=== PATIENT | male | born 1950 | race Caucasian/White ===

== ENCOUNTER 2018-03-27 10:17 | Observation (INO) | payer MEDICARE, OTHER, SELFPAY ==
[2018-03-27] VITALS (11 sets, daily range): BP systolic 116–169; BP diastolic 70–104; PULSE 75–106; RESP 14–20; TEMP 36.4–37; O2SAT 94–98; BMI 33.2; BMI 31.6
[2018-03-27 10:26] LABS: Bedside Glucose 180 mg/dL (70-110)
--- NOTE | 2018-03-27 10:36 | RAD_ITS ---
STUDY: X-RAY CHEST REASON FOR EXAM: Male, 67 years old. Seizures, fever TECHNIQUE: Single AP portable view of the chest. COMPARISON: 07/26/2017 FINDINGS: EKG leads overlie the chest The lungs are clear and expanded. There is no demonstrated pleural abnormality. Normal size heart. Normal mediastinum and clementina. Normal visualized pulmonary arteries. Normal visualized aortic arch and descending thoracic aorta. Normal visualized thoracic spine. Normal visualized ribs, clavicles, and shoulders. There is no demonstrated abnormality of the visualized soft tissue structures of the upper abdomen. RAD/Chest 1 View (Portable) IMPRESSION: Normal x-ray examination of the chest. Electronically Signed: Tung Hamilton MD at 11:20 EDT , Service support ,
--- NOTE | 2018-03-27 10:36 | CT_ITS ---
STUDY: CT BRAIN WITHOUT CONTRAST REASON FOR EXAM: Male, 67 years old. History of seizure and left leg weakness. RADIATION DOSAGE (If Supplied By Facility): CTDIvol = ( 44.99 ) mGy, DLP = ( 829.85 ) mGycm TECHNIQUE: Transaxial CT imaging of the brain was performed without administration of intravenous contrast material. Individualized dose optimization techniques were used for this CT. COMPARISON: 11/02/2016. FINDINGS: Normal soft tissue structures. Normal calvarium. There is mild cerebral atrophy with widening of the extra-axial spaces and ventricular dilatation. There is a low-density lesion in the right temporoparietal region associated with mild dilatation of the right lateral ventricle consistent with old infarct. Normal basal ganglia and thalami. Normal brainstem. Normal cerebellum. There is no intracranial hemorrhage. There are no findings of an acute ischemic infarction. Normal visualized paranasal sinuses. CT/Brain/Head without Contrast IMPRESSION: Old right temporoparietal infarct. No acute intracranial process. If symptoms persist, MRI of the brain is recommended. Electronically Signed: Elpidio Knapp MD at 12:45 EDT Tel , Service support ,
--- NOTE | 2018-03-27 10:36 | EKG12_ITS ---
Test Reason : CHEST PAIN Blood Pressure : / mmHG Vent. Rate : 108 BPM Atrial Rate : 108 BPM P-R Int : 138 ms QRS Dur : 074 ms QT Int : 334 ms P-R-T Axes : 054 014 035 degrees QTc Int : 447 ms Sinus tachycardia Otherwise normal ECG Confirmed by SONU ANDERSON, GLADIS ([id number]), assistant film editor JUSTIN COATES ([id number] on 03/29/2018 3:15:33 PM Referred By: JALEN/ANTONINA Confirmed By:GLADIS ASCENCIO MD
[2018-03-27 10:48] LABS: Absolute Lymphocyte Count 1.23 X10^3/ul (0.83-4.51); Absolute Neutrophil Count 6.4 X10^3/uL (2.0-7.7); Basophil# 0.03 X10^3/uL; Basophil% 0.4 % (0-1); Eosinophil# 0.08 X10^3/uL; Eosinophils% 0.9 % (0-5); Hematocrit 47.4 % (40-54); Lymphocyte # 1.23 X10^3/ul (4.0); Lymphocyte % 14.5 % (19-41); Mean Corp Hgb Conc 33.8 g/gl (32-36); Mean Corpuscular Hgb 29.5 pg (27.0-32.0); Mean Corpuscular Volume 87.3 fL (80-94); Mean Platelet Vol. 9.9 fl (6.2-12.0); Monocyte# 0.66 X10^3/uL; Monocyte% 7.8 % (0-10); Neutrophil # 6.43 X10^3/uL (2.7-7.7); POSITIVE COUNT NO; POSITIVE DIFFERENTIAL NO; POSITIVE MORPHOLOGY NO; Platelet Count 131 K/mm3 (150-450); RBC Distribution Width CV 13.6 % (11.6-14.6); Red Blood Count 5.43 M/mm3 (4.6-6.2); White Blood Count 8.5 K/mm3 (4.4-11.0)
[2018-03-27 11:01] LABS: Anion Gap 5 (5-15); BUN 26 mg/dL (7-18); BUN/Creat Ratio 18.4 RATIO (10-20); Calcium,Total 9.2 mg/dL (8.5-10.1); Chloride 109 mmol/L (98-107); Creatinine, Serum 1.41 mg/dL (0.70-1.30); EST Glomerular Filtration Rate 54 mL/min (>60); Est Glom Filt Rate - Afr Amer 65 mL/min (>60); Estimated Creatinine Clearance 53.93 ml/min; Glucose 160 mg/dL (74-106); Potassium 4.1 mmol/L (3.5-5.1); Sodium Level 142 mmol/L (136-145)
[2018-03-27] MEDS: LORazepam 2 MG/ML Syringe 1 MG IV ×2 (11:01→15:51)
--- NOTE | 2018-03-27 13:46 | NURSING ---
PCU OBS LT LEG WEAKNESS, OSSIBLE SEIZURE SEMENTI
--- NOTE | 2018-03-27 14:49 | MRI_ITS ---
STUDY: MRA OF THE HEAD WITHOUT CONTRAST REASON FOR EXAM: Male, 67 years old. Left arm weakness for 2 days. TECHNIQUE: 3-D [id number]-[id number] (TOF) imaging was performed with MIPs. The study was performed unenhanced. COMPARISON: MRA of the [place] dated November 02, 2016. FINDINGS: Normal bilateral petrous carotid arteries. There is elongation and tortuosity of the right cavernous carotid artery, without a demonstrated hemodynamically significant stenosis. There is elongation and tortuosity of the left cavernous carotid artery, without a demonstrated hemodynamically significant stenosis. Normal right A1 segments of the anterior cerebral artery. Normal left A1 segments of the anterior cerebral artery. Normal intact anterior communicating artery (ACOM). Normal bilateral A2 segments of the anterior cerebral arteries. Normal right M1 and M2 segments of the middle cerebral arteries, with a normal M1 bifurcation. Normal left M1 and M2 segments of the middle cerebral arteries, with a normal M1 bifurcation. Normal right posterior communicating artery (PCOM). Normal left posterior communicating artery (PCOM). There is a small atretic right vertebral artery with a dominant left vertebral artery. Normal basilar artery with a normal basilar bifurcation. The visualized bilateral superior cerebellar (SCA) arteries are normal. Normal bilateral P1, P2 and visualized P3 segments of the posterior cerebral arteries. There is no demonstrated aneurysm of the [place]. There is no major vessel occlusion or hemodynamically significant stenosis. There are mild involutional changes of the brain. MRI/MRA Head ONLY without Contrast IMPRESSION: 1. Apparent recanalization of the distal right M1 segment since the previous MRA. 2. No MRA evidence for hemodynamically significant stenosis or aneurysm. Electronically Signed: Vanda De La Torre MD at 19:55 EDT , Service support ,
--- NOTE | 2018-03-27 14:49 | MRI_ITS ---
STUDY: MRA NECK WITHOUT CONTRAST REASON FOR EXAM: Male, 67 years old. History of previous CVA with left arm weakness. TECHNIQUE: Source images were obtained, MIPs were performed. The study was performed unenhanced. Multiple images are limited by patient motion. COMPARISON: MRA of the neck dated November 02, 2016. FINDINGS: RIGHT CAROTID ARTERIES: Only the distal right common carotid artery is visualized on this study. The distal right common carotid artery is patent to the bifurcation. There is mild atherosclerotic plaque formation with minimal narrowing of the right carotid bulb. There is mild atherosclerotic plaque formation of the origin of the right internal carotid artery with less than 50% cross sectional diameter stenosis. Normal visualized cervical portion of the right internal carotid artery. Normal origin of the right external carotid artery (ECA). LEFT CAROTID ARTERIES: Only the distal left common carotid artery is imaged on this study. The distal left common carotid artery is patent to the bifurcation. There is mild atherosclerotic plaque formation with minimal narrowing of the left carotid bulb. Normal origin of the left internal carotid (ICA) artery without a hemodynamically significant stenosis. Normal visualized cervical portion of the left internal carotid artery. Normal origin of the left external carotid artery (ECA). VERTEBRAL ARTERIES: There is antegrade flow within the bilateral vertebral arteries with a small right vertebral artery, and a dominant left vertebral artery. MRI/MRA Neck without Contrast IMPRESSION: Technically limited MRA due to patient motion without evidence for hemodynamically significant stenosis. Electronically Signed: Vanda De La Torre MD at 20:01 EDT , Service support ,
--- NOTE | 2018-03-27 14:49 | MRI_ITS ---
STUDY: MRI BRAIN WITHOUT CONTRAST REASON FOR EXAM: Male, 67 years old. Left arm weakness for 2 days. TECHNIQUE: Standardized multiplanar fat and water weighted pulse sequences were obtained. Multiple images are limited by patient motion. COMPARISON: CT the head dated March 27, 2018. FINDINGS: There is mild cerebral atrophy with widening of the extra-axial spaces and ventricular dilatation. There is encephalomalacia involving the right temporal lobe and posterior right frontal lobe consistent with old infarcts There are a limited number of small white matter hyperintensities, distributed throughout the deep white matter tracts of the cerebral hemispheres, consistent with mild chronic white matter ischemic changes. There is abnormal T2 hyperintensity within the right frontal lobe adjacent to the area of encephalomalacia, likely related to gliosis. There is curvilinear susceptibility artifact in the right frontal lobe probably related to petechial hemorrhage and previous infarct. There is no evidence for recent intracranial ischemia or other cause of cytotoxic edema on diffusion weighted imaging (DWI). Normal bilateral basal ganglia. Normal thalami. There is no extra-axial fluid accumulation. Normal flow voids within the major intracranial circulation suggesting patency by spin echo criteria. Normal sella turcica, pituitary gland, infundibular stalk, optic chiasm and hypothalamus. Normal tectal plate and pineal gland. Normal midbrain, krista and medulla. There are mild involutional changes of the cerebellum. Normal basal cisterns. 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 Normal bilateral internal auditory canals. No demonstrated orbital abnormality, within the constraints of a routine brain study. There is a small right maxillary mucous retention cyst. There is Thickening in the right maxillary sinus. There is mild mucoperiosteal thickening in the ethmoid sinuses. Normal calvarium and skull base. Normal visualized soft tissue structures. Normal visualized upper cervical spine. MRI/Brain without Contrast IMPRESSION: 1. Involutional changes of the brain, as described above. 2. Sequela of old right middle cerebral artery territory infarct. 3. No MR evidence for acute infarct. Electronically Signed: Vanda De La Torre MD at 20:08 EDT , Service support ,
--- NOTE | 2018-03-27 15:03 | PCM.HP.STD ---
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 He never lost consciousness. He was treated with Dilantin and Ativan and kept in the ED overnight. He had no fecal or urinary incontinence and did not bite his tongue.He was very sweaty. His states the seizures stopped about midnight and he was discharged from the ED this morning. They drove straight to [facility] ED and he c/o persistent shaking of the LUE and also Left leg weakness. Recently he tells me that he has been having some difficulty swallowing and his states that he coughs when he is eating and drinking, like it is going down the wrong pipe. He mowed his grass yesterday with a push avionics test technician and had no difficulty. He has been walking a lot recently with no problem. His last generalized tonic-clonic seizure was in July 2017 and he was admitted to [facility] at that time. An EEG showed generalized slowing in the right hemisphere consistent with previous CVA with no epileptiform activity. He has been on Keppra 750 mg BID which he is compliant with. Vital signs at presentation to the emergency room are temperature 98.6, pulse rate 106, blood pressure 169/97, respiratory rate 19 and pulse ox is 98% on room air. CT brain showed no hemorrhage and no acute findings. CBC is unremarkable with the exception mom for a mildly decreased platelet count 131,000. Electrolytes are unremarkable but the BUN is elevated at 26 and the creatinine is 1.41. Serum ammonia is normal at 17. Glucose was 160. In the ED they had an NIH score of 1. Per my exam he has weakness of the LUE and also has ataxia. He is right hand dominant. He has a mild left facial droop which his states is unchanged. He is being admitted to the hospital with focal motor seizure and weakness/ataxia of the LUE. Past Medical History Past Medical History (Chronic Problems): Chronic Problems DM2 (diabetes mellitus, type 2) (Chronic) Dyslipidemia (Chronic) HTN (hypertension) (Chronic) CVA (cerebral vascular accident) (Chronic) Allergies No Known Allergies Allergy (Verified 03/27/18 10:31) Home Medications: Ambulatory Orders Medication Instructions Recorded Metformin HCl [Glucophage] 500 mg PO BIDCM 12/14/14 Clopidogrel Bisulfate [Plavix] 75 mg PO DAILY 07/26/17 Fenofibrate Nanocrystallized 145 mg PO DAILY 07/26/17 [Fenofibrate] Insulin Glargine [Lantus SoloStar 24 units SC QHS 07/26/17 Pen] Insulin Lispro [Humalog] 10 - 12 unit SQ BIDCM 07/26/17 Lisinopril [Zestril] 30 mg PO DAILY 07/26/17 [place]-3 Fatty Acids [[place]-3] 1,000 mg PO DAILY 07/26/17 Pravastatin [Pravachol] 20 mg PO QHS 07/26/17 [place] 80 mg PO DAILY 10/11/17 levETIRAcetam tablet [Keppra] 750 mg PO BID 03/27/18 Surgical History: cholecystectomy, herniorrhaphy Psychiatric History: No pertinent psych hx Lives: Spouse/ Significant Other Smoking Status: Never smoker Tobacco Use: Non-smoker Alcohol: None Drugs: None - *Family History Maternal History Items: Cancer, - - ovarian cancer Paternal History Items: Heart Disease Sibling History Items: - - brother with abdominal aortic anuerysm Review of Systems Constitutional: Reports: - - he had diaphoresis in the ED at outside facility last night. Denies: Anorexia, Chills, Fever Eyes: Denies: Blurred vision, Double vision, Vision Change HEENT: Reports: Difficulty Hearing, Difficulty Swallowing. Denies: Head Aches, Sinus Congestion, Sore Throat Cardiovascular: Denies: Chest Pain, Edema, Heaviness, Light Headedness, Palpitations Respiratory: Denies: Cough, Shortness of breath at rest, Sputum production Gastrointestinal: Denies: Abdominal Pain, Nausea, Vomiting Genitourinary: Denies: Dysuria Musculoskeletal: Denies: Joint Pain, Joint Tenderness Skin: Denies: Rash, Wounds Neurological: Reports: Change in Speech - states she thinks his speech is a little more slurred recently, Difficulty swallowing, Focal weakness - LUE, Incoordination - with the Left hand, Seizures. Denies: Balance problems, Confusion Psychiatric: Denies: Anxiety, Depression, Homicidal Ideations, Suicidal Ideations Endocrine: Denies: Change in Body Habitus Hematologic/ Lymphatic: Denies: Hx of blood clot VTE Information - Inpt Only VTE Present on Admission: No VTE Mechan Device Prophylaxis: Knee High KIRBY Hose VTE Pharm Prophylaxis ordered?: Yes - Physical Exam General: Alert, Cooperative, Well developed, Well nourished HEENT: Atraumatic, PERRLA, EOMI, Normocephalic Oral: No Gingival or Mucosal Lesions/ Ulcerations, Dry Mucosa Neck: Supple, No JVD, Negative Carotid Bruits, No Nodes, No Nuchal Rigidity, Trachea Midline Lungs: Clear to auscultation Cardiovascular: Regular rate, Regular Rhythm, Normal S1, Normal S2, No murmurs, No rub noted, No Gallop Abdomen: Bowel Sounds Present, Soft, Non Tender, Non-Distended, - Extremities: No clubbing, No cyanosis - No guarding with palpation, no bruits, No edema, No Calf Tenderness Skin: No rashes, No breakdown Musculoskeletal: No Muscle Wasting Neurological: - - left facial droop - mild, ataxia with the LUE and weakness, having uncontrollable shaking of the left arm, 5/5 strength other than the LUE, intact sensation Psych/Mental Status: Normal Affect, Appropriate Vital Signs Temp Pulse Resp BP Pulse Ox 98.6 F 87 16 134/92 H 95 03/27/18 10:21 03/27/18 14:04 03/27/18 14:04 03/27/18 14:04 03/27/18 14:04 Weight: 226 lb 10.163 oz Body Mass Index (BMI) 31.6 Assessment/Plan Impressions 1. Focal motor seizures with no LOC. Secondary to extension of previous CVA?, breakthrough seizures? 2. Weakness of LUE - due to CVA? or to Waqas's paralysis 3. hx of R cerebral CVA in 2016 4. seizure disorder 5. Diabetes mellitus type II 6. Hyperlipidemia 7. Hypertension MRI of the brain and MRA of the head and neck Neurology consult Start Gabapentin for focal seizures Ativan PRN seizures stroke protocol initiated Lovenox for DVT prophylaxis Continue Home medications Add ASA to the drug regimen Code Visit OBSV E&M: 58530 Initial observation care L3
--- NOTE | 2018-03-27 15:16 | ED.VISSUMM ---
- ER Visit Summary Date of Service: 03/27/18 Chief Complaint: Seizure History of Present Illness: The patient is a [address] Payne and Dr. Pearson. He reports that he has a history of seizures that began in July 2017. He has a prior stroke as the nidus for these. States that his last seizure prior to yesterday was in September 2017. He is on 750 mg of Keppra twice daily. Patient reports that he was much more active than usual yesterday and that at approximately 730 he began having diffuse shaking. He went to [facility] emergency department and reports that he was given Ativan and Dilantin and that at midnight they were finally slowing down. He was kept in the emergency department overnight due to sedation from the Ativan. reports that he was discharged at 630 and then she was told they were muscle spasms. She drove him straight here because she states she he is unable to walk. Patient complains of weakness and spasms in his left arm. He also has weakness in his left leg. He denies any difficulty with his speech. No numbness. No double vision. No vertigo. No aphasia. Physical Examination: Vitals: Stable. Afebrile. General: Well-nourished and well-developed. Head: Normocephalic atraumatic. Neck: Supple, no lymphadenopathy. No JVD. Nontender. Cardiovascular: Regular rate and rhythm. No murmurs. Respiratory: No respiratory distress. Clear to auscultation bilaterally. Abdominal: Soft, nontender, nondistended, normal bowel sounds. No guarding, rebound, or peritoneal signs. Back: Nontender. Extremities: Nontender, no edema. Skin: Normal color, no rash. Neurologic: Alert and oriented ?3. Cranial nerves II through XII are intact. Normal strength and sensation. He does have ataxia in his left upper extremity which is very difficult for him to control. His NIH scale is 1. Psych: Normal affect. Test Results: CT brain shows an old right temporoparietal infarct and no acute disease. Chest x-ray is normal. EKG is sinus tachycardia 108 with no acute changes. CBC is more for platelets 131, segmented neutrophils 76, lymphs lites 15. Chem-7 is more for chloride 109, glucose 160, BUN 26, creatinine 1.41. Emergency Department Course and Treatment: Patient is not a TPA candidate due to the timeframe and the fact that his NIH scale is 1. However, these are very atypical for seizures. 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 He was given a dose of Ativan and is resting comfortably. He is taken his Keppra this morning prior to arrival. Treatment Plan: Patient was discussed with Dr. Payne and Dr. Duarte. A ammonia level was sent and he will be admitted for MRI and further evaluation. Disposition: Admitted in stable condition. Impression: 1. Seizure, recurrent. 2. History of right temporal parietal infarct. This note was generated with [employer] dictation software. It may contain incorrect words, spelling, and punctuation that were not noted in review of the chart prior to signing ED Disposition - Plan for ED Patient: Disposition: Acute Care Hospital [facility] Chief Complaint: Weakness
--- NOTE | 2018-03-27 15:19 | ED.DCSUM_ITS ---
- ER Visit Summary Date of Service: 03/27/18 Chief Complaint: Seizure History of Present Illness: The patient is a [address] Payne and Dr. Pearson. He reports that he has a history of seizures that began in July 2017. He has a prior stroke as the nidus for these. States that his last seizure prior to yesterday was in September 2017. He is on 750 mg of Keppra twice daily. Patient reports that he was much more active than usual yesterday and that at approximately 730 he began having diffuse shaking. He went to [facility] emergency department and reports that he was given Ativan and Dilantin and that at midnight they were finally slowing down. He was kept in the emergency department overnight due to sedation from the Ativan. reports that he was discharged at 630 and then she was told they were muscle spasms. She drove him straight here because she states she he is unable to walk. Patient complains of weakness and spasms in his left arm. He also has weakness in his left leg. He denies any difficulty with his speech. No numbness. No double vision. No vertigo. No aphasia. Physical Examination: Vitals: Stable. Afebrile. General: Well-nourished and well-developed. Head: Normocephalic atraumatic. Neck: Supple, no lymphadenopathy. No JVD. Nontender. Cardiovascular: Regular rate and rhythm. No murmurs. Respiratory: No respiratory distress. Clear to auscultation bilaterally. Abdominal: Soft, nontender, nondistended, normal bowel sounds. No guarding, rebound, or peritoneal signs. Back: Nontender. Extremities: Nontender, no edema. Skin: Normal color, no rash. Neurologic: Alert and oriented ?3. Cranial nerves II through XII are intact. Normal strength and sensation. He does have ataxia in his left upper extremity which is very difficult for him to control. His NIH scale is 1. Psych: Normal affect. Test Results: CT brain shows an old right temporoparietal infarct and no acute disease. Chest x-ray is normal. EKG is sinus tachycardia 108 with no acute changes. CBC is more for platelets 131, segmented neutrophils 76, lymphs lites 15. Chem-7 is more for chloride 109, glucose 160, BUN 26, creatinine 1.41. Emergency Department Course and Treatment: Patient is not a TPA candidate due to the timeframe and the fact that his NIH scale is 1. However, these are very atypical for seizures. 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 He was given a dose of Ativan and is resting comfortably. He is taken his Keppra this morning prior to arrival. Treatment Plan: Patient was discussed with Dr. Pyane and Dr. Duarte. A ammonia level was sent and he will be admitted for MRI and further evaluation. Disposition: Admitted in stable condition. Impression: 1. Seizure, recurrent. 2. History of right temporal parietal infarct. This note was generated with [employer] dictation software. It may contain incorrect words, spelling, and punctuation that were not noted in review of the chart prior to signing ED Disposition - Plan for ED Patient: Disposition: Acute Care Hospital [facility] Chief Complaint: Weakness
--- NOTE | 2018-03-27 15:25 | HP.PCM_ITS ---
Problem List (1) Seizure Status: Acute (2) CVA (cerebral vascular accident) Status: Chronic Qualifiers: (3) DM2 (diabetes mellitus, type 2) Status: Chronic (4) Dyslipidemia Status: Chronic (5) HTN (hypertension) Status: Chronic (6) Waqas's paralysis Status: Suspected History of Present Illness Date of Admission: 03/27/18 Chief Complaint: uncontrollable shaking of the LUE with weakness The patient is a 67 year old M with a PMH of a R side CVA in 2016, seizure disorder, HTN, DM II, HLD and obesity who was in [place] on 03/26/18 and went to the ED there for uncontrollable shaking of his body. He never lost consciousness. He was treated with Dilantin and Ativan and kept in the ED overnight. He had no fecal or urinary incontinence and did not bite his tongue.He was very sweaty. His states the seizures stopped about midnight and he was discharged from the ED this morning. They drove straight to [facility] ED and he c/o persistent shaking of the LUE and also Left leg weakness. Recently he tells me that he has been having some difficulty swallowing and his states that he coughs when he is eating and drinking, like it is going down the wrong pipe. He mowed his grass yesterday with a push environmental health physician and had no difficulty. He has been walking a lot recently with no problem. His last generalized tonic-clonic seizure was in July 2017 and he was admitted to [facility] at that time. An EEG showed generalized slowing in the right hemisphere consistent with previous CVA with no epileptiform activity. He has been on Keppra 750 mg BID which he is compliant with. Vital signs at presentation to the emergency room are temperature 98.6, pulse rate 106 , blood pressure 169/97, respiratory rate 19 and pulse ox is 98% on room air. CT brain showed no hemorrhage and no acute findings. CBC is unremarkable with the exception mom for a mildly decreased platelet count 131,000. Electrolytes are unremarkable but the BUN is elevated at 26 and the creatinine is 1.41. Serum ammonia is normal at 17. Glucose was 160. In the ED they had an NIH score of 1. Per my exam he has weakness of the LUE and also has ataxia. He is right hand dominant. He has a mild left facial droop which his states is unchanged. He is being admitted to the hospital with focal motor seizure and weakness/ataxia of the LUE. Past Medical History Past Medical History (Chronic Problems): Chronic Problems DM2 (diabetes mellitus, type 2) (Chronic) Dyslipidemia (Chronic) HTN (hypertension) (Chronic) CVA (cerebral vascular accident) (Chronic) Allergies No Known Allergies Allergy (Verified 03/27/18 10:31) Home Medications: Ambulatory Orders Medication Instructions Recorded Metformin HCl [Glucophage] 500 mg PO BIDCM 12/14/14 Clopidogrel Bisulfate [Plavix] 75 mg PO DAILY 07/26/17 Fenofibrate Nanocrystallized 145 mg PO DAILY 07/26/17 [Fenofibrate] Insulin Glargine [Lantus SoloStar 24 units SC QHS 07/26/17 Pen] Insulin Lispro [Humalog] 10 - 12 unit SQ BIDCM 07/26/17 Lisinopril [Zestril] 30 mg PO DAILY 07/26/17 [place]-3 Fatty Acids [[place]-3] 1,000 mg PO DAILY 07/26/17 Pravastatin [Pravachol] 20 mg PO QHS 07/26/17 Saw [place] 80 mg PO DAILY 10/11/17 levETIRAcetam tablet [Keppra] 750 mg PO BID 03/27/18 Surgical History: cholecystectomy, herniorrhaphy Psychiatric History: No pertinent psych hx Lives: Spouse/ Significant Other Smoking Status: Never smoker Tobacco Use: Non-smoker Alcohol: None Drugs: None - *Family History Maternal History Items: Cancer, - - ovarian cancer Paternal History Items: Heart Disease Sibling History Items: - - brother with abdominal aortic anuerysm Review of Systems Constitutional: Reports: - - he had diaphoresis in the ED at outside facility last night. Denies: Anorexia, Chills, Fever Eyes: Denies: Blurred vision, Double vision, Vision Change HEENT: Reports: Difficulty Hearing, Difficulty Swallowing. Denies: Head Aches, Sinus Congestion, Sore Throat Cardiovascular: Denies: Chest Pain, Edema, Heaviness, Light Headedness, Palpitations Respiratory: Denies: Cough, Shortness of breath at rest, Sputum production Gastrointestinal: Denies: Abdominal Pain, Nausea, Vomiting Genitourinary: Denies: Dysuria Musculoskeletal: Denies: Joint Pain, Joint Tenderness Skin: Denies: Rash, Wounds Neurological: Reports: Change in Speech - states she thinks his speech is a little more slurred recently, Difficulty swallowing, Focal weakness - LUE, Incoordination - with the Left hand, Seizures. Denies: Balance problems, Confusion Psychiatric: Denies: Anxiety, Depression, Homicidal Ideations, Suicidal Ideations Endocrine: Denies: Change in Body Habitus Hematologic/ Lymphatic: Denies: Hx of blood clot VTE Information - Inpt Only VTE Present on Admission: No VTE Mechan Device Prophylaxis: Knee High KIRBY Hose VTE Pharm Prophylaxis ordered?: Yes - Physical Exam General: Alert, Cooperative, Well developed, Well nourished HEENT: Atraumatic, PERRLA, EOMI, Normocephalic Oral: No Gingival or Mucosal Lesions/ Ulcerations, Dry Mucosa Neck: Supple, No JVD, Negative Carotid Bruits, No Nodes, No Nuchal Rigidity, Trachea Midline Lungs: Clear to auscultation Cardiovascular: Regular rate, Regular Rhythm, Normal S1, Normal S2, No murmurs, No rub noted, No Gallop Abdomen: Bowel Sounds Present, Soft, Non Tender, Non-Distended, - Extremities: No clubbing, No cyanosis - No guarding with palpation, no bruits, No edema, No Calf Tenderness Skin: No rashes, No breakdown Musculoskeletal: No Muscle Wasting Neurological: - - left facial droop - mild, ataxia with the LUE and weakness, having uncontrollable shaking of the left arm, 5/5 strength other than the LUE, intact sensation Psych/Mental Status: Normal Affect, Appropriate Vital Signs Temp Pulse Resp BP Pulse Ox 98.6 F 87 16 134/92 H 95 03/27/18 10:21 03/27/18 14:04 03/27/18 14:04 03/27/18 14:04 03/27/18 14:04 Weight: 226 lb 10.163 oz Body Mass Index (BMI) 31.6 Assessment/Plan Impressions 1. Focal motor seizures with no LOC. Secondary to extension of previous CVA?, breakthrough seizures? 2. Weakness of LUE - due to CVA? or to Waqas's paralysis 3. hx of R cerebral CVA in 2016 4. seizure disorder 5. Diabetes mellitus type II 6. Hyperlipidemia 7. Hypertension MRI of the brain and MRA of the head and neck Neurology consult Start Gabapentin for focal seizures Ativan PRN seizures stroke protocol initiated Lovenox for DVT prophylaxis Continue Home medications Add ASA to the drug regimen Code Visit OBSV E&M: 10647 Initial observation care L3
[2018-03-27 15:26] LABS: Prothrombin Time (Protime)PT. 12.7 SECONDS (11.7-14.9)
[2018-03-27 15:34] LABS: CPK Total, Creatine Kinase 943 U/L (39-308); Phosphorus 2.8 mg/dL (2.5-4.9)
[2018-03-27] MEDS: 0.9% NaCl Peripheral Flush Adult/Peds IV ×2 (15:51→17:34)
[2018-03-27 16:04] LABS: AST(SGOT) 35 U/L (15-37); Alanine Aminotransfer ALT/SGPT 17 U/L (16-61); Albumin, Serum 3.4 g/dL (3.2-5.0); Alkaline Phosphatase 50 U/L (45-117); Bilirubin, Direct < 0.05 mg/dL (0.00-0.30); Globulin 2.9 g/dL (2.2-4.2); Magnesium 1.9 mg/dL (1.6-2.6); Protein, Total 6.3 g/dL (6.4-8.2)
[2018-03-27 16:32] LABS: Hemoglobin A1c 6.3 % (4.2-6.3)
[2018-03-27] MEDS: 0.9% Normal Saline 1,000 ML 100 ML IV (17:31)
[2018-03-27 17:55] LABS: Bedside Glucose 119 mg/dL (70-110)
[2018-03-27] MEDS: Aspirin 81 MG TAB.CHEW 162 MG PO (18:41)
[2018-03-27] MEDS: Gabapentin 300 MG Capsule PO (21:37)
[2018-03-27] MEDS: levETIRAcetam 500 MG Tablet 750 MG PO (21:38)
[2018-03-27 22:20] LABS: Bedside Glucose 173 mg/dL (70-110)
[2018-03-28] VITALS (10 sets, daily range): BP systolic 120–141; BP diastolic 73–80; PULSE 72–91; RESP 16–18; TEMP 36.4–36.9; O2SAT 93–100
[2018-03-28] MEDS: 0.9% Normal Saline 1,000 ML 100 ML IV ×2 (03:59→13:58)
[2018-03-28 06:37] LABS: Anion Gap 9 (5-15); BUN 17 mg/dL (7-18); BUN/Creat Ratio 14.8 RATIO (10-20); Calcium,Total 8.3 mg/dL (8.5-10.1); Chloride 113 mmol/L (98-107); Cholesterol 139 mg/dL (200); Creatinine, Serum 1.15 mg/dL (0.70-1.30); EST Glomerular Filtration Rate 68 mL/min (>60); Est Glom Filt Rate - Afr Amer 82 mL/min (>60); Estimated Creatinine Clearance 68.21 ml/min; Glucose 110 mg/dL (74-106); High Density Lipoprotein 19 mg/dL; Potassium 3.9 mmol/L (3.5-5.1); Sodium Level 143 mmol/L (136-145); Triglycerides 374 mg/dL; Very Low Density Lipoprotein 75 mg/dL (5-40)
[2018-03-28 07:01] LABS: Bedside Glucose 107 mg/dL (70-110)
[2018-03-28] MEDS: Lisinopril 20 MG Tablet 30 MG PO (09:10)
[2018-03-28] MEDS: Aspirin 81 MG TAB.CHEW PO (09:11)
[2018-03-28] MEDS: Gabapentin 300 MG Capsule PO ×2 (09:11→12:00)
[2018-03-28] MEDS: Fenofibrate 145 MG Tablet PO (09:11)
[2018-03-28] MEDS: Enoxaparin 40 MG/0.4 ML Syringe SC (09:11)
[2018-03-28] MEDS: Clopidogrel Bisulfate 75 MG Tablet PO (09:11)
[2018-03-28] MEDS: levETIRAcetam 500 MG Tablet 750 MG PO (09:11)
[2018-03-28 12:11] LABS: Bedside Glucose 141 mg/dL (70-110)
--- NOTE | 2018-03-28 16:41 | CON.PCM_ITS ---
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 Per patient he started having left UE shaking about 2 days ago on Wednesday (03/26/18) was went to ED in [place] where he was treated with Dilantin and Ativan, which helped but since his symptoms continued, he then was admitted to [facility]. He describes left UE shaking, without loss of awareness, denies any tongue bite, or urinary incontinence or post ictal state but complaints of left sided weakness. Per patient post his Right MCA stroke he recovered well, had some mild dexterity loss in the left hand but otherwise ambulates without any cane or walker, denies any frequent falls, does drive and does not need any assistance for his ADLs. He denies any PACE, visual disturbances or sensory loss at present. [] Past Medical History Past Medical History (Chronic Problems): Chronic Problems DM2 (diabetes mellitus, type 2) (Chronic) Dyslipidemia (Chronic) HTN (hypertension) (Chronic) CVA (cerebral vascular accident) (Chronic) Allergies No Known Allergies Allergy (Verified 03/27/18 10:31) Home Medications: Ambulatory Orders Medication Instructions Recorded Metformin HCl [Glucophage] 500 mg PO BIDCM 12/14/14 Clopidogrel Bisulfate [Plavix] 75 mg PO DAILY 07/26/17 Fenofibrate Nanocrystallized 145 mg PO DAILY 07/26/17 [Fenofibrate] Insulin Glargine [Lantus SoloStar 24 units SC QHS 07/26/17 Pen] Insulin Lispro [Humalog] 10 - 12 unit SQ BIDCM 07/26/17 Lisinopril [Zestril] 30 mg PO DAILY 07/26/17 [place]-3 Fatty Acids [[place]-3] 1,000 mg PO DAILY 07/26/17 Pravastatin [Pravachol] 20 mg PO QHS 07/26/17 Saw [place] 80 mg PO DAILY 10/11/17 levETIRAcetam tablet [Keppra] 750 mg PO BID 03/27/18 Surgical History: cholecystectomy, herniorrhaphy Psychiatric History: No pertinent psych hx Lives: Spouse/ Significant Other Smoking Status: Never smoker Tobacco Use: Non-smoker Alcohol: None Drugs: None - *Family History Maternal History Items: Cancer, - - ovarian cancer Paternal History Items: Heart Disease Sibling History Items: - - brother with abdominal aortic anuerysm Review of Systems Constitutional: Reports: - - complete ROS negative except as documented in HPI - Physical Exam General: Alert HEENT: Normocephalic Neck: Supple Lungs: Clear to auscultation Cardiovascular: Normal S1, Normal S2 Abdomen: Bowel Sounds Present Extremities: No cyanosis Skin: No rashes Musculoskeletal: No Tenderness to Palpation of Joints or Extremities Neurological: - - consious, alert, AoA X3, CN 2-12 grossly intact (but has mild left facial droop which is residual from his old stroke per his ), Power right UE/LE 5/5 and left UE/LE 4/5, no sensory loss, no cerebellar signs, gait deferred, Reflexes + B/L B/S/T/K/A Vital Signs Temp Pulse Resp BP Pulse Ox 98.5 F 73 16 120/76 94 03/28/18 13:30 03/28/18 15:26 03/28/18 13:30 03/28/18 13:30 03/28/18 13:30 Oxygen Delivery Method Room Air Weight: 102.8 kg Body Mass Index (BMI) 31.6 Intake and Output for Last 24 Hours 03/26/18 03/27/18 03/28/18 23:59 23:59 23:59 Intake Total 896 / 896 1551 / 1551 Output Total 375 / 375 1275 / 1275 Balance 521 / 521 276 / 276 Laboratory Tests Past 24 Hrs 03/28/18 05:26 Sodium 143 Potassium 3.9 Chloride 113 H Carbon Dioxide 21.0 Anion Gap 9 BUN 17 Creatinine 1.15 Estim Creat Clear Calc 68.21 Est GFR (MDRD) Af Amer 82 Est GFR (MDRD) Non-Af 68 BUN/Creatinine Ratio 14.8 Glucose 110 H Calcium 8.3 L Triglycerides 374 H Cholesterol 139 LDL Cholesterol 45 VLDL Cholesterol 75 H HDL Cholesterol 19 L POC Glucose 03/28/18 03/28/18 03/27/18 11:51 06:45 21:35 POC Glucose 141 H 107 173 H 03/27/18 17:36 POC Glucose 119 H Assessment/Plan The patient is a 67 year old CM with PMH HTN, HLD, DM, H/O Right MCA stroke in October 2016, 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 Per patient he started having left UE shaking about 2 days ago on Wednesday (03/26/18) was went to ED in [place] where he was treated with Dilantin and Ativan, which helped but since his symptoms continued, he then was admitted to [facility]. He describes left UE shaking, without loss of awareness, denies any tongue bite, or urinary incontinence or post ictal state but complaints of left sided weakness. Per patient post his Right MCA stroke he recovered well, had some mild dexterity loss in the left hand but otherwise ambulates without any cane or walker, denies any frequent falls, does drive and does not need any assistance for his ADLs. He denies any PACE, visual disturbances or sensory loss at present. Impression Breakthrough seizures Post stroke Epilepsy H/O Right MCA stroke Plan -Recommend increasing Keppra to 1000 mg PO BID -MRI brain-no acute stroke -On Plavix and statin for stroke prevention. -Seizure precautions -Patient counseled not to drive for 6 months -Fall precautions. -GI/DVT prophylaxis -PT/OT/ST -Follow with Neurology as outpatient in 2 weeks -Please call with questions if any -Thank you for allowing us to participate in patient's care and management I spent 60 minutes taking history, doing physical examination, reviewing medical records, coordinating care and counseling the patient. Code Visit Inpatient E&M: 13522 Init Hosp L3
[2018-03-28 16:50] LABS: Bedside Glucose 100 mg/dL (70-110)
--- NOTE | 2018-03-28 17:29 | PCM.DC ---
You will use the following diet at home:: Other - resume previous diet. Your blood sugars are in excellent control Your food should be the consistency of: Regular Your liquids should be the consistency of: Regular/Thin Discharge Activity: May Not Drive - until you are seizure free for 6 months Call your doctor if you observe: Fever of 101 or Higher Allergies/Adverse Reactions: Allergies No Known Allergies Allergy (Verified 03/27/18 10:31) Medications to take at Discharge Metformin HCl [Glucophage] 500 mg PO BIDCM 12/14/14 Clopidogrel Bisulfate [Plavix] 75 mg PO DAILY 07/26/17 Fenofibrate Nanocrystallized [Fenofibrate] 145 mg PO DAILY 07/26/17 Insulin Glargine [Lantus SoloStar Pen] 24 units SC QHS 07/26/17 Insulin Lispro [Humalog] 10 - 12 unit SQ BIDCM 07/26/17 Lisinopril [Zestril] 30 mg PO DAILY 07/26/17 [place]-3 Fatty Acids [[place]-3] 1,000 mg PO DAILY 07/26/17 Pravastatin [Pravachol] 20 mg PO QHS 07/26/17 [place] 80 mg PO DAILY 10/11/17 levETIRAcetam tablet [Keppra tablet] 1,000 mg PO BID #60 tab 03/28/18 The following prescriptions were given: levETIRAcetam tablet [Keppra tablet] 1,000 mg PO BID #60 tab Primary Care Physician: Antonio Pearson MD [Primary Care Provider] - Please follow up with your Primary Care Physician in: as needed Please Follow Up With: Keaton Payne MD When: 2 weeks Proposed Discharge Date: 03/28/18
--- NOTE | 2018-03-28 17:32 | DCINST_ITS ---
You will use the following diet at home:: Other - resume previous diet. Your blood sugars are in excellent control Your food should be the consistency of: Regular Your liquids should be the consistency of: Regular/Thin Discharge Activity: May Not Drive - until you are seizure free for 6 months Call your doctor if you observe: Fever of 101 or Higher Allergies/Adverse Reactions: Allergies No Known Allergies Allergy (Verified 03/27/18 10:31) Medications to take at Discharge Metformin HCl [Glucophage] 500 mg PO BIDCM 12/14/14 Clopidogrel Bisulfate [Plavix] 75 mg PO DAILY 07/26/17 Fenofibrate Nanocrystallized [Fenofibrate] 145 mg PO DAILY 07/26/17 Insulin Glargine [Lantus SoloStar Pen] 24 units SC QHS 07/26/17 Insulin Lispro [Humalog] 10 - 12 unit SQ BIDCM 07/26/17 Lisinopril [Zestril] 30 mg PO DAILY 07/26/17 [place]-3 Fatty Acids [[place]-3] 1,000 mg PO DAILY 07/26/17 Pravastatin [Pravachol] 20 mg PO QHS 07/26/17 [place] 80 mg PO DAILY 10/11/17 levETIRAcetam tablet [Keppra tablet] 1,000 mg PO BID #60 tab 03/28/18 The following prescriptions were given: levETIRAcetam tablet [Keppra tablet] 1,000 mg PO BID #60 tab Primary Care Physician: Antonio Pearson MD [Primary Care Provider] - Please follow up with your Primary Care Physician in: as needed Please Follow Up With: Keaton Payne MD When: 2 weeks Proposed Discharge Date: 03/28/18
--- NOTE | 2018-03-28 17:33 | DS.PCM_ITS ---
Discharge Date and Diagnosis Date of Admission: 03/27/18 Date of Discharge: 03/28/18 - Primary Discharge Diagnosis Active and Suspected Problems Breakthrough seizures (Acute) Waqas's paralysis suspected LUE CVA - ruled out - Secondary Discharge Diagnosis Chronic Problems Post stroke Seizure disorder (Chronic) DM2 (diabetes mellitus, type 2) (Chronic)- well controlled Dyslipidemia (Chronic) HTN (hypertension) (Chronic) CVA (cerebral vascular accident) (Chronic) Hospital Course and Treatment Imaging Results: Clinical Impression(s) from Imaging Studies Brain CT 03/27/18 10:36 IMPRESSION: Old right temporoparietal infarct. No acute intracranial process. If symptoms persist, MRI of the brain is recommended. Electronically Signed: Elpidio Knapp MD at 12:45 EDT Tel , Service support , Chest X-Ray 03/27/18 10:36 IMPRESSION: Normal x-ray examination of the chest. Electronically Signed: Tung Hamilton MD at 11:20 EDT , Service support , Brain MRI 03/27/18 14:49 IMPRESSION: 1. Involutional changes of the brain, as described above. 2. Sequela of old right middle cerebral artery territory infarct. 3. No MR evidence for acute infarct. Electronically Signed: Vanda De La Torre MD at 20:08 EDT , Service support , Head MRA 03/27/18 14:49 IMPRESSION: 1. Apparent recanalization of the distal right M1 segment since the previous MRA. 2. No MRA evidence for hemodynamically significant stenosis or aneurysm. Electronically Signed: Vanda De La Torre MD at 19:55 EDT , Service support , Neck MRA 03/27/18 14:49 IMPRESSION: Technically limited MRA due to patient motion without evidence for hemodynamically significant stenosis. Electronically Signed: Vanda De La Torre MD at 20:01 EDT , Service support , Dr. Goins-neurology Operations: None Procedures: None Summary of Care Provided: The patient is a 67 year old M with a PMH of a R side CVA in 2016, seizure disorder, HTN, DM II, HLD and obesity who was in [place] on 03/26/18 and went to the ED there for uncontrollable shaking of his body. He never lost consciousness. He was treated with Dilantin and Ativan and kept in the ED overnight. He had no fecal or urinary incontinence and did not bite his tongue. He was very sweaty. His stated the seizures stopped about midnight and he was discharged from the ED. They drove straight to [facility] ED and he c/o persistent shaking of the LUE and also Left leg weakness. Recently he tells me that he has been having some difficulty swallowing and his stated that he coughs when he is eating and drinking, like it is going down the wrong pipe. He mowed his grass the previous day with a push bundler seasonal greenery and had no difficulty. He has been walking a lot with no problem. His last generalized tonic-clonic seizure was in July 2017 and he was admitted to [facility] at that time. An EEG showed generalized slowing in the right hemisphere consistent with previous CVA with no epileptiform activity. He had been on Keppra 750 mg BID which he is compliant with. Vital signs at presentation to the emergency room are temperature 98.6, pulse rate 106 , blood pressure 169/97, respiratory rate 19 and pulse ox is 98% on room air. CT brain showed no hemorrhage and no acute findings. CBC is unremarkable with the exception mom for a mildly decreased platelet count 131,000. Electrolytes are unremarkable but the BUN is elevated at 26 and the creatinine is 1.41. Serum ammonia is normal at 17. Glucose was 160. In the ED they had an NIH score of 1. Per my exam he has weakness of the LUE and also has ataxia. He is right hand dominant. He has a mild left facial droop which his states is unchanged. He was admitted to a monitored bed on PCU with a diagnosis of focal motor seizure and weakness/ataxia of the LUE. He was given Ativan and started on Neurontin as a second antiepileptic drug. Consultation was ordered with Dr. Goins. MRI of the brain was negative and MRA of the head and neck showed no significant areas of stenosis. On telemetry he was in normal sinus rhythm with no significant ectopy and no atrial fibrillation. Dr. Goins recommended discontinuing Neurontin and increasing Keppra to 1000 mg p.o. twice daily. Since there was no stroke and the patient's seizure-like activity had stopped he recommended discharge and follow-up in the neurology office in 2 weeks. He had some persistent weakness in the left upper extremity but much improved since admission. He was given a requisition to obtain outpatient physical therapy. He will follow-up with Dr. Pearson as needed and with Dr. Payne in 2 weeks. This note was generated with [employer] dictation software. It may contain incorrect words, spelling, and punctuation that were not noted in checking the note before signing. Discharge Activity: May Not Drive - until you are seizure free for 6 months Call your doctor if you observe: Fever of 101 or Higher Home Medications: Medications to take at Discharge Metformin HCl [Glucophage] 500 mg PO BIDCM 12/14/14 Clopidogrel Bisulfate [Plavix] 75 mg PO DAILY 07/26/17 Fenofibrate Nanocrystallized [Fenofibrate] 145 mg PO DAILY 07/26/17 Insulin Glargine [Lantus SoloStar Pen] 24 units SC QHS 07/26/17 Insulin Lispro [Humalog] 10 - 12 unit SQ BIDCM 07/26/17 Lisinopril [Zestril] 30 mg PO DAILY 07/26/17 [place]-3 Fatty Acids [[place]-3] 1,000 mg PO DAILY 07/26/17 Pravastatin [Pravachol] 20 mg PO QHS 07/26/17 [place] 80 mg PO DAILY 10/11/17 levETIRAcetam tablet [Keppra tablet] 1,000 mg PO BID #60 tab 03/28/18 Following Prescrptions Were Given to Patient: levETIRAcetam tablet [Keppra tablet] 1,000 mg PO BID #60 tab Other Amb Orders: Physical Therapy Evaluation Location: None Selected Primary Care Physician: Antonio Pearson MD [Primary Care Provider] - Please follow up with your Primary Care Physician in: as needed Please Follow Up With: Keaton Payne MD When: 2 weeks Disposition: Home Minutes spent on discharge:: 30 Patient Condition:: Good Medical Necessity - Tobacco Use Smoking Status: Never smoker Tobacco Use: Non-smoker Meaningful Use Info Meaningful Use Diagnoses (Choose all that apply): None applicable Code Visit OBSV E&M: 52333 Observation care discharge
== END 2018-03-28 17:32 | disposition home or self-care (01) ==
LOC: ED 10:58 → PCU 13:56
PROVIDERS: Admitting Provider Internal Medicine; Emergency Provider Emergency Medicine; Family Provider Family Medicine; PCP Family Medicine; Visit Provider Internal Medicine
DX: I69.398 Other sequelae of cerebral infarction (principal); G40.909 Epilepsy, unspecified, not intractable, without status epilepticus; E78.5 Hyperlipidemia, unspecified; I10 Essential (primary) hypertension; E11.9 Type 2 diabetes mellitus without complications; E66.9 Obesity, unspecified; Z68.31 Body mass index [BMI] 31.0-31.9, adult; Z71.3 Dietary counseling and surveillance; R29.810 Facial weakness; R27.0 Ataxia, unspecified; I69.354 Hemiplegia and hemiparesis following cerebral infarction affecting left non-dominant side; Z79.02 Long term (current) use of antithrombotics/antiplatelets; Z79.4 Long term (current) use of insulin; Z79.899 Other long term (current) drug therapy; R13.10 Dysphagia, unspecified; R47.81 Slurred speech; R25.2 Cramp and spasm
CPT/HCPCS: 36415; 70450; 70544; 70547; 70551; 71045; 80048; 80061; 80076; 80185; 82140; 82550; 82962; 83036; 83735; 84100; 84484; 85025; 85610; 93005; 96361; 96372; 96374; 96376; 97162; 97165; 99218; 99285; J7030; J7040; A4216; G0378

== ENCOUNTER 2018-04-09 08:02 | Emergency (ER) | payer MEDICARE, OTHER, SELFPAY ==
[2018-04-09 08:03] VITALS: BP 164/83; PULSE 81; RESP 16; TEMP 36.2; O2SAT 96; BMI 30.2
--- NOTE | 2018-04-09 08:31 | EKG12_ITS ---
Test Reason : SEIZURES Blood Pressure : / mmHG Vent. Rate : 077 BPM Atrial Rate : 077 BPM P-R Int : 138 ms QRS Dur : 080 ms QT Int : 384 ms P-R-T Axes : 043 -05 005 degrees QTc Int : 434 ms Sinus rhythm with Premature supraventricular complexes Otherwise normal ECG Confirmed by SERINA BUTLER ([id number]), video effects editor JUSTIN COATES ([id number] on 04/18/2018 6:03:23 PM Referred By: MARIBELL Confirmed By:SERINA BUTLER
[2018-04-09] MEDS: 0.9% Normal Saline 1,000 ML 1000 ML IV (08:47)
[2018-04-09] MEDS: LORazepam 2 MG/ML Syringe 1 MG IV (08:47)
--- NOTE | 2018-04-09 08:47 | ED.VISSUMM ---
- ER Visit Summary Date of Service: 04/09/18 Chief Complaint: [Seizure] History of Present Illness: The patient is a 67 M [who presents the emergency department complaining of seizure. He had a stroke that left him with residual left-sided weakness in 2015. He started having seizures in 2016. He is on Keppra 2000 mg a day. He was admitted 2 weeks ago for seizures. In the past 4 days he has taken Ativan 3 times. This morning his left arm started cramping which is a prodrome to his tonic-clonic seizures he took 1 mg of p.o. Ativan and came into the emergency department. He continues to complain of some cramping in his left hand and spasm when he was admitted previously he did have an MRI MRA of the brain and neck. These did not show any new acute process. He followed up with neurology on Wednesday and his Keppra dosing was changed to 500 mg in the morning thousand milligrams in midday and 500 at night. He has not had any signs of infection or other symptoms may lower seizure threshold Physical Examination: [] Blood pressure 164/83 WN WD NAD PERRL EOMI MMM NECK supple and nontender, no masses RRR out of 6 systolic murmur heard best at the left upper sternal border rub or gallop, no peripheral edema, symmetric radial pulses CTAB no respiratory distress ABDOMEN is soft and nontender, normal bowel sounds, no distension, no rebound or guarding SKIN is warm and dry no rashes NIH is 3 for chronic findings of left facial droop and left arm weakness and left leg weakness. 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 Babinski is downgoing bilaterally No lymphadenopathy Test Results: [] Emergency Department Course and Treatment: [Patient was given fluids. He was given a dose of IV Ativan 1 mg. Screening blood work was obtained. Screening blood work was unremarkable. I spoke with Dr. Payne. His Keppra dosing was changed. They will follow-up closely with outpatient. There were given precautions for which to return.] Treatment Plan: [] Disposition: [Discharge] Impression: [Seizure] This note was generated with [employer] dictation software. It may contain incorrect words, spelling, and punctuation that were not noted in review of the chart prior to signing ED Disposition - Plan for ED Patient: Disposition: Home or Assisted Living Chief Complaint: Seizure Diagnosis: Seizure disorder Instructions: ED Seizure Recurrent Referrals: Keaton Payne MD [STAFF PHYSICIAN] - 1 Week Additional Instructions: take Keppra 500mg in morning Keppra 1000mg mid day keppra 1000 mg in evening
[2018-04-09 08:58] LABS: Absolute Lymphocyte Count 1.05 X10^3/ul (0.83-4.51); Absolute Neutrophil Count 4.7 X10^3/uL (2.0-7.7); Basophil# 0.03 X10^3/uL; Basophil% 0.5 % (0-1); Eosinophil# 0.14 X10^3/uL; Eosinophils% 2.1 % (0-5); Hematocrit 45.2 % (40-54); Hemoglobin 15.5 g/dl (13.0-16.5); Lymphocyte # 1.05 X10^3/ul (4.0); Mean Corp Hgb Conc 34.3 g/gl (32-36); Mean Corpuscular Hgb 29.6 pg (27.0-32.0); Mean Corpuscular Volume 86.4 fL (80-94); Mean Platelet Vol. 9.9 fl (6.2-12.0); Monocyte# 0.58 X10^3/uL; Monocyte% 8.8 % (0-10); Neutrophil # 4.72 X10^3/uL (2.7-7.7); Neutrophil % 71.8 % (47-70); Platelet Count 136 K/mm3 (150-450); RBC Distribution Width CV 13.2 % (11.6-14.6); RBC Distribution Width SD 41.1 fl (35.1-43.9); Red Blood Count 5.23 M/mm3 (4.6-6.2); White Blood Count 6.6 K/mm3 (4.4-11.0)
[2018-04-09 09:00] LABS: POSITIVE COUNT NO; POSITIVE DIFFERENTIAL NO; POSITIVE MORPHOLOGY NO
[2018-04-09 09:12] LABS: ALB/GLOB Ratio 1.2 RATIO (0.9-2.4); AST(SGOT) 22 U/L (15-37); Alanine Aminotransfer ALT/SGPT 13 U/L (16-61); Albumin, Serum 3.7 g/dL (3.2-5.0); Alkaline Phosphatase 54 U/L (45-117); Anion Gap 8 (5-15); BUN 23 mg/dL (7-18); BUN/Creat Ratio 16.9 RATIO (10-20); CPK Total, Creatine Kinase 64 U/L (39-308); Calcium,Total 8.8 mg/dL (8.5-10.1); Chloride 108 mmol/L (98-107); Creatinine, Serum 1.36 mg/dL (0.70-1.30); EST Glomerular Filtration Rate 56 mL/min (>60); Est Glom Filt Rate - Afr Amer 67 mL/min (>60); Estimated Creatinine Clearance 55.91 ml/min; Globulin 3.2 g/dL (2.2-4.2); Glucose 127 mg/dL (74-106); Potassium 4.8 mmol/L (3.5-5.1); Protein, Total 6.9 g/dL (6.4-8.2); Sodium Level 140 mmol/L (136-145)
[2018-04-09 10:19] VITALS: BP 124/75; PULSE 70; RESP 16; O2SAT 96
[2018-04-09 10:25] LABS: Bacteria 0 SEEN /hpf (None Seen); Mucous, Urine 0 SEEN /hpf (<or=2+); Red Blood Cells-Urine 0 SEEN /hpf (0-5); Squamous Epithelial Cells - UA 0 SEEN /hpf (0-5); White Blood Cells 0 SEEN /hpf (0-5)
[2018-04-09 10:51] LABS: Color, Urine Yellow (Yellow); Glucose, Dipstick Normal (Normal); Ketone-Dipstick Negative (Negative); Leukocyte Esterase-Dipstick Negative /ul (Negative); Nitrite-Dipstick Negative (Negative); Occult Blood-Urine Negative /ul (Negative); Protein-Dipstick Negative (Negative); Specific Gravity, Urine 1.015 (1.002-1.030); Urine Bilirubin Dipstick Negative (Negative); Urine Clarity Clear (Clear); Urine Urobilinogen Normal (Normal)
--- NOTE | 2018-04-09 12:06 | ED.DEP ---
ED Disposition - Plan for ED Patient: Chief Complaint: Seizure Diagnosis: Seizure disorder Instructions: ED Seizure Recurrent Referrals: Keaton Payne MD [STAFF PHYSICIAN] - 1 Week Additional Instructions: take Keppra 500mg in morning Keppra 1000mg mid day keppra 1000 mg in evening
[2018-04-09 12:42] VITALS: BP 132/80; PULSE 71; RESP 17; O2SAT 93
== END 2018-04-09 12:44 | disposition home or self-care (01) ==
PROVIDERS: Emergency Provider Emergency Medicine; Family Provider Family Medicine; PCP Family Medicine
DX: G40.909 Epilepsy, unspecified, not intractable, without status epilepticus (principal); I63.9 Cerebral infarction, unspecified; I69.354 Hemiplegia and hemiparesis following cerebral infarction affecting left non-dominant side; Z79.899 Other long term (current) drug therapy
CPT/HCPCS: 80053; 81001; 82550; 84484; 85025; 93005; 96361; 96374; 99285; J7030; A4216

== ENCOUNTER → 2018-05-18 11:40 | Outpatient (CLI) | payer MEDICARE, OTHER, SELFPAY ==
[2018-05-18 13:50] LABS: Valproic Acid (Depakene) Level 27 ug/mL (50-100)
== END ==
PROVIDERS: Family Provider Family Medicine; PCP Family Medicine; Visit Provider Family Medicine
DX: R56.9 Unspecified convulsions (principal)
CPT/HCPCS: 80164

== ENCOUNTER → 2018-05-27 06:37 | Outpatient (CLI) | payer MEDICARE, OTHER, SELFPAY ==
[2018-05-27 08:18] LABS: Valproic Acid (Depakene) Level 34 ug/mL (50-100)
[2018-05-30 10:09] LABS: KEPPRA (LEVETIRACETAM) 13.1 ug/mL (10.0-40.0)
== END ==
PROVIDERS: Family Provider Family Medicine; PCP Family Medicine; Visit Provider Nurse Practitioner Acute Care
DX: R56.9 Unspecified convulsions (principal); Z86.73 Personal history of transient ischemic attack (TIA), and cerebral infarction without residual deficits
CPT/HCPCS: 36415; 80164; 80177; 97110

== ENCOUNTER → 2018-06-07 10:42 | Outpatient (CLI) | payer MEDICARE, OTHER, SELFPAY ==
[2018-06-07 12:05] LABS: Valproic Acid (Depakene) Level 48 ug/mL (50-100)
== END ==
PROVIDERS: Family Provider Family Medicine; PCP Family Medicine; Visit Provider Nurse Practitioner Acute Care
DX: R56.9 Unspecified convulsions (principal); Z86.73 Personal history of transient ischemic attack (TIA), and cerebral infarction without residual deficits
CPT/HCPCS: 36415; 80164; 97110

== ENCOUNTER → 2018-07-19 06:17 | Outpatient (CLI) | payer MEDICARE, OTHER, SELFPAY ==
[2018-07-19 07:22] LABS: Valproic Acid (Depakene) Level 38 ug/mL (50-100)
== END ==
PROVIDERS: Family Provider Family Medicine; PCP Family Medicine; Visit Provider Nurse Practitioner Acute Care
DX: R56.9 Unspecified convulsions (principal); Z86.73 Personal history of transient ischemic attack (TIA), and cerebral infarction without residual deficits
CPT/HCPCS: 36415; 80164; 97032; 97110; 97112

== ENCOUNTER 2018-07-21 08:00 | Outpatient (RCR) | payer MEDICARE, OTHER, SELFPAY ==
--- NOTE | 2018-04-28 13:04 | HP.OTEVAL_ITS ---
Patient's Visit Information ISAAC PAEZ is a 67 year old M, referred to Occupational Therapy by BONNY Ivy, with a diagnosis of CVA. Date of Evaluation: 04/28/18 Occupational Therapist: Caity Espinoza - Subjective Subjective: Arrived for OT eval on this date. Previously seen by OT post CVA leaving L hand with no active movement. Prior to d/c last session he was using L hand to complete golf and all ADLs. He notes a couple of seizures with most recent March 26. March 26 noted was petite grand mal. he explained he had previous grand mal prior to petite. Notes that this last seizure left him with decreased dexterity, ms spasms, and general decreased fx in L hand and wrist. HE guessed he feels lost about 20%. - Objective Objective/Observation: Increased difficulty with ext; some ms atrophy t/o L forearm; decreased dexterity and FMC pinch as demonstrated through 9 hole and grasp pinchmeter. - ROM Shoulder: WFL Elbow: WFL Forearm: WFL Wrist: Flexion R WNL, L 0-73; ext R WNL, L 0-17 ROM Comments: He is able to make composite fist but has increased difficulty with extending fingers. It is labored and takes increased effort. - Strength Shoulder: R 5/5, L 4-/5 Elbow: Bicep R 5/5, L 3+/5; Triceps R 5/5, L 4-/5 Jointer Operator: R 120, L 72 Lateral Pinch: R 26, L 10 - difficulty with lateral pinch and thumb movements Tripod Pinch: R 27, L 8- increased difficulty 8 Tip-to-Tip Pinch: R 24 L 6 - Sensation Thumb: R 2.83; L not able to get accurate reading, red lined Index: R 2.83; L 4.93 Middle: R 2.83; 6.65 Ring: R 2.83; L not able to get accurate reading, red lined Little: R 2.83; L not able to get accurate reading, red lined Stereognosis: Normal - Right, Abnormal - Left Kinesthesia: Normal - Right, Abnormal - Left Proprioception: Normal - Right, Abnormal - Left - Nine Hole Peg Right: 25.55 Left: Unable at this time. - In-Hand Manipulation Finger to Palm Translation: Severe - Left Palm to Finger Translation: Severe - Left Shift: Severe - Left Rotation: Unable - Left - DASH-Disabilities of Arm, Shoulder& Hand DASH Sum: 101 - Goals Goal:: Isaac to increased regenerator operator of L hand by 20-30 lbs to promote increased ability to complete B hand manipulation skills and manipulation for ADL/IALDs to promote B hand coordiantion 4/5 trials 80% of the time by d/c. Goal:: Isaac to increased wrist ext. by 10-15 degrees to promote increased manipulateion of self-care atsks 4/5 trials 80% of the time by d/c. Goal:: Isaac to increased L hand dexterity through increased ability to complete 9 hole pegboard test to manipulate samlle items needed for ADls 4/5 trials 80% of the time by d/c. Goal:: Isaac to be mod I to complete sensory retraining program and compensations to promote return of sensation to L hand as well as increased safety awareness of L hand 4/5 trials 80% of the time by d/c. Goal:: Isaac to be (I) to manipulate food with use of silverware, handle change, and type with B hands to promote increased FMC and dexterity of L hand to promote increased ability to complete object manipulation 4/5 trials 80% of the time by d/c. - Rehabilitation General Assessment: Isaac arrived for OT evaluation on this date. Previously seen by OT s/o CVA. He currently recently had what he noted was petite grand mal seizure leaving him with noticeable deficits compared to d/c at end of previous rehabilitation s/p CVA in which he started OT with no active movement of L hand or wrist. He since signed and was able to complete most FMC and dexterity tasks at d/c. He presents with exacerbation of decreased strength, ROM , and sensation of L UE for fx tasked. Isaac has decreased finger dexterity and FMC at this time. He noted increased difficulty with ADLS and is unable to participate in leisure interests at this time due to L UE. OT intervention needed to promote L UE fx to promote increased ability to complete ADl/IADls as well as QOL. Rehabilitation Potential: Excellent - Anticipated Interventions Anticipated Interventions: A/AAROM/PROM, Strengthening, Sensory Retraining, Modalities, Joint Protection/Energy Conservation, Ergonomic Education, Fine Motor Coord/Lico, Visual/Perceptual Skills, ADL Training, Caregiver Training, Home Program - Visit Plan Frequency: 2-3x /Week Duration: 4 Weeks General Plan: OT to work on increasing L Ue strength, coordination, FMC, finger dexterity, and functional use of L hand to promote increasing particpation in ADLs/IADls especially leisure interests of playing instruments to promote QOL. TEXT: Thank you for the opportunity to evaluate your patient. For Medicare and Medicare HMO plans, please review the plan of care and approve it. It will need to be FAXED BACK to us at [phone] for Medicare purposes. Please let me know if there are questions or concerns regarding this plan of care. Physician Signature: Date:
--- NOTE | 2018-05-24 15:08 | HP.PTEVAL ---
Patient's Visit Information ISAAC PAEZ is a 68 year old M referred to Physical Therapy by BONNY Ivy with a diagnosis of L leg extreme weakness. Date of Evaluation: 05/24/18 Physical Therapist: Lucy Su - Visit Plan Frequency: 2x /Week Duration: 4 Weeks Plan: 2X/ week for 4 weeks for L hip and knee strength, amb with head turns, foam dynamic balance with and without head turns with HEP - Subjective Subjective: Pt had a stroke in 2015 and few seizures since then. Everytime has a seizure tends to set him back a little on the L side. Last seizure was March 26. He reports that his walkingis not as good and that he favors his L side a little bit. He has taken a step back with dexterity and is taking OT at this time. Sharona in OT noticed the limp. He can do most things just not as well as he did before the last batch of sizures. No falls. No dizziness. He reports that he is not walking as long and as far as what he was. Stairs: careful and grab the railing. Curb steps: no issue with those. Balance in general is ok but not as good as what it was. He feels that his posture leans to the L side. Ptwas walking and doing weight machines at the [facility] and he is doing Upper body with ex bands at home. He likes to golf. Pt is R handed. Pt drives only short distances....just the local routes. He gets tired more easily. Pt wants to build up L sided strength. OT is doing some Upper body strengthening. - Objective Gait: Walks with decreased stance time on the L. Walks with shoulders back and not trunk movement and hardly any neck movement. Decreased arm swing with gait as well. Pt is able to heel and toe raise without difficulty. LE MMT: R hip flex 4+/5 and L 4-/5, R knee ext 4+/5 and L 4-/5, R knee flex 4+/5 and L 4-/5, R hip abd 4/5 and L hip abd 3+/5, R hip ext 4+/5 and L hip ext 4-/5. FGA: 21. CATSIB: 90/120 (EC no foam and EC with foam are problems). Amb with head turns pt tends to veer..... - Balance Scores Functional Gait Assessment Score: 21 % Disability: 30.0000 CATSIB Score (Max score 120 seconds): 90 - Goals Goal 1:: I HEP Goal Time Frame: 4-6 Weeks Goal 2:: Increase L LE strength by 1/2 muscle grade (at time of eval: LE MMT: R hip flex 4+/5 and L 4-/5, R knee ext 4+/5 and L 4-/5, R knee flex 4+/5 and L 4-/5, R hip abd 4/5 and L hip abd 3+/5, R hip ext 4+/5 and L hip ext 4-/5). Goal Time Frame: 4-6 Weeks Goal 3:: Be able to walk with head turns without veering or having to correct balance 68 feet with SBA Goal Time Frame: 4-6 Weeks - Rehabilitation Potential Rehabilitation Potential: Good - Anticipated Interventions Patient/Client Instruction: Educate patient on: Condition For the Purpose of:: To improve muscle performance and motor function, To improve ability to perform ADL's, To increase tolerance to activity/condition/position, To improve gait and locomotor functions, To improve balance, To improve safety with gait Therapeutic Exercise to Include: Strength training, Balance training, Postural training, Gait and locomotor training, Neuromotor development For the Purpose of:: To improve muscle performance and motor function, To increase tolerance to activity/condition/position, To improve gait and locomotor functions, To improve balance, To improve safety with gait Functional Training to Include: Gait training For the Purpose of:: To improve gait and locomotor functions, To improve safety with gait Thank you for the opportunity to evaluate your patient. For Medicare and Medicare HMO plans, please review the plan of care and approve it. It will need to be FAXED BACK to us at [phone] for Medicare purposes. Please let me know if there are questions or concerns regarding this plan of care. Physician Signature: Date:
--- NOTE | 2018-06-13 11:40 | HP.OTREVAL ---
Kindra Munroe, HYUN-C, It has been my pleasure to treat ISAAC PAEZ over the last 10 visits for CVA. Please see the progress note below for an update on the occupational therapy plan of care! Subjective: Arrived to session today. Needed to split session as needed G code. help desk intern notified that Pt. should be scheduled every 3rd visit with OT to eliminate confusion of g codes. Objective/Function: New measurements taken on this date and are as follows: L wrist flexion 0-73, L ext 0-30; strength R 125, L 78; lateral pinch R 28, L 24 increased difficulty maintain pinch on gauge, fingers slipped repeatedly; tripod pinch R 27, L 18 lbs increased difficulty forming tripod grasp as increased intrinsic weakness noted, tip pinch R 22, L 10. He has progressed with all strengthening and ROM. Completed sensation measurement through monofilament test as results are as follows: R hand. 2nd 2.83. 3rd 3.22. 4th 2.83. 5th 2.83. thumb 3.22. L hand. 2nd 2.83. 3rd 3.61. 4th 4.17. 5th 4.17. thumb 4.74; able to perceive 4.56 but dispersed and felt on IF rather than thumb. Sensation is progressing. However, dispersal patterns of sensations of decreased and increased difficulty with perception of touch sensation with vision occluded. Completed 9 hole pegboard test for increased measurement of FMC and finger dexterity and in hand manipulation. Completed R hand 23.41 s, and was able to complete 2 pegs with L hand in 2 mins. That is progress from initial evaluation and he has progressed with all tasks at this time. He would benefit from continue skilled outpatient OT as strength remains weak of L hand especially with finger extension tasks (e.g. close/release as well as fx pinch patterns) and labored compared to PLOF. Plan Frequency: 1x/Week Duration: 4 Weeks Plan: continue POC. He is progressing but not meant goals. He would benefit from 1x weekly appointments for next 4 weeks. He is getting close to Medicare cap. OT POC will focus on continued strengthening L hand and promote FMC, in hand manipulation, sensation, and general fx use of L hand for b hand coordination and manipulation of self care tasks as l hand has progressed but remains very weak. Goals - Goals Goal:: Isaac to increased dental office receptionist of L hand by 20-30 lbs to promote increased ability to complete B hand manipulation skills and manipulation for ADL/IALDs to promote B hand coordiantion 4/5 trials 80% of the time by d/c. Goal:: Isaac to increased wrist ext. by 10-15 degrees to promote increased manipulateion of self-care atsks 4/5 trials 80% of the time by d/c. Goal:: Isaac to increased L hand dexterity through increased ability to complete 9 hole pegboard test to manipulate small items needed for ADls 4/5 trials 80% of the time by d/c. Goal:: Isaac to be mod I to complete sensory retraining program and compensations to promote return of sensation to L hand as well as increased safety awareness of L hand 4/5 trials 80% of the time by d/c. Goal:: Isaac to be (I) to manipulate food with use of silverware, handle change, and type with B hands to promote increased FMC and dexterity of L hand to promote increased ability to complete object manipulation 4/5 trials 80% of the time by d/c. Anticipated Interventions Anticipated Interventions: A/AAROM/PROM, Strengthening, Sensory Retraining, Modalities, Joint Protection/Energy Conservation, Ergonomic Education, Fine Motor Coord/Lico, Visual/Perceptual Skills, ADL Training, Caregiver Training, Home Program Please do not hesitate to contact me at [phone] by phone or if you have questions or concerns regarding this new plan of care! Sincerely, Caity Espinoza
--- NOTE | 2018-06-24 10:13 | HP.PTDCSUM_ITS ---
HP - PT D/C Summary It has been my pleasure to treat ISAAC PAEZ under orders from Kindra Munroe NP-C, for the diagnosis of L leg extreme weakness for a total of 7 visit(s). Discharge Date: 06/24/18 Please see the following information for a summary of their discharge status. - Subjective Subjective: Pt reports that he wants to try some DN to his L hand because his fingers want to curl. He heard about DN when he asked about accupuncture. Pt feels that he can continue to work on his exercises at home and give his priorities to OT. - Pain Left hand Pain Intensity (Out of 10): 6 - Overall Improvement % Improvement: 90 - Objective Objective/Function: LE MMT: R hip flex 4+/5 and L 4/5, R knee ext 4+/5 and L 4+/ 5, R knee flex 4+/5 and L 4/5, R hip abd 4/5 and L hip abd 4-/5, R hip ext 4+/5 and L hip ext 4/5). Pt still has some occasional veering with gait and especially with head turns. Pt feels comfortable with HEP. Did instruct the pt to add bridges to HEP and to walk down his hallway with head turns. - Goals Goal 1:: I HEP Goal Progress: Goal Met Goal 2:: Increase L LE strength by 1/2 muscle grade (at time of eval: LE MMT: R hip flex 4+/5 and L 4-/5, R knee ext 4+/5 and L 4-/5, R knee flex 4+/5 and L 4 -/5, R hip abd 4/5 and L hip abd 3+/5, R hip ext 4+/5 and L hip ext 4-/5). Goal Progress: Goal Met Goal 3:: Be able to walk with head turns without veering or having to correct balance 68 feet with SBA Goal Progress: Progressing - Plan Plan: DC PT to HEP - D/C Information Discharge Comments: DC PT tp HEP If there are questions or concerns regarding this patient's physical therapy, please feel free to call me at [phone]. Thank you for the referral of this patient. Sincerely, Lucy Su
--- NOTE | 2018-07-21 09:25 | HP.OTDCSUM_ITS ---
HP - OT D/C Summary It has been my pleasure to treat MAJOR PAEZ under orders from BONNY Ivy, for the diagnosis of CVA for a total of 18 visit(s). Please see the following information for a summary of their discharge status. - Overall Improvement % Improvement: 70 - Objective Objective/Function: Completed reassessment on this date 07/21/18. Results are as follows: ROM. wrist. - flexion R 0-49, L 15-45. - extension R 0-45, L -17- 60. - supination R WFL, L WFL. MCP Flexion. L. 2 nd 21-77. 3rd 22-80. 4th 32- 78. 5th 14- 87. MCP Extension. L. 2nd 28-10. 3rd 0- 21. 4th 5-5- no movement from resting position. 5th 15-0- able to movement from flexed position to neutral. Strength assessment completed as follows: weaver apprentice R 119, L 60. lateral R 28, L 5 ? able to place and sustain grasp. Limited ?slipping? of fingers as previously observed. tripod R 24, L 18 ? able to place and sustain grasp. Limited ?slipping? of fingers as previously observed. pinch R 21, L 10 ? able to place and sustain grasp. Limited ?slipping? of fingers as previously observed. Completed 9 hole pegboard test to determine progression of FMC and finger dexterity tasks. Completed R hand in 34.82 s, and L hand was able to place 2 pegs in 83 seconds. This is progression from previous assessment and re- eval. Completed monofilament test and results are as follows: R. 2nd 2.83 ( normal). 3rd 2.83 (normal). 4th 2.83 (normal). 5th 2.83 (normal). L hand. 2nd 3.22. 3rd 4.17. 4th 3.61. 5th 3.84. thumb 3.22. Measurements have progressed since initial evaluation but some decreases in measurements compared to last re-evaluation. He has progressed with general tone management techniques and some increased withering like movements are noted at times in L thumb limiting ability to complete FMC. Tone decreased with WBing tasks. - Goals Patient Goals: Regain Mobility, Regain Strength, Improve Fine Motor Skills, Use Hand/Wrist/Arm Normally Again, Sleep Better, Increase ROM, Be More Independent in ADLS, Resume Former Household Responsibilities (Cooking,Cleaning,Yard, etc.) , Resume Hobbies Goal:: Major to increased weaver apprentice of L hand by 20-30 lbs to promote increased ability to complete B hand manipulation skills and manipulation for ADL/IALDs to promote B hand coordiantion 4/5 trials 80% of the time by d/c. Goal:: Major to increased wrist ext. by 10-15 degrees to promote increased manipulateion of self-care atsks 4/5 trials 80% of the time by d/c. Goal:: Major to increased L hand dexterity through increased ability to complete 9 hole pegboard test to manipulate small items needed for ADls 4/5 trials 80% of the time by d/c. Goal:: Major to be mod I to complete sensory retraining program and compensations to promote return of sensation to L hand as well as increased safety awareness of L hand 4/5 trials 80% of the time by d/c. Goal:: Major to be (I) to manipulate food with use of silverware, handle change, and type with B hands to promote increased FMC and dexterity of L hand to promote increased ability to complete object manipulation 4/5 trials 80% of the time by d/c. - Plan Plan: Major will be d/c'd today. He is to call with questions/concerns. He is doing well and complaint with HEP. Tone has become as greater issue over the last 4 sessions but is manageable with weightbearing tasks. I have educated on the potential of Botox as option for addition tone management techniques and he has follow- up appointment with neurologist in week to follow up and talk about if interested. He has also been educated on the potential of e-stim unit for hand at home if tone continues to be issue. He was not interested at this time as insurance will likely not cover and out of pocket cost is $250. Additionally , we have talked on increasing use of L hand to promote increased awareness of L side and promote increased movement. - D/C Information If there are questions or concerns regarding this patient's occupational therapy , please fell free to call me at [phone]. Thank you for the referral of this patient. Sincerely, Caity Espinoza, OTR/L
== END 2018-07-21 16:02 | disposition home or self-care (01) ==
LOC: OT 08:00
PROVIDERS: Family Provider Family Medicine; PCP Family Medicine; Visit Provider Nurse Practitioner Acute Care
DX: Z86.73 Personal history of transient ischemic attack (TIA), and cerebral infarction without residual deficits (principal); R29.898 Other symptoms and signs involving the musculoskeletal system
CPT/HCPCS: 97032; 97110; 97112; 97140; 97161; 97166; 97168; 97530; G8987; G8988

== ENCOUNTER 2018-08-21 15:16 | Emergency (ER) | payer MEDICARE, OTHER, SELFPAY ==
[2018-08-21 15:17] VITALS: BP 152/79; PULSE 97; RESP 16; TEMP 37.2; O2SAT 95; BMI 32.4
[2018-08-21 15:27] VITALS: BP 159/91; PULSE 95; RESP 18; O2SAT 95
--- NOTE | 2018-08-21 15:37 | ED.VISSUMM ---
- ER Visit Summary Date of Service: 08/21/18 Chief Complaint: Seizure History of Present Illness: The patient is a 68 M who presents with left hand pain that began today. Patient states he has had a stroke and has had focal seizures since his stroke. Patient states the seizures started in his left hand where it feels like it starts to decline. Patient states he felt like this today. Patient states he took 2 Ativan tablets of 0.5 mg to try to get his hand to relax. Patient states that an hour later he still felt like his hand was clenching up and so he took 2 more tablets. Patient denies any seizure activity of his hand or arm. Patient states that his seizures normally start in his left hand progresses to his left arm and then becomes generalized. Patient states he wants to avoid any generalized seizures. Physical Examination: Vital signs are stable. Patient is afebrile. Patient is in no acute distress. Cranial nerves II through XII are intact. Strength is 5/5 bilateral in the upper and lower extremities. There are no sensory deficits noted. Extremities are intact. There is full range of motion in all extremities. Heart was regular rate and rhythm. Lungs are clear and equal bilaterally. Abdomen is soft and nontender. The remaining physical exam is within normal limits. Test Results: CBC and basic metabolic profile were obtained and were essentially within normal limits. Emergency Department Course and Treatment: Patient felt better on reevaluation. Patient was instructed to continue his medications as previously prescribed. Patient was instructed to follow-up with his primary care physician in 7-10 days. Patient understood and was agreeable with the plan. All questions were answered. Disposition: Discharge home Impression: Seizure disorder This note was generated with [employer] dictation software. It may contain incorrect words, spelling, and punctuation that were not noted in review of the chart prior to signing ED Disposition - Plan for ED Patient: Disposition: Home or Assisted Living Chief Complaint: Seizure Diagnosis: Seizure disorder Instructions: ED Seizure Recurrent Referrals: Antonio Pearson MD [Primary Care Provider] -
[2018-08-21 16:06] LABS: Absolute Lymphocyte Count 0.89 X10^3/ul (0.83-4.51); Absolute Neutrophil Count 4.2 X10^3/uL (2.0-7.7); Basophil# 0.02 X10^3/uL; Basophil% 0.3 % (0-1); Eosinophil# 0.11 X10^3/uL; Eosinophils% 1.8 % (0-5); Hematocrit 44.1 % (40-54); Hemoglobin 14.4 g/dl (13.0-16.5); Lymphocyte # 0.89 X10^3/ul (4.0); Mean Corp Hgb Conc 32.7 g/gl (32-36); Mean Corpuscular Volume 88.7 fL (80-94); Mean Platelet Vol. 10.5 fl (6.2-12.0); Monocyte# 0.69 X10^3/uL; Monocyte% 11.6 % (0-10); Neutrophil # 4.21 X10^3/uL (2.7-7.7); Neutrophil % 70.8 % (47-70); Platelet Count 111 K/mm3 (150-450); RBC Distribution Width SD 45.3 fl (35.1-43.9); Red Blood Count 4.97 M/mm3 (4.6-6.2)
[2018-08-21 16:09] LABS: POSITIVE COUNT NO; POSITIVE DIFFERENTIAL NO; POSITIVE MORPHOLOGY NO
[2018-08-21 16:17] LABS: Anion Gap 6 (5-15); BUN 32 mg/dL (7-18); BUN/Creat Ratio 17.3 RATIO (10-20); Calcium,Total 8.4 mg/dL (8.5-10.1); Chloride 110 mmol/L (98-107); Creatinine, Serum 1.85 mg/dL (0.70-1.30); EST Glomerular Filtration Rate 39 mL/min (>60); Est Glom Filt Rate - Afr Amer 47 mL/min (>60); Estimated Creatinine Clearance 40.56 ml/min; Glucose 120 mg/dL (74-106); Potassium 4.4 mmol/L (3.5-5.1); Sodium Level 142 mmol/L (136-145)
[2018-08-21 17:22] VITALS: BP 117/72; PULSE 83; RESP 18; O2SAT 96
[2018-08-21 17:44] VITALS: PULSE 83; O2SAT 93
== END 2018-08-21 17:45 | disposition home or self-care (01) ==
PROVIDERS: Emergency Provider Emergency Medicine; Family Provider Family Medicine; PCP Family Medicine
DX: G40.909 Epilepsy, unspecified, not intractable, without status epilepticus (principal); M79.642 Pain in left hand; I10 Essential (primary) hypertension; Z79.02 Long term (current) use of antithrombotics/antiplatelets; Z79.4 Long term (current) use of insulin; Z79.899 Other long term (current) drug therapy; Z86.73 Personal history of transient ischemic attack (TIA), and cerebral infarction without residual deficits
CPT/HCPCS: 80048; 85025; 99284; A4216

== ENCOUNTER → 2018-08-26 06:46 | Outpatient (CLI) | payer MEDICARE, OTHER, SELFPAY ==
[2018-08-26 08:32] LABS: Valproic Acid (Depakene) Level 30 ug/mL (50-100)
== END ==
PROVIDERS: Family Provider Family Medicine; PCP Family Medicine; Referring Provider Nurse Practitioner Acute Care; Visit Provider Nurse Practitioner Acute Care
DX: R56.9 Unspecified convulsions (principal)
CPT/HCPCS: 36415; 80164

== ENCOUNTER → 2018-10-11 15:56 | Outpatient (CLI) | payer MEDICARE, OTHER, SELFPAY ==
[2018-10-11 17:26] LABS: Valproic Acid (Depakene) Level 26 ug/mL (50-100)
== END ==
PROVIDERS: Family Provider Family Medicine; PCP Family Medicine; Referring Provider Nurse Practitioner Acute Care; Visit Provider Nurse Practitioner Acute Care
DX: R56.9 Unspecified convulsions (principal)
CPT/HCPCS: 36415; 80164

== ENCOUNTER 2018-10-16 17:04 | Emergency (ER) | payer MEDICARE, OTHER, SELFPAY ==
[2018-10-16 17:05] VITALS: BP 142/80; PULSE 94; RESP 21; TEMP 36.7; O2SAT 98; BMI 31.8
[2018-10-16 17:12] VITALS: O2SAT 97
--- NOTE | 2018-10-16 17:12 | RAD_ITS ---
STUDY: X-RAY CHEST REASON FOR EXAM: Male, 68 years old. Chest pain, stroke TECHNIQUE: AP COMPARISON: 03/27/2018 FINDINGS: Lungs are underexpanded with mild atelectasis in the lung bases. There is no demonstrated pleural abnormality. Normal size heart. Normal mediastinum and clementina. Normal visualized pulmonary arteries. Normal visualized aortic arch and descending thoracic aorta. No acute bony process. There is no demonstrated abnormality of the visualized soft tissue structures of the upper abdomen. RAD/Chest 1 View (Portable) IMPRESSION: 1. Hypoinflation with mild atelectasis. No airspace consolidation or pleural effusion. Electronically Signed: Ricky Woodward MD at 18:37 EST , Service support ,
--- NOTE | 2018-10-16 17:12 | EKG12_ITS ---
Test Reason : DYSRHYTHMIA Blood Pressure : / mmHG Vent. Rate : 083 BPM Atrial Rate : 083 BPM P-R Int : 140 ms QRS Dur : 080 ms QT Int : 370 ms P-R-T Axes : 055 004 012 degrees QTc Int : 434 ms Normal sinus rhythm Normal ECG Confirmed by SONU ANDERSON, GLADIS ([id number]), make up editor JUSTIN COATES ([id number] on 10/18/2018 8:54:37 AM Referred By: Kindra Munroe Confirmed By:GLADIS ASCENCIO MD
--- NOTE | 2018-10-16 17:13 | CT_ITS ---
STUDY: CT BRAIN WITHOUT CONTRAST REASON FOR EXAM: Male, 68 years old. Involuntary twitching, history of seizures, history of prior CVA, twitching started overnight RADIATION DOSAGE (If Supplied By Facility): CTDIvol = ( 44.99 ) mGy, DLP = ( 863.60 ) mGycm TECHNIQUE: Transaxial CT imaging of the brain was performed without administration of intravenous contrast material. Individualized dose optimization techniques were used for this CT. COMPARISON: 03/27/2018 FINDINGS: Normal soft tissue structures. Normal calvarium. There is mild cerebral atrophy with widening of the extra-axial spaces and ventricular dilatation. There are areas of decreased attenuation within the white matter tracts of the supratentorial brain, consistent with microvascular disease changes. Diminished density with loss of cortés-white differentiation of the posterior right frontal, parietal and temporal lobes similar since the prior study. Normal basal ganglia and thalami. Normal brainstem. Normal cerebellum. There is no intracranial hemorrhage. There are no findings of an acute ischemic infarction. There are mucosal retention cysts of the right maxillary sinus. CT/Brain/Head without Contrast IMPRESSION: 1. No acute intracranial hemorrhage or mass effect. Stable exam since 03/27/2018. 2. Right MCA territory infarction, chronic. Electronically Signed: Ricky Woodward MD at 18:42 EST , Service support ,
--- NOTE | 2018-10-16 17:16 | ED.VISSUMM ---
- ER Visit Summary Date of Service: 10/16/18 Chief Complaint: [] Tremor seizure involving left upper extremity today History of Present Illness: The patient is a 68 M [] history of stroke 2016 that caused right arm face and left lower extremity weakness he for the most part recovered with residual left lower extremity weakness his leg function facial function all recovered, he has had tremor activity and seizure activity involving left upper extremity since the seizure he takes currently Depakote 1000 mill grams twice daily Keppra 500 3 times daily and Ativan when he has shaking of the left upper extremity, he took 2 Ativan tablets today and the shaking left upper extremity not stop and he came in for evaluation, he just saw his neurologist last for routine visit and everything was within normal range his Depakote was added 500 mg at night to the baseline dose, he has had no fever no cough, he has had no change in his functional status or neurologic status basically he has had no new neurologic complaints or issues the etiology of his stroke was unclear Physical Examination: [] 140/80 afebrile he has an obvious high amplitude muscular contraction of left upper extremity from the shoulder down to the hand, General, no distress resting comfortably HEENT is generally unremarkable The neck is supple no adenopathy Cardiovascular, regular rate and rhythm Lungs, clear bilateral Abdomen, soft nontender Extremities, no clubbing cyanosis or edema Neurologic, awake alert answering questions appropriately moving all 4 extremities, he is able to raise both upper extremities and both lower extremities. The tremor/shaking episode left upper extremity that is not resolved with movement it has persisted. He is awake during episode answering questions appropriately his cranial nerve exam motor exam in general sensory exam unremarkable cerebellar exam is not done because of the above, he indicates his neurologic status is stable and unchanged his speech is clear and easy to understand his NIH right now really would be about a 1 the is in the room and concurs Had these episodes multiple times since his stroke he recently had his Depakote level increased, he has not been ill in any way at this time screening labs head CT IV Ativan and IV Keppra reevaluate Test Results: [] Emergency Department Course and Treatment: [] Patient's lab studies are generally unremarkable see those reports, his creatinine returned at 1.55, received IV fluids, his other labs head CT unremarkable, he did receive 2 mg of Ativan IV here, 1 g of Keppra IV, I watched him for over an hour he has had no recurrence of the left arm movement, he is awake and alert has no complaints discussed inpatient versus outpatient management with him and the they prefer to go home as this is not a new process for them, I spoke with Dr. Payne his attending neurologist discussed the case in detail agreed with discharge with follow-up in the office and return for change in symptoms Treatment Plan: [] Disposition: [] Home stable Impression: [] Left upper extremity tremor, possible focal seizure, history of right MCA CVA with residual intermittent left upper extremity tremors This note was generated with [employer] dictation software. It may contain incorrect words, spelling, and punctuation that were not noted in review of the chart prior to signing ED Disposition - Plan for ED Patient: Chief Complaint: Neuro S/Sx Referrals: Antonio Pearson MD [Primary Care Provider] -
[2018-10-16] MEDS: LORazepam 2 MG/ML Syringe IV (17:18)
[2018-10-16] MEDS: levETIRAcetam IV 1,000 MG/100 ML BAG 400 MG IV (17:22)
[2018-10-16] MEDS: 0.9% Normal Saline 1,000 ML 150 ML IV (17:22)
[2018-10-16 17:29] LABS: Absolute Neutrophil Count 3.8 X10^3/uL (2.0-7.7); Basophil# 0.02 X10^3/uL; Basophil% 0.3 % (0-1); Eosinophil# 0.19 X10^3/uL; Eosinophils% 3.2 % (0-5); Hematocrit 45.3 % (40-54); Hemoglobin 14.5 g/dl (13.0-16.5); Lymphocyte % 19.9 % (19-41); Mean Corpuscular Hgb 29.2 pg (27.0-32.0); Mean Corpuscular Volume 91.1 fL (80-94); Mean Platelet Vol. 10.3 fl (6.2-12.0); Monocyte# 0.76 X10^3/uL; Monocyte% 12.6 % (0-10); Neutrophil # 3.83 X10^3/uL (2.7-7.7); Neutrophil % 63.5 % (47-70); Platelet Count 117 K/mm3 (150-450); RBC Distribution Width CV 13.7 % (11.6-14.6); RBC Distribution Width SD 45.1 fl (35.1-43.9); Red Blood Count 4.97 M/mm3 (4.6-6.2)
[2018-10-16 17:31] LABS: POSITIVE COUNT NO; POSITIVE DIFFERENTIAL NO; POSITIVE MORPHOLOGY NO
--- NOTE | 2018-10-16 17:34 | ED.RN ---
PT STATES HE CAN TELL THAT A SEIZURE WILL BE START D/T THE TIGHTNESS AND SHAKING IN HIS LEFT HAND.
[2018-10-16 17:46] LABS: Bedside Glucose 70 mg/dL (70-110)
[2018-10-16 17:49] LABS: Anion Gap 10 (5-15); BUN 32 mg/dL (7-18); BUN/Creat Ratio 21.3 RATIO (10-20); Calcium,Total 8.9 mg/dL (8.5-10.1); Chloride 109 mmol/L (98-107); EST Glomerular Filtration Rate 50 mL/min (>60); Est Glom Filt Rate - Afr Amer 60 mL/min (>60); Estimated Creatinine Clearance 51.59 ml/min; Glucose 80 mg/dL (74-106); Potassium 4.1 mmol/L (3.5-5.1); Sodium Level 147 mmol/L (136-145)
[2018-10-16 17:53] VITALS: BP 137/79; PULSE 76; RESP 12
[2018-10-16 17:55] LABS: Valproic Acid (Depakene) Level 64 ug/mL (50-100)
[2018-10-16 18:21] LABS: Bacteria 0 SEEN /hpf (None Seen); Mucous, Urine 0 SEEN /hpf (<or=2+); Red Blood Cells-Urine 0 SEEN /hpf (0-5); Squamous Epithelial Cells - UA 0 SEEN /hpf (0-5); White Blood Cells 0 SEEN /hpf (0-5)
[2018-10-16 18:26] LABS: Color, Urine Yellow (Yellow); Glucose, Dipstick Normal (Normal); Ketone-Dipstick 5 mg/dl (Negative); Leukocyte Esterase-Dipstick Negative /ul (Negative); Nitrite-Dipstick Negative (Negative); Occult Blood-Urine Negative /ul (Negative); Protein-Dipstick Negative (Negative); Urine Bilirubin Dipstick Negative (Negative); Urine Clarity Clear (Clear); Urine Urobilinogen Normal (Normal)
[2018-10-16 18:43] VITALS: BP 138/59; PULSE 73
--- NOTE | 2018-10-16 18:56 | ED.DEP ---
ED Disposition - Plan for ED Patient: Chief Complaint: Neuro S/Sx Instructions: ED Seizure Recurrent Referrals: Antonio Pearson MD [Primary Care Provider] -
[2018-10-16 19:13] VITALS: BP 141/95; PULSE 69; RESP 15; O2SAT 99
== END 2018-10-16 19:22 | disposition home or self-care (01) ==
PROVIDERS: Emergency Provider Emergency Medicine; Family Provider Family Medicine; PCP Family Medicine
DX: R25.1 Tremor, unspecified (principal); I69.344 Monoplegia of lower limb following cerebral infarction affecting left non-dominant side; Z79.02 Long term (current) use of antithrombotics/antiplatelets; Z79.4 Long term (current) use of insulin; Z79.899 Other long term (current) drug therapy
CPT/HCPCS: 70450; 71045; 80048; 80164; 81001; 82962; 84484; 85025; 93005; 96361; 96374; 96375; 99284; J7030; J7040; A4216

== ENCOUNTER 2018-10-17 02:03 | Observation (INO) | payer MEDICARE, OTHER, SELFPAY ==
[2018-10-16 17:05] VITALS: BMI 31.8
[2018-10-17] VITALS (13 sets, daily range): BP systolic 117–144; BP diastolic 69–106; PULSE 62–80; RESP 16–18; TEMP 36.4–36.8; O2SAT 94–97; BMI 32.6; BMI 31.3; BMI 32.7
--- NOTE | 2018-10-17 02:44 | ED.DCSUM_ITS ---
- ER Visit Summary Date of Service: 10/17/18 Chief Complaint: Seizure History of Present Illness: The patient is a 68 M presenting per EMS after seizure. Patient was seen in the ED earlier today for similar complaints. Family states he went home and has been sleeping. When he awoke he started having shaking again. He has a history of focal seizures after CVA. He is on Depakote and Keppra. His Depakote was recently increased. Earlier today he was given Ativan and Keppra in the emergency department and he was discharged. states he has been unsteady on his feet and has been increasingly confused. Physical Examination: Vitals are stable. Patient is afebrile. Alert no acute distress. HEENT exam is unremarkable. Neck is supple. Lungs are clear and equal bilaterally. Heart is regular rate and rhythm. Abdomen is soft nontender nondistended. Extremities are unremarkable. Skin is warm and dry. No focal neurologic deficit. NIH 0 Remainder of exam is unremarkable. Emergency Department Course and Treatment: CBC unremarkable except platelet 109. Chemistries unremarkable other than BUN 25. Depakote level from earlier today was 64. CT head earlier today showed no acute process. is concerned about his unsteady gait and confusion. She states that at home she was unable to control him from wandering off. She states he was running into furniture and he urinated on the floor. This could be due to overmedication today. He is unsteady on his feet currently. Discussed with hospitalist for observation. Disposition: Observation Impression: Seizure This note was generated with [employer] dictation software. It may contain incorrect words, spelling, and punctuation that were not noted in review of the chart prior to signing ED Disposition - Plan for ED Patient: Chief Complaint: Seizure Referrals: Antonio Pearson MD [Primary Care Provider] -
[2018-10-17 02:48] LABS: Absolute Lymphocyte Count 1.02 X10^3/ul (0.83-4.51); Absolute Neutrophil Count 2.9 X10^3/uL (2.0-7.7); Basophil# 0.02 X10^3/uL; Basophil% 0.4 % (0-1); Eosinophil# 0.13 X10^3/uL; Eosinophils% 2.8 % (0-5); Hematocrit 44.2 % (40-54); Hemoglobin 14.6 g/dl (13.0-16.5); Lymphocyte # 1.02 X10^3/ul (4.0); Lymphocyte % 22.1 % (19-41); Mean Corpuscular Hgb 29.8 pg (27.0-32.0); Mean Corpuscular Volume 90.2 fL (80-94); Mean Platelet Vol. 10.4 fl (6.2-12.0); Monocyte# 0.55 X10^3/uL; Monocyte% 11.9 % (0-10); Neutrophil # 2.85 X10^3/uL (2.7-7.7); Neutrophil % 61.9 % (47-70); Platelet Count 109 K/mm3 (150-450); RBC Distribution Width CV 13.7 % (11.6-14.6); White Blood Count 4.6 K/mm3 (4.4-11.0)
[2018-10-17 02:54] LABS: POSITIVE COUNT NO; POSITIVE DIFFERENTIAL NO; POSITIVE MORPHOLOGY NO
[2018-10-17 02:59] LABS: Anion Gap 6 (5-15); BUN 25 mg/dL (7-18); BUN/Creat Ratio 19.4 RATIO (10-20); Calcium,Total 8.5 mg/dL (8.5-10.1); Chloride 112 mmol/L (98-107); Creatinine, Serum 1.29 mg/dL (0.70-1.30); EST Glomerular Filtration Rate 59 mL/min (>60); Est Glom Filt Rate - Afr Amer 72 mL/min (>60); Estimated Creatinine Clearance 59.99 ml/min; Glucose 102 mg/dL (74-106); Sodium Level 144 mmol/L (136-145)
--- NOTE | 2018-10-17 04:37 | HP.PCM_ITS ---
Problem List (1) Seizure disorder Status: Chronic (2) DM2 (diabetes mellitus, type 2) Status: Chronic (3) Dyslipidemia Status: Chronic (4) HTN (hypertension) Status: Chronic (5) CVA (cerebral vascular accident) Status: Chronic Qualifiers: History of Present Illness Date of Admission: 10/17/18 Chief Complaint: Unsteady gait The patient is a 68 year old M with PMH as below who presented to the ER twice in the last 24 hours for seizure and unsteady gait. He initially presented after having a seizure at home and the ER physician was able to communicate with his primary neurologist, Dr. Payne, and was given some Ativan while here in the ER as well as at home prior to coming per his protocol. He was discharged home since he was seizure-free and he recently seen neurology who had increased his Depakote dose. When he got home he did sleep on the couch for a little bit but then per the he did get up and urinated in his pants and seemed very unsteady and so the decided to bring him back to the ER. In the ER repeat labs were negative, however he continued to be sleepy, but was oriented and easily arousable. During his first ER visit both Keppra and valproic acid levels were obtained both of which were in the normal range. His history all of his seizures began after 2015 when he an MCA stroke on the right. Initially he was controlled on Keppra however he has been having increasing number of seizures and his Keppra dose had been increased and then Depakote was added and also increased. Per the he tends to have a seizure approximately every month though his last bad seizure was in May and he had been essentially seizur e-free until now. Past Medical History Past Medical History (Chronic Problems): Chronic Problems Seizure disorder (Chronic) DM2 (diabetes mellitus, type 2) (Chronic) Dyslipidemia (Chronic) HTN (hypertension) (Chronic) CVA (cerebral vascular accident) (Chronic) Allergies No Known Allergies Allergy (Verified 10/17/18 02:04) Home Medications: Ambulatory Orders Medication Instructions Recorded Metformin HCl [Glucophage] 500 mg PO BIDCM 12/14/14 Clopidogrel Bisulfate [Plavix] 75 mg PO DAILY 07/26/17 Fenofibrate Nanocrystallized 145 mg PO DAILY 07/26/17 [Fenofibrate] Insulin Glargine [Lantus SoloStar 24 units SC QHS 07/26/17 Pen] Insulin Lispro [Humalog] 0 unit SQ TID 07/26/17 Lisinopril [Zestril] 30 mg PO DAILY 07/26/17 Pravastatin [Pravachol] 20 mg PO QHS 07/26/17 Baclofen [Lioresal] 10 mg PO TID 10/16/18 Divalproex (ER) 1,000 mg PO ACHS 10/16/18 Divalproex (ER) [Depakote ER] 500 mg PO QHS 10/16/18 Lorazepam [Ativan] 2 tab PO DAILY PRN 10/16/18 levETIRAcetam tablet [Keppra 500 mg PO TID 10/16/18 tablet] Surgical History: cholecystectomy, herniorrhaphy Psychiatric History: No pertinent psych hx Lives: Spouse/ Significant Other Smoking Status: Never smoker Alcohol: None Drugs: None - *Family History Maternal History Items: Cancer, - - ovarian cancer Paternal History Items: Heart Disease Sibling History Items: - - brother with abdominal aortic anuerysm Review of Systems Constitutional: Denies: Chills, Fever, Weight Change HEENT: Denies: Head Aches, Sinus Congestion, Sinus Drainage Cardiovascular: Denies: Chest Pain, Palpitations Respiratory: Denies: Cough, Shortness of breath at rest, Sputum production Gastrointestinal: Denies: Abdominal Pain, Nausea, Vomiting Genitourinary: Denies: Dysuria Musculoskeletal: Denies: Joint Pain, Joint Tenderness Skin: Denies: Rash, Wounds Neurological: Reports: Incoordination, Seizures. Denies: Focal weakness, Numbness, Tingling Psychiatric: Denies: Anxiety, Depression Hematologic/ Lymphatic: Denies: Easy Bruising, Easy Bleeding VTE Information - Inpt Only VTE Present on Admission: No - Physical Exam General: Alert, Oriented x3, Cooperative, No apparent distress, - - Tired HEENT: Atraumatic, PERRLA, EOMI, Normocephalic Oral: Dry Mucosa Neck: Supple, No JVD Lungs: Clear to auscultation, Normal air movement, No rhonchi, No wheeze, No rales Cardiovascular: Regular rate, Regular Rhythm, Normal S1, Normal S2, No murmurs Abdomen: Soft, Non Tender, Non-Distended, No Hepato-splenomegaly Extremities: No edema, Capillary Refill Less than 3 Seconds Skin: No rashes, No breakdown Neurological: Sensory exam intact to light touch and pain, - - 5/5 RUE and 4/5 on LUE Psych/Mental Status: Normal Affect, Appropriate Vital Signs Temp Pulse Resp BP Pulse Ox 98.1 F 69 16 139/78 H 96 10/17/18 02:05 10/17/18 04:29 10/17/18 04:29 10/17/18 04:29 10/17/18 04:29 Oxygen Delivery Method Room Air Weight: 234 lb 2.095 oz Body Mass Index (BMI) 32.6 Finger Stick Blood Glucose 70 Laboratory Tests Past 24 Hrs 10/17/18 10/17/18 02:20 02:20 WBC 4.6 RBC 4.90 Hgb 14.6 Hct 44.2 MCV 90.2 MCH 29.8 MCHC 33.0 RDW 13.7 RDW Differential 45.0 H Plt Count 109 L MPV 10.4 Immature Gran % (Auto) 0.900 Neut % (Auto) 61.9 Lymph % (Auto) 22.1 [place] % (Auto) 11.9 H Eos % (Auto) 2.8 Baso % (Auto) 0.4 Absolute Neuts (auto) 2.9 Absolute Lymphs (auto) 1.02 Total Counted Not Reportable Sodium 144 Potassium 4.0 Chloride 112 H Carbon Dioxide 26.0 Anion Gap 6 BUN 25 H Creatinine 1.29 Estim Creat Clear Calc 59.99 Est GFR (MDRD) Af Amer 72 Est GFR (MDRD) Non-Af 59 L BUN/Creatinine Ratio 19.4 Glucose 102 Calcium 8.5 Assessment/Plan All Active Problems Breakthrough seizure (Acute) Acute respiratory failure (Resolved) 1. Seizure disorder after stroke in 2016/Unsteady gait and tiredness - Will c/w his keppra and depakote as previously prescribed - Ativan 2 mg IV PRN seizure - C/s to Neurology - Seizure precautions - Level of both medications on 10/16 were within normal range - IVF@100 - His unsteady gait and his sleepiness is a combination of the seizure today and the amount of ativan given 2. CVA/HTN/HLD - he is on pravastatin and plavix - C/w lisinopril, and fenofibrate 3. DM2 - hold metformin - c/w Insulin and add a SSI - A1c in March was 6.3 DVT: Lovenox/SCDs Code Visit OBSV E&M: 12476 Initial observation care L3
[2018-10-17] MEDS: 0.9% Normal Saline 1,000 ML 100 ML IV (05:28)
[2018-10-17 05:56] LABS: Absolute Lymphocyte Count 1.14 X10^3/ul (0.83-4.51); Absolute Neutrophil Count 2.8 X10^3/uL (2.0-7.7); Basophil# 0.02 X10^3/uL; Basophil% 0.4 % (0-1); Eosinophil# 0.13 X10^3/uL; Eosinophils% 2.8 % (0-5); Hematocrit 41.4 % (40-54); Hemoglobin 13.6 g/dl (13.0-16.5); Lymphocyte # 1.14 X10^3/ul (4.0); Lymphocyte % 24.4 % (19-41); Mean Corp Hgb Conc 32.9 g/gl (32-36); Mean Corpuscular Hgb 29.8 pg (27.0-32.0); Mean Corpuscular Volume 90.8 fL (80-94); Mean Platelet Vol. 10.5 fl (6.2-12.0); Monocyte# 0.52 X10^3/uL; Monocyte% 11.1 % (0-10); Neutrophil # 2.82 X10^3/uL (2.7-7.7); Neutrophil % 60.4 % (47-70); Platelet Count 113 K/mm3 (150-450); RBC Distribution Width CV 13.7 % (11.6-14.6); RBC Distribution Width SD 44.7 fl (35.1-43.9); Red Blood Count 4.56 M/mm3 (4.6-6.2); White Blood Count 4.7 K/mm3 (4.4-11.0)
[2018-10-17 05:58] LABS: POSITIVE COUNT NO; POSITIVE DIFFERENTIAL NO; POSITIVE MORPHOLOGY NO
[2018-10-17 06:19] LABS: Anion Gap 10 (5-15); BUN 24 mg/dL (7-18); BUN/Creat Ratio 19.8 RATIO (10-20); Calcium,Total 8.4 mg/dL (8.5-10.1); Chloride 115 mmol/L (98-107); Creatinine, Serum 1.21 mg/dL (0.70-1.30); EST Glomerular Filtration Rate 64 mL/min (>60); Est Glom Filt Rate - Afr Amer 77 mL/min (>60); Estimated Creatinine Clearance 63.96 ml/min; Glucose 111 mg/dL (74-106); Potassium 4.2 mmol/L (3.5-5.1); Sodium Level 149 mmol/L (136-145)
[2018-10-17 06:50] LABS: Bedside Glucose 99 mg/dL (70-110)
--- NOTE | 2018-10-17 10:55 | PCM.CONS.GEN ---
Reason for Consult History of Present Illness: The patient is a 68 year old Per admit H&P: The patient is a 68 year old M with PMH as below who presented to the ER twice in the last 24 hours for seizure and unsteady gait. He initially presented after having a seizure at home and the ER physician was able to communicate with his primary neurologist, Dr. Payne, and was given some Ativan while here in the ER as well as at home prior to coming per his protocol. He was discharged home since he was seizure-free and he recently seen neurology who had increased his Depakote dose. When he got home he did sleep on the couch for a little bit but then per the he did get up and urinated in his pants and seemed very unsteady and so the decided to bring him back to the ER. In the ER repeat labs were negative, however he continued to be sleepy, but was oriented and easily arousable. During his first ER visit both Keppra and valproic acid levels were obtained both of which were in the normal range. His history all of his seizures began after 2015 when he an MCA stroke on the right. Initially he was controlled on Keppra however he has been having increasing number of seizures and his Keppra dose had been increased and then Depakote was added and also increased. Per the he tends to have a seizure approximately every month though his last bad seizure was in May and he had been essentially seizure-free until now. Past Medical History Past Medical History (Chronic Problems): Chronic Problems Seizure disorder (Chronic) DM2 (diabetes mellitus, type 2) (Chronic) Dyslipidemia (Chronic) HTN (hypertension) (Chronic) CVA (cerebral vascular accident) (Chronic) Allergies No Known Allergies Allergy (Verified 10/17/18 02:04) Home Medications: Ambulatory Orders Medication Instructions Recorded Metformin HCl [Glucophage] 500 mg PO BIDCM 12/14/14 Clopidogrel Bisulfate [Plavix] 75 mg PO DAILY 07/26/17 Fenofibrate Nanocrystallized 145 mg PO DAILY 07/26/17 [Fenofibrate] Insulin Glargine [Lantus SoloStar 24 units SC QHS 07/26/17 Pen] Insulin Lispro [Humalog] 0 unit SQ TID 07/26/17 Lisinopril [Zestril] 30 mg PO DAILY 09/18/17 Pravastatin [Pravachol] 20 mg PO QHS 07/26/17 Baclofen [Lioresal] 10 mg PO TID 10/16/18 Divalproex (ER) 1,000 mg PO BID 10/16/18 Divalproex (ER) [Depakote ER] 500 mg PO QHS 10/16/18 Lorazepam [Ativan] 0.5 tab PO DAILY PRN 10/16/18 levETIRAcetam tablet [Keppra 500 mg PO TID 10/16/18 tablet] Surgical History: cholecystectomy, herniorrhaphy Psychiatric History: No pertinent psych hx Lives: Spouse/ Significant Other Smoking Status: Never smoker Alcohol: None Drugs: None - *Family History Maternal History Items: Cancer, - - ovarian cancer Paternal History Items: Heart Disease Sibling History Items: - - brother with abdominal aortic anuerysm - Physical Exam Vital Signs Temp Pulse Resp BP Pulse Ox 36.6 C 62 16 121/70 H 94 10/17/18 05:00 10/17/18 05:11 10/17/18 05:00 10/17/18 05:00 10/17/18 05:00 Oxygen Delivery Method Room Air Weight: 101.9 kg Body Mass Index (BMI) 31.3 Finger Stick Blood Glucose 70 Intake and Output for Last 24 Hours 10/15/18 10/16/18 10/17/18 23:59 23:59 23:59 Intake Total 68.9 / 68.9 Balance 68.9 / 68.9 Laboratory Tests Past 24 Hrs 10/17/18 10/17/18 10/17/18 02:20 02:20 05:48 WBC 4.6 4.7 RBC 4.90 4.56 L Hgb 14.6 13.6 Hct 44.2 41.4 MCV 90.2 90.8 MCH 29.8 29.8 MCHC 33.0 32.9 RDW 13.7 13.7 RDW Differential 45.0 H 44.7 H Plt Count 109 L 113 L MPV 10.4 10.5 Immature Gran % (Auto) 0.900 0.900 Neut % (Auto) 61.9 60.4 Lymph % (Auto) 22.1 24.4 [place] % (Auto) 11.9 H 11.1 H Eos % (Auto) 2.8 2.8 Baso % (Auto) 0.4 0.4 Absolute Neuts (auto) 2.9 2.8 Absolute Lymphs (auto) 1.02 1.14 Total Counted Not Reportable Not Reportable Sodium 144 Potassium 4.0 Chloride 112 H Carbon Dioxide 26.0 Anion Gap 6 BUN 25 H Creatinine 1.29 Estim Creat Clear Calc 59.99 Est GFR (MDRD) Af Amer 72 Est GFR (MDRD) Non-Af 59 L BUN/Creatinine Ratio 19.4 Glucose 102 Calcium 8.5 10/17/18 05:48 WBC RBC Hgb Hct MCV MCH MCHC RDW RDW Differential Plt Count MPV Immature Gran % (Auto) Neut % (Auto) Lymph % (Auto) [place] % (Auto) Eos % (Auto) Baso % (Auto) Absolute Neuts (auto) Absolute Lymphs (auto) Total Counted Sodium 149 H Potassium 4.2 Chloride 115 H Carbon Dioxide 24.0 Anion Gap 10 BUN 24 H Creatinine 1.21 Estim Creat Clear Calc 63.96 Est GFR (MDRD) Af Amer 77 Est GFR (MDRD) Non-Af 64 BUN/Creatinine Ratio 19.8 Glucose 111 H Calcium 8.4 L POC Glucose 10/17/18 06:43 POC Glucose 99 Assessment/Plan All Active Problems Breakthrough seizure (Acute) Acute respiratory failure (Resolved)
[2018-10-17] MEDS: Fenofibrate 145 MG Tablet PO (11:20)
[2018-10-17] MEDS: Lisinopril 10 MG Tablet 30 MG PO (11:20)
[2018-10-17] MEDS: Clopidogrel Bisulfate 75 MG Tablet PO (11:21)
[2018-10-17] MEDS: Enoxaparin 40 MG/0.4 ML Syringe SC (11:21)
[2018-10-17 11:45] LABS: Bedside Glucose 103 mg/dL (70-110)
[2018-10-17] MEDS: levETIRAcetam 500 MG Tablet PO ×2 (14:29→22:21)
[2018-10-17] MEDS: Divalproex (ER) 500 MG Tablet 1000 MG PO (16:23)
[2018-10-17 16:34] LABS: Bedside Glucose 126 mg/dL (70-110)
[2018-10-17] MEDS: Divalproex (ER) 250 MG Tablet 500 MG PO (22:21)
[2018-10-17] MEDS: Pravastatin 20 MG Tablet PO (22:21)
[2018-10-18 00:11] LABS: Bedside Glucose 94 mg/dL (70-110)
[2018-10-18 03:00] VITALS: PULSE 68
[2018-10-18 04:17] VITALS: BP 128/80; PULSE 71; RESP 16; TEMP 36.7; O2SAT 95
[2018-10-18] MEDS: levETIRAcetam 500 MG Tablet PO (05:23)
[2018-10-18 07:04] VITALS: PULSE 67
[2018-10-18 07:06] LABS: Bedside Glucose 108 mg/dL (70-110)
[2018-10-18 08:16] VITALS: BP 118/70; PULSE 65; RESP 16; TEMP 36.6; O2SAT 95
[2018-10-18] MEDS: Clopidogrel Bisulfate 75 MG Tablet PO (09:34)
[2018-10-18] MEDS: Lisinopril 10 MG Tablet 30 MG PO (09:34)
[2018-10-18] MEDS: Divalproex (ER) 500 MG Tablet 1000 MG PO (09:35)
[2018-10-18] MEDS: Fenofibrate 145 MG Tablet PO (09:35)
[2018-10-18] MEDS: Enoxaparin 40 MG/0.4 ML Syringe SC (09:36)
--- NOTE | 2018-10-18 10:17 | DCINST_ITS ---
You will use the following diet at home:: Calorie/Carbohydrate Controlled (specify 1200, 1400, etc) - 1800 tomas., Cardiac Your food should be the consistency of: Regular Discharge Activity: Return to Normal Activity Weight Bearing Status: Weight bearing as tolerated Call your doctor if you observe: Fever of 101 or Higher, Shortness of breath, Dizziness, Fainting spells, Chest pain, Increased palpitations (irregular heartbeat), Uncontrolled pain Allergies/Adverse Reactions: Allergies No Known Allergies Allergy (Verified 10/17/18 02:04) Medications to take at Discharge Metformin HCl [Glucophage] 500 mg PO BIDCM 12/14/14 Clopidogrel Bisulfate [Plavix] 75 mg PO DAILY 07/26/17 Fenofibrate Nanocrystallized [Fenofibrate] 145 mg PO DAILY 07/26/17 Insulin Glargine [Lantus SoloStar Pen] 24 units SC QHS 07/26/17 Insulin Lispro [Humalog] 0 unit SQ TID 07/26/17 Lisinopril [Zestril] 30 mg PO DAILY 07/26/17 Pravastatin [Pravachol] 20 mg PO QHS 07/26/17 Baclofen [Lioresal] 10 mg PO TID 10/16/18 Divalproex (ER) 1,000 mg PO BID 10/16/18 Divalproex (ER) [Depakote ER] 500 mg PO QHS 10/16/18 Lorazepam [Ativan] 0.5 tab PO DAILY PRN 10/16/18 levETIRAcetam tablet [Keppra tablet] 500 mg PO TID 10/16/18 Primary Care Physician: Antonio Pearson MD [Primary Care Provider] - Please follow up with your Primary Care Physician in: 2 weeks. Test Results: Test results from this visit will be discussed in further detail at your follow- up appointment, if applicable. Please Follow Up With: Keaton Payne MD When: as per .
[2018-10-18 11:46] LABS: Bedside Glucose 139 mg/dL (70-110)
--- NOTE | 2018-10-18 12:18 | DS.PCM_ITS ---
Discharge Date and Diagnosis Date of Admission: 10/17/18 Date of Discharge: 10/18/18 - Primary Discharge Diagnosis Probable breakthrough seizure. - Secondary Discharge Diagnosis Chronic Problems Seizure disorder (Chronic) DM2 (diabetes mellitus, type 2) (Chronic) Dyslipidemia (Chronic) HTN (hypertension) (Chronic) CVA (cerebral vascular accident) (Chronic) Hospital Course and Treatment Dr. Payne, neurology. Operations: None Procedures: None Summary of Care Provided: Patient seen and examined on the day of discharge and appeared to be stable to be discharged home. He mentioned that last night, he had abnormal tremors of his left shoulder but not his left arm. Otherwise, denies any other complaints. His vital signs are stable. The patient is a 68 year old M presented to the emergency room because of lethargy and sleepiness and the day before this admission, patient came to the emergency department because of seizure. On his visit to the ED before the admission date, patient was given Ativan, dose of Depakote was increased and he was sent home. His brought him back the next day because patient was very sleepy, lethargic and unsteady. CT scan brain done the day before the admission when patient came to the ER and was unremarkable without evidence of acute infarction or hemorrhage, revealed right MCA infarction. After admission, patient was continued on his regular dose of Keppra and increased dose of Depakote that was increased just 1 day before the admission when he came to the emergency department. His Depakote blood level was therapeutic on the day before admission but before that, it was subtherapeutic. His Keppra level was therapeutic on the day before admission. His routine blood work was unremarkable. His vital signs were stable. Neurology consulted and recommended no change to his antiseizure medications as the dose of Depakote was increased just 1 day before his admission. The patient and his were concerned about abnormal movement of the left upper extremity but there was no silva seizure episode happened during this admission. After discussion with neurology, we decided to keep patient on the same medication that has been taking. Patient discharged home in a stable medical condition, discharged on his home medication without any changes, keep on increased dose of Depakote that was increased one day before admission, continued on the same dose of Keppra, continued on his other home medications without any changes, plan to follow-up with neurology in 1 week, recommended follow-up with PCP in 2 weeks. - Physical Exam General: Alert, Oriented x3, Cooperative, No apparent distress HEENT: Atraumatic, PERRLA, EOMI, Normocephalic Oral: Moist Mucosa, No Gingival or Mucosal Lesions/ Ulcerations Neck: Supple, No JVD, Negative Carotid Bruits, Trachea Midline, Thyroid Normal Size and Texture Lungs: Clear to auscultation, No rhonchi, No wheeze, No rales, Diminished Cardiovascular: Regular rate, Regular Rhythm, Normal S1, Normal S2, PMI Normal Abdomen: Bowel Sounds Present, Soft, Non Tender, Non-Distended, No Hepato- splenomegaly Extremities: No clubbing, No cyanosis, No edema Skin: No rashes, No breakdown Lymphatic: No Cervical, Supraclavicular, or Inguinal Adenopathy Neurological: Cranial nerves II-XII grossly intact, - - 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 Psych/Mental Status: Normal Affect, Appropriate, Alert and oriented to time, place, person, mood and affect Vital Signs Temp Pulse Resp BP Pulse Ox 97.8 F 65 16 118/70 95 10/18/18 08:16 10/18/18 08:16 10/18/18 08:16 10/18/18 08:16 10/18/18 08:16 Oxygen Delivery Method Room Air Weight: 224 lb 10.417 oz Body Mass Index (BMI) 31.3 Finger Stick Blood Glucose 70 Intake and Output for Last 24 Hours 10/16/18 10/17/18 10/18/18 23:59 23:59 23:59 Intake Total 778.9 / 778.9 0 / 0 Output Total 500 / 500 Balance 278.9 / 278.9 0 / 0 POC Glucose 10/18/18 10/18/18 10/17/18 11:34 06:50 22:17 POC Glucose 139 H 108 94 10/17/18 16:15 POC Glucose 126 H Discharge Activity: Return to Normal Activity Weight Bearing Status: Weight bearing as tolerated Call your doctor if you observe: Fever of 101 or Higher, Shortness of breath, Dizziness, Fainting spells, Chest pain, Increased palpitations (irregular heartbeat), Uncontrolled pain Home Medications: Medications to take at Discharge Metformin HCl [Glucophage] 500 mg PO BIDCM 12/14/14 Clopidogrel Bisulfate [Plavix] 75 mg PO DAILY 07/26/17 Fenofibrate Nanocrystallized [Fenofibrate] 145 mg PO DAILY 07/26/17 Insulin Glargine [Lantus SoloStar Pen] 24 units SC QHS 07/26/17 Insulin Lispro [Humalog] 0 unit SQ TID 07/26/17 Lisinopril [Zestril] 30 mg PO DAILY 07/26/17 Pravastatin [Pravachol] 20 mg PO QHS 07/26/17 Baclofen [Lioresal] 10 mg PO TID 10/16/18 Divalproex (ER) 1,000 mg PO BID 10/16/18 Divalproex (ER) [Depakote ER] 500 mg PO QHS 10/16/18 Lorazepam [Ativan] 0.5 tab PO DAILY PRN 10/16/18 levETIRAcetam tablet [Keppra tablet] 500 mg PO TID 10/16/18 Primary Care Physician: Antonio Pearson MD [Primary Care Provider] - Please follow up with your Primary Care Physician in: 2 weeks. Please Follow Up With: Keaton Payne MD When: as per . Disposition: Home Minutes spent on discharge:: 26 Patient Condition:: Stable Medical Necessity - Tobacco Use Smoking Status: Never smoker Meaningful Use Info Meaningful Use Diagnoses (Choose all that apply): None applicable Code Visit OBSV E&M: 35925 Observation care discharge
== END 2018-10-18 10:16 | disposition home or self-care (01) ==
LOC: ED 03:02 → PCU 04:59
PROVIDERS: Admitting Provider Family Medicine; Emergency Provider Emergency Medicine; Family Provider Family Medicine; PCP Family Medicine; Referring Provider Family Medicine; Visit Provider Hospitalist
DX: G40.909 Epilepsy, unspecified, not intractable, without status epilepticus (principal); E78.5 Hyperlipidemia, unspecified; E11.9 Type 2 diabetes mellitus without complications; Z79.02 Long term (current) use of antithrombotics/antiplatelets; I10 Essential (primary) hypertension; Z86.73 Personal history of transient ischemic attack (TIA), and cerebral infarction without residual deficits; Z79.899 Other long term (current) drug therapy; Z79.4 Long term (current) use of insulin; R26.81 Unsteadiness on feet
CPT/HCPCS: 36415; 80048; 82962; 85025; 96360; 96361; 96372; 97162; 97165; 97802; 99218; 99285; J7030; A4216; G0378

== ENCOUNTER 2018-11-01 19:47 | Observation (INO) | payer MEDICARE, OTHER, SELFPAY ==
[2018-11-01 19:47] VITALS: BMI 32.6
[2018-11-01 19:48] VITALS: BP 132/79; PULSE 98; RESP 12; TEMP 36.6; O2SAT 94; BMI 30.7
--- NOTE | 2018-11-01 20:06 | EKG12_ITS ---
Test Reason : SEIZURE Blood Pressure : / mmHG Vent. Rate : 098 BPM Atrial Rate : 098 BPM P-R Int : 142 ms QRS Dur : 076 ms QT Int : 350 ms P-R-T Axes : 047 007 016 degrees QTc Int : 446 ms Normal sinus rhythm Nonspecific T wave abnormality Confirmed by REGAN ANDERSON, TWIN ([id number]), editor farm journal JUSTIN COATES ([id number]) on 11/04/2018 3:21:01 PM Referred By: CHARO Confirmed By:TWIN SPEARS MD
[2018-11-01 20:16] LABS: Bedside Glucose 173 mg/dL (70-110)
--- NOTE | 2018-11-01 20:16 | ED.VISSUMM ---
- ER Visit Summary Date of Service: 11/01/18 Chief Complaint: Breakthrough seizure History of Present Illness: The patient is a 68 M brought by EMS from home spouse is present breakthrough seizure approximately 7 PM this evening. States. Patient asking for Tylenol then Ativan, had a 2-minute episode left upper extremity focal seizure. Patient did take to 0.5 mg of oral Ativan's prior. Reported EMS give additional 5 mg of Versed. Patient has had seizures for the past 15 months initially [place] now focal seizures followed by Dr. Payne. He had a stroke October 2016 initially, there is residual mild left-sided weakness, can still ambulate. He is on Keppra 500 mg 3 times daily, Depakote 1000 mg twice daily and 500 mg nightly. Reported was here 2 weeks ago for breakthrough seizures, admitted for 1 day. Was seen by neurology Dr. Payne. There is no medication adjustments. Patient has an appointment tomorrow in the office to be reevaluated from last admission. There is been no cough. No recent vomiting or diarrhea. No urinary symptoms. Physical Examination: General: There is seizure episode during my evaluation left upper extremity tremors, self-limiting, patient shortly would regain consciousness. HEENT: Normocephalic, atraumatic. Moist mucosa membranes. No tongue abrasion. Neck: supple, nontender. Cardiovascular: Regular rate and rhythm, no murmurs Respiratory: Normal breath sounds, symmetric, no distress Abdomen: Soft, nontender, nondistended Extremities: Nontender, no edema, pulses intact ?4 Neuro: Left side residual deficits. Test Results: Blood glucose 173. Hemoglobin 14. With potassium 3.6 sodium 145. Creatinine 1.65. UA negative for infection. Depakote 41. CT head no acute process. Old right MCA territory infarct. Emergency Department Course and Treatment: Patient had additional breakthrough seizure on my evaluation second episode today. I did check labs stabilize chronic kidney disease creatinine 1.65 range 1.2-1.8 in previous labs. Sodium urine negative. CT head with no acute findings. Multiple reevaluation she remained stable. His Depakote was stopped at 41 initially ordered for 500 mill grams IV for bolus infusion. I spoke with covering neurologist Dr. Augustine, discussed patient's history findings and recent admission 2 weeks ago. We reviewed medications. He recommended with his weight an additional 500 mg IV infusion for a total of 1 g. He did recommend checking liver enzymes. He recommended for patient to be on Depakote 1500 mg twice daily. Reviewed the Keppra dosing 500 3 times daily's, he is typically they should be dosed twice a day at 750 mg twice daily, however he will allow Dr. Payne to adjust that dosing tomorrow on consult. Discussed with patient significant other of the dosing, reports that his Keppra was adjusted by a nurse practitioner in the office of Dr. Payne's. From neurology did recommend admission for observations and inpatient EEG and MRI to be performed. Will discuss with hospitalist for admission. Treatment Plan: [] Disposition: Admission Impression: 1 breakthrough seizure 2 chronic kidney disease This note was generated with [employer] dictation software. It may contain incorrect words, spelling, and punctuation that were not noted in review of the chart prior to signing ED Disposition - Plan for ED Patient: Disposition: Acute Care Hospital [facility] Chief Complaint: Seizure Diagnosis: Breakthrough seizure, CKD (chronic kidney disease) Referrals: Antonio Pearson MD [Primary Care Provider] -
[2018-11-01 20:19] VITALS: O2SAT 95
--- NOTE | 2018-11-01 20:19 | CT_ITS ---
STUDY: CT BRAIN WITHOUT CONTRAST REASON FOR EXAM: Male, 68 years old. Seizure. Lethargy. RADIATION DOSAGE (If Supplied By Facility): CTDIvol = ( 44.99 ) mGy, DLP = ( 846.73 ) mGycm TECHNIQUE: Transaxial CT imaging of the brain was performed without administration of intravenous contrast material. Individualized dose optimization techniques were used for this CT. COMPARISON: None. FINDINGS: Normal soft tissue structures. Normal calvarium. There is mild cerebral atrophy with widening of the extra-axial spaces and ventricular dilatation. There is stable volume loss and encephalomalacia with prior right middle cerebral artery territory infarct. There are small punctate calcifications of the basal ganglia which are seen in the aging brain as a normal variant. Normal brainstem. Normal cerebellum. There is no intracranial hemorrhage. There are no findings of an acute ischemic infarction. Normal visualized paranasal sinuses. CT/Brain/Head without Contrast IMPRESSION: Chronic involutional changes of the brain. Stable right middle cerebral artery territory infarct. Electronically Signed: Chon Barahona MD at 21:22 EST , Service support ,
--- NOTE | 2018-11-01 20:19 | ED.DCSUM_ITS ---
- ER Visit Summary Date of Service: 11/01/18 Chief Complaint: Breakthrough seizure History of Present Illness: The patient is a 68 M brought by EMS from home spouse is present breakthrough seizure approximately 7 PM this evening. States. Patient asking for Tylenol then Ativan, had a 2-minute episode left upper extremity focal seizure. Patient did take to 0.5 mg of oral Ativan's prior. Reported EMS give additional 5 mg of Versed. Patient has had seizures for the past 15 months initially [place] now focal seizures followed by Dr. Payne. He had a stroke October 2016 initially, there is residual mild left-sided weakness, can still ambulate. He is on Keppra 500 mg 3 times daily, Depakote 10 00 mg twice daily and 500 mg nightly. Reported was here 2 weeks ago for breakthrough seizures, admitted for 1 day. Was seen by neurology Dr. Payne. There is no medication adjustments. Patient has an appointment tomorrow in the office to be reevaluated from last admission. There is been no cough. No recent vomiting or diarrhea. No urinary symptoms. Physical Examination: General: There is seizure episode during my evaluation left upper extremity tremors, self-limiting, patient shortly would regain consciousness. HEENT: Normocephalic, atraumatic. Moist mucosa membranes. No tongue abrasion. Neck: supple, nontender. Cardiovascular: Regular rate and rhythm, no murmurs Respiratory: Normal breath sounds, symmetric, no distress Abdomen: Soft, nontender, nondistended Extremities: Nontender, no edema, pulses intact ?4 Neuro: Left side residual deficits. Test Results: Blood glucose 173. Hemoglobin 14. With potassium 3.6 sodium 145. Creatinine 1.65. UA negative for infection. Depakote 41. CT head no acute process. Old right MCA territory infarct. Emergency Department Course and Treatment: Patient had additional breakthrough seizure on my evaluation second episode today. I did check labs stabilize chronic kidney disease creatinine 1.65 range 1.2-1.8 in previous labs. Sodium urine negative. CT head with no acute findings. Multiple reevaluation she remained stable. His Depakote was stopped at 41 initially ordered for 500 mill grams IV for bolus infusion. I spoke with covering neurologist Dr. Augustine, discussed patient's history findings and recent admission 2 weeks ago. We reviewed medications. He recommended with his weight an additional 500 mg IV infusion for a total of 1 g. He did recommend checking liver enzymes. He recommended for patient to be on Depakote 1500 mg twice daily. Reviewed the Keppra dosing 500 3 times daily's, he is typically they should be dosed twice a day at 750 mg twice daily, however he will allow Dr. Payne to adjust that dosing tomorrow on consult. Discussed with patient significant other of the dosing, reports that his Keppra was adjusted by a nurse practitioner in the office of Dr. Payne's. From neurology did recommend admission for observations and inpatient EEG and MRI to be performed. Will discuss with hospitalist for admission. Treatment Plan: [] Disposition: Admission Impression: 1 breakthrough seizure 2 chronic kidney disease This note was generated with [employer] dictation software. It may contain incorrect words, spelling, and punctuation that were not noted in review of the chart prior to signing ED Disposition - Plan for ED Patient: Disposition: Acute Care Hospital [facility] Chief Complaint: Seizure Diagnosis: Breakthrough seizure, CKD (chronic kidney disease) Referrals: Antonio Peasron MD [Primary Care Provider] -
[2018-11-01 20:29] LABS: Absolute Lymphocyte Count 1.03 X10^3/ul (0.83-4.51); Absolute Neutrophil Count 2.5 X10^3/uL (2.0-7.7); Basophil# 0.03 X10^3/uL; Basophil% 0.7 % (0-1); Eosinophils% 4.7 % (0-5); Hematocrit 43.5 % (40-54); Lymphocyte # 1.03 X10^3/ul (4.0); Lymphocyte % 24.3 % (19-41); Mean Corp Hgb Conc 32.2 g/gl (32-36); Mean Corpuscular Hgb 29.2 pg (27.0-32.0); Mean Corpuscular Volume 90.6 fL (80-94); Mean Platelet Vol. 10.3 fl (6.2-12.0); Monocyte# 0.45 X10^3/uL; Monocyte% 10.6 % (0-10); Platelet Count 105 K/mm3 (150-450); RBC Distribution Width CV 13.7 % (11.6-14.6); RBC Distribution Width SD 45.4 fl (35.1-43.9); White Blood Count 4.2 K/mm3 (4.4-11.0)
[2018-11-01 20:32] LABS: POSITIVE COUNT NO; POSITIVE DIFFERENTIAL NO; POSITIVE MORPHOLOGY NO
[2018-11-01 20:45] LABS: Anion Gap 14 (5-15); BUN 26 mg/dL (7-18); BUN/Creat Ratio 15.8 RATIO (10-20); Calcium,Total 8.4 mg/dL (8.5-10.1); Chloride 111 mmol/L (98-107); Creatinine, Serum 1.65 mg/dL (0.70-1.30); EST Glomerular Filtration Rate 45 mL/min (>60); Est Glom Filt Rate - Afr Amer 54 mL/min (>60); Glucose 206 mg/dL (74-106); Potassium 3.6 mmol/L (3.5-5.1); Sodium Level 145 mmol/L (136-145)
[2018-11-01 21:48] LABS: Valproic Acid (Depakene) Level 41 ug/mL (50-100)
[2018-11-01 22:36] LABS: Bacteria 0 SEEN /hpf (None Seen); Mucous, Urine 0 SEEN /hpf (<or=2+); Red Blood Cells-Urine 0 SEEN /hpf (0-5); Squamous Epithelial Cells - UA 0 SEEN /hpf (0-5); White Blood Cells 0 SEEN /hpf (0-5)
[2018-11-01 22:37] VITALS: BP 112/72; PULSE 72; RESP 12; O2SAT 98
[2018-11-01 22:37] LABS: Color, Urine Yellow (Yellow); Glucose, Dipstick Normal (Normal); Ketone-Dipstick 5 mg/dl (Negative); Leukocyte Esterase-Dipstick Negative /ul (Negative); Nitrite-Dipstick Negative (Negative); Occult Blood-Urine 10 /ul (Negative); Protein-Dipstick 30 mg/dl (Negative); Urine Bilirubin Dipstick Negative (Negative); Urine Clarity Clear (Clear); Urine Urobilinogen Normal (Normal)
[2018-11-01 22:55] LABS: AST(SGOT) 22 U/L (15-37); Alanine Aminotransfer ALT/SGPT 21 U/L (16-61); Albumin, Serum 3.1 g/dL (3.2-5.0); Alkaline Phosphatase 47 U/L (45-117); Bilirubin, Direct 0.09 mg/dL (0.00-0.30); Globulin 2.8 g/dL (2.2-4.2); Protein, Total 5.9 g/dL (6.4-8.2)
--- NOTE | 2018-11-01 23:01 | PCM.HP.STD ---
Problem List (1) Breakthrough seizure Status: Acute History of Present Illness Date of Admission: 11/01/18 Chief Complaint: seizure The patient is a 68 year old M with a significant history of left sided CVA status with development of epilepsy; CKD; hypertension; diabetes who had seizures few hours before presenting to the emergency department. Before the seizure patient felt like he was going to have a seizure (aura) so he took 2 tablets of his 0.5 mg of Ativan. His reported that patient had shaking movements of his left side and he fell. His face was contorted. He and his denies any bowel or bladder incontinence or biting of the tongue. Paramedics gave him Versed and brought him to the emergency department. At emergency department emergency department doctor noted a left-sided shakiness while in patient's room. At the emergency department patient's valproic acid level was low. At home patient used to take Keppra 500 mg 3 times daily; and valproic acid 1000 mg p.o. twice daily; and 500 mg p.o. nightly. At emergency department CT of the head was negative. His urinalysis was unremarkable. A neurologist, Dr. Goins was consulted and patient received valproic acid IV. Per emergency department doctorDr. Goins wants patient to have Depakote 1,500 mg twice daily; and Keppra 750 mg twice daily. Patient sees Dr. Payne. Dr. Payne will see patient in a.m. Also per ED doctor, Dr. Goins wanted patient to have an EEG and MRI; and liver enzymes because patient is on valproic acid.. Reportedly patient's seizures began after CVA that occurred exactly 2 years ago on the day of this admission (November 01) About 2 weeks ago patient was admitted for seizures he was discharged only to return a few hours ago because of seizures. Patient was supposed to see Dr. Payne on for probable Botox injection of his left arm. Past Medical History Past Medical History (Chronic Problems): Chronic Problems CKD (chronic kidney disease) (Chronic) Seizure disorder (Chronic) DM2 (diabetes mellitus, type 2) (Chronic) Dyslipidemia (Chronic) HTN (hypertension) (Chronic) CVA (cerebral vascular accident) (Chronic) Allergies No Known Allergies Allergy (Verified 11/01/18 19:51) Home Medications: Ambulatory Orders Medication Instructions Recorded Metformin HCl [Glucophage] 500 mg PO BIDCM 02/06/15 Clopidogrel Bisulfate [Plavix] 75 mg PO DAILY 07/26/17 Fenofibrate Nanocrystallized 145 mg PO DAILY 07/26/17 [Fenofibrate] Insulin Glargine [Lantus SoloStar 24 units SC QHS 07/26/17 Pen] Insulin Lispro [Humalog] 0 unit SQ TID 07/26/17 Lisinopril [Zestril] 30 mg PO DAILY 07/26/17 Pravastatin [Pravachol] 20 mg PO QHS 07/26/17 Baclofen [Lioresal] 10 mg PO TID 10/16/18 Divalproex (ER) 1,000 mg PO BIDCM 10/16/18 Divalproex (ER) [Depakote ER] 500 mg PO QHS 10/16/18 Lorazepam [Ativan] 0.5 tab PO DAILY PRN 10/16/18 levETIRAcetam tablet [Keppra 500 mg PO TID 10/16/18 tablet] Surgical History: cholecystectomy, herniorrhaphy Psychiatric History: No pertinent psych hx Lives: Spouse/ Significant Other Smoking Status: Never smoker - *Family History Maternal History Items: Cancer, - - ovarian cancer Paternal History Items: Heart Disease Sibling History Items: - - brother with abdominal aortic anuerysm Review of Systems Constitutional: Denies: Chills, Fever, Weight Change HEENT: Denies: Head Aches, Sinus Congestion, Sinus Drainage Cardiovascular: Denies: Chest Pain, Palpitations Respiratory: Denies: Cough, Shortness of breath at rest, Sputum production Gastrointestinal: Denies: Abdominal Pain, Nausea, Vomiting Genitourinary: Denies: Dysuria Musculoskeletal: Denies: Joint Pain, Joint Tenderness Skin: Denies: Rash, Wounds Neurological: Reports: Seizures. Denies: Focal weakness, Numbness, Tingling Psychiatric: Denies: Anxiety, Depression, Homicidal Ideations, Suicidal Ideations Hematologic/ Lymphatic: Denies: Easy Bruising, Easy Bleeding VTE Information - Inpt Only VTE Present on Admission: No VTE Mechan Device Prophylaxis: None VTE Pharm Prophylaxis ordered?: Yes Patient Problems: Active and Suspected Problems Breakthrough seizure (Acute) - Physical Exam General: Alert, Oriented x3, Cooperative HEENT: Atraumatic, PERRLA, EOMI, Normocephalic Neck: Supple, No JVD, Negative Carotid Bruits Lungs: Clear to auscultation, Normal air movement Cardiovascular: Regular rate, No murmurs Abdomen: Bowel Sounds Present, Soft, Non Tender Extremities: No edema, Capillary Refill Less than 3 Seconds Skin: Excoriated - Excoriations on left lower leg. Musculoskeletal: No Tenderness to Palpation of Joints or Extremities Neurological: - - Left-sided upper extremity with strength 3 out of 5; left lower extremity with strength 4 out of 5. All other extremities unremarkable. Psych/Mental Status: Normal Affect, Appropriate Vital Signs Temp Pulse Resp BP Pulse Ox 97.9 F 72 12 112/72 98 11/01/18 19:48 11/01/18 22:37 11/01/18 22:37 11/01/18 22:37 11/01/18 22:37 Oxygen Flow Rate (L/min) 3 Oxygen Delivery Method Nasal Cannula Weight: 99.79 kg Body Mass Index (BMI) 30.7 Finger Stick Blood Glucose 173 Laboratory Tests Past 24 Hrs 11/01/18 11/01/18 11/01/18 19:59 19:59 19:59 WBC 4.2 L RBC 4.80 Hgb 14.0 Hct 43.5 MCV 90.6 MCH 29.2 MCHC 32.2 RDW 13.7 RDW Differential 45.4 H Plt Count 105 L MPV 10.3 Immature Gran % (Auto) 0.700 Neut % (Auto) 59.0 Lymph % (Auto) 24.3 Mcpherson % (Auto) 10.6 H Eos % (Auto) 4.7 Baso % (Auto) 0.7 Absolute Neuts (auto) 2.5 Absolute Lymphs (auto) 1.03 Total Counted Not Reportable Sodium 145 Potassium 3.6 Chloride 111 H Carbon Dioxide 20.0 L Anion Gap 14 BUN 26 H Creatinine 1.65 H Estim Creat Clear Calc 46.90 Est GFR (MDRD) Af Amer 54 L Est GFR (MDRD) Non-Af 45 L BUN/Creatinine Ratio 15.8 Glucose 206 H Calcium 8.4 L Total Bilirubin 0.20 Direct Bilirubin 0.09 AST 22 ALT 21 Alkaline Phosphatase 47 Total Protein 5.9 L Albumin 3.1 L Globulin 2.8 Urine Color Urine Clarity Urine pH Ur Specific [place] Urine Protein Urine Glucose (UA) Urine Ketones Urine Occult Blood Urine Nitrite Urine Bilirubin Urine Urobilinogen Ur Leukocyte Esterase Urine RBC Urine WBC Ur Squamous Epith Cells Urine Bacteria Urine Mucus Valproic Acid 11/01/18 11/01/18 20:38 22:24 WBC RBC Hgb Hct MCV MCH MCHC RDW RDW Differential Plt Count MPV Immature Gran % (Auto) Neut % (Auto) Lymph % (Auto) [place] % (Auto) Eos % (Auto) Baso % (Auto) Absolute Neuts (auto) Absolute Lymphs (auto) Total Counted Sodium Potassium Chloride Carbon Dioxide Anion Gap BUN Creatinine Estim Creat Clear Calc Est GFR (MDRD) Af Amer Est GFR (MDRD) Non-Af BUN/Creatinine Ratio Glucose Calcium Total Bilirubin Direct Bilirubin AST ALT Alkaline Phosphatase Total Protein Albumin Globulin Urine Color Yellow Urine Clarity Clear Urine pH 5.0 Ur Specific [place] 1.020 Urine Protein 30 H Urine Glucose (UA) Normal Urine Ketones 5 H Urine Occult Blood 10 H Urine Nitrite Negative Urine Bilirubin Negative Urine Urobilinogen Normal Ur Leukocyte Esterase Negative Urine RBC 0 SEEN Urine WBC 0 SEEN Ur Squamous Epith Cells 0 SEEN Urine Bacteria 0 SEEN Urine Mucus 0 SEEN Valproic Acid 41 L POC Glucose 11/01/18 20:12 POC Glucose 173 H Assessment/Plan All Active Problems Breakthrough seizure (Acute) Acute respiratory failure (Resolved) The patient is a 68 year old M with a significant history of right-sided CVA status post epilepsy disorder; CKD; hypertension; diabetes who had seizures few hours before presenting to the emergency department and had a repeat seizure at emergency department and with low valproic acid level. Breakthrough seizure Per neurologist recommendation will order Depakote 1500 mg p.o. twice daily; Keppra 750 mg twice daily; EEG and MRI. Follow liver enzymes. Ativan as needed for seizures ordered. Diabetes mellitus On admission his blood glucose was not within goal. We will continue home metformin; Humalog and long-acting insulin. We will add a correction scale insulin. Hypertension On admission blood pressure was not within goal Continue home lisinopril Trend blood pressures and adjust blood pressure medications as necessary History of CVA Plavix continued. Excoriations on left lower leg Apparently sustained after falling from seizure. Bactroban ordered. DVT prophylaxis Subcutaneous Lovenox Code Visit OBSV E&M: 88229 Initial observation care L3
[2018-11-02] VITALS (12 sets, daily range): BP systolic 104–132; BP diastolic 65–78; PULSE 61–76; RESP 16; TEMP 36.5–36.7; O2SAT 94–97; BMI 31.5
--- NOTE | 2018-11-02 00:28 | MRI_ITS ---
STUDY: MRI BRAIN WITHOUT CONTRAST REASON FOR EXAM: Male, 68 years old. Stroke Oct 2016, seizures began 2 months after stroke. Breakthrough seizures. TECHNIQUE: Standardized multiplanar fat and water weighted pulse sequences were obtained. COMPARISON: 11/01/2018 CT of the head and MRI dated March 27, 2018 FINDINGS: Again noted is the right temporal frontal encephalomalacia, gliosis and hemosiderin staining, consistent with prior insult. There is mild cerebral atrophy with widening of the extra-axial spaces and ventricular dilatation. There are a limited number of small white matter hyperintensities, distributed throughout the deep white matter tracts of the cerebral hemispheres, consistent with mild chronic white matter ischemic changes. Normal bilateral basal ganglia. Normal thalami. There is no extra-axial fluid accumulation. Normal flow voids within the major intracranial circulation suggesting patency by spin echo criteria. Normal sella turcica, pituitary gland, infundibular stalk, optic chiasm and hypothalamus. Normal tectal plate and pineal gland. Normal midbrain, krista and medulla. Normal cerebellum. Normal basal cisterns. Normal bilateral temporal bones. Normal bilateral internal auditory canals. MRI/Brain without Contrast IMPRESSION: No acute intracranial abnormality. Chronic right MCA infarction. Electronically Signed: Gus Encarnacion MD at 12:07 EST Tel , Service support ,
[2018-11-02 01:31] LABS: Bedside Glucose 103 mg/dL (70-110)
[2018-11-02 05:21] LABS: Absolute Lymphocyte Count 1.03 X10^3/ul (0.83-4.51); Absolute Neutrophil Count 2.4 X10^3/uL (2.0-7.7); Basophil# 0.02 X10^3/uL; Basophil% 0.5 % (0-1); Eosinophil# 0.16 X10^3/uL; Eosinophils% 3.8 % (0-5); Hematocrit 41.1 % (40-54); Hemoglobin 13.4 g/dl (13.0-16.5); Lymphocyte # 1.03 X10^3/ul (4.0); Lymphocyte % 24.3 % (19-41); Mean Corp Hgb Conc 32.6 g/gl (32-36); Mean Corpuscular Volume 91.9 fL (80-94); Mean Platelet Vol. 10.4 fl (6.2-12.0); Monocyte# 0.55 X10^3/uL; Neutrophil # 2.42 X10^3/uL (2.7-7.7); Neutrophil % 57.2 % (47-70); Platelet Count 98 K/mm3 (150-450); RBC Distribution Width CV 13.6 % (11.6-14.6); RBC Distribution Width SD 44.9 fl (35.1-43.9); Red Blood Count 4.47 M/mm3 (4.6-6.2); White Blood Count 4.2 K/mm3 (4.4-11.0)
[2018-11-02 05:26] LABS: POSITIVE COUNT NO; POSITIVE DIFFERENTIAL NO; POSITIVE MORPHOLOGY NO
[2018-11-02] MEDS: Baclofen 10 MG Tablet PO ×2 (05:32→13:25)
[2018-11-02 05:39] LABS: Anion Gap 8 (5-15); BUN 21 mg/dL (7-18); BUN/Creat Ratio 15.1 RATIO (10-20); Calcium,Total 8.1 mg/dL (8.5-10.1); Chloride 114 mmol/L (98-107); Creatinine, Serum 1.39 mg/dL (0.70-1.30); EST Glomerular Filtration Rate 54 mL/min (>60); Est Glom Filt Rate - Afr Amer 66 mL/min (>60); Estimated Creatinine Clearance 53.98 ml/min; Glucose 95 mg/dL (74-106); Potassium 3.9 mmol/L (3.5-5.1); Sodium Level 149 mmol/L (136-145)
[2018-11-02 07:05] LABS: Bedside Glucose 98 mg/dL (70-110)
[2018-11-02] MEDS: Clopidogrel Bisulfate 75 MG Tablet PO (10:00)
[2018-11-02] MEDS: Divalproex (ER) 500 MG Tablet 1500 MG PO (10:00)
[2018-11-02] MEDS: levETIRAcetam 750 MG Tablet PO (10:01)
[2018-11-02] MEDS: Mupirocin Ointment 22gm Tube 1 APPLIC TOPICAL (10:01)
[2018-11-02] MEDS: Fenofibrate 145 MG Tablet PO (10:05)
[2018-11-02] MEDS: Lisinopril 10 MG Tablet 30 MG PO (10:05)
[2018-11-02 10:31] LABS: Bedside Glucose 104 mg/dL (70-110)
--- NOTE | 2018-11-02 12:51 | PCM.CONS.GEN ---
Reason for Consult Date of Consultation: 11/02/18 Reason for Consultation: RECURRENT SEIZURES History of Present Illness: The patient is a 68 year old with history of epilepsy after cva, presents with recurrent sz yesterday, shorter duration but otherwise typical event, last previous event was 10/17/18, previous to october the last sz was in may. previously had gi upset with higher doses of keppra. yesterday the depakote dose was increased. today feels normal. has decided he does not want botox to rue due to concern of loss of function, prefers to take tylenol daily. when he was hospitalized 2 weeks ago, there had been mult med changes, but ultimately sent home on vpa 2500/d and keppra 500tid, which he has tolerated. per admit note:The patient is a 68 year old M with a significant history of left sided CVA status with development of epilepsy; CKD; hypertension; diabetes who had seizures few hours before presenting to the emergency department. Before the seizure patient felt like he was going to have a seizure (aura) so he took 2 tablets of his 0.5 mg of Ativan. His reported that patient had shaking movements of his left side and he fell. His face was contorted. He and his denies any bowel or bladder incontinence or biting of the tongue. Paramedics gave him Versed and brought him to the emergency department. At emergency department emergency department doctor noted a left-sided shakiness while in patient's room. At the emergency department patient's valproic acid level was low. At home patient used to take Keppra 500 mg 3 times daily; and valproic acid 1000 mg p.o. twice daily; and 500 mg p.o. nightly. At emergency department CT of the head was negative. His urinalysis was unremarkable. A neurologist, Dr. Goins was consulted and patient received valproic acid IV. Per emergency department doctorDr. Goins wants patient to have Depakote 1,500 mg twice daily; and Keppra 750 mg twice daily. Patient sees Dr. Payne. Dr. Payne will see patient in a.m. Also per ED doctor, Dr. Goins wanted patient to have an EEG and MRI; and liver enzymes because patient is on valproic acid.. Reportedly patient's seizures began after CVA that occurred exactly 2 years ago on the day of this admission (November 01) About 2 weeks ago patient was admitted for seizures he was discharged only to return a few hours ago because of seizures. Patient was supposed to see Dr. Payne on for probable Botox injection of his left arm. Past Medical History Past Medical History (Chronic Problems): Chronic Problems CKD (chronic kidney disease) (Chronic) Seizure disorder (Chronic) DM2 (diabetes mellitus, type 2) (Chronic) Dyslipidemia (Chronic) HTN (hypertension) (Chronic) CVA (cerebral vascular accident) (Chronic) Allergies No Known Allergies Allergy (Verified 11/01/18 19:51) Home Medications: Ambulatory Orders Medication Instructions Recorded Metformin HCl [Glucophage] 500 mg PO BIDCM 12/14/14 Clopidogrel Bisulfate [Plavix] 75 mg PO DAILY 07/26/17 Fenofibrate Nanocrystallized 145 mg PO DAILY 07/26/17 [Fenofibrate] Insulin Glargine [Lantus SoloStar 24 units SC QHS 07/26/17 Pen] Insulin Lispro [Humalog] 0 unit SQ TID 07/26/17 Lisinopril [Zestril] 30 mg PO DAILY 07/26/17 Pravastatin [Pravachol] 20 mg PO QHS 07/26/17 Baclofen [Lioresal] 10 mg PO TID 10/16/18 Divalproex (ER) 1,000 mg PO BIDCM 10/16/18 Divalproex (ER) [Depakote ER] 500 mg PO QHS 10/16/18 Lorazepam [Ativan] 0.5 tab PO DAILY PRN 10/16/18 levETIRAcetam tablet [Keppra 500 mg PO TID 10/16/18 tablet] Surgical History: cholecystectomy, herniorrhaphy Psychiatric History: No pertinent psych hx Lives: Spouse/ Significant Other Smoking Status: Never smoker - *Family History Maternal History Items: Cancer, - - ovarian cancer Paternal History Items: Heart Disease Sibling History Items: - - brother with abdominal aortic anuerysm Review of Systems Constitutional: Denies: Chills, Fever, Weight Change HEENT: Denies: Head Aches, Sinus Congestion, Sinus Drainage Cardiovascular: Denies: Chest Pain, Palpitations Respiratory: Denies: Cough, Shortness of breath at rest, Sputum production Gastrointestinal: Denies: Abdominal Pain, Nausea, Vomiting Genitourinary: Denies: Dysuria Musculoskeletal: Denies: Joint Pain, Joint Tenderness Skin: Denies: Rash, Wounds Neurological: Denies: Numbness, Tingling, Focal weakness Psychiatric: Denies: Anxiety, Depression, Homicidal Ideations, Suicidal Ideations Hematologic/ Lymphatic: Denies: Easy Bruising, Easy Bleeding Patient Problems: Active and Suspected Problems Breakthrough seizure (Acute) - Physical Exam General: Alert, Oriented x3, Cooperative, No apparent distress Neurological: - - stable left hemiparesis Vital Signs Temp Pulse Resp BP Pulse Ox 36.6 C 76 16 132/78 H 96 11/02/18 09:11 11/02/18 10:52 11/02/18 09:11 11/02/18 09:11 11/02/18 09:11 Oxygen Flow Rate (L/min) 2 Oxygen Delivery Method Room Air Weight: 102.2 kg Body Mass Index (BMI) 31.5 Finger Stick Blood Glucose 173 Intake and Output for Last 24 Hours 10/31/18 11/01/18 11/02/18 23:59 23:59 23:59 Intake Total 360 / 360 Output Total 275 / 275 Balance 85 / 85 Laboratory Tests Past 24 Hrs 11/01/18 11/01/18 11/01/18 19:59 19:59 19:59 WBC 4.2 L RBC 4.80 Hgb 14.0 Hct 43.5 MCV 90.6 MCH 29.2 MCHC 32.2 RDW 13.7 RDW Differential 45.4 H Plt Count 105 L MPV 10.3 Immature Gran % (Auto) 0.700 Neut % (Auto) 59.0 Lymph % (Auto) 24.3 [place] % (Auto) 10.6 H Eos % (Auto) 4.7 Baso % (Auto) 0.7 Absolute Neuts (auto) 2.5 Absolute Lymphs (auto) 1.03 Total Counted Not Reportable Sodium 145 Potassium 3.6 Chloride 111 H Carbon Dioxide 20.0 L Anion Gap 14 BUN 26 H Creatinine 1.65 H Estim Creat Clear Calc 46.90 Est GFR (MDRD) Af Amer 54 L Est GFR (MDRD) Non-Af 45 L BUN/Creatinine Ratio 15.8 Glucose 206 H Calcium 8.4 L Total Bilirubin 0.20 Direct Bilirubin 0.09 AST 22 ALT 21 Alkaline Phosphatase 47 Total Protein 5.9 L Albumin 3.1 L Globulin 2.8 Urine Color Urine Clarity Urine pH Ur Specific [place] Urine Protein Urine Glucose (UA) Urine Ketones Urine Occult Blood Urine Nitrite Urine Bilirubin Urine Urobilinogen Ur Leukocyte Esterase Urine RBC Urine WBC Ur Squamous Epith Cells Urine Bacteria Urine Mucus Valproic Acid 11/01/18 11/01/18 11/02/18 20:38 22:24 04:48 WBC 4.2 L RBC 4.47 L Hgb 13.4 Hct 41.1 MCV 91.9 MCH 30.0 MCHC 32.6 RDW 13.6 RDW Differential 44.9 H Plt Count 98 L MPV 10.4 Immature Gran % (Auto) 1.200 H Neut % (Auto) 57.2 Lymph % (Auto) 24.3 [place] % (Auto) 13.0 H Eos % (Auto) 3.8 Baso % (Auto) 0.5 Absolute Neuts (auto) 2.4 Absolute Lymphs (auto) 1.03 Total Counted Not Reportable Sodium Potassium Chloride Carbon Dioxide Anion Gap BUN Creatinine Estim Creat Clear Calc Est GFR (MDRD) Af Amer Est GFR (MDRD) Non-Af BUN/Creatinine Ratio Glucose Calcium Total Bilirubin Direct Bilirubin AST ALT Alkaline Phosphatase Total Protein Albumin Globulin Urine Color Yellow Urine Clarity Clear Urine pH 5.0 Ur Specific [place] 1.020 Urine Protein 30 H Urine Glucose (UA) Normal Urine Ketones 5 H Urine Occult Blood 10 H Urine Nitrite Negative Urine Bilirubin Negative Urine Urobilinogen Normal Ur Leukocyte Esterase Negative Urine RBC 0 SEEN Urine WBC 0 SEEN Ur Squamous Epith Cells 0 SEEN Urine Bacteria 0 SEEN Urine Mucus 0 SEEN Valproic Acid 41 L 11/02/18 04:48 WBC RBC Hgb Hct MCV MCH MCHC RDW RDW Differential Plt Count MPV Immature Gran % (Auto) Neut % (Auto) Lymph % (Auto) [place] % (Auto) Eos % (Auto) Baso % (Auto) Absolute Neuts (auto) Absolute Lymphs (auto) Total Counted Sodium 149 H Potassium 3.9 Chloride 114 H Carbon Dioxide 27.0 Anion Gap 8 BUN 21 H Creatinine 1.39 H Estim Creat Clear Calc 53.98 Est GFR (MDRD) Af Amer 66 Est GFR (MDRD) Non-Af 54 L BUN/Creatinine Ratio 15.1 Glucose 95 Calcium 8.1 L Total Bilirubin Direct Bilirubin AST ALT Alkaline Phosphatase Total Protein Albumin Globulin Urine Color Urine Clarity Urine pH Ur Specific [place] Urine Protein Urine Glucose (UA) Urine Ketones Urine Occult Blood Urine Nitrite Urine Bilirubin Urine Urobilinogen Ur Leukocyte Esterase Urine RBC Urine WBC Ur Squamous Epith Cells Urine Bacteria Urine Mucus Valproic Acid POC Glucose 11/02/18 11/02/18 11/02/18 10:23 06:41 01:18 POC Glucose 104 98 103 11/01/18 20:12 POC Glucose 173 H MRI reviewed, no acute. He has an old right MCA distribution infarct Assessment/Plan All Active Problems Breakthrough seizure (Acute) Acute respiratory failure (Resolved) Seizure disorder status post right MCA distribution infarct. He is now back to his baseline and I think can go home on the current dose of medications. He should continue the Keppra 500 3 times daily or 750 twice daily and Depakote 1500 twice daily and follow-up with me as an outpatient. He was scheduled to have Botox today for his left hand spasticity but he is concerned about loss of function and prefers to pursue [id number] analgesics for this which is reasonable.
--- NOTE | 2018-11-02 13:12 | NURSING ---
Per Dr. Payne pt may be discharged to home today, Dr. Payne talked to the pt in his room and was not here at the time. Will notifiy Dr. Webb of pending discharge.
--- NOTE | 2018-11-02 13:28 | NURSING ---
Pts here, awaiting discharge orders so pt can go home.
--- NOTE | 2018-11-02 14:15 | DCINST_ITS ---
- Discharge Diagnoses Current Active Problems: Current Active and Chronic Problems CKD (chronic kidney disease) (Chronic) Breakthrough seizure (Acute) You will use the following diet at home:: Calorie/Carbohydrate Controlled (specify 1200, 1400, etc) Your food should be the consistency of: Regular Your liquids should be the consistency of: Regular/Thin Discharge Activity: Return to Normal Activity, May Not Drive Call your doctor if you observe: Shortness of breath, Dizziness, Fainting spells Allergies/Adverse Reactions: Allergies No Known Allergies Allergy (Verified 11/01/18 19:51) Medications to take at Discharge Metformin HCl [Glucophage] 500 mg PO BIDCM 12/14/14 Clopidogrel Bisulfate [Plavix] 75 mg PO DAILY 07/26/17 Fenofibrate Nanocrystallized [Fenofibrate] 145 mg PO DAILY 07/26/17 Insulin Glargine [Lantus SoloStar Pen] 24 units SC QHS 07/26/17 Insulin Lispro [Humalog] 0 unit SQ TID 07/26/17 Lisinopril [Zestril] 30 mg PO DAILY 07/26/17 Pravastatin [Pravachol] 20 mg PO QHS 07/26/17 Baclofen [Lioresal] 10 mg PO TID 10/16/18 Lorazepam [Ativan] 0.5 tab PO DAILY PRN 10/16/18 Divalproex Sodium [Depakote ER] 1,500 mg PO BID #180 tab.er.24h 11/02/18 levETIRAcetam tablet [Keppra tablet] 750 mg PO BID tablet 11/02/18 The following prescriptions were given: Divalproex Sodium [Depakote ER] 1,500 mg PO BID #180 tab.er.24h Primary Care Physician: Antonio Pearson MD [Primary Care Provider] - Test Results: Test results from this visit will be discussed in further detail at your follow- up appointment, if applicable. Please Follow Up With: Keaton Payne MD
--- NOTE | 2018-11-02 14:18 | DS.PCM_ITS ---
Discharge Date and Diagnosis - Problem List Patient Problems: Active and Suspected Problems Breakthrough seizure (Acute) Date of Admission: 11/01/18 Date of Discharge: 11/02/18 - Primary Discharge Diagnosis Active and Suspected Problems Breakthrough seizure (Acute) - Secondary Discharge Diagnosis Chronic Problems CKD (chronic kidney disease) (Chronic) Seizure disorder (Chronic) DM2 (diabetes mellitus, type 2) (Chronic) Dyslipidemia (Chronic) HTN (hypertension) (Chronic) CVA (cerebral vascular accident) (Chronic) Hospital Course and Treatment Imaging Results: CT Brain: IMPRESSION: Chronic involutional changes of the brain. Stable right middle cerebral artery territory infarct. MRI Brain: IMPRESSION: No acute intracranial abnormality. Chronic right MCA infarction Consults: Neurology Operations: None Procedures: Electroencephalogram - Pending read Summary of Care Provided: Per HPI: The patient is a 68 year old M with a significant history of left sided CVA status with development of epilepsy; CKD; hypertension; diabetes who had seizures few hours before presenting to the emergency department. Before the seizure patient felt like he was going to have a seizure (aura) so he took 2 tablets of his 0.5 mg of Ativan. His reported that patient had shaking movements of his left side and he fell. His face was contorted. He and his denies any bowel or bladder incontinence or biting of the tongue. Paramedics gave him Versed and brought him to the emergency department. At emergency department emergency department doctor noted a left-sided shakiness while in patient's room. At the emergency department patient's valproic acid level was low. At home patient used to take Keppra 500 mg 3 times daily; and valproic acid 1000 mg p.o. twice daily; and 500 mg p.o. nightly. At emergency department CT of the head was negative. His urinalysis was unremarkable. A neurologist, Dr. Goins was consulted and patient received valproic acid IV. Per emergency department doctorDr. Goins wants patient to have Depakote 1,500 mg twice daily; and Keppra 750 mg twice daily. Patient sees Dr. Payne. Dr. Payne will see patient in a.m. Also per ED doctor, Dr. Goins wanted patient to have an EEG and MRI; and liver enzymes because patient is on valproic acid.. Reportedly patient's seizures began after CVA that occurred exactly 2 years ago on the day of this admission (November 01) About 2 weeks ago patient was admitted for seizures he was discharged only to return a few hours ago because of seizures. Patient was supposed to see Dr. Payne on for probable Botox injection of his left arm. General: Alert, Oriented x3, Cooperative, No apparent distress HEENT: Atraumatic, PERRLA, EOMI, Normocephalic Oral: Dry Mucosa Neck: Supple, No JVD Lungs: Clear to auscultation, Normal air movement, No rhonchi, No wheeze, No rales Cardiovascular: Regular rate, Regular Rhythm, Normal S1, Normal S2, No murmurs Abdomen: Soft, Non Tender, Non-Distended, No Hepato-splenomegaly Extremities: No edema, Capillary Refill Less than 3 Seconds Skin: No rashes, No breakdown Neurological: Sensory exam intact to light touch and pain, - - 5/5 RUE and 4/5 on LUE Psych/Mental Status: Normal Affect, Appropriate Hospital Course: 1. Seizure disorder after stroke in 2016/breakthrough seizure - He had a seizure at home and could feel it coming on and so took some Ativan however it did not prevent the seizure and called EMS. He had a very similar admission in 2 weeks ago and at that time no major changes were made. He is currently on Keppra and Depakote. Neurology was consulted and they recommended an MRI which was negative other than the chronic right MCA stroke, as well as an EEG which the read is pending. His Depakote was increased to 1500 mg twice a day and his Keppra was changed from 500 mg 3 times a day to 750 mg twice a day. He is currently back to normal and wants to go home, neurology is okay with that. He is to follow-up with neurology as an outpatient. 2. His other medical history was evaluated and his home medications to need were appropriate Patient Problems: Active and Suspected Problems Breakthrough seizure (Acute) - Physical Exam Vital Signs Temp Pulse Resp BP Pulse Ox 97.7 F L 76 16 116/72 95 11/02/18 13:27 11/02/18 13:56 11/02/18 13:27 11/02/18 13:27 11/02/18 13:57 Oxygen Flow Rate (L/min) 2 Oxygen Delivery Method Room Air Weight: 225 lb 4.999 oz Body Mass Index (BMI) 31.5 Finger Stick Blood Glucose 173 Intake and Output for Last 24 Hours 10/31/18 11/01/18 11/02/18 23:59 23:59 23:59 Intake Total 360 / 360 Output Total 275 / 275 Balance 85 / 85 Laboratory Tests Past 24 Hrs 11/01/18 11/01/18 11/01/18 19:59 19:59 19:59 WBC 4.2 L RBC 4.80 Hgb 14.0 Hct 43.5 MCV 90.6 MCH 29.2 MCHC 32.2 RDW 13.7 RDW Differential 45.4 H Plt Count 105 L MPV 10.3 Immature Gran % (Auto) 0.700 Neut % (Auto) 59.0 Lymph % (Auto) 24.3 [place] % (Auto) 10.6 H Eos % (Auto) 4.7 Baso % (Auto) 0.7 Absolute Neuts (auto) 2.5 Absolute Lymphs (auto) 1.03 Total Counted Not Reportable Sodium 145 Potassium 3.6 Chloride 111 H Carbon Dioxide 20.0 L Anion Gap 14 BUN 26 H Creatinine 1.65 H Estim Creat Clear Calc 46.90 Est GFR (MDRD) Af Amer 54 L Est GFR (MDRD) Non-Af 45 L BUN/Creatinine Ratio 15.8 Glucose 206 H Calcium 8.4 L Total Bilirubin 0.20 Direct Bilirubin 0.09 AST 22 ALT 21 Alkaline Phosphatase 47 Total Protein 5.9 L Albumin 3.1 L Globulin 2.8 Urine Color Urine Clarity Urine pH Ur Specific [place] Urine Protein Urine Glucose (UA) Urine Ketones Urine Occult Blood Urine Nitrite Urine Bilirubin Urine Urobilinogen Ur Leukocyte Esterase Urine RBC Urine WBC Ur Squamous Epith Cells Urine Bacteria Urine Mucus Valproic Acid 11/01/18 11/01/18 11/02/18 20:38 22:24 04:48 WBC 4.2 L RBC 4.47 L Hgb 13.4 Hct 41.1 MCV 91.9 MCH 30.0 MCHC 32.6 RDW 13.6 RDW Differential 44.9 H Plt Count 98 L MPV 10.4 Immature Gran % (Auto) 1.200 H Neut % (Auto) 57.2 Lymph % (Auto) 24.3 [place] % (Auto) 13.0 H Eos % (Auto) 3.8 Baso % (Auto) 0.5 Absolute Neuts (auto) 2.4 Absolute Lymphs (auto) 1.03 Total Counted Not Reportable Sodium Potassium Chloride Carbon Dioxide Anion Gap BUN Creatinine Estim Creat Clear Calc Est GFR (MDRD) Af Amer Est GFR (MDRD) Non-Af BUN/Creatinine Ratio Glucose Calcium Total Bilirubin Direct Bilirubin AST ALT Alkaline Phosphatase Total Protein Albumin Globulin Urine Color Yellow Urine Clarity Clear Urine pH 5.0 Ur Specific [place] 1.020 Urine Protein 30 H Urine Glucose (UA) Normal Urine Ketones 5 H Urine Occult Blood 10 H Urine Nitrite Negative Urine Bilirubin Negative Urine Urobilinogen Normal Ur Leukocyte Esterase Negative Urine RBC 0 SEEN Urine WBC 0 SEEN Ur Squamous Epith Cells 0 SEEN Urine Bacteria 0 SEEN Urine Mucus 0 SEEN Valproic Acid 41 L 11/02/18 04:48 WBC RBC Hgb Hct MCV MCH MCHC RDW RDW Differential Plt Count MPV Immature Gran % (Auto) Neut % (Auto) Lymph % (Auto) [place] % (Auto) Eos % (Auto) Baso % (Auto) Absolute Neuts (auto) Absolute Lymphs (auto) Total Counted Sodium 149 H Potassium 3.9 Chloride 114 H Carbon Dioxide 27.0 Anion Gap 8 BUN 21 H Creatinine 1.39 H Estim Creat Clear Calc 53.98 Est GFR (MDRD) Af Amer 66 Est GFR (MDRD) Non-Af 54 L BUN/Creatinine Ratio 15.1 Glucose 95 Calcium 8.1 L Total Bilirubin Direct Bilirubin AST ALT Alkaline Phosphatase Total Protein Albumin Globulin Urine Color Urine Clarity Urine pH Ur Specific [place] Urine Protein Urine Glucose (UA) Urine Ketones Urine Occult Blood Urine Nitrite Urine Bilirubin Urine Urobilinogen Ur Leukocyte Esterase Urine RBC Urine WBC Ur Squamous Epith Cells Urine Bacteria Urine Mucus Valproic Acid POC Glucose 11/02/18 11/02/18 11/02/18 10:23 06:41 01:18 POC Glucose 104 98 103 11/01/18 20:12 POC Glucose 173 H Discharge Activity: Return to Normal Activity, May Not Drive Call your doctor if you observe: Shortness of breath, Dizziness, Fainting spells Home Medications: Medications to take at Discharge Metformin HCl [Glucophage] 500 mg PO BIDCM 12/14/14 Clopidogrel Bisulfate [Plavix] 75 mg PO DAILY 07/26/17 Fenofibrate Nanocrystallized [Fenofibrate] 145 mg PO DAILY 07/26/17 Insulin Glargine [Lantus SoloStar Pen] 24 units SC QHS 07/26/17 Insulin Lispro [Humalog] 0 unit SQ TID 07/26/17 Lisinopril [Zestril] 30 mg PO DAILY 07/26/17 Pravastatin [Pravachol] 20 mg PO QHS 07/26/17 Baclofen [Lioresal] 10 mg PO TID 10/16/18 Lorazepam [Ativan] 0.5 tab PO DAILY PRN 10/16/18 Divalproex Sodium [Depakote ER] 1,500 mg PO BID #180 tab.er.24h 11/02/18 levETIRAcetam tablet [Keppra tablet] 750 mg PO BID tablet 11/02/18 Following Prescrptions Were Given to Patient: Divalproex Sodium [Depakote ER] 1,500 mg PO BID #180 tab.er.24h Primary Care Physician: Antonio Pearson MD [Primary Care Provider] - Please Follow Up With: Keaton Payne MD Disposition: Home Minutes spent on discharge:: 35 Patient Condition:: Good Medical Necessity - Tobacco Use Smoking Status: Never smoker Meaningful Use Info Meaningful Use Diagnoses (Choose all that apply): None applicable Code Visit OBSV E&M: 96311 Observation care discharge
--- NOTE | 2018-11-04 13:35 | EEG_ITS ---
- Electroencephalogram Date of service 11/02/18 This is an 18 channel electroencephalogram performed utilizing the international 1020 electrode placement protocol on this 88-year-old male with a history of stroke and seizures. EKG rhythm strip monitoring was also performed as well as photic stimulation and hyperventilation. Background activity is 9 Hz symm etrically in the posterior leads which attenuates with eye opening. Hyperventilation is performed for 3 minutes with good effort with no lateralizing or epileptiform changes. Patient remained awake throughout the recording without lateralizing or epileptiform changes. Photic stimulation generated a normal symmetric driving response in the posterior leads. EKG is normal sinus rhythm throughout the recording. Impression this is a normal awake electroencephalogram
== END 2018-11-02 14:14 | disposition home or self-care (01) ==
LOC: ED 22:48 → PCU 23:39
PROVIDERS: Admitting Provider Hospitalist; Emergency Provider Emergency Medicine; Family Provider Family Medicine; PCP Family Medicine; Visit Provider Family Medicine
DX: G40.802 Other epilepsy, not intractable, without status epilepticus (principal); I12.9 Hypertensive chronic kidney disease with stage 1 through stage 4 chronic kidney disease, or unspecified chronic kidney disease; E11.22 Type 2 diabetes mellitus with diabetic chronic kidney disease; N18.9 Chronic kidney disease, unspecified; E78.5 Hyperlipidemia, unspecified; I69.354 Hemiplegia and hemiparesis following cerebral infarction affecting left non-dominant side; I69.398 Other sequelae of cerebral infarction; Z79.899 Other long term (current) drug therapy; Z79.4 Long term (current) use of insulin; Z79.02 Long term (current) use of antithrombotics/antiplatelets
CPT/HCPCS: 36415; 70450; 70551; 80048; 80076; 80164; 81001; 82962; 85025; 93005; 96365; 96366; 99218; 99285; J7030; A4216; G0378

== ENCOUNTER → 2019-04-04 20:10 | Outpatient (CLI) | payer MEDICARE, OTHER, SELFPAY ==
[2018-11-02 00:27] VITALS: BMI 31.5
== END ==
PROVIDERS: Family Provider Family Medicine; PCP Family Medicine; Referring Provider Registered Nurse; Visit Provider Registered Nurse
DX: G47.33 Obstructive sleep apnea (adult) (pediatric) (principal)
CPT/HCPCS: 95811

== ENCOUNTER → 2019-04-27 14:21 | Outpatient (CLI) | payer MEDICARE, OTHER, SELFPAY ==
[2018-11-02 00:27] VITALS: BMI 31.5
== END ==
PROVIDERS: Family Provider Family Medicine; PCP Family Medicine; Referring Provider Registered Nurse; Visit Provider Registered Nurse
DX: Z46.89 Encounter for fitting and adjustment of other specified devices (principal)

== ENCOUNTER → 2019-06-21 15:05 | Outpatient (CLI) | payer MEDICARE, OTHER, SELFPAY ==
[2018-11-02 00:27] VITALS: BMI 31.5
[2019-06-21 15:55] LABS: Absolute Lymphocyte Count 1.12 X10^3/uL (0.83-4.51); Absolute Neutrophil Count 2.6 X10^3/uL (2.0-7.7); Basophil# 0.03 X10^3/uL; Basophil% 0.7 % (0-1); Eosinophil# 0.05 X10^3/uL; Eosinophils% 1.1 % (0-5); Hematocrit 46.3 % (40-54); Lymphocyte # 1.12 X10^3/ul (4.0); Lymphocyte % 24.5 % (19-41); Mean Corp Hgb Conc 32.4 g/dL (32-36); Mean Corpuscular Hgb 31.2 pg (27.0-32.0); Mean Corpuscular Volume 96.3 fL (80-94); Mean Platelet Vol. 10.1 fl (6.2-12.0); Monocyte# 0.67 X10^3/uL; Monocyte% 14.7 % (0-10); NRBC Flagged by Analyzer 0 % (0-5); Neutrophil # 2.63 X10^3/uL (2.7-7.7); Neutrophil % 57.5 % (47-70); Platelet Count 104 K/mm3 (150-450); RBC Distribution Width CV 13.7 % (11.6-14.6); RBC Distribution Width SD 49.1 fl (35.1-43.9); Red Blood Count 4.81 M/mm3 (4.6-6.2); White Blood Count 4.6 K/mm3 (4.4-11.0)
[2019-06-21 16:11] LABS: Valproic Acid (Depakene) Level 89 ug/mL (50-100)
[2019-06-21 16:30] LABS: AST(SGOT) 37 U/L (15-37); Alanine Aminotransfer ALT/SGPT 22 U/L (16-61); Albumin, Serum 3.1 g/dL (3.2-5.0); Alkaline Phosphatase 46 U/L (45-117); Anion Gap 7 (5-15); BUN 26 mg/dL (7-18); BUN/Creat Ratio 17.7 RATIO (10-20); Bilirubin, Direct 0.13 mg/dL (0.00-0.30); Calcium,Total 8.8 mg/dL (8.5-10.1); Chloride 111 mmol/L (98-107); Creatinine, Serum 1.47 mg/dL (0.70-1.30); EST Glomerular Filtration Rate 51 mL/min (>60); Est Glom Filt Rate - Afr Amer 61 mL/min (>60); Globulin 3.2 g/dL (2.2-4.2); Glucose 75 mg/dL (74-106); Potassium 4.1 mmol/L (3.5-5.1); Protein, Total 6.3 g/dL (6.4-8.2); Sodium Level 145 mmol/L (136-145)
[2019-06-26 11:57] LABS: KEPPRA (LEVETIRACETAM) 22.3 ug/mL (10.0-40.0)
== END ==
PROVIDERS: Family Provider Family Medicine; PCP Family Medicine; Referring Provider Nurse Practitioner Family; Visit Provider Nurse Practitioner Family
DX: R56.9 Unspecified convulsions (principal)
CPT/HCPCS: 36415; 80048; 80076; 80164; 80177; 85025

== ENCOUNTER → 2019-09-22 20:13 | Outpatient (CLI) | payer MEDICARE, OTHER, SELFPAY ==
[2018-11-02 00:27] VITALS: BMI 31.5
== END ==
PROVIDERS: Family Provider Family Medicine; PCP Family Medicine; Referring Provider Nurse Practitioner Family; Visit Provider Nurse Practitioner Family
DX: G47.33 Obstructive sleep apnea (adult) (pediatric) (principal)
CPT/HCPCS: 95811

== ENCOUNTER 2019-09-28 08:00 | Outpatient (RCR) | payer MEDICARE, OTHER, SELFPAY ==
[2018-11-02 00:27] VITALS: BMI 31.5
--- NOTE | 2019-07-06 12:33 | HP.PTEVAL_ITS ---
Patient's Visit Information ISAAC PAEZ is a 69 year old M referred to Physical Therapy by BONNY Sal with a diagnosis of RIGHT MIDDLE CEREBRAL ARTERY STROKE, LOB, LEFT SIDED WEAKNESS. Date of Evaluation: 07/06/19 Physical Therapist: Rose Alvarez, PT, Cert MDT - Visit Plan Frequency: 1-2x /Week Duration: 4-6 Weeks Plan: NEUROCOM BALANCE PERFORMANCE ASSESSMENT NEXT VISIT. PATIENT MAY BENEFIT FROM PT 2X/ week for 4 weeks FOR BREANN HIP AND KNEE STRENGTHENING, AMBULATION WITH HEAD TURNS, FOAM DYNAMIC BALANCE WITH AND WITHOUT HEAD TURNS WITH HEP DEPENDING ON RESULTS OF NEUROCOM TESTING. ADDITIONAL PT GOALS BASED ON TEST RESULTS. PATIENT WOULD HOWEVER PREFER ONE TIME A WEEK. - Subjective Findings: DX: STROKE 2016. Work/Leisure: RETIRED. Disability: NO. Present symptoms: RIGHT KNEE AND JENSEN PAIN. PATIENT REPORTS HIS NEUROLIGIST REFERRED HIM TO PT BECAUSE OF UNSTEADY GAIT. HE REPORTS HE HAS HAD PHYSICAL THERAPY BEFORE AND HE ISN'T SURE IT IS NECESSARY OR CONVINCED THAT IT IS GOING TO BE BENEFICIAL IN THE LONG RUN BECAUSE HE HAS WALKED THIS WAY SINCE HIS STROKE. STATES HE IS WILLING TO GIVE IT A TRY AGAIN THOUGH. HE REPORTS THE NEW ONSET OF HIS RIGHT KNEE AND LEG PAIN IS MAKING IT MORE DIFFICULT TO WALK LATELY BUT HE SUSPECTS THAT IS JUST TEMPORARY UNTIL IT HEALS. HE FELL TRYING TO GET ON A HORSE A COUPLE WEEKS AGO AND THEN THE HORSE STEPPED ON HIS FOOT. HE REPORTS HE WAS ON A PLATFORM TRYING TO GET ON THE HORSE AND THE PLATFORM TIPPED DUE TO NOT BEING BALANCED RIGHT. NO LEG X-RAYS. NEUROLOGIST IS AWARE OF INJURY. PATIENT REPORTS HIS RIGHT LE PAIN RANGES 0-8/10 AND IT DOESN'T HURT WHEN HE ISN'T ON IT. Previous history/Previous treatment: PATIENT REPORTS HE TENDS TO LOSE HIS BALANCE SINCE HAVING THE STROKE BUT DOENS'T FALL. GOES DOWN STEPS BACKWARDS SINCE THE STROKE. HAS TROUBLE GOING DOWN INCLINES TOO. HAD PT HERE AFTER THE STROKE. HAS BEEN BACK FOR PT OFF AND ON DUE TO HAVING HAD SOME SEIZURES. HE REPORTS HE IS VERY FAMILAR WITH THERAPY. 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 INTERESTED IN BUYING A CUSHION FOR HEP. Gait: Difficulty initiating urinatin: Accidents: Unexplained weight loss: Imaging: PMH: Recent major surgery: PLOF (Prior Level of Function): - Objective THIS PATIENT AMBULATES INDEP'LY INTO PT TODAY WITHOUT ANY ASSISTIVE DEVICES X APPROX 300 FEET WITHOUT LOB. HE WALKS WITH DECREASED STANCE TIME ON THE LLE. HE ALSO WALKS WITH DECREASED TRUNK ROTATION AND BREANN ARM SWING. HE IS ABLE TO HEEL AND TOE RAISE WITHOUT DIFFICULTY (EVEN ON RECENTLY INJURED RIGHT LEG). STRENGTH: RIGHT HIP 4/5, KNEE 5/5, ANKLE 5/5 (PITTING EDEMA RIGHT LOWER LEG). I PROCEEDED CAREFULLY WITH TESTING OF RIGHT LE DUE TO RECENT INJURY, ABRASIONS, REDNESS AND SWELLING AND PATIENT TOLERATED WELL. LEFT HIP 4-/5, LEFT KNEE 4/5, LEFT ANKLE 5/5. WHEN AMBULATING WITH HEAD TURNS PATIENT VEERS TO THE RIGHT. HE VEERS TO THE LEFT WHEN TRYING TO BALANCE ON BLUE FOAM. PATIENT DENIES INCRASED RIGHT LE PAIN WITH ALL TESTING TODAY. MONITOR RIGHT LE PAIN FROM NEW INJURY. - Goals Goal 1:: PATIENT WILL BE ABLE TO WALK WITH HEAD TURNS WITHOUT VEERING OR HAVING TO CORRECT BALANCE X 75 FEET WITH SBA. Goal Time Frame: ONE MONTH Goal 2:: PATIENT WILL BE INDEP WITH A HEP FOR CONTINUED IMPROVEMENT ONCE FORMAL PHYSICAL THERAPY CONCLUDES. Goal Time Frame: ONE MONTH - Rehabilitation Potential Rehabilitation Potential: Fair - Anticipated Interventions Patient/Client Instruction: Educate patient on: Condition, Plan of Care, Risk Factors, Benefits of Fitness Program For the Purpose of:: To improve self management Therapeutic Exercise to Include: Strength training, Balance training, Gait and locomotor training For the Purpose of:: To improve muscle performance and motor function, To improve ability of physical actions for home/community/work/leisure, To improve gait and locomotor functions Thank you for the opportunity to evaluate your patient. For Medicare and Medicare HMO plans, please review the plan of care and approve it. It will need to be FAXED BACK to us at [phone] for Medicare purposes. For Medicare only, by signing this I certify the plan of care. Please let me know if there are questions or concerns regarding this plan of care. Physician Signature: Date:
--- NOTE | 2019-07-06 12:43 | HP.OTEVAL_ITS ---
Patient's Visit Information ISAAC PAEZ is a 69 year old M, referred to Occupational Therapy by BONNY Sal, with a diagnosis of CVA. Date of Evaluation: 07/06/19 Occupational Therapist: Caity Espinoza, OTR/L - Subjective Subjective: Isaac is 69 y/o male who s/p CVA in 2016. He is familar to OT. He noted that he is doing well and close to baseline. Noted last seizure was ary 14 while at [facility] but did not have to go to hospital. He noted L hand still giving him trouble but he is doing well. - ADLs Fasteners: Buttons Eating: Use silverware, Cut food Comments: mowing and noted going well. Miscellaneous: Play musical instrument Comments: Noted increased difficulty with playing piano and completing buttons with bilateral hand coordination. - ROM Shoulder: WFL Elbow: WFL Forearm: WFL Wrist: flexion R WFL, L 0-55; extentsion R WFL, L 0-36 - Strength High Speed Printer Operator: flexed R 103, L 73; extended R114, L 63 Lateral Pinch: R 29, L 20 Tripod Pinch: R 27, L 12 - Nine Hole Peg Right: 33.90 s Left: unable to get peg in board within 3 minutes - Quick DASH-Disab of Arm,Shoulder& Hand Quick DASH Score: 36.3625 - Goals Goal:: Rogelio to be (i) to complete increased fx pinch patterns and isolated fing er dexterity tasks to promote his ability to complete piano playing and completed manipulation of small items as exhibits through increased performance of 9 hole pegboard tasks by d/c. Goal:: Rogelio to be (i) to complete buttons to promote increased fx use fo L hand for dressing tasks 4/5 trials 80% of the time by d/c. Goal:: Rogelio to complete daily HEP to promote increased dexterity and (I) with buttons 4/5 trials 80% of the time by d/c. - Rehabilitation General Assessment: Rogelio is s/p CVA occuring three years ago in 2015. His CVa was followed by seizures but last seizure occured in December of 2018. 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 Rogelio has regressed in dexterity tasks and use of left UE. Skilled Ot to be completed 1x weekly appointments for the next three weeks to set up HEp for dexterity tasks, strengthening, and promoting more functional pincer patterns of left hand. Rehabilitation Potential: Good - Anticipated Interventions Anticipated Interventions: A/AAROM/PROM, Strengthening, Fine Motor Coord/Lico, Neuro Reeducation, Visual/Perceptual Skills, Caregiver Training, Home Program Other Interventions: Will focus on dexterity of Left hand with set up of HEP. - Visit Plan Frequency: 1x/Week Duration: 3 Weeks General Plan: Rich to complete 1x weekly OT for 3 weeks to promote increased dexterity and ROM of L hand and wrist needed to completed FMC and functional pinch patterns. After set up of additional HEP to work on dexterity will be d/c'd as he is close to baseline. TEXT: Thank you for the opportunity to evaluate your patient. For Medicare and Medicare HMO plans, please review the plan of care and approve it. It will need to be FAXED BACK to us at [phone] for Medicare purposes. Please let me know if there are questions or concerns regarding this plan of care. Physician Signature: Date:
--- NOTE | 2019-07-27 16:35 | HP.OTDCSUM_ITS ---
HP - OT D/C Summary It has been my pleasure to treat MAJOR PAEZ under orders from SAHIL SalC, for the diagnosis of CVA for a total of 4 visit(s). Please see the following information for a summary of their discharge status. - Overall Improvement % Improvement: 80 - Objective Objective/Function: Completed reassessment in this date of 07/27/19 and results are as follows: Strength. forensics team director in flexed position 2: R 101, L 64 lbs. forensics team director in extended position R 111, L 60 lbs. lateral pinch R 27, L 18 lbs. tripod R 28, L 6 lbs. pincer R 16, L 11 lbs. 9 hole pegboad test: R 39. 70 s. L - unable as noted 'too hard today'. Increased essential tremors noted. This is unlike and new this session. Increased intrinsic weakness noted with L hand and decreased dexterity remains. - Goals Patient Goals: Regain Mobility, Regain Strength, Decrease Pain, Return to Work, Improve Fine Motor Skills, Use Hand/Wrist/Arm Normally Again, Decrease Tingling/Numbness, Increase ROM, Be More Independent in ADLS, Resume Former Household Responsibilities (Cooking,Cleaning,Yard, etc.), Resume Hobbies Goal:: Rich to be (i) to complete increased fx pinch patterns and isolated finger dexterity tasks to promote his ability to complete piano playing and completed manipulation of small items as exhibits through increased performance of 9 hole pegboard tasks by d/c. Goal:: Rich to be (i) to complete buttons to promote increased fx use fo L hand for dressing tasks 4/5 trials 80% of the time by d/c. Goal:: Rich to complete daily HEP to promote increased dexterity and (I) with buttons 4/5 trials 80% of the time by d/c. - Plan Plan: Major will be d/c'd as he feels he is baseline and does not wish to continue. He is to call with questions/concerns. He has handouts on home exercise programs that he has been completed and would prefer to complete at home. - D/C Information If there are questions or concerns regarding this patient's occupational therapy, please fell free to call me at [phone]. Thank you for the referral of this patient. Sincerely, Caity Espinoza, OTR/L
--- NOTE | 2019-08-03 10:27 | HP.PTCOM ---
PT Communication Note 08/03/[address] Mariah Cesar, [employer] , Thank you for the referral of Major to [facility] for balance assessment. I have enclosed a copy of the results for your review. In summation, he scored slow on multiple facets of the forward weight shifting ability. He scored slow on latency in the Motor Control test. he scored low on the vestibular portion of the Sensory Organization test. With these results in mind, we plan to see Major for 2x/week for 4 weeks to work on LE strength and balance and gait training based on these results and progress to [facility]. If there are questions regarding his physical therapy, brandt feel free to call me. Sincerely, Tarun Francois, DPT, OCS, CSCS Contact Information
--- NOTE | 2019-09-01 17:44 | HP.PTREVAL ---
Mariah Cesar, HYUN-C, It has been my pleasure to treat ISAAC PAEZ over the last 9 visits for RIGHT MIDDLE CEREBRAL ARTERY STROKE, LOB, LEFT SIDED WEAKNESS. Please see the progress note below for an update on the physical therapy plan of care! Subjective: PATIENT REPORTS STAIR CLIMBING, INCLINE/DECLINE WALKING AND OVER-ALL BALANCE IN THE SHOWER AND WITH DRESSING HAS IMRPOVED A LOT. PATIENT REPORTS HE IS STILL HAVING SOME TROUBLE WITH CATCHING HIS LEFT TOES SOMETIMES. STILL HAVING SOME TROUBLE WIHT STRENGTH WITH LEFT FOOT AND LEFT LEG BUT IMPROVING. LEFT SIDE FATIGUES QUICKER THAN RIGHT. CONSIDERING JOINING [employer] UPON RETURN FROM [facility] IN JANUARY 2020. GOING SOUTH NOV 08 2019. NOT SURE WHAT EX FACILITIES HE WILL HAVE IN THE [facility]. PATIENT REPORTS HIS RIGHT LEG HAS RECOVERED FROM THE FALL HE HAD WHEN HE WAS TRYING TO GET ON THE HORSE A FEW MONTHS AGO. S/P CVA OCT 31 2016. Objective/Function: UPON EXAM TODAY, PATIENT IS MAKING SLOW PROGRESS TOWARD THE SET PT GOALS AND IS A GOOD CANDIDATE TO CONTINUE PT. HE DOES CONTINUE TO SILVINO LEFT WITH HEAD TURNS DURING GAIT AND HE IS STILL UNABLE TO BALANCE ON FOAM WITHOUT UE SUPPORT BUT HE IS TOLERATING PRE WELL AND SUBJECTIVELY REPORTING IMPROVEMENT. Plan Plan: CONTINUE PT 2X/ week for 4 weeks FOR BREANN HIP AND KNEE STRENGTHENING, AMBULATION WITH HEAD TURNS, FOAM DYNAMIC BALANCE WITH AND WITHOUT HEAD TURNS and weight shifts for speed and excursion in the forward direction integrating this into his gait pattern. Patient is agreeable to this POC. Goals Goal 1:: PATIENT WILL BE ABLE TO WALK WITH HEAD TURNS WITHOUT VEERING OR HAVING TO CORRECT BALANCE X 75 FEET WITH SBA. Goal Time Frame: ONE MONTH Goal 2:: PATIENT WILL BE INDEP WITH A HEP FOR CONTINUED IMPROVEMENT ONCE FORMAL PHYSICAL THERAPY CONCLUDES. Goal Time Frame: ONE MONTH Anticipated Interventions Patient/Client Instruction: Educate patient on: Condition, Plan of Care, Risk Factors, Benefits of Fitness Program For the Purpose of:: To improve self management Therapeutic Exercise to Include: Strength training, Balance training, Gait and locomotor training For the Purpose of:: To improve muscle performance and motor function, To improve ability of physical actions for home/community/work/leisure, To improve gait and locomotor functions Please do not hesitate to contact me at [phone] by phone or if you have questions or concerns regarding this new plan of care! Sincerely, Rose Alvarez, PT, Cert MDT
--- NOTE | 2019-11-03 16:34 | HP.PT.NRP ---
HP - Discharge Summary (1) - Patient Information ISAAC PAEZ was seen in my office for initial evaluation on 07/06/19. The following Plan of Care was established for this patient: Initial Frequency: 1-2x /Week Initial Duration: 4-6 Weeks - Anticipated Interventions Patient/Client Instruction: Educate patient on: Condition, Plan of Care, Risk Factors, Benefits of Fitness Program For the Purpose of:: To improve self management Therapeutic Exercise to Include: Strength training, Balance training, Gait and locomotor training For the Purpose of:: To improve muscle performance and motor function, To improve ability of physical actions for home/community/work/leisure, To improve gait and locomotor functions This patient was last seen in our office 09/28/19. Pertinent comments regarding their Physical therapy will appear below: This patient has not returned to Physical Therapy and is appropriate to return to MD for further follow-up as needed. At this point I will be discontinuing this patient from physical therapy. I would be happy to see this patient again in the future if found appropriate by the physician. Thank you! Rose Alvarez, PT, Cert MDT
== END 2019-09-28 19:00 | disposition home or self-care (01) ==
LOC: PT 08:00
PROVIDERS: Family Provider Family Medicine; PCP Family Medicine; Referring Provider Nurse Practitioner Family; Visit Provider Nurse Practitioner Family
DX: G81.14 Spastic hemiplegia affecting left nondominant side (principal); Z86.73 Personal history of transient ischemic attack (TIA), and cerebral infarction without residual deficits
CPT/HCPCS: 97110; 97162; 97166; 97530; 97750

== ENCOUNTER 2019-10-11 14:44 | Inpatient (IN) | payer MEDICARE, OTHER, SELFPAY ==
[2018-11-02 00:27] VITALS: BMI 31.5
[2019-10-11] VITALS (8 sets, daily range): BP systolic 114–135; BP diastolic 52–89; PULSE 67–88; RESP 14–18; TEMP 36.8–37.4; O2SAT 93–100; BMI 29.1; BMI 28.3; BMI 28.4
--- NOTE | 2019-10-11 14:59 | CT_ITS ---
STUDY: CT BRAIN WITHOUT CONTRAST REASON FOR EXAM: Male, 69 years old. Altered level of consciousness. RADIATION DOSAGE (If Supplied By Facility): CTDIvol = ( 44.99 ) mGy, DLP = ( 846.73 ) mGycm TECHNIQUE: Transaxial CT imaging of the brain was performed without administration of intravenous contrast material. Individualized dose optimization techniques were used for this CT. COMPARISON: Comparison is made with prior study dated November 01, 2018. FINDINGS: Normal soft tissue structures. Normal calvarium. There is mild cerebral atrophy with widening of the extra-axial spaces and ventricular dilatation. Stable encephalomalacia involving the right middle cerebral artery territory. There are small punctate calcifications of the basal ganglia which are seen in the aging brain as a normal variant. Normal brainstem. Normal cerebellum. There is no intracranial hemorrhage. There are no findings of an acute ischemic infarction. Mucosal thickening along the inferior anterior aspect of the right maxillary sinus. CT/Brain/Head without Contrast IMPRESSION: Chronic involutional changes of the brain. Stable encephalomalacia involving the territory of the right middle cerebral artery. Electronically Signed: Michael Sprague, at 15:36 EST , Service support ,
--- NOTE | 2019-10-11 14:59 | EKG12_ITS ---
Test Reason : Blood Pressure : / mmHG Vent. Rate : 071 BPM Atrial Rate : 071 BPM P-R Int : 140 ms QRS Dur : 072 ms QT Int : 390 ms P-R-T Axes : 044 021 017 degrees QTc Int : 423 ms Normal sinus rhythm Normal ECG Confirmed by KEIKO ANDERSON, NEAL ([id number]), acquisition editor JUSTIN COATES ([id number]) on 10/15/2019 9:50:01 AM Referred By: Jody Cole Confirmed By:TUSHAR ADEN MD
--- NOTE | 2019-10-11 15:01 | RAD_ITS ---
STUDY: X-RAY - LEFT SHOULDER REASON FOR EXAM: Male, 69 years old. Left shoulder pain following a fall. TECHNIQUE: 2 view(s) of the shoulder. COMPARISON: None. FINDINGS: Normal glenohumeral articulation. There is no widening of the coracoclavicular distance. There is widening of the AC joint, but without displacement of the clavicle or widening of the coracoclavicular distance, consistent with a Type II acromioclavicular joint separation. Vertebral avulsion fracture along the inferior aspect of the distal left clavicle. Normal humeral head and visualized proximal humerus. The soft tissue structures are unremarkable. Normal visualized pulmonary apex. RAD/Shoulder min 2 Views IMPRESSION: Type II left acromioclavicular clavicular joint separation with possible avulsion fracture along the inferior aspect of the distal left clavicle. Electronically Signed: Michael Sprague, at 15:37 EST , Service support ,
--- NOTE | 2019-10-11 15:02 | ED.VIS.GEN ---
History of Present Illness Chief Complaint: Alt LOC Informant: Family Onset: Today Current Severity: Mild Narrative: Patient presents with altered level of consciousness seems more confused lethargic poor p.o. intake inability to walk Per the the patient is a prior history of stroke TIA that affected the left side with weakness he has a history of seizure disorder related to the above, but in general his deficits improved to where he was able to walk and execute normal type activities yesterday he was at home he slipped on a hardwood floor he suffered injury to left shoulder he got up he did not obvious have any head injury, he was then taken to outpatient diagnostic radiology where he was found to have a shoulder fracture, face with a sling, started on what sounds like Tylenol with codeine, reports that 3:00 this morning he needed help getting to the bathroom and she could not walk to the bathroom he was assisted, and then trying to get back from the bathroom to the bed he could not walk seem to have weakness to the left side family members carried him back to the bed today the symptoms in the sense of confusion persisted he was brought to the hospital The patient this time is awake he has intermittent confusion to name place, he indicates he does not have any head neck pain his only complaint is left shoulder pain he denies any pain to his back abdomen chest lower extremities or pelvis, he is able to move all 4 extremities to commands he can lift both legs up off the bed and hold for a 10 count, he is restricted in movement to the left shoulder related to the fracture Past Medical History - Allergies and Home Meds Allergies/Adverse Reactions: Allergies No Known Allergies Allergy (Verified 10/11/19 14:55) Primary Care Physician: Antonio Pearson MD [Primary Care Provider] - Past Medical History: - - By her stroke seizure disorder recent left shoulder fracture Surgical History: cholecystectomy, herniorrhaphy Smoking Status: Never smoker - Family History Maternal Family History: Reports: Cancer, - - ovarian cancer Paternal Family History: Reports: Heart Disease Sibling Family History: Reports: - - brother with abdominal aortic anuerysm Review of Systems General: Denies: Chills, Fever, Sweats Eyes: Denies: Visual changes - bilaterally, Diplopia ENT: Denies: Rhinorrhea, Sore throat Cardiovascular: Denies: Chest pain, Palpitations Respiratory: Denies: Dyspnea, Cough, Dyspnea on exertion Gastrointestinal: Denies: Abdominal pain, Nausea, Vomiting, Diarrhea, Melena, Hematochezia Genitourinary: Denies: Dysuria, Hematuria, Frequency Musculoskeletal: Denies: Back pain, Extremity Pain Skin: Denies: Rash, Wounds Neurological: Reports: Weakness, - - Confusion decreased alertness and weakness involving the left leg. Denies: Headache, Numbness Allergy: Denies: Uticaria Physical Exam Vital Signs/Narrative: Vital Signs Temp Pulse Resp BP Pulse Ox 10/11/19 14:55 67 16 134/57 H 93 10/11/19 14:48 98.3 F 68 15 134/57 H 96 General: Well nourished, Well developed, No Acute Distress Head: Normocephalic, Atraumatic Eyes: Perrl, EOMI ENT: Moist mucous membranes, No rhinorrhea Neck: Supple, Nontender Cardiovascular: Regular rate, Regular rhythm, No murmurs Respiratory: No distress, CTA bilaterally, Chest nontender Abdomen: Soft, Nontender, Nondistended, Normal bowel sounds Back: Nontender, Normal Inspection Extremities: No edema, Tenderness, - - He has tenderness to the left shoulder has decreased range of motion preferring to have the arm to the chest his hand function is normal good strength he has normal range of motion to the left lower right lower extremity with no pain Skin: Normal color, No rash Neurological: Alert, Oriented x3, Cranial nerves II-XII grossly intact, Normal Strength, Normal Sensation, - - He basically has intact cranial nerves his speech at this time is clear and understandable he has intact memory to the recent events no obvious confusion the reports his confusion seems to wax and wane and again he is moving all 4 extremities as above his NIH is 0 Psychological: Normal affect, Normal Mood Diagnostic/Tx/Re-eval - Medical Decision Making The differential is rather extensive it is complicated by the fact the patient had a recent fall he has a history of seizure disorder prior stroke, he was restarted on narcotic pain medication, the is indicating he is simply too weak for her to manage at home given all of the above the recent trauma and fall he will obtain labs head CT Patient's EKG shows sinus rhythm rate 71 no acute injury pattern intervals within normal range, with head CT per radiology shows nothing acute chest x-ray nothing acute, labs unremarkable see all those reports, The states that the patient has basically chronic weakness in his left side since the stroke in 2016, the weakness is gotten progressively worse over the last 6 months or so the point the other day they were visiting relatives out of town he could not walk more than a few feet because of weakness on the left side she is concerned that the fall and the pain management related to the fractured shoulder is making it difficult for him to be managed at home he will require admission Given all the above I spoke with hospitalist will asked him to see him for further management Admit stable pending hospice evaluation Impression final Change in mental status, progressively worsening left-sided weakness, prior stroke with residual left-sided weakness, recent fall with left shoulder fracture ED Disposition - Plan for ED Patient: Diagnosis: Altered mental status Referrals: Antonio Pearson MD [Primary Care Provider] -
[2019-10-11 15:06] LABS: Bedside Glucose 106 mg/dL (70-110)
[2019-10-11 15:11] LABS: Absolute Lymphocyte Count 1.01 X10^3/uL (0.83-4.51); Absolute Neutrophil Count 3.2 X10^3/uL (2.0-7.7); Basophil# 0.02 X10^3/uL; Basophil% 0.4 % (0-1); Eosinophil# 0.03 X10^3/uL; Eosinophils% 0.6 % (0-5); Hematocrit 43.5 % (40-54); Hemoglobin 14.2 g/dL (13.0-16.5); Lymphocyte # 1.01 X10^3/ul (4.0); Lymphocyte % 19.1 % (19-41); Mean Corp Hgb Conc 32.6 g/dL (32-36); Mean Corpuscular Hgb 32.2 pg (27.0-32.0); Mean Corpuscular Volume 98.6 fL (80-94); Mean Platelet Vol. 10.3 fl (6.2-12.0); Monocyte# 1.02 X10^3/uL; Monocyte% 19.3 % (0-10); NRBC Flagged by Analyzer 0 % (0-5); Neutrophil # 3.16 X10^3/uL (2.7-7.7); Neutrophil % 59.8 % (47-70); POSITIVE COUNT YES; Platelet Count 70 K/mm3 (150-450); RBC Distribution Width CV 13.3 % (11.6-14.6); RBC Distribution Width SD 48.7 fl (35.1-43.9); Red Blood Count 4.41 M/mm3 (4.6-6.2); White Blood Count 5.3 K/mm3 (4.4-11.0)
[2019-10-11 15:13] LABS: Differential Indicated SCAN CRITERIA MET
--- NOTE | 2019-10-11 15:20 | RAD_ITS ---
STUDY: X-RAY CHEST REASON FOR EXAM: Male, 69 years old. Pain following a fall. TECHNIQUE: Single AP portable view of the chest. COMPARISON: Comparison is made with prior study dated October 16, 2018. FINDINGS: EKG electrodes are seen. Mild degree of increased markings at the left lung base suggestive of left basilar atelectasis. There is no demonstrated pleural abnormality. There is borderline cardiomegaly. Normal mediastinum and clementina. Normal visualized pulmonary arteries. Normal visualized aortic arch and descending thoracic aorta. There are degenerative changes of the visualized thoracic spine. Normal visualized ribs, clavicles, and shoulders. There is no demonstrated abnormality of the visualized soft tissue structures of the upper abdomen. RAD/Chest 1 View (Portable) IMPRESSION: Mild increased markings at the left lung base suggestive of left basilar atelectasis. Electronically Signed: Michael Sprague, at 15:37 EST , Service support ,
[2019-10-11 15:47] LABS: Anion Gap 5 (5-15); BUN 27 mg/dL (7-18); BUN/Creat Ratio 18.5 RATIO (10-20); Chloride 108 mmol/L (98-107); Creatinine, Serum 1.46 mg/dL (0.70-1.30); EST Glomerular Filtration Rate 51 mL/min (>60); Est Glom Filt Rate - Afr Amer 62 mL/min (>60); Estimated Creatinine Clearance 55.49 ml/min; Glucose 104 mg/dL (74-106); Potassium 4.6 mmol/L (3.5-5.1); Sodium Level 143 mmol/L (136-145)
[2019-10-11] MEDS: 0.9% Normal Saline 1,000 ML 150 ML IV (15:50)
[2019-10-11 16:02] LABS: Differential Comment SCANNED
--- NOTE | 2019-10-11 16:27 | NURSING ---
PCU ASHELFAH CHANGE IN MENTAL STATUS, WORSENING WEAKNESS, LEFT SHOULDER FX
--- NOTE | 2019-10-11 16:42 | HP.PCM_ITS ---
<Regis Willis - Last Filed: 10/11/19 16:42> Problem List (1) CVA (cerebral vascular accident) Status: Acute (2) CKD (chronic kidney disease) Status: Chronic (3) DM2 (diabetes mellitus, type 2) Status: Chronic (4) Dyslipidemia Status: Chronic (5) HTN (hypertension) Status: Chronic (6) Seizure disorder Status: Chronic History of Present Illness Date of Admission: 10/11/19 Chief Complaint: left LE weakness The patient is a 69 year old M with pmhx of stroke with chronic left sided deficits, HTN, HLD, DMt2, CKDIII, seizure disorder, who presented to the ER with left LE weakness. The patient has had progressive functional decline and debility over the past six months. He fell yesterday, went to the [facility] urgent care and was found to have fractured his left clavicle. He however nad no issues with his left leg. He got up to use the bathroom last night, got to the toilet, however he could not get back from the toilet as he had suddenly lost the ability to move his left leg. The described it as he could not figure out how his leg works. It however is now working. He does not have slurred speech, headache, vision changes, numbness/tingling, or other weakness. He has a hx of CVA and seizure for which he follows Dr. Payne. He may have had a fever and cough on Wednesday but no complaints since. In the ER CT brain is negative for acute changes. Xray of the left clavicle shows Type II left acromioclavicular c lavicular joint separation with possible avulsion fracture along the inferior aspect of the distal left clavicle. His insists that this is evaluated while here and his pain is 10/10. [] Past Medical History Past Medical History (Chronic Problems): Chronic Problems CKD (chronic kidney disease) (Chronic) Seizure disorder (Chronic) DM2 (diabetes mellitus, type 2) (Chronic) Dyslipidemia (Chronic) HTN (hypertension) (Chronic) CVA (cerebral vascular accident) (Chronic) Allergies No Known Allergies Allergy (Verified 10/11/19 14:55) Home Medications: Ambulatory Orders Medication Instructions Recorded metFORMIN HCl [Glucophage] 500 mg PO BIDCM 12/14/14 Clopidogrel Bisulfate [Plavix] 75 mg PO DAILY 07/26/17 Insulin Glargine [Lantus SoloStar 24 units SC QHS 07/26/17 Pen] Insulin Lispro [Humalog] 0 unit SQ TID 07/26/17 Pravastatin [Pravachol] 20 mg PO QHS 07/26/17 Acetaminophen/Codeine #3 1 tab PO Q6H PRN PRN 10/11/19 [Tylenol#3] Divalproex Sodium [Depakote ER] 1,500 mg PO DAILY 10/11/19 Divalproex Sodium [Depakote ER] 2,000 mg PO QHS 10/11/19 Fenofibrate Nanocrystallized 145 mg PO DAILY 10/11/19 [Fenofibrate] Lisinopril 30 mg PO DAILY 10/11/19 Primidone 50 mg PO QHS 10/11/19 levETIRAcetam tablet [Keppra 750 mg PO BID 10/11/19 tablet] Surgical History: cholecystectomy, herniorrhaphy Psychiatric History: No pertinent psych hx Lives: Spouse/ Significant Other Smoking Status: Never smoker Tobacco Use: Non-smoker Alcohol: None Drugs: None - *Family History Maternal History Items: Cancer, Hypertension, - - ovarian cancer Paternal History Items: Heart Disease, Hypertension Sibling History Items: - - brother with abdominal aortic anuerysm Review of Systems Constitutional: Reports: Weakness, Fatigue. Denies: Chills, Fever, Weight Change HEENT: Denies: Head Aches, Sinus Congestion, Sinus Drainage Cardiovascular: Denies: Chest Pain, Palpitations Respiratory: Denies: Cough, Shortness of breath at rest, Sputum production Gastrointestinal: Denies: Abdominal Pain, Nausea, Vomiting Genitourinary: Denies: Dysuria Musculoskeletal: Reports: Joint Pain - left clavicle, Joint Tenderness Skin: Denies: Rash, Wounds Neurological: Reports: Focal weakness. Denies: Blurred vision, Double vision, Change in Speech, Slurred speech, Headaches, Numbness, Tingling Psychiatric: Denies: Anxiety, Depression, Homicidal Ideations, Suicidal Ideations Hematologic/ Lymphatic: Denies: Easy Bruising, Easy Bleeding VTE Information - Inpt Only VTE Present on Admission: No VTE Mechan Device Prophylaxis: None VTE Pharm Prophylaxis ordered?: Yes - Physical Exam Vitals/I&O's: Vital Signs Temp Pulse Resp BP Pulse Ox 98.3 F 72 18 114/86 H 95 10/11/19 14:48 10/11/19 15:45 10/11/19 15:45 10/11/19 15:45 10/11/19 15:45 Oxygen Flow Rate (L/min) 3 Oxygen Delivery Method Nasal Cannula Weight: 220 lb 14.451 oz Body Mass Index (BMI) 29.1 Finger Stick Blood Glucose 106 General: Alert, Oriented x3, Cooperative, Lethargic HEENT: Atraumatic, PERRLA, EOMI, Normocephalic Neck: Supple, No JVD, Negative Carotid Bruits Lungs: Clear to auscultation, Normal air movement Cardiovascular: Regular rate, No murmurs Abdomen: Bowel Sounds Present, Soft, Non Tender Extremities: No edema, Capillary Refill Less than 3 Seconds Skin: No rashes, No breakdown Musculoskeletal: No Tenderness to Palpation of Joints or Extremities Neurological: Cranial nerves II-XII grossly intact Psych/Mental Status: Normal Affect, Appropriate, Alert and oriented to time, place, person, mood and affect Laboratory Results 10/11/19 14:52: POC Glucose 106 10/11/19 14:57: WBC 5.3, RBC 4.41 L, Hgb 14.2, Hct 43.5, MCV 98.6 H, MCH 32.2 H, MCHC 32.6, RDW Std Deviation 48.7 H, RDW Coeff of Jake 13.3, Plt Count 70 L, MPV 10.3, Immature Gran % (Auto) 0.800, Neut % (Auto) 59.8, Lymph % (Auto) 19.1, Rawlins % (Auto) 19.3 H, Eos % (Auto) 0.6, Baso % (Auto) 0.4, Absolute Neuts (auto) 3.2, Absolute Lymphs (auto) 1.01, Nucleated RBC % 0, Differential Comment SCANNED 10/11/19 14:57: Sodium 143, Potassium 4.6, Chloride 108 H, Carbon Dioxide 30.0, Anion Gap 5, BUN 27 H, Creatinine 1.46 H, Estim Creat Clear Calc 55.49, Est GFR (MDRD) Af Amer 62, Est GFR (MDRD) Non-Af 51 L, BUN/Creatinine Ratio 18.5, Glucose 104, Calcium 9.0, Troponin I < 0.015 Current Medications Sodium Chloride () 1,000 mls @ 150 mls/hr IV .Q6H40M [facility] Last Admin: 10/11/19 15:50 Dose: 150 mls/hr Documented by: Assessment/Plan 1. LLE weakness - concern for CVA. Obtain MRI brain. Pt on plavix, start aspirin, high dose statin. Maintain on tele. EKG NSR. AM lipid panel, check TSH. If MRI positive check angiography and Echo. PTOTST evals. 2. Clavicular fracture - 2/2 fall yesterday. At urgent care was given tylenol #3, a sling, and told to see ortho in a week and a half. consult to orthopedics. Family insists on having this evaluated while he is here. 3. Hx CVA - chronic left sided weakness however the current presentation is new. 4. DMt2 - hold orals. COntinue home insulin + SSI. 5. Hx seizure disorder - continue keppra, ativan, primidone, depakote 6. HTN - hold PRAVEENA for permissive 7. CKDIII - at baseline. DVT ppx: heparin This patient was seen by Regis Willis PA-C under the supervision of Dr. Cole <Jody Cole - Last Filed: 10/11/19 17:49> History of Present Illness The patient is a 69 year old M [] Past Medical History Allergies No Known Allergies Allergy (Verified 10/11/19 14:55) - Physical Exam Vitals/I&O's: Vital Signs Temp Pulse Resp BP Pulse Ox 99.4 F H 67 14 128/89 H 100 10/11/19 17:15 10/11/19 17:26 10/11/19 17:15 10/11/19 17:15 10/11/19 17:15 Oxygen Flow Rate (L/min) 3 Oxygen Delivery Method Room Air Weight: 214 lb 1.102 oz Body Mass Index (BMI) 28.3 Finger Stick Blood Glucose 106 Laboratory Results 10/11/19 14:52: POC Glucose 106 10/11/19 14:57: WBC 5.3, RBC 4.41 L, Hgb 14.2, Hct 43.5, MCV 98.6 H, MCH 32.2 H, MCHC 32.6, RDW Std Deviation 48.7 H, RDW Coeff of Jake 13.3, Plt Count 70 L, MPV 10.3, Immature Gran % (Auto) 0.800, Neut % (Auto) 59.8, Lymph % (Auto) 19.1, Rawlins % (Auto) 19.3 H, Eos % (Auto) 0.6, Baso % (Auto) 0.4, Absolute Neuts (auto) 3.2, Absolute Lymphs (auto) 1.01, Nucleated RBC % 0, Differential Comment SCANNED 10/11/19 14:57: Sodium 143, Potassium 4.6, Chloride 108 H, Carbon Dioxide 30.0, Anion Gap 5, BUN 27 H, Creatinine 1.46 H, Estim Creat Clear Calc 55.49, Est GFR (MDRD) Af Amer 62, Est GFR (MDRD) Non-Af 51 L, BUN/Creatinine Ratio 18.5, Glucose 104, Calcium 9.0, Troponin I < 0.015 10/11/19 14:57: TSH Pending Clinical Impression(s) from Imaging Studies Brain CT 10/11/19 14:59 IMPRESSION: Chronic involutional changes of the brain. Stable encephalomalacia involving the territory of the right middle cerebral artery. Electronically Signed: Michael Sprague, at 15:36 EST , Service support , Shoulder X-Ray 10/11/19 15:01 IMPRESSION: Type II left acromioclavicular clavicular joint separation with possible avulsion fracture along the inferior aspect of the distal left clavicle. Electronically Signed: Michael Sprague, at 15:37 EST , Service support , Chest X-Ray 10/11/19 15:20 IMPRESSION: Mild increased markings at the left lung base suggestive of left basilar atelectasis. Electronically Signed: Michael Sprague, at 15:37 EST , Service support , Current Medications Acetaminophen (Tylenol) 650 mg PO Q6H PRN PRN PRN Reason: Pain or Fever Aspirin (Aspirin, Baby) 81 mg PO DAILY@0800 [facility]IL[facility] Atorvastatin Calcium (Lipitor) 80 mg PO QHS [facility] Clopidogrel Bisulfate (Plavix) 75 mg PO DAILY [facility] Dextrose (D50w Syringe) 0 gm IV X1 PRN; Protocol PRN Reason: Hypoglycemia Divalproex Sodium (Depakote Er) 1,500 mg PO DAILY [facility] Divalproex Sodium (Depakote Er) 2,000 mg PO QHS [facility]IA Glucagon () 1 mg IM .X1 PRN PRN Reason: Hypoglycemia Heparin Sodium (Porcine) (Heparin Na) 5,000 unit SC Q12 [facility] Sodium Chloride () 1,000 mls @ 100 mls/hr IV .Q10H [facility] Insulin Glargine (Lantus (Bkc)) 24 units SC QHS [facility]ILIA Insulin Human Lispro (Humalog Kwikpen (Bkc)) 0 unit SC ACHS MARILIA; Protocol Levetiracetam (Keppra Tablet) 750 mg PO BID [facility]IA Lorazepam (Ativan) mg PO DAILY PRN PRN Reason: Seizure Ondansetron HCl (Zofran) 4 mg PO Q6H PRN PRN PRN Reason: NAUSEA Oxycodone HCl (Oxyir) 5 mg PO Q4H PRN PRN PRN Reason: Pain Score 6-10/10 Primidone (Mysoline) 50 mg PO QHS MARILIA Sodium Chloride () 10 - 40 ml IV UD PRN PRN Reason: SALINE FLUSH Assessment/Plan Hospitalist note: I am seeing this patient in conjunction with Regis Willis. I independently seen and examined the patient. History and physical, laboratory data and imaging studies reviewed and I concur with the above admission and work-up plan. Patient presented to the emergency room because of weakness of the left lower extremity. According to patient's , patient has been declining over the last several months, having difficulty ambulating and functional ability has been declining as well. He had a mechanical fall yesterday for which he went to urgent care, found to have left clavicular fracture and he was discharged home. Last night, his tried to help him to go to the bathroom and he was not able to get back from the toilet and suddenly he must ability to move his left lower extremity. He does have a history of stroke with residual left side hemiparesis but the patient mentioned that his left leg is more weaker than usual. No reported slurred speech, blurred vision, numbness or tingling. At this time, he denies significant left shoulder pain but there is some pain there. His is concerned about the pain and she insisted that his pain is 10 out of 10 in severity. He is afebrile, blood pressure and heart rate are stable, pulse ox is 95% on 3 L. His routine blood work was remarkable for BUN of 27 and creatinine of 1.46, otherwise normal. EKG revealed normal sinus rhythm without evidence for ischemic changes. Troponin is negative. Chest x- ray revealed mild cardiomegaly, no acute findings. He is being admitted for worsening left lower extremity which could be due to possible stroke, acute tr aumatic clavicular fracture, functional decline and physical debility. - Physical Exam General: Alert, Oriented x3, Cooperative, minimally lethargic. HEENT: Atraumatic, PERRLA, EOMI. Neck: Supple, No JVD, Negative Carotid Bruits, Trachea Midline, Thyroid Normal. Lungs: Decreased breath sounds bilateral, otherwise clear, No rhonchi, No wheeze, No rales. Cardiovascular: Regular rate, Regular Rhythm, Normal S1, Normal S2, PMI Normal. Abdomen: Bowel Sounds Present, Soft, Non Tender, Non-Distended, No Hepato- splenomegaly. Extremities: No clubbing, No cyanosis, No edema Skin: No rashes, No breakdown Neurological: Power on the left side is 4+ by 5, very close to normal, power on the right side is normal. Assessment and plan: #1 worsening left lower extremity weakness: Concerning for possible acute stroke. CT scan brain showed no acute findings. EKG revealed no acute significance of cardiac arrhythmias. Plan: Admit to PCU, cardiac monitoring, NIH stroke scale, continue Plavix and statins, start aspirin, MRI brain, check Depakote level, PT OT evaluation and treatment, pediatric social worker consult, patient will need placement to senior care facility. #2 acute traumatic type II left acromioclavicular joint separation/possible avulsion fracture of the distal left clavicle: Plan: Orthopedic surgery consult, OxyIR PRN for pain, PT OT evaluation and treatment. #3 physical debility/functional decline: Secondary to history of stroke in addition to new clavicular fracture. Plan for PT OT evaluation and treatment, patient will probably need to go to senior care facility. #4 stage III chronic kidney disease: Baseline creatinine has been around 1.3 to 1.6 mg/dL, admission creatinine is 1.46, stable at baseline. #5 other chronic medical problems: Stable, continue current medication as above. This note was generated with [employer] dictation software. It may contain incorrect words, spelling, and punctuation that were not noted in checking the note before signing. Code Visit Inpatient E&M: 97182 Init Hosp L3
[2019-10-11 18:05] LABS: Thyroid Stim Hormone (TSH) 3.94 uIU/mL (0.358-3.74)
[2019-10-11 18:32] LABS: International Normalized Ratio 1.1; Prothrombin Time (Protime)PT. 13.9 SECONDS (11.7-14.9)
[2019-10-11 18:35] LABS: Valproic Acid (Depakene) Level 108 ug/mL (50-100)
[2019-10-11] MEDS: 0.9% Normal Saline 1,000 ML 100 ML IV (18:35)
--- NOTE | 2019-10-11 21:15 | NURSING ---
MD ASKED TO COME TO BEDSIDE TO EVALUATE PATIENT, ACTING DIFFERENT PER , WILL SAY SENTENCES OVER AGAIN. NOT ACTING LIKE HIMSELF COMPLAINING OF RIGHT ARM BEING NUMB WHICH IS NEW. MD MADE AWARE THAT NO NEURO DOCTOR IS PRESENT AT THIS TIME AND IF SHE WANTED TO BE TRANSFERRED TO ANOTHER HOSPITAL. DECLINED AT THIS TIME. MD GAVE NO NEW ORDERS WITH PATIENT'S ASSESSMENT.
[2019-10-11] MEDS: Divalproex (ER) 500 MG Tablet 2000 MG PO (21:22)
[2019-10-11] MEDS: Primidone 50 MG Tablet PO (21:22)
[2019-10-11] MEDS: 0.9% Saline Lock 10 ML Syringe IV (21:23)
[2019-10-11] MEDS: levETIRAcetam 750 MG Tablet PO (21:23)
[2019-10-11] MEDS: Heparin Injection (Vial) 5,000 UNIT/ML VIAL 5000 UNIT SC (21:23)
[2019-10-11] MEDS: Atorvastatin Calcium 80 MG Tablet PO (21:23)
[2019-10-12] VITALS (10 sets, daily range): BP systolic 103–154; BP diastolic 52–90; PULSE 71–100; RESP 14–16; TEMP 36.4–37.1; O2SAT 90–98; BMI 28.3
[2019-10-12 01:11] LABS: Bedside Glucose 90 mg/dL (70-110)
[2019-10-12] MEDS: 0.9% Normal Saline 1,000 ML 100 ML IV ×2 (05:10→20:03)
[2019-10-12 06:16] LABS: Anion Gap 3 (5-15); BUN 22 mg/dL (7-18); BUN/Creat Ratio 17.1 RATIO (10-20); Calcium,Total 8.2 mg/dL (8.5-10.1); Chloride 110 mmol/L (98-107); Cholesterol 112 mg/dL (200); Creatinine, Serum 1.29 mg/dL (0.70-1.30); EST Glomerular Filtration Rate 59 mL/min (>60); Est Glom Filt Rate - Afr Amer 71 mL/min (>60); Estimated Creatinine Clearance 60.99 ml/min; Glucose 75 mg/dL (74-106); High Density Lipoprotein 14 mg/dL; Potassium 3.9 mmol/L (3.5-5.1); Sodium Level 144 mmol/L (136-145); Triglycerides 176 mg/dL; Very Low Density Lipoprotein 35 mg/dL (5-40)
[2019-10-12 07:21] LABS: Bedside Glucose 85 mg/dL (70-110)
[2019-10-12] MEDS: Acetaminophen 325 MG Tablet 650 MG PO (07:59)
--- NOTE | 2019-10-12 08:00 | MRI_ITS ---
STUDY: MRI BRAIN WITHOUT CONTRAST REASON FOR EXAM: Male, 69 years old. cva, hx seizures, prev cva; CONFUSION TECHNIQUE: Standardized multiplanar fat and water weighted pulse sequences were obtained. COMPARISON: CT brain October 11, 2019, MRI of the brain November 02 2018 FINDINGS: There remains cystic encephalomalacia and volume loss seen in the distribution of the right middle cerebral artery consistent with that of prior infarct. On gradient imaging there is hemosiderin staining suggesting prior hemorrhage. Subjacent gliosis of white matter also noted. Left hemispheric brain volume preserved. There are a few scattered periventricular white matter foci of focal altered signal consistent with underlying small vessel disease. There is no evidence of restricted diffusion. No evidence of acute infarct. There is no evidence of intracranial hemorrhage. There is no evidence of mass, mass effect or shift of midline structures and no extra-axial collections are identified. Normal bilateral basal ganglia. Normal thalami. Normal flow voids within the major intracranial circulation suggesting patency by spin echo criteria. Normal sella turcica, pituitary gland, infundibular stalk, optic chiasm and hypothalamus. Normal tectal plate and pineal gland. Normal midbrain, krista and medulla. Normal cerebellum. Normal basal cisterns. Normal bilateral temporal bones. Normal bilateral internal auditory canals. No demonstrated orbital abnormality, within the constraints of a routine brain study. Mild mucoperiosteal thickening is noted in the right maxillary sinus with small mucous retention cyst seen superiorly. Normal calvarium and skull base. Normal visualized soft tissue structures. Normal visualized upper cervical spine. MRI/Brain without Contrast IMPRESSION: Chronic changes of prior right MCA infarct. Evidence of underlying small vessel disease. No evidence of acute infarct or hemorrhage. No evidence of mass. Electronically Signed: Bess Steiner MD at 10:20 EST , Service support ,
[2019-10-12] MEDS: LORazepam 2 MG/ML Syringe 1 MG IV ×2 (09:05→16:25)
[2019-10-12] MEDS: 0.9% Saline Lock 10 ML Syringe IV (09:05)
--- NOTE | 2019-10-12 09:25 | NURSING ---
0905 ativan 1mg iv given in mri patient was restless putting legs off of cart ativan 1mg effective resting having mri now
--- NOTE | 2019-10-12 11:57 | CASEMGMT ---
As per admitting RN, pt has LW/POA forms but is not able to bring them in to the hospital at this time. Pt indicated his is POA for healthcare. ABBEY Hernandez
--- NOTE | 2019-10-12 12:22 | CT_ITS ---
STUDY: CT LEFT SHOULDER REASON FOR EXAM: Male, 69 years old. FALL, LEFT SHOULDER PAIN RADIATION DOSAGE (If Supplied By Facility): CTDIvol = ( 34.62 ) mGy, DLP = ( 642.36 ) mGycm TECHNIQUE: The patient was scanned in a multi detector CT scanner. High resolution transaxial imaging was performed without the administration of intravenous contrast material. Sagittal and coronal images were reconstructed. Individualized dose optimization techniques were used for this CT. COMPARISON: X-ray shoulder same date FINDINGS: Normal glenohumeral articulation. Normal glenoid rim, neck and visualized scapula. Normal humeral head, neck and tuberosities. Normal coracoid process. There is fracture of the distal clavicle. This predominantly has a transverse fracture lucency through the diaphysis, refer to image #16 series 1004 however there is also an avulsed cortical fragment, refer to image #67 series 601 and image #51 series 602, this fragment appears to associate with the expected location of the coracoclavicular ligament best I suspect that ligament is disrupted. There is minimal superior subluxation of the clavicle at the acromioclavicular articulation as well There is a Type II morphology (curved) of the acromion with a neutral orientation. Normal visualized muscles and soft tissue structures. CT/Extremity Upper without Contra IMPRESSION: There is fracture of the distal clavicle. This predominantly has a transverse fracture lucency through the diaphysishowever there is also an avulsed cortical fragment. This fragment appears to associate with the expected location of the coracoclavicular ligament best I suspect that ligament is disrupted. Electronically Signed: Bess Steiner MD at 14:43 EST , Service support ,
--- NOTE | 2019-10-12 12:27 | CON.PCM_ITS ---
Reason for Consult Date of Consultation: 10/12/19 Reason for Consultation: left shoulder pain History of Present Illness: The patient is a 69 year old M with history of seizures as well as increasing unsteadiness on his feet presents to the emergency room after questionable repeat seizure with left shoulder pain. On x-ray questionable distal clavicle fracture. Ortho consulted. Please see chart for further details. History obtained from who states that he is non-very responsive at this point because he had a imaging sitting this morning and they gave him medications and he has not currently awoken from this and is resting comfortably at bed. [] Past Medical History Past Medical History (Chronic Problems): Chronic Problems Thrombocytopenia (Chronic) Depression (Chronic) CKD (chronic kidney disease) (Chronic) Seizure disorder (Chronic) DM2 (diabetes mellitus, type 2) (Chronic) Dyslipidemia (Chronic) HTN (hypertension) (Chronic) CVA (cerebral vascular accident) (Chronic) Allergies No Known Allergies Allergy (Verified 10/11/19 14:55) Home Medications: Ambulatory Orders Medication Instructions Recorded metFORMIN HCl [Glucophage] 500 mg PO BIDCM 12/14/14 Clopidogrel Bisulfate [Plavix] 75 mg PO DAILY 07/26/17 Pravastatin [Pravachol] 20 mg PO QHS 07/26/17 Divalproex Sodium [Depakote ER] 1,500 mg PO DAILY 10/11/19 Divalproex Sodium [Depakote ER] 2,000 mg PO QHS 10/11/19 Fenofibrate Nanocrystallized 145 mg PO DAILY 10/11/19 [Fenofibrate] Lisinopril 30 mg PO DAILY 10/11/19 Primidone 50 mg PO QHS 10/11/19 levETIRAcetam tablet [Keppra 750 mg PO BID 10/11/19 tablet] Insulin Glargine [Lantus SoloStar 10 units SUBCUT QHS 10/13/19 Pen] Surgical History: cholecystectomy, herniorrhaphy Psychiatric History: No pertinent psych hx Lives: Spouse/ Significant Other Smoking Status: Never smoker Tobacco Use: Non-smoker Alcohol: None Drugs: None - *Family History Maternal History Items: Cancer, Hypertension, - - ovarian cancer Paternal History Items: Heart Disease, Hypertension Sibling History Items: - - brother with abdominal aortic anuerysm Review of Systems Constitutional: Reports: Anorexia - Difficult secondary to chronic dysphasia Patient Problems: Active and Suspected Problems Physical debility (Acute) Dysphagia (Acute) - Physical Exam Vitals/I&O's: Vital Signs Temp Pulse Resp BP Pulse Ox 97.6 F L 76 16 112/55 L 93 10/12/19 10:03 10/12/19 10:03 10/12/19 10:03 10/12/19 10:03 10/12/19 10:03 Oxygen Flow Rate (L/min) 3 Oxygen Delivery Method Room Air Weight: 214 lb 1.102 oz Body Mass Index (BMI) 28.3 Finger Stick Blood Glucose 106 Intake and Output for Last 24 Hours 10/10/19 10/11/19 10/12/19 23:59 23:59 23:59 Intake Total 605.83 / 705.83 928.34 / 928.34 Output Total 1075 / 1075 Balance 605.83 / 280.83 -146.66 / -146.66 Musculoskeletal: Tenderness - Left shoulder tenderness, does not elicit pain with range of motion of other extremities or lower extremities, dysphasic at baseline but does respond to pain and points to left shoulder Laboratory Results 10/11/19 14:52: POC Glucose 106 10/11/19 14:57: WBC 5.3, RBC 4.41 L, Hgb 14.2, Hct 43.5, MCV 98.6 H, MCH 32.2 H, MCHC 32.6, RDW Std Deviation 48.7 H, RDW Coeff of Jake 13.3, Plt Count 70 L, MPV 10.3, Immature Gran % (Auto) 0.800, Neut % (Auto) 59.8, Lymph % (Auto) 19.1, Beltrami % (Auto) 19.3 H, Eos % (Auto) 0.6, Baso % (Auto) 0.4, Absolute Neuts (auto) 3.2, Absolute Lymphs (auto) 1.01, Nucleated RBC % 0, Differential Comment SCANNED 10/11/19 14:57: Sodium 143, Potassium 4.6, Chloride 108 H, Carbon Dioxide 30.0, Anion Gap 5, BUN 27 H, Creatinine 1.46 H, Estim Creat Clear Calc 55.49, Est GFR (MDRD) Af Amer 62, Est GFR (MDRD) Non-Af 51 L, BUN/Creatinine Ratio 18.5, Glucose 104, Calcium 9.0, Troponin I < 0.015 10/11/19 14:57: TSH 3.94 H 10/11/19 14:57: PT 13.9, INR 1.1 10/11/19 14:57: Valproic Acid 108 H 10/11/19 20:57: POC Glucose 90 10/12/19 05:45: Sodium 144, Potassium 3.9, Chloride 110 H, Carbon Dioxide 31.0, Anion Gap 3 L, BUN 22 H, Creatinine 1.29, Estim Creat Clear Calc 60.99, Est GFR (MDRD) Af Amer 71, Est GFR (MDRD) Non-Af 59 L, BUN/Creatinine Ratio 17.1, Glucose 75, Calcium 8.2 L, Triglycerides 176, Cholesterol 112, LDL Cholesterol 63, VLDL Cholesterol 35, HDL Cholesterol 14 L 10/12/19 06:25: POC Glucose 85 Current Medications Acetaminophen (Tylenol) 650 mg PO Q6H PRN PRN PRN Reason: Pain or Fever Last Admin: 10/12/19 07:59 Dose: 650 mg Documented by: Aspirin (Aspirin, Baby) 81 mg PO DAILY@0800 [facility] Atorvastatin Calcium (Lipitor) 80 mg PO QHS [facility] Last Admin: 10/11/19 21:23 Dose: 80 mg Documented by: Clopidogrel Bisulfate (Plavix) 75 mg PO DAILY [facility] Dextrose (D50w Syringe) 0 gm IV X1 PRN; Protocol PRN Reason: Hypoglycemia Divalproex Sodium (Depakote Er) 1,500 mg PO DAILY [facility] Divalproex Sodium (Depakote Er) 2,000 mg PO QHS [facility] Last Admin: 10/11/19 21:22 Dose: 2,000 mg Documented by: Glucagon () 1 mg IM .X1 PRN PRN Reason: Hypoglycemia Heparin Sodium (Porcine) (Heparin Na) 5,000 unit SC Q12 [facility] Last Admin: 10/11/19 21:23 Dose: 5,000 unit Documented by: Sodium Chloride () 1,000 mls @ 100 mls/hr IV .Q10H [facility] Last Infusion: 10/12/19 10:52 Dose: 100 mls/hr Documented by: Insulin Glargine (Lantus (Bkc)) 24 units SC QHS [facility] Last Admin: 10/11/19 21:23 Dose: 24 u Documented by: Insulin Human Lispro (Humalog Kwikpen (Bkc)) 0 unit SC ACHS [facility]; Protocol Last Admin: 10/12/19 06:39 Dose: Not Given Documented by: Levetiracetam (Keppra Tablet) 750 mg PO BID [facility] Last Admin: 10/11/19 21:23 Dose: 750 mg Documented by: Lorazepam (Ativan) 0.5 mg PO DAILY PRN PRN Reason: Seizure Nutritional Formula (Lactose Free) (Ensure Enlive) 120 ml PO 4X/DAY [facility] Last Admin: 10/11/19 21:16 Dose: Not Given Documented by: Ondansetron HCl (Zofran) 4 mg PO Q6H PRN PRN PRN Reason: NAUSEA Oxycodone HCl (Oxyir) 5 mg PO Q4H PRN PRN PRN Reason: Pain Score 6-10/10 Primidone (Mysoline) 50 mg PO QHS [facility] Last Admin: 10/11/19 21:22 Dose: 50 mg Documented by: Sodium Chloride () 10 - 40 ml IV UD PRN PRN Reason: SALINE FLUSH Last Admin: 10/12/19 09:05 Dose: 20 ml Documented by: Assessment/Plan All Active Problems Physical debility (Acute) Dysphagia (Acute) Waqas's paralysis (Resolved) distal clavicle fracture/ ac separation nonop at this time ct done as patient having scapular pain on PE and concerning for scap frx diff exam sec to pt baseline neuro status but does respond to pain weakness left side per is chronic and worsening recently and has seen neuro and would prefer neuro eval as outpatient recent mri shows no new changes -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
--- NOTE | 2019-10-12 12:49 | CASEMGMT ---
Addendum entered by Lois Gardner 10/12/19 13:56: SW let know that rehab may be able to take pt, that it will depend on therapy. SW also gave a list of rehab units in the area for her reference. ABBEY Hernandez Original Note: SW spoke w/pt's in room, pt sleeping. We reviewed prior level of care and anticipated plan at discharge. PCP: Dr. Pearson Specialists: [facility] Insurance[facility]Prescription Benefit: [facility] Juanashley for medications, changing to [employer] on November 08. Pharmacy: [facility] LW/POA: Pt had indicated at admission is POA. LNOK: Lives with his , has four children. Son and his family is currently living in their home in [place], has another child who lives in [place], two in [place] Prior level of function: explains pt was managing well but has had a steady decline over the last 6 months. The last week pt has had a significant decline in ambulation, and has become incontinent. Pt struggles with balance and holds on to furniture. Pt has had more falls recently, though has often caught himself prior to falling. is helping w/ADL's, driving. Pt had still been driving up to [employer], but does not feel pt should drive any longer and this has been an ongoing discussion, even this week. Otherwise drives pt. They have been staying in their cabin in [place] while her son is finishing school and staying with his family in their home in [place]. They cannot stay in the cabin any longer as it is 8 steps to get into the home. Their home in [place] has two steps in, and though is a 2 story they can stay in a bedroom on the first floor. DME: Pt has a walker but does not use it. Pt has a cane but does not use this either as he feels it interferes with his balance. Pt has a shower chair and she and pt's son attempted to get pt into the tub on the chair and they were not able, so she gave pt a sponge bath. Pt also has a C-mariam with new settings, pt just had a sleep study 3 weeks ago. SNF/HHC: Pt has not been to a half-way, he was in rehab here at the hospital after a stroke in 2017. Pt has not had home health, he was doing outpt PT at [facility] prior to this hospitalizatin. Discharge plan: would like referral made to inpt rehab here. SW explained will see if he qualifies and can do the needed therapy, so we will need to wait for therapy to see pt, but will make the referral. SW asked about other rehabs, does not want to consider any other rehab facility. SW explained if pt cannot go to rehab we can look at nursing homes, though at this point it is unclear if pt will be here long enough to qualify for SNF under Medicare. states understanding. We discussed both the short and long term care pharmacist plan. 's goal is to get pt home though is trying to figure out what that would be--if they would build a new accessible home, or make modifications to their current home. also mentioned her mother just passed this week. SW offered support to . Referral made to inpt rehab, pt's acceptance will depend on how pt does with therapy. SW will continue to follow, will let know once we know if rehab can take pt or if we need to look at alternative options.
--- NOTE | 2019-10-12 13:48 | MRI_ITS ---
STUDY: MRI CERVICAL SPINE WITHOUT CONTRAST REASON FOR EXAM: Male, 69 years old. Left arm weakness TECHNIQUE: Standardized fat and water weighted pulse sequences were obtained in the sagittal and axial planes. Motion limited exam. COMPARISON: None FINDINGS: Normal foramen magnum and brainstem-cervical cord junction. Normal craniovertebral junction. Normal anterior atlantoaxial articulation. Normal odontoid process. Normal cervical lordosis. Normal vertebral bodies and posterior osseous elements. C2-3: Normal endplates. Normal disc height, signal and morphology. Normal central canal and intervertebral neural foramina. C3-4: Normal endplates. Normal disc height, signal and morphology. Normal central canal and moderate narrowing left intervertebral neural foramina. C4-5: Normal endplates. Normal disc height, signal and morphology. Normal central canal and moderate narrowing right intervertebral neural foramina. C5-6: Normal endplates. Moderate broad posterior disc marginal osteophyte. Normal disc height, signal and morphology. Normal central canal and severe narrowing right intervertebral neural foramina. C6-7: Normal endplates. Moderate left posterior paracentral disc marginal osteophyte. Normal disc height, signal and morphology. Normal central canal and moderate narrowing left intervertebral neural foramina. C7-T1: Normal endplates. Normal disc height, signal and morphology. Normal central canal and intervertebral neural foramina. Normal cervical cord. Normal visualized soft tissue structures. MRI/Spine Cervical (Routine) IMPRESSION: Multilevel neural foraminal narrowing as above. Electronically Signed: Armando Strauss MD at 18:12 EST , Service support ,
--- NOTE | 2019-10-12 13:50 | PCM.PROGNOTE ---
<Tona Hunter - Last Filed: 10/12/19 14:17> Subjective: Patient seen and examined. Patient drowsy following Ativan administration prior to MRI. at bedside reports patient has had worsening left-sided weakness and recurrent falls over the past 6 months. She also reports recent urinary incontinence. would like patient to go to rehab at [place]. - Physical Exam Vitals/I&O's: Vital Signs Temp Pulse Resp BP Pulse Ox 97.6 F L 76 16 112/55 L 93 10/12/19 10:03 10/12/19 10:03 10/12/19 10:03 10/12/19 10:03 10/12/19 10:03 Oxygen Flow Rate (L/min) 3 Oxygen Delivery Method Room Air Weight: 214 lb 1.102 oz Body Mass Index (BMI) 28.3 Finger Stick Blood Glucose 106 Intake and Output for Last 24 Hours 10/10/19 10/11/19 10/12/19 23:59 23:59 23:59 Intake Total 605.83 / 705.83 928.34 / 928.34 Output Total 1075 / 1075 Balance 605.83 / 280.83 -146.66 / -146.66 General: No apparent distress, Lethargic HEENT: Atraumatic, PERRLA, EOMI, Normocephalic Oral: Dry Mucosa Neck: Supple, No JVD, Negative Carotid Bruits Lungs: Clear to auscultation, Normal air movement Cardiovascular: Regular rate, Regular Rhythm, Normal S1, Normal S2, No murmurs Abdomen: Bowel Sounds Present, Soft, Non Tender, Non-Distended Extremities: No clubbing, No cyanosis, No edema, Capillary Refill Less than 3 Seconds Skin: No rashes, No breakdown Musculoskeletal: No Tenderness to Palpation of Joints or Extremities Neurological: Cranial nerves II-XII grossly intact, - - Chronic left-sided weakness. Neuro assessment difficult to assess due to patient lethargic following IV Ativan. Psych/Mental Status: Appropriate Laboratory Results 10/11/19 14:52: POC Glucose 106 10/11/19 14:57: WBC 5.3, RBC 4.41 L, Hgb 14.2, Hct 43.5, MCV 98.6 H, MCH 32.2 H, MCHC 32.6, RDW Std Deviation 48.7 H, RDW Coeff of Jake 13.3, Plt Count 70 L, MPV 10.3, Immature Gran % (Auto) 0.800, Neut % (Auto) 59.8, Lymph % (Auto) 19.1, [place] % (Auto) 19.3 H, Eos % (Auto) 0.6, Baso % (Auto) 0.4, Absolute Neuts (auto) 3.2, Absolute Lymphs (auto) 1.01, Nucleated RBC % 0, Differential Comment SCANNED 10/11/19 14:57: Sodium 143, Potassium 4.6, Chloride 108 H, Carbon Dioxide 30.0, Anion Gap 5, BUN 27 H, Creatinine 1.46 H, Estim Creat Clear Calc 55.49, Est GFR (MDRD) Af Amer 62, Est GFR (MDRD) Non-Af 51 L, BUN/Creatinine Ratio 18.5, Glucose 104, Calcium 9.0, Troponin I < 0.015 10/11/19 14:57: TSH 3.94 H 10/11/19 14:57: PT 13.9, INR 1.1 10/11/19 14:57: Valproic Acid 108 H 10/11/19 20:57: POC Glucose 90 10/12/19 05:45: Sodium 144, Potassium 3.9, Chloride 110 H, Carbon Dioxide 31.0, Anion Gap 3 L, BUN 22 H, Creatinine 1.29, Estim Creat Clear Calc 60.99, Est GFR (MDRD) Af Amer 71, Est GFR (MDRD) Non-Af 59 L, BUN/Creatinine Ratio 17.1, Glucose 75, Calcium 8.2 L, Triglycerides 176, Cholesterol 112, LDL Cholesterol 63, VLDL Cholesterol 35, HDL Cholesterol 14 L 10/12/19 06:25: POC Glucose 85 Current Medications Acetaminophen (Tylenol) 650 mg PO Q6H PRN PRN PRN Reason: Pain or Fever Last Admin: 10/12/19 07:59 Dose: 650 mg Documented by: Aspirin (Aspirin, Baby) 81 mg PO DAILY@0800 [facility] Atorvastatin Calcium (Lipitor) 80 mg PO QHS [facility] Last Admin: 10/11/19 21:23 Dose: 80 mg Documented by: Clopidogrel Bisulfate (Plavix) 75 mg PO DAILY [facility] Dextrose (D50w Syringe) 0 gm IV X1 PRN; Protocol PRN Reason: Hypoglycemia Divalproex Sodium (Depakote Er) 1,500 mg PO DAILY [facility] Divalproex Sodium (Depakote Er) 2,000 mg PO QHS [facility] Last Admin: 10/11/19 21:22 Dose: 2,000 mg Documented by: Glucagon () 1 mg IM .X1 PRN PRN Reason: Hypoglycemia Heparin Sodium (Porcine) (Heparin Na) 5,000 unit SC Q12 [facility] Last Admin: 10/11/19 21:23 Dose: 5,000 unit Documented by: Sodium Chloride () 1,000 mls @ 100 mls/hr IV .Q10H [facility] Last Infusion: 10/12/19 10:52 Dose: 100 mls/hr Documented by: Insulin Glargine (Lantus ([facility])) 24 units SC QHS [facility] Last Admin: 10/11/19 21:23 Dose: 24 u Documented by: Insulin Human Lispro (Humalog Kwikpen ([facility])) 0 unit SC ACHS [facility]; Protocol Last Admin: 10/12/19 06:39 Dose: Not Given Documented by: Levetiracetam (Keppra Tablet) 750 mg PO BID [facility] Last Admin: 10/11/19 21:23 Dose: 750 mg Documented by: Lorazepam (Ativan) 0.5 mg PO DAILY PRN PRN Reason: Seizure Nutritional Formula (Lactose Free) (Ensure Enlive) 120 ml PO 4X/DAY [facility] Last Admin: 10/11/19 21:16 Dose: Not Given Documented by: Ondansetron HCl (Zofran) 4 mg PO Q6H PRN PRN PRN Reason: NAUSEA Oxycodone HCl (Oxyir) 5 mg PO Q4H PRN PRN PRN Reason: Pain Score 6-10/10 Primidone (Mysoline) 50 mg PO QHS [facility] Last Admin: 10/11/19 21:22 Dose: 50 mg Documented by: Sodium Chloride () 10 - 40 ml IV UD PRN PRN Reason: SALINE FLUSH Last Admin: 10/12/19 09:05 Dose: 20 ml Documented by: Medical Necessity - Tobacco Use Smoking Status: Never smoker Tobacco Use: Non-smoker Assessment/Plan 1. Worsening left-sided weakness, history of right MCA infarct-MRI of brain shows chronic changes of prior right MCA infarct. Underlying small vessel disease. No evidence of acute infarct or hemorrhage. No evidence of mass. PT/OT. Fall precautions. Obtain MRI of cervical spine given recent new onset urinary incontinence and worsening left-sided weakness. Discussed with at bedside that neurology consult is not currently available and offered transfer for further neurology evaluation however reports they have had second neurology opinion as outpatient without new findings. would like to keep patient here and attempt to get patient to rehab at discharge. Continue Plavix, statin. 2. Fall prior to admission resulting in traumatic type II left acromioclavicular clavicular joint separation with possible avulsion fracture along the inferior aspect of the distal left clavicle-orthopedic medicine on consult. PT/OT. PRN pain regimen. CT of shoulder ordered per Ortho. 3. 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 Patient follows with Dr. Payne. 4. Chronic kidney disease stage III- at baseline. 5. Type 2 diabetes mellitus-oral regimen on hold. Continue home insulin regimen. 6. Physical debility/functional decline, related to #1- PT/OT. 7. Suspect underlying depression- reports patient seems depressed at home, sleeps 8+ hours during the day. Recommend adding SSRI. DVT prophylaxis- heparin sc Discharge planning: Pending PT eval, possible rehab. This patient was seen by BONNY Herr under the supervision of Dr. Arroyo. <Derick Arroyo - Last Filed: 10/12/19 16:15> Subjective: Seen and examined. Patient is drowsy and sedated after Ativan administered prior to MRI. Talk to the patient's . Patient has history of a stroke in 2016 and after that he developed seizure after 1 and half years. - Physical Exam Vitals/I&O's: Vital Signs Temp Pulse Resp BP Pulse Ox 97.7 F L 74 16 103/52 L 90 10/12/19 14:37 10/12/19 14:37 10/12/19 14:37 10/12/19 14:37 10/12/19 14:37 Oxygen Flow Rate (L/min) 3 Oxygen Delivery Method Room Air Weight: 214 lb 1.102 oz Body Mass Index (BMI) 28.3 Finger Stick Blood Glucose 106 Intake and Output for Last 24 Hours 10/10/19 10/11/19 10/12/19 23:59 23:59 23:59 Intake Total 605.83 / 705.83 1555.01 / 1555.01 Output Total 1075 / 1075 Balance 605.83 / 280.83 480.01 / 480.01 General: No apparent distress, Lethargic, - - Sedated after IV Ativan. On CPAP HEENT: Atraumatic, PERRLA, EOMI, Normocephalic Neck: Supple, Negative Carotid Bruits Lungs: Clear to auscultation, No rhonchi, No wheeze, No rales, Diminished - Air entry diminished in bilateral lung bases., - - On CPAP Cardiovascular: Regular rate, Regular Rhythm, Normal S1, Normal S2, No murmurs Abdomen: Bowel Sounds Present, Soft, Non Tender, Non-Distended Extremities: No edema, Capillary Refill Less than 3 Seconds Skin: No rashes, No breakdown Musculoskeletal: No Tenderness to Palpation of Joints or Extremities, Arthritic Changes Neurological: - - Chronic left-sided weakness. Neuro assessment difficult to assess due to patient lethargic following IV Ativan. Patient has chronic left-sided weakness, more on the left upper extremity. Detail neuro exam not possible as patient is sedated after IV Ativan Laboratory Results 10/11/19 14:57: Differential Comment SCANNED 10/11/19 14:57: TSH 3.94 H 10/11/19 14:57: PT 13.9, INR 1.1 10/11/19 14:57: Valproic Acid 108 H 10/11/19 20:57: POC Glucose 90 10/12/19 05:45: Sodium 144, Potassium 3.9, Chloride 110 H, Carbon Dioxide 31.0, Anion Gap 3 L, BUN 22 H, Creatinine 1.29, Estim Creat Clear Calc 60.99, Est GFR (MDRD) Af Amer 71, Est GFR (MDRD) Non-Af 59 L, BUN/Creatinine Ratio 17.1, Glucose 75, Calcium 8.2 L, Triglycerides 176, Cholesterol 112, LDL Cholesterol 63, VLDL Cholesterol 35, HDL Cholesterol 14 L 10/12/19 05:45: Free T4 1.16 10/12/19 06:25: POC Glucose 85 Current Medications Acetaminophen (Tylenol) 650 mg PO Q6H PRN PRN PRN Reason: Pain or Fever Last Admin: 10/12/19 07:59 Dose: 650 mg Documented by: Aspirin (Aspirin, Baby) 81 mg PO DAILY@0800 [facility] Last Admin: 10/12/19 14:54 Dose: 81 mg Documented by: Atorvastatin Calcium (Lipitor) 80 mg PO QHS [facility] Last Admin: 10/11/19 21:23 Dose: 80 mg Documented by: Clopidogrel Bisulfate (Plavix) 75 mg PO DAILY [facility] Last Admin: 10/12/19 14:54 Dose: 75 mg Documented by: Dextrose (D50w Syringe) 0 gm IV X1 PRN; Protocol PRN Reason: Hypoglycemia Divalproex Sodium (Depakote Er) 1,500 mg PO DAILY [facility] Last Admin: 10/12/19 14:56 Dose: 1,500 mg Documented by: Divalproex Sodium (Depakote Er) 2,000 mg PO QHS [facility] Last Admin: 10/11/19 21:22 Dose: 2,000 mg Documented by: Glucagon () 1 mg IM .X1 PRN PRN Reason: Hypoglycemia Heparin Sodium (Porcine) (Heparin Na) 5,000 unit SC Q12 [facility] Last Admin: 10/12/19 14:56 Dose: 5,000 unit Documented by: Sodium Chloride () 1,000 mls @ 100 mls/hr IV .Q10H [facility] Last Infusion: 10/12/19 15:56 Dose: 0 mls/hr Documented by: Insulin Glargine (Lantus ([facility])) 24 units SC QHS [facility] Last Admin: 10/11/19 21:23 Dose: 24 u Documented by: Insulin Human Lispro (Humalog Kwikpen ([facility])) 0 unit SC ACHS [facility]; Protocol Last Admin: 10/12/19 15:05 Dose: Not Given Documented by: Levetiracetam (Keppra Tablet) 750 mg PO BID [facility] Last Admin: 10/12/19 14:54 Dose: 750 mg Documented by: Lorazepam (Ativan) 0.5 mg PO DAILY PRN PRN Reason: Seizure Nutritional Formula (Lactose Free) (Ensure Enlive) 120 ml PO 4X/DAY [facility] Last Admin: 10/12/19 14:59 Dose: 120 ml Documented by: Ondansetron HCl (Zofran) 4 mg PO Q6H PRN PRN PRN Reason: NAUSEA Oxycodone HCl (Oxyir) 5 mg PO Q4H PRN PRN PRN Reason: Pain Score 6-10/10 Primidone (Mysoline) 50 mg PO QHS [facility] Last Admin: 10/11/19 21:22 Dose: 50 mg Documented by: Sertraline HCl (Zoloft) 50 mg PO DAILY [facility] Sodium Chloride () 10 - 40 ml IV UD PRN PRN Reason: SALINE FLUSH Last Admin: 10/12/19 09:05 Dose: 20 ml Documented by: Assessment/Plan This patient was seen in conjunction with [employer]OMIST, Tona. I have independently interviewed and examined the patient and reviewed pertinent history, examination findings, laboratory and plan of management. I have reviewed the note and agree with the documented findings with the few additional points. In brief, patient is admitted for worsening left-sided weakness. History taken mainly from . Patient had a stroke in 2016 and developed left-sided paralysis along with language and speech abnormality. Patient had improvement in his speech but left upper extremity continued to be weak. Patient developed seizures around July 2017 with last seizure 2017. She states it was generalized clonic seizure. As per the , he started having more weakness on the left lower extremity and dragging and then fell on Wednesday morning and on the left side. He had left clavicle fracture at AC joint. Patient has been falling about 5 times in last 2 to 3 weeks. 1. Chronic right-sided MCA infarct with worsening of left-sided weakness and history of seizure: CT of brain did not show acute finding. EKG no acute change or cardiac arrhythmia. MRI brain was done and reported as chronic changes of prior right MCA infarct. No evidence of acute infarct or hemorrhage. No evidence of mass. This was communicated to the patient's . Continue PT OT. Patient is on Plavix, statin, baby aspirin. Depakote level 108 on higher side of normal. Continue Depakote but hold the next dose until he wakes up. Continue Keppra and primidone. 2. Acute traumatic type II left AC joint separation with possible avulsion fracture of distal left clavicle. Orthopedic surgery is been consulted. Pain control. PT and OT. 3. Recurrent fall with physical debility: Patient will need SNF. 4. Stage III CKD: Creatinine is at baseline 5. Type 2 diabetes mellitus and dyslipidemia: Accu-Cheks are well controlled. Triglycerides 176, LDL 63. HDL 14. TSH 3.94 free T4 and free T3 ordered. At home, patient is on fenofibrate and pravastatin. He had changed to atorvastatin 80 mg daily. I have discussed my assessment with LABOUR MARKET ECONOMISTTona and orders have been reviewed. Laboratory Results 10/11/19 14:57: TSH 3.94 H 10/11/19 14:57: PT 13.9, INR 1.1 10/11/19 14:57: Valproic Acid 108 H 10/11/19 20:57: POC Glucose 90 10/12/19 05:45: Sodium 144, Potassium 3.9, Chloride 110 H, Carbon Dioxide 31.0, Anion Gap 3 L, BUN 22 H, Creatinine 1.29, Estim Creat Clear Calc 60.99, Est GFR (MDRD) Af Amer 71, Est GFR (MDRD) Non-Af 59 L, BUN/Creatinine Ratio 17.1, Glucose 75, Calcium 8.2 L, Triglycerides 176, Cholesterol 112, LDL Cholesterol 63, VLDL Cholesterol 35, HDL Cholesterol 14 L 10/12/19 05:45: Free T4 1.16 10/12/19 06:25: POC Glucose 85 Clinical Impression(s) from Imaging Studies Brain CT 10/11/19 14:59 IMPRESSION: Chronic involutional changes of the brain. Stable encephalomalacia involving the territory of the right middle cerebral artery. Shoulder X-Ray 10/11/19 15:01 IMPRESSION: Type II left acromioclavicular clavicular joint separation with possible avulsion fracture along the inferior aspect of the distal left clavicle. Chest X-Ray 10/11/19 15:20 IMPRESSION: Mild increased markings at the left lung base suggestive of left basilar atelectasis. Brain MRI 10/12/19 08:00 IMPRESSION: Chronic changes of prior right MCA infarct. Evidence of underlying small vessel disease. No evidence of acute infarct or hemorrhage. No evidence of mass. Upper Extremity CT 10/12/19 12:22 IMPRESSION: There is fracture of the distal clavicle. This predominantly has a transverse fracture lucency through the diaphysishowever there is also an avulsed cortical fragment. This fragment appears to associate with the expected location of the coracoclavicular ligament best I suspect that ligament is disrupted. Code Visit Inpatient E&M: 89336 Subs Hosp L3
[2019-10-12 14:42] LABS: T4 Free Direct 1.16 ng/dL (0.76-1.46)
[2019-10-12] MEDS: levETIRAcetam 750 MG Tablet PO (14:54)
[2019-10-12] MEDS: Aspirin 81 MG TAB.CHEW PO (14:54)
[2019-10-12] MEDS: Clopidogrel Bisulfate 75 MG Tablet PO (14:54)
[2019-10-12] MEDS: Heparin Injection (Vial) 5,000 UNIT/ML VIAL 5000 UNIT SC ×2 (14:56→21:09)
[2019-10-12] MEDS: Divalproex (ER) 500 MG Tablet 1500 MG PO (14:56)
--- NOTE | 2019-10-12 15:06 | CHAPLAIN ---
Type of Pastoral Visit _x__ Initial Visit ___ Follow-up Visit ___ On-call Visit ___ General Patient Visit ___ Spiritual Assessment ___ Family Conference ___ Bereavement ___ Rapid Response ___ Code Blue ___ Other (describe below) Pastoral Care Referral From ___ Patient _x__ Family ___ Nurse ___ Physician ___ Parts Professional ___ Teacher Aide Clerical ___ Other (describe below) Sacrament/Intervention _x__ Active listening ___ Anointing ___ Moravian _x__ Bereavement ___ Communion _x__ Ronda exploration ___ ___ Life review _x__ Prayer ___ Reconciliation ___ Sacrament of Sick _x__ Supportive presence ___ Wedding ___ Other (describe below) Pastoral Comments patient was having an MRI done and then when was returned to the room he was sleeping; sat and listened to the spouse talk about the situation and her loss this week of her mother; pt and spouse are facing changes in move from their house to more accessible living; spouse is person of ronda and welcomes the spiritual care support
[2019-10-12 17:06] LABS: Bedside Glucose 68 mg/dL (70-110)
[2019-10-12 17:06] LABS: Bedside Glucose 60 mg/dL (70-110)
[2019-10-12 17:15] LABS: Bedside Glucose 72 mg/dL (70-110)
[2019-10-12 20:01] LABS: Bedside Glucose 75 mg/dL (70-110)
[2019-10-12 23:36] LABS: Bedside Glucose 83 mg/dL (70-110)
[2019-10-13] VITALS (7 sets, daily range): BP systolic 123–127; BP diastolic 65–74; PULSE 70–87; RESP 14–16; TEMP 36.7–37.2; O2SAT 94–96; BMI 28.3
[2019-10-13] MEDS: Acetaminophen 325 MG Tablet 650 MG PO (03:24)
[2019-10-13] MEDS: 0.9% Normal Saline 1,000 ML 100 ML IV (05:30)
[2019-10-13 06:41] LABS: Bedside Glucose 73 mg/dL (70-110)
[2019-10-13 06:45] LABS: Free T3 1.8 pg/mL (2.18-3.98); T4 Free Direct 1.03 ng/dL (0.76-1.46)
[2019-10-13] MEDS: Clopidogrel Bisulfate 75 MG Tablet PO (08:13)
[2019-10-13] MEDS: Divalproex (ER) 500 MG Tablet 1500 MG PO (08:13)
[2019-10-13] MEDS: levETIRAcetam 750 MG Tablet PO (08:13)
[2019-10-13] MEDS: Heparin Injection (Vial) 5,000 UNIT/ML VIAL 5000 UNIT SC (08:13)
[2019-10-13] MEDS: Aspirin 81 MG TAB.CHEW PO (08:50)
--- NOTE | 2019-10-13 09:59 | CASEMGMT ---
SW did not complete a PHQ-9 with patient as he did not have a Stroke or TIA. Rosetta NAJERA MSW
[2019-10-13 11:15] LABS: Bedside Glucose 95 mg/dL (70-110)
--- NOTE | 2019-10-13 13:30 | DCINST_ITS ---
You will use the following diet at home:: No restrictions Discharge Activity: Return to Normal Activity Call your doctor if you observe: Shortness of breath, Dizziness, Fainting spells, Chest pain Allergies/Adverse Reactions: Allergies No Known Allergies Allergy (Verified 10/11/19 14:55) Medications to take at Discharge metFORMIN HCl [Glucophage] 500 mg PO BIDCM 12/14/14 Clopidogrel Bisulfate [Plavix] 75 mg PO DAILY 07/26/17 Insulin Lispro [Humalog] 0 unit SQ TID 07/26/17 Pravastatin [Pravachol] 20 mg PO QHS 07/26/17 Divalproex Sodium [Depakote ER] 1,500 mg PO DAILY 10/11/19 Divalproex Sodium [Depakote ER] 2,000 mg PO QHS 10/11/19 Fenofibrate Nanocrystallized [Fenofibrate] 145 mg PO DAILY 10/11/19 Lisinopril 30 mg PO DAILY 10/11/19 Primidone 50 mg PO QHS 10/11/19 levETIRAcetam tablet [Keppra tablet] 750 mg PO BID 10/11/19 Insulin Glargine [Lantus SoloStar Pen] 10 units SUBCUT QHS pen 10/13/19 Primary Care Physician: Antonio Pearson MD [Primary Care Provider] - Please follow up with your Primary Care Physician in: 1 Week upon DC from rehab Test Results: Test results from this visit will be discussed in further detail at your follow- up appointment, if applicable. Please Follow Up With: Keaton Payne MD When: 1 week following DC from rehab Please Follow Up With: Chikis Billings DO When: call with concerns regarding clavicle, left upper extremity sling for 2 wk Proposed Discharge Date: 10/13/19
--- NOTE | 2019-10-13 13:33 | PCM.DC.SUM ---
Discharge Date and Diagnosis Date of Admission: 10/11/19 Date of Discharge: 10/13/19 - Primary Discharge Diagnosis 1. Worsening left-sided weakness, history of right MCA infarct 2. Fall prior to admission resulting in traumatic type II left acromioclavicular clavicular joint separation with possible avulsion fracture along the inferior aspect of the distal left clavicle 3. History of seizures secondary to prior stroke 4. Chronic kidney disease stage III 5. Type 2 diabetes mellitus 6. Physical debility/functional decline, related to #1 7. Suspect underlying depression - Secondary Discharge Diagnosis Chronic Problems CKD (chronic kidney disease) (Chronic) Seizure disorder (Chronic) DM2 (diabetes mellitus, type 2) (Chronic) Dyslipidemia (Chronic) HTN (hypertension) (Chronic) CVA (cerebral vascular accident) (Chronic) Hospital Course and Treatment Imaging Results: Diagnostic Data Brain CT 10/11/19 14:59 IMPRESSION: Chronic involutional changes of the brain. Stable encephalomalacia involving the territory of the right middle cerebral artery. Electronically Signed: Michael Sprague, at 15:36 EST , Service support , Shoulder X-Ray 10/11/19 15:01 IMPRESSION: Type II left acromioclavicular clavicular joint separation with possible avulsion fracture along the inferior aspect of the distal left clavicle. Electronically Signed: Michael Sprague, at 15:37 EST , Service support , Chest X-Ray 10/11/19 15:20 IMPRESSION: Mild increased markings at the left lung base suggestive of left basilar atelectasis. Electronically Signed: Michael Sprague, at 15:37 EST , Service support , Brain MRI 10/12/19 08:00 IMPRESSION: Chronic changes of prior right MCA infarct. Evidence of underlying small vessel disease. No evidence of acute infarct or hemorrhage. No evidence of mass. Electronically Signed: Bess Steiner MD at 10:20 EST , Service support , Upper Extremity CT 10/12/19 12:22 IMPRESSION: There is fracture of the distal clavicle. This predominantly has a transverse fracture lucency through the diaphysishowever there is also an avulsed cortical fragment. This fragment appears to associate with the expected location of the coracoclavicular ligament best I suspect that ligament is disrupted. Electronically Signed: Bess Steiner MD at 14:43 EST , Service support , Cervical Spine MRI 10/12/19 13:48 IMPRESSION: Multilevel neural foraminal narrowing as above. Electronically Signed: Armando Strauss MD at 18:12 EST , Service support , Operations: None Procedures: None Summary of Care Provided: The patient is a 69 year old M admitted 10/11/2019 due to increased left-sided weakness. 1. Worsening left-sided weakness, history of right MCA infarct-MRI of brain shows chronic changes of prior right MCA infarct. Underlying small vessel disease. No evidence of acute infarct or hemorrhage. No evidence of mass. PT/OT. Fall precautions. Continue Plavix, statin. Cervical spine MRI shows multilevel neuroforaminal narrowing. Discharged to rehab for further therapy. Continue outpatient follow-up with neurology. 2. Fall prior to admission resulting in traumatic type II left acromioclavicular clavicular joint separation with possible avulsion fracture along the inferior aspect of the distal left clavicle-orthopedic medicine on consult. PT/OT. 3. 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 Patient follows with Dr. Payne. 4. Chronic kidney disease stage III- at baseline. 5. Type 2 diabetes mellitus-glucose 70-90 during admission. Bedtime Lantus dose reduced to 10 units nightly. Check hemoglobin A1c. Pending A1c, patient may be able to remain on oral regimen alone. 6. Physical debility/functional decline, related to #1- PT/OT. 7. Suspect underlying depression- reports patient seems depressed at home, sleeps 8+ hours during the day. does not want SSRI added. General: No apparent distress, Lethargic HEENT: Atraumatic, PERRLA, EOMI, Normocephalic Oral: Moist mucosa Neck: Supple, No JVD, Negative Carotid Bruits Lungs: Clear to auscultation, Normal air movement Cardiovascular: Regular rate, Regular Rhythm, Normal S1, Normal S2, No murmurs Abdomen: Bowel Sounds Present, Soft, Non Tender, Non-Distended Extremities: No clubbing, No cyanosis, No edema, Capillary Refill Less than 3 Seconds Skin: No rashes, No breakdown Musculoskeletal: No Tenderness to Palpation of Joints or Extremities Neurological: Cranial nerves II-XII grossly intact, chronic left-sided weakness, worsened from baseline Psych/Mental Status: Appropriate Patient seen and examined prior to discharge. Physical assessment as noted above. Patient is stable for discharge to rehab unit for further therapy. This patient was seen by BONNY Herr under the supervision of Dr. Duarte. - Physical Exam Vitals/I&O's: Vital Signs Temp Pulse Resp BP Pulse Ox 98.6 F 70 16 127/74 H 94 10/13/19 09:15 10/13/19 10:51 10/13/19 09:15 10/13/19 09:15 10/13/19 09:15 Oxygen Flow Rate (L/min) 3 Oxygen Delivery Method Room Air Weight: 214 lb 1.102 oz Body Mass Index (BMI) 28.3 Finger Stick Blood Glucose 106 Intake and Output for Last 24 Hours 10/11/19 10/12/19 10/13/19 23:59 23:59 23:59 Intake Total 605.83 / 705.83 1771.67 / 1771.67 2026. / 2025.67 Output Total 1075 / 1075 100 / 100 Balance 605.83 / 280.83 696.67 / 696.67 1926.67 / 1925. Laboratory Results 10/12/19 05:45: Free T4 1.16 10/12/19 15:03: POC Glucose 60 L 10/12/19 15:24: POC Glucose 68 L 10/12/19 17:05: POC Glucose 72 10/12/19 19:51: POC Glucose 75 10/12/19 23:31: POC Glucose 83 10/13/19 06:09: Free T4 1.03, Free T3 pg/dL 1.8 L 10/13/19 06:31: POC Glucose 73 10/13/19 11:04: POC Glucose 95 Current Medications Acetaminophen (Tylenol) 650 mg PO Q6H PRN PRN PRN Reason: Pain or Fever Last Admin: 10/13/19 03:24 Dose: 650 mg Documented by: Aspirin (Aspirin, Baby) 81 mg PO DAILY@0800 [facility] Last Admin: 10/13/19 08:50 Dose: 81 mg Documented by: Atorvastatin Calcium (Lipitor) 80 mg PO QHS [facility] Last Admin: 10/12/19 21:10 Dose: Not Given Documented by: Clopidogrel Bisulfate (Plavix) 75 mg PO DAILY [facility] Last Admin: 10/13/19 08:13 Dose: 75 mg Documented by: Dextrose (D50w Syringe) 0 gm IV X1 PRN; Protocol PRN Reason: Hypoglycemia Divalproex Sodium (Depakote Er) 1,500 mg PO DAILY [facility] Last Admin: 10/13/19 08:13 Dose: 1,500 mg Documented by: Divalproex Sodium (Depakote Er) 2,000 mg PO QHS [facility] Last Admin: 10/12/19 21:09 Dose: Not Given Documented by: Glucagon () 1 mg IM .X1 PRN PRN Reason: Hypoglycemia Heparin Sodium (Porcine) (Heparin Na) 5,000 unit SC Q12 [facility] Last Admin: 10/13/19 08:13 Dose: 5,000 unit Documented by: Sodium Chloride () 1,000 mls @ 100 mls/hr IV .Q10H [facility] Last Infusion: 10/13/19 11:49 Dose: 100 mls/hr Documented by: Insulin Glargine (Lantus (Bkc)) 24 units SC QHS [facility] Last Admin: 10/12/19 21:09 Dose: Not Given Documented by: Insulin Human Lispro (Humalog Kwikpen (Bkc)) 0 unit SC ACHS [facility]; Protocol Last Admin: 10/13/19 11:13 Dose: Not Given Documented by: Levetiracetam (Keppra Tablet) 750 mg PO BID [facility] Last Admin: 10/13/19 08:13 Dose: 750 mg Documented by: Lorazepam (Ativan) 0.5 mg PO DAILY PRN PRN Reason: Seizure Nutritional Formula (Lactose Free) (Ensure Enlive) 120 ml PO 4X/DAY [facility] Last Admin: 10/13/19 13:10 Dose: Not Given Documented by: Ondansetron HCl (Zofran) 4 mg PO Q6H PRN PRN PRN Reason: NAUSEA Oxycodone HCl (Oxyir) 5 mg PO Q4H PRN PRN PRN Reason: Pain Score 6-10/10 Primidone (Mysoline) 50 mg PO QHS [facility] Last Admin: 10/12/19 21:10 Dose: Not Given Documented by: Sertraline HCl (Zoloft) 50 mg PO DAILY [facility] Last Admin: 10/13/19 08:14 Dose: Not Given Documented by: Sodium Chloride () 10 - 40 ml IV UD PRN PRN Reason: SALINE FLUSH Last Admin: 10/12/19 09:05 Dose: 20 ml Documented by: Discharge Diet: Carb Control Diet Discharge Activity: Return to Normal Activity Call your doctor if you observe: Shortness of breath, Dizziness, Fainting spells, Chest pain Home Medications: Medications to take at Discharge metFORMIN HCl [Glucophage] 500 mg PO BIDCM 12/14/14 Clopidogrel Bisulfate [Plavix] 75 mg PO DAILY 07/26/17 Insulin Lispro [Humalog] 0 unit SQ TID 07/26/17 Pravastatin [Pravachol] 20 mg PO QHS 07/26/17 Divalproex Sodium [Depakote ER] 1,500 mg PO DAILY 10/11/19 Divalproex Sodium [Depakote ER] 2,000 mg PO QHS 10/11/19 Fenofibrate Nanocrystallized [Fenofibrate] 145 mg PO DAILY 10/11/19 Lisinopril 30 mg PO DAILY 10/11/19 Primidone 50 mg PO QHS 10/11/19 levETIRAcetam tablet [Keppra tablet] 750 mg PO BID 10/11/19 Insulin Glargine [Lantus SoloStar Pen] 10 units SUBCUT QHS pen 10/13/19 Primary Care Physician: Antonio Pearson MD [Primary Care Provider] - Please follow up with your Primary Care Physician in: 1 Week upon DC from rehab Please Follow Up With: Keaton Payne MD When: 1 week following DC from rehab Disposition: Inpt Rehab Unit/Facility Minutes spent on discharge:: 35 Patient Condition:: Stable Medical Necessity - Tobacco Use Smoking Status: Unknown if ever smoked Tobacco Use: Non-smoker Meaningful Use Info Meaningful Use Diagnoses (Choose all that apply): None applicable
--- NOTE | 2019-10-13 14:00 | CASEMGMT ---
PAULA notified patient's that patient was accepted in the Inpatient Rehab Unit at [facility]. She thanked PAULA for the update. Plan: [facility] 4th floor Rehab Unit Rosetta SINGH
--- NOTE | 2019-10-13 14:02 | PHA.DC.MR ---
Pharmacy Service has performed discharge medication reconciliation for this patient. Home Medications metFORMIN HCl [Glucophage] 500 mg PO BIDCM 12/14/14 Clopidogrel Bisulfate [Plavix] 75 mg PO DAILY 07/26/17 Insulin Lispro [Humalog] 0 unit SQ TID 07/26/17 Pravastatin [Pravachol] 20 mg PO QHS 07/26/17 Divalproex Sodium [Depakote ER] 1,500 mg PO DAILY 10/11/19 Divalproex Sodium [Depakote ER] 2,000 mg PO QHS 10/11/19 Fenofibrate Nanocrystallized [Fenofibrate] 145 mg PO DAILY 10/11/19 Lisinopril 30 mg PO DAILY 10/11/19 Primidone 50 mg PO QHS 10/11/19 levETIRAcetam tablet [Keppra tablet] 750 mg PO BID 10/11/19 Insulin Glargine [Lantus SoloStar Pen] 10 units SUBCUT QHS pen 10/13/19 The patient's discharge medication list was reviewed for discrepancies and discrepancies were resolved.
--- NOTE | 2019-10-13 14:22 | NURSING ---
report called to Jennifer SAVAGE in inpt Rehab
[2019-10-13 14:32] LABS: Hemoglobin A1c 5.2 % (4.2-6.3)
[2019-10-26 13:49] LABS: ACHR AB Modulating <12 % (0-20); ACHR Recep AB, Blocking 21 % (0-25)
== END 2019-10-13 17:18 | DRG 57 ==
LOC: ED 16:23 → PCU 17:10
PROVIDERS: Internal Medicine; Nurse Practitioner Family; Physician Assistant; Admitting Provider Hospitalist; Emergency Provider Emergency Medicine; Family Provider Family Medicine; PCP Family Medicine; Referring Provider Hospitalist; Visit Provider Internal Medicine
DX: I69.354 Hemiplegia and hemiparesis following cerebral infarction affecting left non-dominant side (principal); N18.3 Chronic kidney disease, stage 3 (moderate); I69.398 Other sequelae of cerebral infarction; R56.9 Unspecified convulsions; Z79.4 Long term (current) use of insulin; E11.22 Type 2 diabetes mellitus with diabetic chronic kidney disease; R53.81 Other malaise; S42.032A Displaced fracture of lateral end of left clavicle, initial encounter for closed fracture; W19.XXXA Unspecified fall, initial encounter; F32.9 Major depressive disorder, single episode, unspecified; E78.5 Hyperlipidemia, unspecified; I12.9 Hypertensive chronic kidney disease with stage 1 through stage 4 chronic kidney disease, or unspecified chronic kidney disease
CPT/HCPCS: 36415; 70450; 70551; 71045; 72141; 73030; 73200; 80048; 80061; 80164; 82962; 83036; 83519; 84439; 84443; 84481; 84484; 85025; 85610; 92507; 93005; 97162; 97166; 97530; 97802; 99283; J7030; A4216

== ENCOUNTER 2019-10-13 17:30 | Inpatient (IN) | payer MEDICARE, OTHER, SELFPAY ==
[2019-10-13 14:26] VITALS: BMI 28.3
[2019-10-13 17:54] VITALS: BP 153/84; PULSE 70; RESP 16; TEMP 36.4; O2SAT 94; BMI 28.3; BMI 28.4
[2019-10-13 21:06] LABS: Bedside Glucose 94 mg/dL (70-110)
[2019-10-13] MEDS: Pravastatin 20 MG Tablet PO (21:15)
[2019-10-13] MEDS: levETIRAcetam 750 MG Tablet PO (21:15)
[2019-10-13] MEDS: Primidone 50 MG Tablet PO (21:15)
[2019-10-13] MEDS: Divalproex (ER) 500 MG Tablet 2000 MG PO (21:15)
[2019-10-13] MEDS: Senna/Docusate Sodium 1 Tablet 2 TABLET PO (21:15)
[2019-10-13] MEDS: Acetaminophen 325 MG Tablet 650 MG PO (21:15)
--- NOTE | 2019-10-13 21:15 | PCM.RU.PYE ---
Admission Information Primary Diagnosis:: debility due to prior CVA with increased weakness left > R side Status Changes from Prescreening?: No changes Identified Actual Problem List:: Falls, Cognitve Impr/Memory Loss, Depression, Bladder Incontinence, Bowel, Incontinence, Alteration in Nutrition, Mobility Impaired, Self Care Deficit, Ineffective Communication, Alteration-Leisure Activ. Potential Problem List:: DVT, Bleeding, Infection, UTI, Aspiration, Falls, Skin Integrity, Depression Risk of Complications DVT: LMWH, KIRBY Hose Bleeding: Monitor Lab Values, Nursing to Teach Precautions for anti-coagulation therapy., Wound, if applicable, to be assessed every shift., Stroke patients assessed for lethargy or change in status. Infection: Clinical Staff to Monitor for S/S of infection:, S/S of infection include fever, redness, warmth, etc. Urinary Tract Infection: Monitor for frequency, burning, discomfort, or incontinence., Nursing will obtain urine sample for urinalysis and C&S when ordered. Aspiration: Clinical staff will monitor for coughing, drooling, congestion., Speech will evaluate swallowing and dsyphasia., Nursing will monitor patient swallowing during meals. Falls: Patient will be evaluated for Fall Precautions, Patient will be placed on Fall Precautions as indicated per protocol. Skin Breakdown: Nursing will assess skin daily using assessment tool., Nursing will place on Skin Breakdown Precautions as indicated. Pain: Clinical staff will assess patient's pain level per protocol., Medications will be given, if needed, and the pain level reassessed., Other methods: Massage, distraction, decrease stimulus, etc. used PRN. Plan of Care Patient requires physician specializing in physical medicine and rehab oversight to provide close medical supervision of rehab issues including: Pain Management, Sleep Problems, Bowel and Bladder, Medical and co-morbidity Management, DVT prophylaxis, Rehabilitation Leadership, Coordination of treatment team Patient needs Physical Therapy: For a minimum of 1 hour, At least 5 out of 7 days Patient needs Physical Therapy to improve:: Mobility, Mobility, Mobility, Strengthening, Transfers, Stretching, ROM, Endurance, Stairs, Gait, Balance Patient needs Occupational Therapy: For a minimum of 1 hour, At least 5 out of 7 days Patient needs Occupational Therapy to improve ADL's incl.: Eating, Grooming, Bathing, Dressing, Toileting, Toilet transfers, Community Reintegration, Higher functioning activities, Household tasks, Adaptive Equipment, Splinting, Other activities as determined Patient requires speech therapy: For a minimum of 1 hour, At least 5 out of 7 days Patient requires speech therapy for: Swallowing, Cognition, Language Skills, Compensatory Strategies Patient requires 24/ Rehabilitation Nursing for: Pain Issues, Identifying and preventing risk factors, Monitoring and reporting current medical conditions, Assisting with ambulation, transfer, and all ADL's, Teaching patients about disease process and medications, Family teaching, Providing safe environment, Bowel and Bladder Issues, Skin integrity, Medication Management Patient needs Commercial Baker Helper/ Case Management for: Discharge Planning, Arranging Home Equipment or Services, Family Interventions Patient needs Dietary and Nutrition Services for: Adequate Nutrition, Nutritional Supplements, Nutritional Education Goals Patient will remain: free from falls, or injury at time of discharge. Patient will perform bed mobility at: MOD I level of assist. Patient will complete transfers from bed to chair at: MOD I level of assist. Patient will ambulate: 100 feet, with MOD I assist, with LRD Patient will complete upper body dressing at: MOD I level of assist. Patient will complete lower body dressing at: MOD I level of assist. Patient will complete toileting at: MOD I level of assist. Patient will perform bathing at: MOD I level of assist. Patient will complete grooming at: MOD I level of assist. Patient will complete home management skills at: MOD I level of assist. Patient will achieve: 12 stairs, at MOD I assist Patient will have pain level of: of 3 or less Patient's skin will: remain intact, free from infection. Patient will receive: adequate nutrition. Discharge Planning Pt Prognosis for Sig. Practical Improv. w/in Reasonable Time: Good Estimated Length of stay (days): 28 Anticipated D/C Destination: Home Was Preadmission Assessment Accurate?: Yes
[2019-10-14] MEDS: Acetaminophen 325 MG Tablet 650 MG PO ×2 (04:41→20:56)
[2019-10-14] MEDS: Enoxaparin 40 MG/0.4 ML Syringe SC (04:41)
[2019-10-14 06:32] VITALS: O2SAT 94
[2019-10-14 06:45] LABS: Bedside Glucose 115 mg/dL (70-110)
[2019-10-14 08:01] VITALS: BP 155/88; PULSE 79; RESP 18; TEMP 37; O2SAT 95
[2019-10-14] MEDS: Lisinopril 20 MG Tablet 30 MG PO (09:38)
[2019-10-14] MEDS: levETIRAcetam 750 MG Tablet PO ×2 (09:38→20:45)
[2019-10-14] MEDS: Sertraline 50 MG Tablet PO (09:38)
[2019-10-14] MEDS: Clopidogrel Bisulfate 75 MG Tablet PO (09:38)
[2019-10-14] MEDS: Senna/Docusate Sodium 1 Tablet 2 TABLET PO ×2 (09:39→20:46)
[2019-10-14] MEDS: Fenofibrate 145 MG Tablet PO (09:39)
[2019-10-14] MEDS: metFORMIN HCl 500 MG Tablet PO ×2 (10:49→17:22)
[2019-10-14] MEDS: Menthol/Lanolin/Calamine/Znox 113 GM Tube 1 APPLIC TOPICAL ×2 (11:00→20:44)
[2019-10-14 12:15] LABS: Bedside Glucose 123 mg/dL (70-110)
[2019-10-14 13:03] LABS: Valproic Acid (Depakene) Level 90 ug/mL (50-100)
--- NOTE | 2019-10-14 15:57 | HP.PCM_ITS ---
Problem List (1) Physical debility Status: Acute (2) Dysphagia Status: Acute (3) CKD (chronic kidney disease) Status: Chronic Qualifiers: Chronic kidney disease stage: stage 3 (moderate) Qualified Code(s): N18.3 - Chronic kidney disease, stage 3 (moderate) (4) CVA (cerebral vascular accident) Status: Chronic Qualifiers: Precerebral and cerebral artery: middle cerebral artery Laterality of affected vessel: right (5) DM2 (diabetes mellitus, type 2) Status: Chronic Qualifiers: Diabetes mellitus complication status: with neurologic complications (6) Dyslipidemia Status: Chronic (7) HTN (hypertension) Status: Chronic Qualifiers: Hypertension type: essential hypertension Qualified Code(s): I10 - Essential (primary) hypertension (8) Seizure disorder Status: Chronic (9) Thrombocytopenia Status: Chronic (10) Depression Status: Chronic History of Present Illness Date of Admission: 10/13/19 Chief Complaint: physical debility due to Old CVA with left hemiparesis The patient is a 69 year old M with a PMH of DM II, HTN, HLD, 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 He sleeps most of the day and all night. He has no appetite and has been losing weight. He has no motivation to do things he usually did even 1 year ago. states he used to be very active. He had a fall at home recently and fractured the distal left clavicle. He was seen by Dr. Billings and there is no indication for surgical intervention. He was seen by PT/OT and they recommended an admission to rehab with a goal of doing 3 hours of therapy daily in an effort to return home at or near his prior level of function/independence. MRI is negative for acute CVA. CT scan of the left upper extremity showed fracture of the distal clavicle with an avulsed cortical fragment with possible disruption of the ligament. tells me that sometimes when he eats things go down the wrong pipe and he coughs. Sleep study on 09/22/2019 showed well-controlled obstructive sleep apnea with bilevel at 17/13. He had no arrhythmias. Past Medical History Past Medical History (Chronic Problems): Chronic Problems Thrombocytopenia (Chronic) Depression (Chronic) CKD (chronic kidney disease) (Chronic) Seizure disorder (Chronic) DM2 (diabetes mellitus, type 2) (Chronic) Dyslipidemia (Chronic) HTN (hypertension) (Chronic) CVA (cerebral vascular accident) (Chronic) Allergies No Known Allergies Allergy (Verified 10/11/19 14:55) Home Medications: Ambulatory Orders Medication Instructions Recorded metFORMIN HCl [Glucophage] 500 mg PO BIDCM 12/14/14 Clopidogrel Bisulfate [Plavix] 75 mg PO DAILY 07/26/17 Pravastatin [Pravachol] 20 mg PO QHS 07/26/17 Divalproex Sodium [Depakote ER] 1,500 mg PO DAILY 10/11/19 Divalproex Sodium [Depakote ER] 2,000 mg PO QHS 10/11/19 Fenofibrate Nanocrystallized 145 mg PO DAILY 10/11/19 [Fenofibrate] Lisinopril 30 mg PO DAILY 10/11/19 Primidone 50 mg PO QHS 10/11/19 levETIRAcetam tablet [Keppra 750 mg PO BID 10/11/19 tablet] Insulin Glargine [Lantus SoloStar 10 units SUBCUT QHS 10/13/19 Pen] Surgical History: cholecystectomy, herniorrhaphy Psychiatric History: No pertinent psych hx Lives: Spouse/ Significant Other Smoking Status: Never smoker Tobacco Use: Non-smoker Alcohol: None Drugs: None - *Family History Maternal History Items: Cancer, Hypertension, - - ovarian cancer Paternal History Items: Heart Disease, Hypertension Sibling History Items: - - brother with abdominal aortic anuerysm Review of Systems Constitutional: Reports: Anorexia, Weakness, Weight Change, Fatigue HEENT: Reports: Difficulty Swallowing, Dysphasia. Denies: Head Aches, Sinus Congestion, Sinus Drainage Cardiovascular: Denies: Chest Pain, Palpitations Respiratory: Denies: Cough, Shortness of breath at rest, Sputum production Gastrointestinal: Denies: Abdominal Pain, Nausea, Vomiting Genitourinary: Denies: Dysuria Musculoskeletal: Denies: Joint Pain, Joint Tenderness Skin: Denies: Rash, Wounds Neurological: Denies: Numbness, Tingling, Focal weakness Psychiatric: Denies: Anxiety, Depression, Homicidal Ideations, Suicidal Ideations Hematologic/ Lymphatic: Denies: Easy Bruising, Easy Bleeding VTE Information - Inpt Only VTE Present on Admission: No VTE Mechan Device Prophylaxis: Knee High KIRBY Hose VTE Pharm Prophylaxis ordered?: Yes Patient Problems: Active and Suspected Problems Physical debility (Acute) Dysphagia (Acute) - Physical Exam Vitals/I&O's: Vital Signs Temp Pulse Resp BP Pulse Ox 98.6 F 79 18 155/88 H 95 10/14/19 08:01 10/14/19 08:01 10/14/19 08:01 10/14/19 08:01 10/14/19 08:01 Oxygen Delivery Method Room Air Weight: 214 lb 1.102 oz Body Mass Index (BMI) 28.3 Finger Stick Blood Glucose 106 Intake and Output for Last 24 Hours 10/12/19 10/13/19 10/14/19 23:59 23:59 23:59 Intake Total 460 / 460 Output Total 100 / 100 25 / 25 Balance -100 / -100 435 / 435 General: No apparent distress, Lethargic - hard to keep awake, keeps closing his eyes HEENT: Atraumatic, PERRLA, EOMI, Normocephalic, - - he has BL ptosis Oral: No Gingival or Mucosal Lesions/ Ulcerations, Dry Mucosa Neck: Supple, No JVD Lungs: Clear to auscultation, - - poor inspiratory effort Cardiovascular: Regular rate, Regular Rhythm, Normal S1, Normal S2, No murmurs, No rub noted, No Gallop Abdomen: Bowel Sounds Present, Soft, Non Tender, Distended - and somewhat tympanic, no guarding with palpation Extremities: No clubbing, No cyanosis, No edema, No Calf Tenderness Skin: No rashes Neurological: Cranial nerves II-XII grossly intact - except the tonguse deviates to the left. No visual field cuts., - - Motor strength is 1/5 in the left upper extremity and the left lower extremity. Motor strength in the right upper extremity and the right lower extremity is 3/5. He seems to have bilateral ptosis. He is very lethargic. He sometimes can tell me I am touching on his left side but, when I touch both sides at the same time he will always say right. Psych/Mental Status: Flat Affect, Depressed Laboratory Results 10/13/19 20:53: POC Glucose 94 10/14/19 06:36: POC Glucose 115 H 10/14/19 12:00: Valproic Acid 90 10/14/19 12:07: POC Glucose 123 H Current Medications Acetaminophen (Tylenol) 650 mg PO Q6H PRN PRN PRN Reason: Pain Score 1-10/10 Last Admin: 10/14/19 04:41 Dose: 650 mg Documented by: Bisacodyl (Dulcolax) 10 mg RECTAL .PRN X 1 PRN PRN Reason: Constipation Calamine/Phenol (Calmoseptine Ointment) 1 applic TOPICAL BID [facility]; Protocol Last Admin: 10/14/19 11:00 Dose: 1 applicatio Documented by: Clopidogrel Bisulfate (Plavix) 75 mg PO DAILY [facility] Last Admin: 10/14/19 09:38 Dose: 75 mg Documented by: Enoxaparin Sodium (Lovenox) 40 mg SC DAILY@0600 [facility] Last Admin: 10/14/19 04:41 Dose: 40 mg Documented by: [facility] ([facility]) [facility] Last Admin: 10/14/19 09:39 Dose: 145 mg Documented by: Insulin Human Lispro (Humalog Kwikpen (Bkc)) 0 unit SC [facility]; Protocol Last Admin: 10/14/19 11:00 Dose: Not Given Documented by: Levetiracetam (Keppra Tablet) 750 mg PO BID [facility] Last Admin: 10/14/19 09:38 Dose: 750 mg Documented by: Lisinopril (Zestril) 30 mg PO DAILY [facility] Last Admin: 10/14/19 09:38 Dose: 30 mg Documented by: Magnesium Hydroxide (Milk Of Magnesia) 30 ml PO .PRN X 1 PRN PRN Reason: Constipation Metformin [facility] (Glucophage) [facility] Last Admin: 10/14/19 10:49 Dose: 500 mg Documented by: Pravastatin Sodium (Pravachol) 20 mg PO QHS [facility] Last Admin: 10/13/19 21:15 Dose: 20 mg Documented by: [facility]) [facility] Last Admin: 10/13/19 21:15 Dose: 50 mg Documented by: Senna/Docusate Sodium (Senokot-S, [place]-Colace) 2 tablet PO BID [facility] Last Admin: 10/14/19 09:39 Dose: 2 tablet Documented by: Sertraline HCl (Zoloft) 50 mg PO DAILY [facility] Last Admin: 10/14/19 09:38 Dose: 50 mg Documented by: Valproic Acid (Depakene) 1,000 mg PO TID [facility] Last Admin: 10/14/19 14:34 Dose: 1,000 mg Documented by: Assessment/Plan All Active Problems Physical debility (Acute) Dysphagia (Acute) Waqas's paralysis (Resolved) Impressions 1. Debility/functional decline with questionable ptosis and trouble swallowing. I feel he is depressed and has not been motivated to do anything but sleep and now he has lost his muscle tone and is unable to do what he was doing prior to 6 months ago. PT/OT/ST to evaluate. Other considerations for his sx would be Myasthenia and pseudobulbar palsy. Acetyl chol receptor antibodies ordered. 2. distal Left clavicle fracture - not a surgical candidate. Sling for 2 weeks with no lifting on the LUE 3. Thrombocytopenia - this is chronic but is lower than normal, more likely than not due to Enoxaparin 4. Depression - untreated 5. CRF stage III, DM II, seizure disorder with no hx of seizure in the past year - complicate care, management, recovery and prognosis. I think the biggest challenge for him in rehab will be to motivate him to do 3 hours of therapy a day. Started on Sertraline. The pt is a 69 YO male with a PMH of prior CVA in the right MCA territory with left hemiparesis, diabetes mellitus type 2, seizure disorder, chronic renal failure stage III and chronic thrombocytopenia admitted to the Inpatient rehab unit at [facility] on 10/13/2019 for debility secondary to depression for greater than 3 hours of therapy daily with a goal of returning home at or near prior level of independence. The patient lives at home with spouse. Prior to 6 months ago was able to complete ADL's and active. functional decline is due to inactivity due to depressions and lack of motivation. PLAN PT for gait stability OT for ADL's ST for evaluation Analgesics as needed Bowel protocol Fall precautions Assess for Anxiety/Depression GI prophylaxis not necessary at this time DVT prophylaxis with Enoxaparin with transition to Xarelto if the PLT's are stable Follow up with Dr. Pearson, Dr. Billings and Dr. Payne following DC from Rehab Code Visit Inpatient E&M: 93152 Init Hosp L3
[2019-10-14 17:55] LABS: Bedside Glucose 123 mg/dL (70-110)
[2019-10-14 19:25] VITALS: BP 134/85; PULSE 83; RESP 16; TEMP 36.9; O2SAT 94
[2019-10-14] MEDS: Primidone 50 MG Tablet PO (20:46)
[2019-10-14 21:16] LABS: Bedside Glucose 126 mg/dL (70-110)
[2019-10-14 22:00] VITALS: PULSE 83; RESP 16; O2SAT 94
[2019-10-14] MEDS: Pravastatin 20 MG Tablet PO (22:08)
[2019-10-15] MEDS: Enoxaparin 40 MG/0.4 ML Syringe SC (06:43)
--- NOTE | 2019-10-15 06:48 | NURSING ---
Ice water refreshened and encouraged for pt intake.
[2019-10-15 07:05] LABS: Bedside Glucose 110 mg/dL (70-110)
[2019-10-15 07:20] VITALS: BP 132/66; PULSE 67; RESP 16; TEMP 36.4; O2SAT 96
[2019-10-15] MEDS: Lisinopril 20 MG Tablet 30 MG PO (07:57)
[2019-10-15] MEDS: metFORMIN HCl 500 MG Tablet PO ×2 (07:57→17:15)
[2019-10-15] MEDS: Sertraline 50 MG Tablet PO (07:57)
[2019-10-15] MEDS: Fenofibrate 145 MG Tablet PO (07:57)
[2019-10-15] MEDS: levETIRAcetam 750 MG Tablet PO ×2 (07:57→20:37)
[2019-10-15] MEDS: Clopidogrel Bisulfate 75 MG Tablet PO (07:57)
[2019-10-15] MEDS: Senna/Docusate Sodium 1 Tablet 2 TABLET PO (07:57)
[2019-10-15] MEDS: Menthol/Lanolin/Calamine/Znox 113 GM Tube 1 APPLIC TOPICAL ×2 (08:00→20:38)
[2019-10-15 11:56] LABS: Bedside Glucose 108 mg/dL (70-110)
[2019-10-15 17:01] LABS: Bedside Glucose 128 mg/dL (70-110)
[2019-10-15 17:07] VITALS: O2SAT 93
[2019-10-15 19:31] VITALS: BP 135/83; PULSE 66; RESP 18; TEMP 36.8; O2SAT 93
[2019-10-15] MEDS: Primidone 50 MG Tablet PO (20:37)
[2019-10-15] MEDS: Pravastatin 20 MG Tablet PO (20:37)
[2019-10-15] MEDS: Acetaminophen 325 MG Tablet 650 MG PO (20:44)
[2019-10-15 20:52] VITALS: BMI 28.3
[2019-10-15 21:06] LABS: Bedside Glucose 100 mg/dL (70-110)
[2019-10-15 22:00] VITALS: PULSE 66; RESP 18; O2SAT 93
--- NOTE | 2019-10-16 04:22 | NURSING ---
Pharmacy called re: Ara 06:00 dose for pt. Pharmacy states that they are currently awaiting a delivery that should arrive this a.m. and will be sent joie CORBETT in Pharmacy.
[2019-10-16] MEDS: Enoxaparin 40 MG/0.4 ML Syringe SC (05:46)
[2019-10-16 06:55] LABS: Bedside Glucose 91 mg/dL (70-110)
[2019-10-16 08:04] VITALS: BP 129/73; PULSE 63; RESP 16; TEMP 36.5; O2SAT 97
[2019-10-16] MEDS: Clopidogrel Bisulfate 75 MG Tablet PO (08:26)
[2019-10-16] MEDS: levETIRAcetam 750 MG Tablet PO ×2 (08:26→21:08)
[2019-10-16] MEDS: Sertraline 50 MG Tablet PO (08:26)
[2019-10-16] MEDS: Lisinopril 20 MG Tablet 30 MG PO (08:26)
[2019-10-16] MEDS: Fenofibrate 145 MG Tablet PO (08:26)
[2019-10-16] MEDS: metFORMIN HCl 500 MG Tablet PO (08:26)
[2019-10-16] MEDS: Acetaminophen 325 MG Tablet 650 MG PO (08:37)
[2019-10-16] MEDS: Menthol/Lanolin/Calamine/Znox 113 GM Tube 1 APPLIC TOPICAL ×2 (08:43→21:09)
[2019-10-16 12:01] LABS: Bedside Glucose 110 mg/dL (70-110)
[2019-10-16 12:41] VITALS: BMI 28.3
--- NOTE | 2019-10-16 14:06 | PN_ITS ---
Progress Note Afebile VSS Maintaining appropriate oxygen saturation on RA Oral intake is poor. Pt states he does not like the food. stated he was not eating at home. No evidence of malnutrition exists. Discussed with nursing - Pt has little motivation to do PT and requires a lot of encouragement. He states he wants to get better and go home however, he gets frustrated and then wants to stop what he is doing and go back to his room......interestingly enough when he asked to stop today he was able to scoot over to the chair with less assistance than he was getting prior to starting PT. He was overheard on the telephone telling his we are trying to force him to eat and he is going to leave. Reviewed the PT/OT/ST notes - requiring mod to max assist of 2 to go from supine to standing. Ambulated 3-5 ft....required assistance to move the LLE forward. Only lasted 3 minutes on the nustep before wanting to quit.....states he is in a lot of pain. Medication list reviewed. Blood sugar record reviewed. Blood sugar since arriving on the rehab floor have ranged from 91-1 28. No hypoglycemic episodes. Acetylcholine receptor antibodies are pending. He is unable to swallow the Depakote tablets. Interesting because the Depakote level on the acute side at admission was 108 so he was obviously swallowing the pills at home. He is much more alert today than Wednesday when I discharged him from the acute side of the hospital. He initially was making good eye contact and his eyes were wide open. When I started talking about depression he averted his eyes and had to be reminded to look at me. He was able to eat some mashed potatoes for [place] from . He is sitting up in the bed. PERRL Lungs - CTA Heart - RRR with no gallop and no MM abdomen- Soft,NT, ND, normal BS's no edema Oriented to person, place and time Impressions 1. depression - making participation to get 3 hours of therapy in daily very difficult......Pt seems much different today than Wednesday when was in the room. There seems to be co-dependence going on here. She is at her mother's today and he is calling her to tell her we are trying to force him to eat. He seemed much more lethargic and confused with in the room. 2. debility due to inactivity for the past 6 months due to depression. 3. DM II - BS's are under very good control on diet alone but, not eating much. He was told he can have his family bring in food for him if he does not like the food here. Was on Insulin and Metformin at admission to the hospital. HGBA1C was only 5.2 at admission to the hospital and I suspect he had been having hypoglycemic episodes at home. 4. thrombocytopenia - chronic. Likely ITP. 5. seizure disorder - no seizures in the past year - follows with Dr. Payne Check CMP, CBC, magnesium, phosphorus and valproic acid level in the a.m. If platelets are stable will transition to an oral anticoagulant for DVT p rophylaxis Add Remeron to his drug regimen to try and stimulate the appetite Must wear BIPAP at night.......will question his about compliance with Bilevel at home. Will also call Dr. Kennedy to check the most recent compliance report. Code Visit Inpatient E&M: 50436 Subs Hosp L2
[2019-10-16] MEDS: Acetaminophen 500 MG Tablet 1000 MG PO ×2 (14:12→21:07)
[2019-10-16] MEDS: Divalproex (ER) 250 MG Tablet 1500 MG PO (14:12)
[2019-10-16 16:40] LABS: Bedside Glucose 115 mg/dL (70-110)
[2019-10-16 21:00] VITALS: BMI 28.3
[2019-10-16] MEDS: Pravastatin 20 MG Tablet PO (21:08)
[2019-10-16] MEDS: Mirtazapine 15 MG Tablet PO (21:08)
[2019-10-16] MEDS: Divalproex (ER) 250 MG Tablet 2000 MG PO (21:08)
[2019-10-16] MEDS: Primidone 50 MG Tablet PO (21:08)
[2019-10-16 21:31] LABS: Bedside Glucose 102 mg/dL (70-110)
[2019-10-16 22:00] VITALS: BP 109/64; PULSE 73; RESP 18; TEMP 36.7; O2SAT 95
[2019-10-17] MEDS: Enoxaparin 40 MG/0.4 ML Syringe SC (05:48)
[2019-10-17] MEDS: Acetaminophen 500 MG Tablet 1000 MG PO ×3 (05:48→21:28)
[2019-10-17] MEDS: traMADol 50 MG Tablet PO ×3 (05:49→21:28)
[2019-10-17 05:50] LABS: Hematocrit 36.9 % (40-54); Hemoglobin 11.9 g/dL (13.0-16.5); Mean Corp Hgb Conc 32.2 g/dL (32-36); Mean Corpuscular Hgb 30.9 pg (27.0-32.0); Mean Corpuscular Volume 95.8 fL (80-94); Mean Platelet Vol. 10.1 fl (6.2-12.0); POSITIVE COUNT YES; Platelet Count 71 K/mm3 (150-450); RBC Distribution Width CV 13.2 % (11.6-14.6); RBC Distribution Width SD 46.3 fl (35.1-43.9); Red Blood Count 3.85 M/mm3 (4.6-6.2); White Blood Count 4.3 K/mm3 (4.4-11.0)
[2019-10-17 06:09] LABS: ALB/GLOB Ratio 0.7 RATIO (0.9-2.4); AST(SGOT) 58 U/L (15-37); Alanine Aminotransfer ALT/SGPT 23 U/L (16-61); Albumin, Serum 2.1 g/dL (3.2-5.0); Alkaline Phosphatase 40 U/L (45-117); Anion Gap 4 (5-15); BUN 26 mg/dL (7-18); Calcium,Total 8.1 mg/dL (8.5-10.1); Chloride 106 mmol/L (98-107); Creatinine, Serum 1.37 mg/dL (0.70-1.30); EST Glomerular Filtration Rate 55 mL/min (>60); Est Glom Filt Rate - Afr Amer 67 mL/min (>60); Estimated Creatinine Clearance 57.43 ml/min; Globulin 2.9 g/dL (2.2-4.2); Glucose 87 mg/dL (74-106); Phosphorus 3.6 mg/dL (2.5-4.9); Potassium 3.8 mmol/L (3.5-5.1); Sodium Level 140 mmol/L (136-145)
[2019-10-17 06:20] LABS: Scan Indicated on CBC? Y/N YES- FLAGS NOTED
[2019-10-17 06:21] LABS: POSITIVE DIFFERENTIAL YES
[2019-10-17 06:27] LABS: Valproic Acid (Depakene) Level 70 ug/mL (50-100)
[2019-10-17 06:40] LABS: Bedside Glucose 72 mg/dL (70-110)
[2019-10-17] MEDS: levETIRAcetam 750 MG Tablet PO ×2 (08:56→21:26)
[2019-10-17] MEDS: Fenofibrate 145 MG Tablet PO (08:56)
[2019-10-17] MEDS: Divalproex (ER) 250 MG Tablet 1500 MG PO (08:58)
[2019-10-17] MEDS: Clopidogrel Bisulfate 75 MG Tablet PO (08:58)
[2019-10-17] MEDS: Sertraline 50 MG Tablet PO (08:58)
[2019-10-17] MEDS: Lisinopril 20 MG Tablet 30 MG PO (08:58)
[2019-10-17] MEDS: Menthol/Lanolin/Calamine/Znox 113 GM Tube 1 APPLIC TOPICAL ×2 (09:05→21:27)
[2019-10-17 09:11] VITALS: BP 109/57; PULSE 64; RESP 16; TEMP 36.5; O2SAT 92
[2019-10-17 10:00] VITALS: O2SAT 92; O2SAT 96
[2019-10-17 12:10] LABS: Bedside Glucose 101 mg/dL (70-110)
--- NOTE | 2019-10-17 14:40 | PN_ITS ---
Patient Problems: Active and Suspected Problems Physical debility (Acute) Dysphagia (Acute) Subjective: Afebile VSS Maintaining appropriate oxygen saturation on RA Oral intake is fair Discussed with nursing - no problems that need addressed Reviewed the PT/OT/ST notes - he is still requiring a lot of encouragement to do PT. He was more sleepy today....was started on Remeron last night to attempt to stimulate the appetite......this may be why he is more sleepy. Medication list reviewed. All lab was personally reviewed. White blood cell count is low today at 4.3 but it has been low intermittently in the past as well. Hemoglobin is 11.9, down from 14.2 on 10/11/2019. Platelet count is stable at 71,000. Creatinine today is 1.37 which is within his baseline. BUN is 26. Electrolytes are within normal limits. Calcium corrected for hypoalbuminemia is within normal limits. He is c/o chest congestion but he is not coughing. Denies feeling depressed. Can not tell me why he thinks he has become so weak and sleepy in the past 6 months. He does tell me that he wants to get better and he thinks he did better with therapy today. He denies feeling suicidal. Denies any FH of BPD, dementia, PD, Depression. He states he has never been treated for depression. - Physical Exam Vitals/I&O's: Vital Signs Temp Pulse Resp BP Pulse Ox 97.7 F L 64 16 109/57 L 92 10/17/19 09:11 10/17/19 09:11 10/17/19 09:11 10/17/19 09:11 10/17/19 10:00 Oxygen Delivery Method Room Air Weight: 214 lb 1.102 oz Body Mass Index (BMI) 28.3 Finger Stick Blood Glucose 106 Intake and Output for Last 24 Hours 10/15/19 10/16/19 10/17/19 23:59 23:59 23:59 Intake Total 480 / 480 480 / 480 480 / 480 Balance 480 / 480 480 / 480 480 / 480 General: Lethargic, - - Would not initially vocalize. He just stared at me and let his mouth hang open. Very little facial expression. Then He did speak but told me it was hard due to chest congestion? HEENT: Atraumatic, PERRLA, EOMI, Normocephalic Oral: No Gingival or Mucosal Lesions/ Ulcerations, Dry Mucosa Neck: Supple, No JVD, No Nodes, Trachea Midline Lungs: Clear to auscultation Cardiovascular: Regular rate, Regular Rhythm, Normal S1, Normal S2, No Gallop Abdomen: Bowel Sounds Present, Soft, Non Tender, Non-Distended, - - No guarding with palpation Extremities: No edema Skin: No rashes Neurological: Cranial nerves II-XII grossly intact, - - I have not observed any tremores, pill rolling. He is lethargic and he has decreased blink and very little faciall expression. He is slow to answer my questions and sometimes just closes his eyes and does not answer my questions. No change in strength from admission. Psych/Mental Status: Flat Affect, Depressed Laboratory Results 10/16/19 16:23: POC Glucose 115 H 10/16/19 21:02: POC Glucose 102 10/17/19 05:30: Valproic Acid 70 10/17/19 05:30: WBC 4.3 L, RBC 3.85 L, Hgb 11.9 L, Hct 36.9 L, MCV 95.8 H, MCH 30.9, MCHC 32.2, RDW Std Deviation 46.3 H, RDW Coeff of Jake 13.2, Plt Count 71 L , MPV 10.1, Differential Comment 10/17/19 05:30: Sodium 140, Potassium 3.8, Chloride 106, Carbon Dioxide 30.0, Anion Gap 4 L, BUN 26 H, Creatinine 1.37 H, Estim Creat Clear Calc 57.43, Est GFR (MDRD) Af Amer 67, Est GFR (MDRD) Non-Af 55 L, BUN/Creatinine Ratio 19.0, Glucose 87, Calcium 8.1 L, Phosphorus 3.6, Magnesium 2.0, Total Bilirubin 0.80, AST 58 H, ALT 23, Alkaline Phosphatase 40 L, Total Protein 5.0 L, Albumin 2.1 L, Globulin 2.9, Albumin/Globulin Ratio 0.7 L 10/17/19 06:10: POC Glucose 72 10/17/19 12:01: POC Glucose 101 Current Medications Acetaminophen (Tylenol) 1,000 mg PO Q8H [facility] Last Admin: 10/17/19 13:19 Dose: 1,000 mg Documented by: Bisacodyl (Dulcolax) 10 mg RECTAL .PRN X 1 PRN PRN Reason: Constipation Calamine/Phenol (Calmoseptine Ointment) 1 applic TOPICAL BID [facility]; Protocol Last Admin: 10/17/19 09:05 Dose: 1 applicatio Documented by: Clopidogrel Bisulfate (Plavix) 75 mg PO DAILY [facility] Last Admin: 10/17/19 08:58 Dose: 75 mg Documented by: Divalproex Sodium (Depakote Er) 1,500 mg PO QAM [facility] Last Admin: 10/17/19 08:58 Dose: 1,500 mg Documented by: Divalproex Sodium (Depakote Er) 2,000 mg PO QHS [facility] Last Admin: 10/16/19 21:08 Dose: 2,000 mg Documented by: Enoxaparin Sodium (Lovenox) 40 mg SC DAILY@0600 [facility] Last Admin: 10/17/19 05:48 Dose: 40 mg Documented by: Fenofibrate (Tricor) 145 mg PO DAILYCM [facility] Last Admin: 10/17/19 08:56 Dose: 145 mg Documented by: Insulin Human Lispro (Humalog Kwikpen (Bkc)) 0 unit SC [facility]; Protocol Last Admin: 10/17/19 12:02 Dose: Not Given Documented by: Levetiracetam (Keppra Tablet) 750 mg PO BID [facility] Last Admin: 10/17/19 08:56 Dose: 750 mg Documented by: Lisinopril (Zestril) 30 mg PO DAILY [facility] Last Admin: 10/17/19 08:58 Dose: 30 mg Documented by: Magnesium Hydroxide (Milk Of Magnesia) 30 ml PO .PRN X 1 PRN PRN Reason: Constipation Mirtazapine (Remeron) 15 mg PO QPM@2100 [facility] Last Admin: 10/16/19 21:08 Dose: 15 mg Documented by: Pravastatin Sodium (Pravachol) 20 mg PO QHS [facility] Last Admin: 10/16/19 21:08 Dose: 20 mg Documented by: Primidone (Mysoline) 50 mg PO QHS [facility] Last Admin: 10/16/19 21:08 Dose: 50 mg Documented by: Senna/Docusate Sodium (Senokot-S, [place]-Colace) 2 tablet PO BID [facility] Last Admin: 10/17/19 08:59 Dose: Not Given Documented by: Sertraline HCl (Zoloft) 50 mg PO DAILY [facility] Last Admin: 10/17/19 08:58 Dose: 50 mg Documented by: Tramadol HCl (Ultram) 50 mg PO TID PRN PRN PRN Reason: pain >4 Last Admin: 10/17/19 13:19 Dose: 50 mg Documented by: Medical Necessity - Tobacco Use Smoking Status: Never smoker Tobacco Use: Non-smoker Assessment/Plan All Active Problems Physical debility (Acute) Dysphagia (Acute) Waqas's paralysis (Resolved) Impressions 1. Debility/functional decline with trouble swallowing. I think that he is depressed but, this is not the total answer for why he is so lethargic, slow to answer questions, masked facies, decreased blink, falls, weakness. The acetylcholine receptor antibodies are pending. 2. distal Left clavicle fracture - not a surgical candidate. Sling for 2 weeks with no lifting on the LUE 3. Thrombocytopenia - this is chronic but is lower than normal but it is stable 4. Depression - continue the Sertraline but, DC the Remeron because, it may be contributing to his lethargy today 5. CRF stage III, DM II, seizure disorder with no hx of seizure in the past year - complicate care, management, recovery and prognosis. Will obtain progress notes from recent visits with Dr. Payne. continue PT/OT/ST. MRI recently with no acute changes Code Visit Inpatient E&M: 01925 Subs Hosp L2
[2019-10-17 17:00] VITALS: BMI 28.3
[2019-10-17 17:00] LABS: Bedside Glucose 86 mg/dL (70-110)
[2019-10-17 20:33] VITALS: BP 124/76; PULSE 68; RESP 16; TEMP 36.6; O2SAT 94
[2019-10-17 20:40] VITALS: BMI 28.3
[2019-10-17] MEDS: Primidone 50 MG Tablet PO (21:26)
[2019-10-17] MEDS: Senna/Docusate Sodium 1 Tablet 2 TABLET PO (21:26)
[2019-10-17] MEDS: Pravastatin 20 MG Tablet PO (21:26)
[2019-10-17] MEDS: Divalproex (ER) 250 MG Tablet 2000 MG PO (21:27)
[2019-10-17 21:31] LABS: Bedside Glucose 115 mg/dL (70-110)
[2019-10-17 22:00] VITALS: PULSE 68; RESP 16; O2SAT 94
[2019-10-18] MEDS: Acetaminophen 500 MG Tablet 1000 MG PO ×3 (05:16→22:14)
[2019-10-18] MEDS: Enoxaparin 40 MG/0.4 ML Syringe SC (05:16)
[2019-10-18] MEDS: traMADol 50 MG Tablet PO (05:18)
[2019-10-18 06:55] LABS: Bedside Glucose 89 mg/dL (70-110)
[2019-10-18 08:08] VITALS: BP 103/60; PULSE 86; RESP 16; TEMP 36.4; O2SAT 94
[2019-10-18] MEDS: Senna/Docusate Sodium 1 Tablet 2 TABLET PO ×2 (08:14→22:16)
[2019-10-18] MEDS: Divalproex (ER) 250 MG Tablet 1500 MG PO (08:14)
[2019-10-18] MEDS: Fenofibrate 145 MG Tablet PO (08:14)
[2019-10-18] MEDS: Lisinopril 20 MG Tablet 30 MG PO (08:14)
[2019-10-18] MEDS: levETIRAcetam 750 MG Tablet PO ×2 (08:14→22:16)
[2019-10-18] MEDS: Clopidogrel Bisulfate 75 MG Tablet PO (08:14)
[2019-10-18] MEDS: Sertraline 50 MG Tablet PO (08:15)
[2019-10-18] MEDS: Menthol/Lanolin/Calamine/Znox 113 GM Tube 1 APPLIC TOPICAL ×2 (08:28→22:17)
[2019-10-18 12:00] LABS: Bedside Glucose 100 mg/dL (70-110)
[2019-10-18 13:22] VITALS: BMI 28.3
--- NOTE | 2019-10-18 15:31 | CHAPLAIN ---
Type of Pastoral Visit _x__ Initial Visit ___ Follow-up Visit ___ On-call Visit ___ General Patient Visit ___ Spiritual Assessment ___ Family Conference ___ Bereavement ___ Rapid Response ___ Code Blue ___ Other (describe below) Pastoral Care Referral From ___ Patient _x__ Family ___ Nurse ___ Physician ___ Wire Brush Operator ___ Photostat Operator Helper ___ Other (describe below) Sacrament/Intervention ___ Active listening ___ Anointing ___ Orthodoxy ___ Bereavement ___ Communion ___ Ronda exploration ___ ___ Life review _x__ Prayer ___ Reconciliation ___ Sacrament of Sick _x__ Supportive presence ___ Wedding ___ Other (describe below) Pastoral Comments patient had a difficult time staying awake but took my calling card and welcomed a prayer
[2019-10-18 16:40] LABS: Bedside Glucose 90 mg/dL (70-110)
[2019-10-18 20:56] VITALS: BP 109/58; PULSE 64; RESP 12; TEMP 36.4; O2SAT 95
[2019-10-18 21:35] LABS: Bedside Glucose 86 mg/dL (70-110)
[2019-10-18] MEDS: Primidone 50 MG Tablet PO (22:16)
[2019-10-18] MEDS: Pravastatin 20 MG Tablet PO (22:16)
[2019-10-18] MEDS: Divalproex (ER) 250 MG Tablet 2000 MG PO (22:17)
[2019-10-18] MEDS: Magnesium Hydroxide 30 ML UDC PO (22:34)
[2019-10-19] MEDS: Acetaminophen 500 MG Tablet 1000 MG PO ×3 (06:45→20:58)
[2019-10-19] MEDS: Enoxaparin 40 MG/0.4 ML Syringe SC (06:45)
[2019-10-19 06:46] LABS: Bedside Glucose 79 mg/dL (70-110)
[2019-10-19 07:00] VITALS: BP 104/54; PULSE 60; RESP 12; TEMP 36.5; O2SAT 94
[2019-10-19] MEDS: Sertraline 50 MG Tablet PO (08:19)
[2019-10-19] MEDS: levETIRAcetam 750 MG Tablet PO ×2 (08:19→20:59)
[2019-10-19] MEDS: Clopidogrel Bisulfate 75 MG Tablet PO (08:19)
[2019-10-19] MEDS: Fenofibrate 145 MG Tablet PO (08:19)
[2019-10-19] MEDS: Lisinopril 20 MG Tablet 30 MG PO (08:19)
[2019-10-19] MEDS: Menthol/Lanolin/Calamine/Znox 113 GM Tube 1 APPLIC TOPICAL ×2 (08:20→21:01)
[2019-10-19] MEDS: Divalproex (ER) 250 MG Tablet 1500 MG PO (08:20)
[2019-10-19 08:26] VITALS: BP 112/60; PULSE 64
[2019-10-19 12:11] LABS: Bedside Glucose 99 mg/dL (70-110)
--- NOTE | 2019-10-19 12:14 | CASEMGMT ---
Social Work IDT met with patient, and eldest son Christopher, for Team Meeting. Discussed patient's progress in therapy. Pt standing at parallel bars and wall rail 5 ft max x2 assist. pt is struggling to stand tall, has poor balance, and posture. Pt leans forward and to the left. Left arm is NWB and immobilized with sling. Physician ordered soft collar for therapy to assist with strengthening muscles. Pt is sitting in front of the mirror for OT to assist with visual cues. Pt is total assist x2 for LE ADLs, max x1 for UE dressing. Pt could complete self care prior, just needed some assistance with LE dressing. ST is working with pt on speech intelligibility, cognition. Pt is on puree, nectar diet with small bites and sips. Pt having difficultly staying alert and not eating. Physician discussed peg tube placement. Family to decide. Physician ordered neuro consult for possible dx. Explained Medicare coverage and will notify with [facility]. Will ReTeam next week. Will continue to follow. SAMANTHA KramerW
--- NOTE | 2019-10-19 12:38 | PN_ITS ---
Patient Problems: Active and Suspected Problems Physical debility (Acute) Dysphagia (Acute) Subjective: Afebile VSS Maintaining appropriate oxygen saturation on RA Oral intake is poor pt was seen on TEAM rounds today and his and son were present. Discussed with nursing Reviewed the PT/OT/ST notes and heard their presentations on TEAM rounds Medication list reviewed. Has been participating with therapy more. He denies pain. He has difficulty holding his head up for any length of time. His appetite and intake are very poor. His urine is very concentrated. Blood sugars are consistently less than 100 now. He is on no medication for DM. He is still sleeping a lot, but has periods now where he is more alert and he is doing better with therapy. Acetylcholine receptor antibodies are still pending. A call was made to the lab and they were checking on it with [facility]. - Physical Exam Vitals/I&O's: Vital Signs Temp Pulse Resp BP Pulse Ox 97.7 F L 64 12 112/60 94 10/19/19 07:00 10/19/19 08:26 10/19/19 07:00 10/19/19 08:26 10/19/19 07:00 Oxygen Delivery Method Room Air Weight: 214 lb 1.102 oz Body Mass Index (BMI) 28.3 Finger Stick Blood Glucose 106 Intake and Output for Last 24 Hours 10/17/19 10/18/19 10/19/19 23:59 23:59 23:59 Intake Total 720 / 720 120 / 120 340 / 340 Output Total 175 / 175 Balance 720 / 720 -55 / -55 340 / 340 General: - - very alert today on TEAM rounds. When he does lift his head his eyes are very wide and his eyebrows are lifted....has rather a surprised look......no ptosis HEENT: Atraumatic, - - Pupils are equal, round and reactive to light Oral: Dry Mucosa Neck: No JVD, Trachea Midline, - - neck is weak and he has a difficult time holding his head up for any length of time Lungs: Clear to auscultation Cardiovascular: Regular rate, Regular Rhythm, Normal S1, Normal S2, No Gallop Abdomen: Bowel Sounds Present, Soft, Non Tender, Non-Distended Extremities: No edema Skin: No rashes Neurological: - - no chnage in the neuro exam Psych/Mental Status: Appropriate, Flat Affect Laboratory Results 10/18/19 16:31: POC Glucose 90 10/18/19 21:31: POC Glucose 86 10/19/19 06:35: POC Glucose 79 10/19/19 12:00: POC Glucose 99 Current Medications Acetaminophen (Tylenol) 1,000 mg PO Q8H [facility] Last Admin: 10/19/19 06:45 Dose: 1,000 mg Documented by: Bisacodyl (Dulcolax) 10 mg RECTAL .PRN X 1 PRN PRN Reason: Constipation Calamine/Phenol (Calmoseptine Ointment) 1 applic TOPICAL BID [facility]; Protocol Last Admin: 10/19/19 08:20 Dose: 1 applicatio Documented by: Clopidogrel Bisulfate (Plavix) 75 mg PO DAILY [facility] Last Admin: 10/19/19 08:19 Dose: 75 mg Documented by: Divalproex Sodium (Depakote Er) 1,500 mg PO QAM [facility] Last Admin: 10/19/19 08:20 Dose: 1,500 mg Documented by: Divalproex Sodium (Depakote Er) 2,000 mg PO QHS [facility] Last Admin: 10/18/19 22:17 Dose: 2,000 mg Documented by: Enoxaparin Sodium (Lovenox) 40 mg SC DAILY@0600 [facility] Last Admin: 10/19/19 06:45 Dose: 40 mg Documented by: Fenofibrate (Tricor) 145 mg PO DAILYCM [facility] Last Admin: 10/19/19 08:19 Dose: 145 mg Documented by: Lactated Ringer's () 1,000 mls @ 100 mls/hr IV .Q10H [facility] Insulin Human Lispro (Humalog Kwikpen (Bkc)) 0 unit SC [facility]; Protocol Last Admin: 10/19/19 06:40 Dose: Not Given Documented by: Levetiracetam (Keppra Tablet) 750 mg PO BID [facility] Last Admin: 10/19/19 08:19 Dose: 750 mg Documented by: Lisinopril (Zestril) 30 mg PO DAILY [facility] Last Admin: 10/19/19 08:19 Dose: 30 mg Documented by: Magnesium Hydroxide (Milk Of Magnesia) 30 ml PO .PRN X 1 PRN PRN Reason: Constipation Last Admin: 10/18/19 22:34 Dose: 30 ml Documented by: Pravastatin Sodium (Pravachol) 20 mg PO QHS [facility] Last Admin: 10/18/19 22:16 Dose: 20 mg Documented by: Primidone (Mysoline) 50 mg PO QHS [facility] Last Admin: 10/18/19 22:16 Dose: 50 mg Documented by: Senna/Docusate Sodium (Senokot-S, [place]-Colace) 2 tablet PO BID [facility] Last Admin: 10/19/19 08:18 Dose: Not Given Documented by: Sertraline HCl (Zoloft) 50 mg PO DAILY [facility] Last Admin: 10/19/19 08:19 Dose: 50 mg Documented by: Tramadol HCl (Ultram) 50 mg PO TID PRN PRN PRN Reason: pain >4 Last Admin: 10/18/19 05:18 Dose: 50 mg Documented by: Medical Necessity - Tobacco Use Smoking Status: Never smoker Tobacco Use: Non-smoker Assessment/Plan All Active Problems Physical debility (Acute) Dysphagia (Acute) Waqas's paralysis (Resolved) Impressions 1. Debility/functional decline with trouble swallowing. I think that he is depressed but, this is not the total answer for why he is so lethargic, slow to answer questions, masked facies, decreased blink, falls, weakness. 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 I am awaiting the records from Dr. Payne and have placed a call to the [employer] [facility] that has been seeing him for the past year under the supervision of Dr. Payne....awaiting a call back 2. distal Left clavicle fracture - not a surgical candidate. Sling for 2 weeks with no lifting on the LUE 3. Thrombocytopenia - this is chronic but is lower than normal but it is stable 4. Depression - continue the Sertraline He seems to be tolerating.....will increase the dose to 100 mg on Wednesday if no serious SE's 5. CRF stage III, DM II, seizure disorder with no hx of seizure in the past year - complicate care, management, recovery and prognosis. I spent 50 minutes with the pt and his family on TEAM rounds and after discussing possible etiologies of his progressive decline over the past year. It started with gait instability and falls. His tells me that he is not himself and his personality has changed.....he is more apathetic and sleeps a lot. In the past few months she has noticed that he has developed difficulty swallowing. His son, who is nurse and studying for SOCIAL MEDIA EDITOR license, tells me that he has had no pill rolling but, he does have tremors of the UE's with exertion......like lifting a coffee cup or carrying a plate. He has not had a seizure in over a year. Antiepileptics (Keppra and Depakote) were increased about a year ago and that is when they first started noticing the increased sleeping. The valproic acid level on 10/11/2019 was 108. The Depakote formulation was changed because the patient was having difficulty swallowing large pills and a repeat valproic acid level with the change is now 70. He has had no seizures since admission to the inpatient rehab unit. Family is agreeable to a teleneurology consult with SOC if necessary. They are also agreeable to a PEG. D/W Dr. Apodaca. He or Dr. Nj will do the PEG next week after he has been off the Plavix for 5 days. Code Visit Inpatient E&M: 28442 Subs Hosp L3
[2019-10-19 14:42] VITALS: BMI 28.3
[2019-10-19] MEDS: Lactated Ringers 1,000 ML 100 ML IV (15:05)
[2019-10-19] MEDS: 0.9% NaCl Peripheral Flush Adult/Peds IV (15:07)
[2019-10-19 16:25] LABS: Bedside Glucose 107 mg/dL (70-110)
[2019-10-19 19:58] VITALS: BP 100/58; PULSE 60; RESP 18; TEMP 36.4; O2SAT 95
[2019-10-19 20:56] LABS: Bedside Glucose 104 mg/dL (70-110)
[2019-10-19] MEDS: Pravastatin 20 MG Tablet PO (20:59)
[2019-10-19] MEDS: Divalproex (ER) 250 MG Tablet 2000 MG PO (21:00)
[2019-10-20] MEDS: Lactated Ringers 1,000 ML 100 ML IV ×3 (02:19→22:24)
--- NOTE | 2019-10-20 06:03 | NURSING ---
DR KWAN IN TO TALK TO PT ABOUT PUTTING IN A PEG FEEDING TUBE TUBE ON WednesdayOCT 24. TIME TO BE DETERMINED. PT INTERACTS APPROPRIATELY WITH PHYSICIAN.
[2019-10-20 06:13] LABS: Hematocrit 37.4 % (40-54); Hemoglobin 12.2 g/dL (13.0-16.5); Mean Corp Hgb Conc 32.6 g/dL (32-36); Mean Corpuscular Hgb 31.3 pg (27.0-32.0); Mean Corpuscular Volume 95.9 fL (80-94); Mean Platelet Vol. 9.7 fl (6.2-12.0); POSITIVE COUNT YES; Platelet Count 89 K/mm3 (150-450); RBC Distribution Width CV 13.5 % (11.6-14.6); RBC Distribution Width SD 47.7 fl (35.1-43.9); White Blood Count 3.6 K/mm3 (4.4-11.0)
[2019-10-20 06:16] LABS: Bedside Glucose 90 mg/dL (70-110)
[2019-10-20 06:27] LABS: Anion Gap 3 (5-15); BUN 27 mg/dL (7-18); BUN/Creat Ratio 22.9 RATIO (10-20); Calcium,Total 7.8 mg/dL (8.5-10.1); Chloride 106 mmol/L (98-107); Creatinine, Serum 1.18 mg/dL (0.70-1.30); EST Glomerular Filtration Rate 65 mL/min (>60); Est Glom Filt Rate - Afr Amer 79 mL/min (>60); Estimated Creatinine Clearance 66.68 ml/min; Glucose 89 mg/dL (74-106); Magnesium 2.2 mg/dL (1.6-2.6); Phosphorus 2.5 mg/dL (2.5-4.9); Potassium 4.2 mmol/L (3.5-5.1); Sodium Level 140 mmol/L (136-145)
[2019-10-20] MEDS: Acetaminophen 500 MG Tablet 1000 MG PO ×3 (06:52→19:53)
[2019-10-20] MEDS: Enoxaparin 40 MG/0.4 ML Syringe SC (06:55)
[2019-10-20 07:00] VITALS: BP 129/72; PULSE 64; RESP 18; TEMP 36.6; O2SAT 95
[2019-10-20] MEDS: Lisinopril 20 MG Tablet 30 MG PO (07:34)
[2019-10-20] MEDS: Sertraline 50 MG Tablet PO (07:35)
[2019-10-20] MEDS: Divalproex (ER) 250 MG Tablet 1500 MG PO (07:35)
[2019-10-20] MEDS: Fenofibrate 145 MG Tablet PO (07:35)
[2019-10-20] MEDS: levETIRAcetam 750 MG Tablet PO ×2 (07:35→19:54)
[2019-10-20 07:36] LABS: International Normalized Ratio 1.2; Partial Thromboplast Time 42.9 Seconds (24.1-36.2)
[2019-10-20] MEDS: Menthol/Lanolin/Calamine/Znox 113 GM Tube 1 APPLIC TOPICAL ×2 (07:39→19:55)
[2019-10-20 11:25] LABS: Bedside Glucose 96 mg/dL (70-110)
--- NOTE | 2019-10-20 12:27 | PN_ITS ---
Progress Note Afebrile Vital signs stable Maintaining appropriate oxygen saturation on room air without tachypnea Much more awake today and able to hold his head up better. Still with decreased eye blink. All lab was personally reviewed. He is pancytopenic with a white blood cell count of 3.6, hemoglobin of 12.2 and platelets of 89,000 which is actually up from 70,000 at admission. Creatinine is down to 1.18 with hydration and the BUN remains at 27. Phosphorus and magnesium are normal and the calcium corrected for hypoalbuminemia is normal as well. I saw him in the lunch room today and he is feeding himself today and eating better. He took about 1/3 of the meal. Alert and oriented X 3, appropriate Lungs - CTA Heart - RRR, no gallop abd - soft, NT, ND, BS's in all 4 quadrants no edema Impressions 1. Debility - likely multifactorial. Depression, SE's of Primodone and possibly neurogenerative disease ( I reviewed records from Dr. Payne and Dr. Pearson and the notes from neuro have him on 12.5 mg of Primodone on on 09/21/19, the notes from Dr. Pearson have him n 25 mg and His tells me he was taking a whole tablet, which would be 50 mg). Primodone is known to cause Leukopenia, lethargy, emotional disturbances, gait instability, falls, bradykinesia, depression, poor appetite etc. Primodone has been discontinued and he seems more alert today. Will continue to monitor. continue therapy. I suspect trrhe Essential tremors may reappear but, if he improves off the Primodone we can have him follow up with neurology and try an alternative medication. Continue the Sertraline Code Visit Inpatient E&M: 24935 [facility] Hosp L1
--- NOTE | 2019-10-20 14:28 | CASEMGMT ---
Social Work Spoke with patient's about Medicare ELOS of 16 days with DC 10/29. Discussed options after RU. requested to leave SNF list in patient's room and she will discuss options with family. Will continue to follow. SAMANTHA KramerW
[2019-10-20 16:20] LABS: Bedside Glucose 150 mg/dL (70-110)
[2019-10-20 16:27] VITALS: BMI 28.3
[2019-10-20] MEDS: Insulin Lispro 100 UNIT/ML INSULN.PEN SC (18:17)
[2019-10-20] MEDS: Divalproex (ER) 250 MG Tablet 2000 MG PO (19:54)
[2019-10-20] MEDS: Senna/Docusate Sodium 1 Tablet 2 TABLET PO (19:54)
[2019-10-20] MEDS: Pravastatin 20 MG Tablet PO (19:54)
[2019-10-20 20:07] VITALS: BP 106/58; PULSE 61; RESP 16; TEMP 36.6; O2SAT 93
[2019-10-20 20:36] LABS: Bedside Glucose 107 mg/dL (70-110)
[2019-10-21 01:19] VITALS: BMI 28.3
--- NOTE | 2019-10-21 01:29 | NURSING ---
Refusing SCDs and CPAP
[2019-10-21] MEDS: Enoxaparin 40 MG/0.4 ML Syringe SC (05:33)
[2019-10-21] MEDS: Acetaminophen 500 MG Tablet 1000 MG PO ×3 (05:34→20:30)
[2019-10-21 06:30] LABS: Bedside Glucose 74 mg/dL (70-110)
--- NOTE | 2019-10-21 06:32 | PCM.CONS.GEN ---
Reason for Consult Date of Consultation: 10/20/19 Reason for Consultation: dysphagia, weight loss History of Present Illness: The patient is a 69 year old M with a history of a previous stroke with chronic left-sided weakness, hypertension, hyperlipidemia, type 2 diabetes, chronic renal failure and seizure disorder. The patient had progressive functional decline over the last 6 months. The patient fell on October 11 fracturing his left clavicle. The patient was initially admitted to [facility] and then transferred to the rehabilitation unit. the patient's notes that he often will cough and aspirated fluid bleeding at home. I'm consulted for evaluation and request for PEG tube placement. Past Medical History Past Medical History (Chronic Problems): Chronic Problems Thrombocytopenia (Chronic) Depression (Chronic) CKD (chronic kidney disease) (Chronic) Seizure disorder (Chronic) DM2 (diabetes mellitus, type 2) (Chronic) Dyslipidemia (Chronic) HTN (hypertension) (Chronic) CVA (cerebral vascular accident) (Chronic) Allergies No Known Allergies Allergy (Verified 10/11/19 14:55) Home Medications: Ambulatory Orders Medication Instructions Recorded metFORMIN HCl [Glucophage] 500 mg PO BIDCM 12/14/14 Clopidogrel Bisulfate [Plavix] 75 mg PO DAILY 07/26/17 Pravastatin [Pravachol] 20 mg PO QHS 07/26/17 Divalproex Sodium [Depakote ER] 1,500 mg PO DAILY 10/11/19 Divalproex Sodium [Depakote ER] 2,000 mg PO QHS 10/11/19 Fenofibrate Nanocrystallized 145 mg PO DAILY 10/11/19 [Fenofibrate] Lisinopril 30 mg PO DAILY 10/11/19 Primidone 50 mg PO QHS 10/11/19 levETIRAcetam tablet [Keppra 750 mg PO BID 10/11/19 tablet] Insulin Glargine [Lantus SoloStar 10 units SUBCUT QHS 10/13/19 Pen] Surgical History: cholecystectomy, herniorrhaphy Psychiatric History: No pertinent psych hx Lives: Spouse/ Significant Other Smoking Status: Never smoker Tobacco Use: Non-smoker Alcohol: None Drugs: None - *Family History Maternal History Items: Cancer, Hypertension, - - ovarian cancer Paternal History Items: Heart Disease, Hypertension Sibling History Items: - - brother with abdominal aortic anuerysm Review of Systems Constitutional: Reports: Anorexia, Weakness, Weight Change, Fatigue HEENT: Reports: Difficulty Swallowing Cardiovascular: Denies: Chest Pain, Palpitations Respiratory: Denies: Cough, Shortness of breath at rest, Sputum production Gastrointestinal: Denies: Abdominal Pain, Nausea, Vomiting Genitourinary: Denies: Dysuria Musculoskeletal: Denies: Joint Pain, Joint Tenderness Skin: Denies: Rash, Wounds Neurological: Denies: Numbness, Tingling, Focal weakness Psychiatric: Denies: Anxiety, Depression, Homicidal Ideations, Suicidal Ideations Hematologic/ Lymphatic: Denies: Easy Bruising, Easy Bleeding Patient Problems: Active and Suspected Problems Physical debility (Acute) Dysphagia (Acute) - Physical Exam Vitals/I&O's: Vital Signs Temp Pulse Resp BP Pulse Ox 98 F 61 16 106/58 L 93 10/20/19 20:07 10/20/19 20:07 10/20/19 20:07 10/20/19 20:07 10/20/19 20:07 Oxygen Delivery Method Room Air Weight: 97.1 kg Body Mass Index (BMI) 28.3 Finger Stick Blood Glucose 106 Intake and Output for Last 24 Hours 10/19/19 10/20/19 10/21/19 23:59 23:59 23:59 Intake Total 660 / 660 4410.67 / 4410.67 955 / 955 Output Total 100 / 100 250 / 250 Balance 660 / 660 4310.67 / 4310.67 705 / 705 General: Alert, Cooperative Lungs: Clear to auscultation, Normal air movement Cardiovascular: Regular rate, Regular Rhythm Abdomen: Bowel Sounds Present, Soft, Non Tender Laboratory Results 10/20/19 05:50: PT 15.0 H, INR 1.2, APTT 42.9 H 10/20/19 11:21: POC Glucose 96 10/20/19 16:16: POC Glucose 150 H 10/20/19 19:53: POC Glucose 107 10/21/19 06:25: POC Glucose 74 Current Medications Acetaminophen (Tylenol) 1,000 mg PO Q8H [facility] Last Admin: 10/21/19 05:34 Dose: 1,000 mg Documented by: Bisacodyl (Dulcolax) 10 mg RECTAL .PRN X 1 PRN PRN Reason: Constipation Calamine/Phenol (Calmoseptine Ointment) 1 applic TOPICAL BID [facility]; Protocol Last Admin: 10/20/19 19:55 Dose: 1 applicatio Documented by: Divalproex Sodium (Depakote Er) 1,500 mg PO QAM [facility] Last Admin: 10/20/19 07:35 Dose: 1,500 mg Documented by: Divalproex Sodium (Depakote Er) 2,000 mg PO QHS [facility] Last Admin: 10/20/19 19:54 Dose: 2,000 mg Documented by: Enoxaparin Sodium (Lovenox) 40 mg SC DAILY@0600 [facility] Last Admin: 10/21/19 05:33 Dose: 40 mg Documented by: Fenofibrate (Tricor) 145 mg PO DAILYCM [facility] Last Admin: 10/20/19 07:35 Dose: 145 mg Documented by: Lactated Ringer's () 1,000 mls @ 100 mls/hr IV .Q10H [facility] Last Admin: 10/20/19 22:24 Dose: 100 mls/hr Documented by: Insulin Human Lispro (Humalog Kwikpen (Bkc)) 0 unit SC ACHS [facility]; Protocol Last Admin: 10/20/19 20:03 Dose: Not Given Documented by: Levetiracetam (Keppra Tablet) 750 mg PO BID [facility] Last Admin: 10/20/19 19:54 Dose: 750 mg Documented by: Lisinopril (Zestril) 30 mg PO DAILY [facility] Last Admin: 10/20/19 07:34 Dose: 30 mg Documented by: Magnesium Hydroxide (Milk Of Magnesia) 30 ml PO .PRN X 1 PRN PRN Reason: Constipation Last Admin: 10/18/19 22:34 Dose: 30 ml Documented by: Pravastatin Sodium (Pravachol) 20 mg PO QHS [facility] Last Admin: 10/20/19 19:54 Dose: 20 mg Documented by: Senna/Docusate Sodium (Senokot-S, [place]-Colace) 2 tablet PO BID [facility] Last Admin: 10/20/19 19:54 Dose: 2 tablet Documented by: Sertraline HCl (Zoloft) 50 mg PO DAILY [facility] Last Admin: 10/20/19 07:35 Dose: 50 mg Documented by: Sodium Chloride () 5 - 15 ml IV UD PRN PRN Reason: SALINE FLUSH Last Admin: 10/19/19 15:07 Dose: 10 ml Documented by: Tramadol HCl (Ultram) 50 mg PO TID PRN PRN PRN Reason: pain >4 Last Admin: 10/18/19 05:18 Dose: 50 mg Documented by: Assessment/Plan All Active Problems Physical debility (Acute) Dysphagia (Acute) Waqas's paralysis (Resolved) dysphagia, history of CVA I plan to perform upper endoscopy and PEG tube placement. I discussed with the patient the procedure and the risks, benefits, complications and possible alternatives. The patient understands and agrees to the procedure. Patient was given Plavix on . We will hold the Plavix and plan for PEG tube placement on Wednesday.
[2019-10-21 07:46] VITALS: BP 118/70; PULSE 59; RESP 16; TEMP 36.7; O2SAT 96
[2019-10-21] MEDS: Sertraline 50 MG Tablet PO (08:40)
[2019-10-21] MEDS: Lisinopril 20 MG Tablet 30 MG PO (08:40)
[2019-10-21] MEDS: Senna/Docusate Sodium 1 Tablet 2 TABLET PO (08:41)
[2019-10-21] MEDS: Fenofibrate 145 MG Tablet PO (08:41)
[2019-10-21] MEDS: Divalproex (ER) 250 MG Tablet 1500 MG PO (08:41)
[2019-10-21] MEDS: levETIRAcetam 750 MG Tablet PO ×2 (08:41→20:29)
[2019-10-21] MEDS: Lactated Ringers 1,000 ML 100 ML IV ×2 (08:42→18:12)
[2019-10-21] MEDS: Menthol/Lanolin/Calamine/Znox 113 GM Tube 1 APPLIC TOPICAL ×2 (08:58→20:30)
[2019-10-21 10:41] VITALS: BMI 28.3
[2019-10-21 11:30] LABS: Bedside Glucose 95 mg/dL (70-110)
[2019-10-21 15:56] LABS: Bedside Glucose 138 mg/dL (70-110)
[2019-10-21] MEDS: traMADol 50 MG Tablet PO (16:14)
[2019-10-21 20:19] VITALS: BP 122/58; PULSE 62; RESP 16; TEMP 36.6; O2SAT 94
[2019-10-21] MEDS: Pravastatin 20 MG Tablet PO (20:29)
[2019-10-21] MEDS: Divalproex (ER) 250 MG Tablet 2000 MG PO (20:30)
[2019-10-21 20:46] LABS: Bedside Glucose 124 mg/dL (70-110)
[2019-10-21 22:07] VITALS: BMI 28.3
[2019-10-22] MEDS: Lactated Ringers 1,000 ML 100 ML IV ×2 (04:06→13:29)
[2019-10-22] MEDS: Acetaminophen 500 MG Tablet 1000 MG PO ×3 (05:59→20:42)
[2019-10-22] MEDS: Enoxaparin 40 MG/0.4 ML Syringe SC (06:00)
[2019-10-22 07:00] LABS: Bedside Glucose 78 mg/dL (70-110)
[2019-10-22 07:42] VITALS: BP 114/87; PULSE 63; RESP 18; TEMP 37.2; O2SAT 95
[2019-10-22] MEDS: levETIRAcetam 750 MG Tablet PO ×2 (07:53→20:42)
[2019-10-22] MEDS: Divalproex (ER) 250 MG Tablet 1500 MG PO (07:53)
[2019-10-22] MEDS: Lisinopril 20 MG Tablet 30 MG PO (07:53)
[2019-10-22] MEDS: Sertraline 50 MG Tablet PO (07:53)
[2019-10-22] MEDS: Fenofibrate 145 MG Tablet PO (07:53)
[2019-10-22] MEDS: Menthol/Lanolin/Calamine/Znox 113 GM Tube 1 APPLIC TOPICAL ×2 (08:00→20:44)
[2019-10-22 12:10] LABS: Bedside Glucose 145 mg/dL (70-110)
[2019-10-22] MEDS: 0.9% NaCl Peripheral Flush Adult/Peds IV (13:38)
--- NOTE | 2019-10-22 15:36 | PCM.PN.BLA ---
Progress Note Afebrile Vital signs stable Maintaining appropriate oxygen saturation on room air. Oral intake has significantly improved with discontinuation of Primadone. Oral intake on 10/21/2019 was 1480. Blood sugar record was reviewed. Blood sugars remain controlled on diet alone. He is very alert and oriented X 3. He is distracted and watching the football game No complaints Lungs - CTA Heart - RRR abdomen soft, NT, ND with normal BS's in all quadrants no edema Impressions 1. physical debility - progressive over the past several months per his . LOC, appetite, performance in therapy, emotional appropriateness are all improving with the discontinuation of the Primadone. No significant tremors at this time. Progressing in therapy. 2. Depression - seems to be more willing to participate in discussion and is definitely more awake. continue the Sertraline Code Visit Inpatient E&M: 19580 Subs Hosp L1
[2019-10-22 16:00] VITALS: BMI 28.3
[2019-10-22 16:46] LABS: Bedside Glucose 111 mg/dL (70-110)
[2019-10-22 20:31] VITALS: BP 124/66; PULSE 67; RESP 16; TEMP 36.8; O2SAT 94
[2019-10-22] MEDS: Divalproex (ER) 250 MG Tablet 2000 MG PO (20:42)
[2019-10-22] MEDS: Pravastatin 20 MG Tablet PO (20:42)
[2019-10-22 20:55] LABS: Bedside Glucose 131 mg/dL (70-110)
[2019-10-22 23:11] VITALS: BMI 28.3
[2019-10-23] MEDS: Lactated Ringers 1,000 ML 100 ML IV ×2 (00:06→11:07)
[2019-10-23] MEDS: Acetaminophen 500 MG Tablet 1000 MG PO ×3 (04:56→21:30)
[2019-10-23] MEDS: Enoxaparin 40 MG/0.4 ML Syringe SC (04:57)
[2019-10-23 06:26] LABS: Bedside Glucose 88 mg/dL (70-110)
[2019-10-23 06:30] LABS: Hematocrit 34.9 % (40-54); Hemoglobin 11.2 g/dL (13.0-16.5); Mean Corp Hgb Conc 32.1 g/dL (32-36); Mean Corpuscular Hgb 30.7 pg (27.0-32.0); Mean Corpuscular Volume 95.6 fL (80-94); Platelet Count 102 K/mm3 (150-450); RBC Distribution Width CV 13.6 % (11.6-14.6); RBC Distribution Width SD 47.7 fl (35.1-43.9); Red Blood Count 3.65 M/mm3 (4.6-6.2)
[2019-10-23 06:51] LABS: Anion Gap 3 (5-15); BUN 18 mg/dL (7-18); BUN/Creat Ratio 16.7 RATIO (10-20); Calcium,Total 7.7 mg/dL (8.5-10.1); Chloride 111 mmol/L (98-107); Creatinine, Serum 1.08 mg/dL (0.70-1.30); EST Glomerular Filtration Rate 72 mL/min (>60); Est Glom Filt Rate - Afr Amer 88 mL/min (>60); Estimated Creatinine Clearance 72.85 ml/min; Glucose 86 mg/dL (74-106); Sodium Level 142 mmol/L (136-145)
[2019-10-23 07:02] LABS: Valproic Acid (Depakene) Level 56 ug/mL (50-100)
[2019-10-23 07:13] VITALS: BP 127/64; PULSE 62; RESP 16; TEMP 37.2; O2SAT 94
[2019-10-23] MEDS: Fenofibrate 145 MG Tablet PO (07:38)
[2019-10-23] MEDS: Lisinopril 20 MG Tablet 30 MG PO (07:39)
[2019-10-23] MEDS: Sertraline 50 MG Tablet PO (07:42)
[2019-10-23] MEDS: Menthol/Lanolin/Calamine/Znox 113 GM Tube 1 APPLIC TOPICAL ×2 (07:55→21:30)
[2019-10-23] MEDS: Divalproex (ER) 250 MG Tablet 1500 MG PO (09:00)
[2019-10-23] MEDS: levETIRAcetam 750 MG Tablet PO ×2 (09:00→21:30)
[2019-10-23 10:25] VITALS: BMI 28.3
[2019-10-23 11:41] LABS: Bedside Glucose 127 mg/dL (70-110)
[2019-10-23 13:32] LABS: Vitamin D,25 Hydroxy 10.1 ng/mL (29.95-100.01)
[2019-10-23 14:37] LABS: KEPPRA (LEVETIRACETAM) 35.4 ug/mL (10.0-40.0)
[2019-10-23] MEDS: Clopidogrel Bisulfate 75 MG Tablet PO (14:38)
[2019-10-23 16:11] LABS: Bedside Glucose 103 mg/dL (70-110)
[2019-10-23 21:16] LABS: Bedside Glucose 155 mg/dL (70-110)
[2019-10-23] MEDS: Insulin Lispro 100 UNIT/ML INSULN.PEN SC (21:21)
[2019-10-23] MEDS: Divalproex (ER) 250 MG Tablet 2000 MG PO (21:30)
[2019-10-23] MEDS: Pravastatin 20 MG Tablet PO (21:30)
[2019-10-23 22:00] VITALS: BP 142/72; PULSE 73; RESP 16; TEMP 36.7; O2SAT 97; BMI 28.3
[2019-10-24] MEDS: Enoxaparin 40 MG/0.4 ML Syringe SC (05:46)
[2019-10-24] MEDS: Acetaminophen 500 MG Tablet 1000 MG PO ×3 (05:47→22:31)
[2019-10-24 07:15] LABS: Bedside Glucose 93 mg/dL (70-110)
[2019-10-24] MEDS: Fenofibrate 145 MG Tablet PO (08:03)
[2019-10-24] MEDS: levETIRAcetam 750 MG Tablet PO ×2 (08:04→22:31)
[2019-10-24] MEDS: Clopidogrel Bisulfate 75 MG Tablet PO (08:04)
[2019-10-24] MEDS: Divalproex (ER) 250 MG Tablet 1500 MG PO (08:04)
[2019-10-24] MEDS: Lisinopril 20 MG Tablet 30 MG PO (08:05)
[2019-10-24] MEDS: Sertraline 50 MG Tablet PO (08:06)
[2019-10-24] MEDS: Menthol/Lanolin/Calamine/Znox 113 GM Tube 1 APPLIC TOPICAL ×2 (08:09→22:32)
[2019-10-24 09:12] VITALS: BP 105/61; PULSE 65; RESP 16; TEMP 36.6; O2SAT 96
[2019-10-24 11:55] LABS: Bedside Glucose 155 mg/dL (70-110)
[2019-10-24] MEDS: Insulin Lispro 100 UNIT/ML INSULN.PEN SC (13:49)
--- NOTE | 2019-10-24 15:31 | CASEMGMT ---
Social Work Spoke with patient's on DC plans. Discussed SNF as IDTs recommendations. agreed and requested referrals to [facility] and [facility]. Referrals made. Will continue to follow for DC 10/29. SAMANTHA Kramer
[2019-10-24 17:00] VITALS: BMI 28.3
[2019-10-24 17:25] LABS: Bedside Glucose 147 mg/dL (70-110)
[2019-10-24 19:36] VITALS: BP 126/82; PULSE 79; RESP 18; TEMP 36.8; O2SAT 97
[2019-10-24 20:32] VITALS: BMI 28.3
[2019-10-24 22:00] VITALS: PULSE 79; RESP 16
[2019-10-24 22:05] LABS: Bedside Glucose 143 mg/dL (70-110)
[2019-10-24] MEDS: Pravastatin 20 MG Tablet PO (22:31)
[2019-10-24] MEDS: Divalproex (ER) 250 MG Tablet 2000 MG PO (22:32)
[2019-10-24] MEDS: 0.9% NaCl Peripheral Flush Adult/Peds IV (22:40)
[2019-10-25] MEDS: Enoxaparin 40 MG/0.4 ML Syringe SC (05:22)
[2019-10-25] MEDS: Acetaminophen 500 MG Tablet 1000 MG PO ×3 (05:22→21:04)
[2019-10-25 07:00] VITALS: BP 133/71; PULSE 57; RESP 16; TEMP 36.7; O2SAT 94
[2019-10-25 07:20] LABS: Bedside Glucose 76 mg/dL (70-110)
[2019-10-25] MEDS: Clopidogrel Bisulfate 75 MG Tablet PO (08:16)
[2019-10-25] MEDS: Sertraline 50 MG Tablet PO (08:16)
[2019-10-25] MEDS: Lisinopril 20 MG Tablet 30 MG PO (08:16)
[2019-10-25] MEDS: Fenofibrate 145 MG Tablet PO (08:16)
[2019-10-25] MEDS: levETIRAcetam 750 MG Tablet PO ×2 (09:03→21:04)
[2019-10-25] MEDS: Divalproex (ER) 250 MG Tablet 1500 MG PO (09:03)
--- NOTE | 2019-10-25 09:57 | PN_ITS ---
Progress Note Afebile VSS Maintaining appropriate oxygen saturation on RA Oral intake is good Discussed with nursing - no problems that need addressed Reviewed the PT/OT/ST notes Medication list reviewed. He is c/o of some tremors in the left shoulder and in the R hand since the Primodone was discontinued. The tremors are mild. No other complaints. Pain is well controlled. He is doing very well in therapy. Voice is stronger and projecting better when he speaks with me. He has better facial expression. He is able to lift his LUE to just below shoulder level and he is able to extend the LLE while sitting straight out. He is feeding himself and eating well. Alert and oriented X 3. NAD, sitting in a WC at the breakfast table. He is appr opriate Lungs - CTA Heart - RRR, no gallop abd- soft, NT, ND, normal BS's in all four quadrants no peripheral edema Impressions 1. debility related to depression and adverse side effects of Primodone. He is doing much better but will require more PT/OT to strengthen the left side(previous CVA) 2. DM II - controlled with diet alone 3. Vitamin D deficiency - will order a supplement 4. pancytopenia - likely related to the primodone.....Low platelets predated the Primadone so he may have ITP or he may have Myelodysplastic disease. check a BMP and CBC in a few days. Also check antiplatelet antibodies. STROKE Vital Signs/Narrative: Vital Signs Temp Pulse Resp BP Pulse Ox 10/25/19 07:00 98.0 F 57 L 16 133/71 H 94 Code Visit Inpatient E&M: 60264 Subs Hosp L1
[2019-10-25] MEDS: Menthol/Lanolin/Calamine/Znox 113 GM Tube 1 APPLIC TOPICAL ×2 (10:10→21:05)
--- NOTE | 2019-10-25 12:25 | CASEMGMT ---
Social Work Patient accepted at [facility]. Spoke with and pt whom agrees to transfer. DC 10/29. Tracey Montoya, [employer]IM[employer] KEEPER [employer] OPEN DIE INSPECTOR
[2019-10-25 14:07] VITALS: BMI 28.3
[2019-10-25 16:51] LABS: Bedside Glucose 165 mg/dL (70-110)
[2019-10-25 19:47] VITALS: BP 118/67; PULSE 71; RESP 18; TEMP 36.6; O2SAT 94
[2019-10-25] MEDS: Pravastatin 20 MG Tablet PO (21:04)
[2019-10-25] MEDS: Divalproex (ER) 250 MG Tablet 2000 MG PO (21:05)
[2019-10-25 22:00] VITALS: PULSE 71; RESP 18
[2019-10-26 01:25] VITALS: BMI 28.3
[2019-10-26] MEDS: Enoxaparin 40 MG/0.4 ML Syringe SC (06:02)
[2019-10-26] MEDS: Acetaminophen 500 MG Tablet 1000 MG PO ×3 (06:02→20:14)
[2019-10-26 07:10] LABS: Bedside Glucose 81 mg/dL (70-110)
[2019-10-26] MEDS: Fenofibrate 145 MG Tablet PO (08:39)
[2019-10-26] MEDS: levETIRAcetam 750 MG Tablet PO ×2 (08:39→20:14)
[2019-10-26] MEDS: Clopidogrel Bisulfate 75 MG Tablet PO (08:39)
[2019-10-26] MEDS: Lisinopril 20 MG Tablet 30 MG PO (08:39)
[2019-10-26] MEDS: Menthol/Lanolin/Calamine/Znox 113 GM Tube 1 APPLIC TOPICAL ×2 (08:40→20:18)
[2019-10-26] MEDS: Sertraline 50 MG Tablet PO (08:40)
[2019-10-26] MEDS: Divalproex (ER) 250 MG Tablet 1500 MG PO (08:40)
[2019-10-26 08:55] VITALS: BP 115/62; PULSE 59; RESP 16; TEMP 36.7; O2SAT 94
[2019-10-26 08:57] VITALS: PULSE 59
--- NOTE | 2019-10-26 10:45 | PCM.PN.BLA ---
Progress Note Afebile VSS Maintaining appropriate oxygen saturation on RA Oral intake is very good Discussed with nursing - no problems that need addressed Reviewed the PT/OT/ST notes Medication list reviewed. He was seen on TEAM rounds today in his room. His was present for rounds. He has no complaints. The essential tremor is affecting his ability to eat. He is hesitant to try another medication because, he had such a bad outcome with Primadone. Khushi from [facility] mentioned that there are weighted utensils that can help with eating in patients with tremors. Alert and oriented X 3, NAD, appropriate. Lungs - CTA Heart RRR, no gallop abd - soft, NT, ND, normal BS's in all quadrants no edema Impressions 1. debility due to adverse SE's of Primodone for prolonged period of time 2. essential tremor 3. seizure disorder - tolerating the decrease in the Keppra to 750 BID without any breakthrough seizures 4. Hx of a R MCA ischemic CVA in the past 5. Depression - improving. will continue the Sertraline Continue therapy Plan is for SNF [facility] Vital Signs/Narrative: Vital Signs Temp Pulse Resp BP Pulse Ox 10/26/19 08:57 59 L 10/26/19 08:55 98.0 F 59 L 16 115/62 94 Code Visit Inpatient E&M: 67449 Subs Hosp L2
--- NOTE | 2019-10-26 11:35 | CASEMGMT ---
Social Work IDT met with patient and for Team Meeting. Discussed patient's progress in therapy. Pt has made great progress recently. Pt is more alert and joyful during meeting. Pt is CGA to min assist for sitting to standing, completed 5 steps CGA, walked 225 ft FWW and walked on multiple surfaces. Pt's posture improved. Working on left arm weakness as pt has been upgraded to WBAT and does not need to wear the sling. Pt is max assist for LE ADLs, mod for UE ADLs. ST reports regular diet, set up assist with meals and recommended weighted utensils to assist with more independence while eating due to hand tremors. Still watching for pocketing food as pt gets fatigued. Voice has improved as well. Pt and provided much praise to [facility] staff. Pt to DC to [facility] 10/29. Plan: DC to [facility] 10/29. Tracey Montoya, SAMANTHA SECOND CUTTER
[2019-10-26 11:40] LABS: Bedside Glucose 147 mg/dL (70-110)
[2019-10-26 14:49] VITALS: BMI 28.3
[2019-10-26 17:36] LABS: Bedside Glucose 82 mg/dL (70-110)
[2019-10-26 19:18] VITALS: BP 121/69; PULSE 74; RESP 16; TEMP 36.7; O2SAT 93
[2019-10-26] MEDS: Pravastatin 20 MG Tablet PO (20:14)
[2019-10-26] MEDS: Divalproex (ER) 250 MG Tablet 2000 MG PO (20:17)
[2019-10-27] MEDS: Acetaminophen 500 MG Tablet 1000 MG PO ×3 (06:16→22:12)
[2019-10-27] MEDS: Enoxaparin 40 MG/0.4 ML Syringe SC (06:16)
[2019-10-27 07:01] LABS: Bedside Glucose 81 mg/dL (70-110)
[2019-10-27 09:04] VITALS: BP 121/72; PULSE 56; RESP 16; TEMP 36.7; O2SAT 96
[2019-10-27] MEDS: Sertraline 50 MG Tablet PO (09:14)
[2019-10-27] MEDS: Fenofibrate 145 MG Tablet PO (09:14)
[2019-10-27] MEDS: Divalproex (ER) 250 MG Tablet 1500 MG PO (09:14)
[2019-10-27] MEDS: Lisinopril 20 MG Tablet 30 MG PO (09:14)
[2019-10-27] MEDS: Clopidogrel Bisulfate 75 MG Tablet PO (09:14)
[2019-10-27] MEDS: levETIRAcetam 750 MG Tablet PO ×2 (09:14→22:11)
[2019-10-27] MEDS: Menthol/Lanolin/Calamine/Znox 113 GM Tube 1 APPLIC TOPICAL ×2 (09:25→22:28)
[2019-10-27 09:42] LABS: Absolute Lymphocyte Count 1.38 X10^3/uL (0.83-4.51); Absolute Neutrophil Count 2.9 X10^3/uL (2.0-7.7); Basophil# 0.03 X10^3/uL; Basophil% 0.6 % (0-1); Eosinophil# 0.08 X10^3/uL; Eosinophils% 1.6 % (0-5); Hematocrit 37.1 % (40-54); Hemoglobin 11.7 g/dL (13.0-16.5); Lymphocyte # 1.38 X10^3/ul (4.0); Lymphocyte % 27.1 % (19-41); Mean Corp Hgb Conc 31.5 g/dL (32-36); Mean Corpuscular Volume 98.4 fL (80-94); Mean Platelet Vol. 9.6 fl (6.2-12.0); Monocyte# 0.59 X10^3/uL; Monocyte% 11.6 % (0-10); NRBC Flagged by Analyzer 0 % (0-5); Neutrophil # 2.89 X10^3/uL (2.7-7.7); Neutrophil % 56.6 % (47-70); Platelet Count 191 K/mm3 (150-450); RBC Distribution Width CV 14.6 % (11.6-14.6); RBC Distribution Width SD 52.1 fl (35.1-43.9); Red Blood Count 3.77 M/mm3 (4.6-6.2); White Blood Count 5.1 K/mm3 (4.4-11.0)
[2019-10-27 10:01] LABS: Anion Gap 5 (5-15); BUN 19 mg/dL (7-18); BUN/Creat Ratio 15.1 RATIO (10-20); Calcium,Total 8.1 mg/dL (8.5-10.1); Chloride 114 mmol/L (98-107); Creatinine, Serum 1.26 mg/dL (0.70-1.30); EST Glomerular Filtration Rate 61 mL/min (>60); Est Glom Filt Rate - Afr Amer 73 mL/min (>60); Estimated Creatinine Clearance 62.44 ml/min; Glucose 145 mg/dL (74-106); Potassium 3.9 mmol/L (3.5-5.1); Sodium Level 147 mmol/L (136-145)
[2019-10-27 14:44] VITALS: BMI 28.3
[2019-10-27 16:40] LABS: Bedside Glucose 125 mg/dL (70-110)
[2019-10-27 20:00] VITALS: BP 122/66; PULSE 64; RESP 18; TEMP 36.7; O2SAT 93
[2019-10-27] MEDS: Divalproex (ER) 250 MG Tablet 2000 MG PO (22:10)
[2019-10-27] MEDS: Pravastatin 20 MG Tablet PO (22:11)
[2019-10-28 03:16] VITALS: BMI 28.3
[2019-10-28] MEDS: Acetaminophen 500 MG Tablet 1000 MG PO ×3 (05:39→23:47)
[2019-10-28] MEDS: Enoxaparin 40 MG/0.4 ML Syringe SC (05:39)
[2019-10-28 07:11] LABS: Bedside Glucose 81 mg/dL (70-110)
[2019-10-28 07:20] VITALS: BP 117/74; PULSE 58; RESP 16; TEMP 36.6; O2SAT 95
[2019-10-28] MEDS: Sertraline 50 MG Tablet PO (07:51)
[2019-10-28] MEDS: Fenofibrate 145 MG Tablet PO (07:51)
[2019-10-28] MEDS: Lisinopril 20 MG Tablet 30 MG PO (07:51)
[2019-10-28] MEDS: Clopidogrel Bisulfate 75 MG Tablet PO (07:52)
[2019-10-28] MEDS: Menthol/Lanolin/Calamine/Znox 113 GM Tube 1 APPLIC TOPICAL ×2 (08:58→23:49)
[2019-10-28] MEDS: levETIRAcetam 750 MG Tablet PO ×2 (08:58→23:48)
[2019-10-28] MEDS: Divalproex (ER) 250 MG Tablet 1500 MG PO (08:58)
[2019-10-28 14:36] VITALS: BMI 28.3
[2019-10-28 16:21] LABS: Bedside Glucose 107 mg/dL (70-110)
[2019-10-28 19:41] VITALS: BP 132/75; PULSE 66; RESP 18; TEMP 36.8; O2SAT 95
[2019-10-28] MEDS: Divalproex (ER) 250 MG Tablet 2000 MG PO (23:48)
[2019-10-28] MEDS: Pravastatin 20 MG Tablet PO (23:48)
[2019-10-29 06:45] LABS: Bedside Glucose 88 mg/dL (70-110)
[2019-10-29 07:00] VITALS: BP 134/75; PULSE 53; RESP 16; TEMP 36.5; O2SAT 95
[2019-10-29] MEDS: Enoxaparin 40 MG/0.4 ML Syringe SC (07:14)
[2019-10-29] MEDS: Acetaminophen 500 MG Tablet 1000 MG PO ×2 (07:14→13:15)
[2019-10-29] MEDS: Sertraline 50 MG Tablet PO (08:41)
[2019-10-29] MEDS: levETIRAcetam 750 MG Tablet PO (08:41)
[2019-10-29] MEDS: Clopidogrel Bisulfate 75 MG Tablet PO (08:41)
[2019-10-29] MEDS: Fenofibrate 145 MG Tablet PO (08:41)
[2019-10-29] MEDS: Lisinopril 20 MG Tablet 30 MG PO (08:41)
[2019-10-29] MEDS: Divalproex (ER) 250 MG Tablet 1500 MG PO (08:41)
[2019-10-29] MEDS: Menthol/Lanolin/Calamine/Znox 113 GM Tube 1 APPLIC TOPICAL (08:42)
[2019-10-29 12:17] VITALS: BMI 28.3
--- NOTE | 2019-10-29 15:29 | PCM.TXEXTCAR ---
- Diet 10/21/19 08:20 Diet: Regular Diet Food consistency:: Soft Liquid Consistency:: Regular/Thin Is pt able to select menu?: No Diet Comments: assist w/ tray set up, distant supervision - Routine Orders/Code Status Enema Type: Fleetz Enema Frequency: Daily PRN Suppository Type: Dulcolax 10mg Suppository Frequency: Daily PRN Keep PO Greater than or Equal to (%): 90 Routine Lab Work: - - CBC, CMP, valproic acid level on 10/31/19 Code Status: Full Code - Therapies Weight Bearing: Weight bearing as tolerated Extremity Affected:: left upper and the left lower. Has a clavicle fracture on the left Physical Therapy: Eval and Treat Occupational Therapy: Eval and Treat Speech Therapy: Eval and Treat - Problem/Diagnosis (1) Physical debility Status: Acute Comment: secondary to severe adverse reaction to Primodone Current Visit: Yes (2) Dysphagia Status: Acute Current Visit: Yes (3) CVA (cerebral vascular accident) Status: Chronic Comment: remote 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 Current Visit: No (4) DM2 (diabetes mellitus, type 2) Status: Chronic Comment: diet controlled Current Visit: No (5) Dyslipidemia Status: Chronic Current Visit: No (6) HTN (hypertension) Status: Chronic Current Visit: No (7) Seizure disorder Status: Chronic Current Visit: No (8) Thrombocytopenia Status: Chronic Current Visit: Yes (9) Depression Status: Chronic Current Visit: Yes (10) Adverse drug reaction Status: Acute Comment: weakness, dysphagia, decreased appetite, depression, blood cell dyscrasias secondary to Primidone Current Visit: Yes (11) Closed left clavicular fracture Status: Acute Current Visit: Yes (12) Chronic renal failure, stage 3 (moderate) Status: Chronic Current Visit: Yes (13) Macrocytic anemia Status: Acute Comment: etiology? Current Visit: Yes (14) Leukopenia Status: Resolved Current Visit: Yes (15) Vitamin D deficiency Status: Chronic Current Visit: Yes - Allergies/Procedures Done in Hospital Allergies/Adverse Reactions: Allergies No Known Allergies Allergy (Verified 10/11/19 14:55) Procedures: None - Type of Care/Length of Stay Estimated LOS: Convalescent Care Less Than 30 days Type of Care Needed: Skilled Rehab Potential: Good Prognosis: Good - Additional Orders/Day of Discharge Additional Orders: He has been tolerating the Sertraline without any adverse reactions. Consider increasinhg to 100 mg daily which is a more therapeutic dose in another week if no problems. Mood is much better. No seizures for > 1 years. He is eating very well now and the BS's are very well controlled on diet alone. HGBA1C at admission to [facility] was only 5.2 so I am sure he was getting hypoglycemic at home prior to admission. Would check his BS's once a day and alternate FBS and prior to supper QOD. H&P will serve as current which was dated: 10/14/19 Day of Discharge: 10/29/19 - Dietary and Speech Recommendations Dietitian Recommendations/Changes: 1) Continue weekly wts. 2) Recommend regular diet- consistency per [employer] until adequate PO at meals is established. 3) Pt declining ONS at this time- please provide if pt requests. - Follow Up Care Primary Care Physician: Antonio Pearson MD [Primary Care Provider] - Please follow up with your Primary Care Physician in: following DC from SNF Please Follow Up With: Dr Alexandre Eubanks When: for essential tremor as soon as possible Please Follow Up With: Chikis Billings DO When: has appt
--- NOTE | 2019-10-29 15:52 | PCM.DC.SUM ---
Discharge Date and Diagnosis Date of Admission: 10/13/19 Date of Discharge: 10/29/19 - Primary Discharge Diagnosis Active and Suspected Problems Physical debility (Acute) secondary to severe adverse reaction to Primidone Dysphagia (SubAcute) Adverse drug reaction (Acute) weakness, dysphagia, decreased appetite, depression, blood cell dyscrasias secondary to Primidone Closed left clavicular fracture (Acute)secondary to a fall Macrocytic anemia (Acute) etiology? 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 Hospital Course and Treatment Imaging Results: Laboratory Results - last 24 hr 10/28/19 10/29/19 16:09 06:12 POC Glucose 107 88 Laboratory Tests 10/29/19 10/28/19 10/28/19 Range/Units 06:12 16:09 07:05 WBC (4.4-11.0) K/mm3 RBC (4.6-6.2) M/mm3 Hgb (13.0-16.5) g/dL Hct (40-54) % MCV (80-94) fL MCH (27.0-32.0) pg MCHC (32-36) g/dL RDW Std Deviation (35.1-43.9) fl RDW Coeff of Jake (11.6-14.6) % Plt Count (150-450) K/mm3 MPV (6.2-12.0) fl Immature Gran % (Auto) (0.0-0.9) % Neut % (Auto) (47-70) % Lymph % (Auto) (19-41) % [place] % (Auto) (0-10) % Eos % (Auto) (0-5) % Baso % (Auto) (0-1) % Absolute Neuts (auto) (2.0-7.7) X10^3/uL Absolute Lymphs (auto) (0.83-4.51) X10^3/uL Nucleated RBC % (0-5) % Differential Comment PT (11.7-14.9) SECONDS INR APTT (24.1-36.2) Seconds Sodium (136-145) mmol/L Potassium (3.5-5.1) mmol/L Chloride (98-107) mmol/L Carbon Dioxide (21.0-32.0) mmol/L Anion Gap (5-15) BUN (7-18) mg/dL Creatinine (0.70-1.30) mg/dL Estim Creat Clear Calc ml/min Est GFR (MDRD) Af Amer (>60) mL/min Est GFR (MDRD) Non-Af (>60) mL/min BUN/Creatinine Ratio (10-20) RATIO Glucose (74-106) mg/dL Calcium (8.5-10.1) mg/dL Phosphorus (2.5-4.9) mg/dL Magnesium (1.6-2.6) mg/dL Total Bilirubin (0.20-1.00) mg/dL AST (15-37) U/L ALT (16-61) U/L Alkaline Phosphatase (45-117) U/L Total Protein (6.4-8.2) g/dL Albumin (3.2-5.0) g/dL Globulin (2.2-4.2) g/dL Albumin/Globulin Ratio (0.9-2.4) RATIO Vitamin D 25-Hydroxy (29.95-100.01) ng/mL Valproic Acid (50-100) ug/mL Levetiracetam (10.0-40.0) ug/mL POC Glucose 88 107 81 (70-110) mg/dL 10/27/19 10/27/19 10/27/19 Range/Units 16:27 09:27 09:27 WBC 5.1 (4.4-11.0) K/mm3 RBC 3.77 L (4.6-6.2) M/mm3 Hgb 11.7 L (13.0-16.5) g/dL Hct 37.1 L (40-54) % MCV 98.4 H (80-94) fL MCH 31.0 (27.0-32.0) pg MCHC 31.5 L (32-36) g/dL RDW Std Deviation 52.1 H (35.1-43.9) fl RDW Coeff of Jake 14.6 (11.6-14.6) % Plt Count 191 (150-450) K/mm3 MPV 9.6 (6.2-12.0) fl Immature Gran % (Auto) 2.500 H (0.0-0.9) % Neut % (Auto) 56.6 (47-70) % Lymph % (Auto) 27.1 (19-41) % [place] % (Auto) 11.6 H (0-10) % Eos % (Auto) 1.6 (0-5) % Baso % (Auto) 0.6 (0-1) % Absolute Neuts (auto) 2.9 (2.0-7.7) X10^3/uL Absolute Lymphs (auto) 1.38 (0.83-4.51) X10^3/uL Nucleated RBC % 0 (0-5) % Differential Comment PT (11.7-14.9) SECONDS INR APTT (24.1-36.2) Seconds Sodium 147 H (136-145) mmol/L Potassium 3.9 (3.5-5.1) mmol/L Chloride 114 H (98-107) mmol/L Carbon Dioxide 28.0 (21.0-32.0) mmol/L Anion Gap 5 (5-15) BUN 19 H (7-18) mg/dL Creatinine 1.26 (0.70-1.30) mg/dL Estim Creat Clear Calc 62.44 ml/min Est GFR (MDRD) Af Amer 73 (>60) mL/min Est GFR (MDRD) Non-Af 61 (>60) mL/min BUN/Creatinine Ratio 15.1 (10-20) RATIO Glucose 145 H (74-106) mg/dL Calcium 8.1 L (8.5-10.1) mg/dL Phosphorus (2.5-4.9) mg/dL Magnesium (1.6-2.6) mg/dL Total Bilirubin (0.20-1.00) mg/dL AST (15-37) U/L ALT (16-61) U/L Alkaline Phosphatase (45-117) U/L Total Protein (6.4-8.2) g/dL Albumin (3.2-5.0) g/dL Globulin (2.2-4.2) g/dL Albumin/Globulin Ratio (0.9-2.4) RATIO Vitamin D 25-Hydroxy (29.95-100.01) ng/mL Valproic Acid (50-100) ug/mL Levetiracetam (10.0-40.0) ug/mL POC Glucose 125 H (70-110) mg/dL 10/27/19 10/26/19 10/26/19 Range/Units 06:30 17:24 11:31 WBC (4.4-11.0) K/mm3 RBC (4.6-6.2) M/mm3 Hgb (13.0-16.5) g/dL Hct (40-54) % MCV (80-94) fL MCH (27.0-32.0) pg MCHC (32-36) g/dL RDW Std Deviation (35.1-43.9) fl RDW Coeff of Jake (11.6-14.6) % Plt Count (150-450) K/mm3 MPV (6.2-12.0) fl Immature Gran % (Auto) (0.0-0.9) % Neut % (Auto) (47-70) % Lymph % (Auto) (19-41) % [place] % (Auto) (0-10) % Eos % (Auto) (0-5) % Baso % (Auto) (0-1) % Absolute Neuts (auto) (2.0-7.7) X10^3/uL Absolute Lymphs (auto) (0.83-4.51) X10^3/uL Nucleated RBC % (0-5) % Differential Comment PT (11.7-14.9) SECONDS INR APTT (24.1-36.2) Seconds Sodium (136-145) mmol/L Potassium (3.5-5.1) mmol/L Chloride (98-107) mmol/L Carbon Dioxide (21.0-32.0) mmol/L Anion Gap (5-15) BUN (7-18) mg/dL Creatinine (0.70-1.30) mg/dL Estim Creat Clear Calc ml/min Est GFR (MDRD) Af Amer (>60) mL/min Est GFR (MDRD) Non-Af (>60) mL/min BUN/Creatinine Ratio (10-20) RATIO Glucose (74-106) mg/dL Calcium (8.5-10.1) mg/dL Phosphorus (2.5-4.9) mg/dL Magnesium (1.6-2.6) mg/dL Total Bilirubin (0.20-1.00) mg/dL AST (15-37) U/L ALT (16-61) U/L Alkaline Phosphatase (45-117) U/L Total Protein (6.4-8.2) g/dL Albumin (3.2-5.0) g/dL Globulin (2.2-4.2) g/dL Albumin/Globulin Ratio (0.9-2.4) RATIO Vitamin D 25-Hydroxy (29.95-100.01) ng/mL Valproic Acid (50-100) ug/mL Levetiracetam (10.0-40.0) ug/mL POC Glucose 81 82 147 H (70-110) mg/dL 10/26/19 10/25/19 10/25/19 Range/Units 07:01 16:42 07:15 WBC (4.4-11.0) K/mm3 RBC (4.6-6.2) M/mm3 Hgb (13.0-16.5) g/dL Hct (40-54) % MCV (80-94) fL MCH (27.0-32.0) pg MCHC (32-36) g/dL RDW Std Deviation (35.1-43.9) fl RDW Coeff of Jake (11.6-14.6) % Plt Count (150-450) K/mm3 MPV (6.2-12.0) fl Immature Gran % (Auto) (0.0-0.9) % Neut % (Auto) (47-70) % Lymph % (Auto) (19-41) % [place] % (Auto) (0-10) % Eos % (Auto) (0-5) % Baso % (Auto) (0-1) % Absolute Neuts (auto) (2.0-7.7) X10^3/uL Absolute Lymphs (auto) (0.83-4.51) X10^3/uL Nucleated RBC % (0-5) % Differential Comment PT (11.7-14.9) SECONDS INR APTT (24.1-36.2) Seconds Sodium (136-145) mmol/L Potassium (3.5-5.1) mmol/L Chloride (98-107) mmol/L Carbon Dioxide (21.0-32.0) mmol/L Anion Gap (5-15) BUN (7-18) mg/dL Creatinine (0.70-1.30) mg/dL Estim Creat Clear Calc ml/min Est GFR (MDRD) Af Amer (>60) mL/min Est GFR (MDRD) Non-Af (>60) mL/min BUN/Creatinine Ratio (10-20) RATIO Glucose (74-106) mg/dL Calcium (8.5-10.1) mg/dL Phosphorus (2.5-4.9) mg/dL Magnesium (1.6-2.6) mg/dL Total Bilirubin (0.20-1.00) mg/dL AST (15-37) U/L ALT (16-61) U/L Alkaline Phosphatase (45-117) U/L Total Protein (6.4-8.2) g/dL Albumin (3.2-5.0) g/dL Globulin (2.2-4.2) g/dL Albumin/Globulin Ratio (0.9-2.4) RATIO Vitamin D 25-Hydroxy (29.95-100.01) ng/mL Valproic Acid (50-100) ug/mL Levetiracetam (10.0-40.0) ug/mL POC Glucose 81 165 H 76 (70-110) mg/dL 10/24/19 10/24/19 10/24/19 Range/Units 21:14 17:11 11:45 WBC (4.4-11.0) K/mm3 RBC (4.6-6.2) M/mm3 Hgb (13.0-16.5) g/dL Hct (40-54) % MCV (80-94) fL MCH (27.0-32.0) pg MCHC (32-36) g/dL RDW Std Deviation (35.1-43.9) fl RDW Coeff of Jake (11.6-14.6) % Plt Count (150-450) K/mm3 MPV (6.2-12.0) fl Immature Gran % (Auto) (0.0-0.9) % Neut % (Auto) (47-70) % Lymph % (Auto) (19-41) % [place] % (Auto) (0-10) % Eos % (Auto) (0-5) % Baso % (Auto) (0-1) % Absolute Neuts (auto) (2.0-7.7) X10^3/uL Absolute Lymphs (auto) (0.83-4.51) X10^3/uL Nucleated RBC % (0-5) % Differential Comment PT (11.7-14.9) SECONDS INR APTT (24.1-36.2) Seconds Sodium (136-145) mmol/L Potassium (3.5-5.1) mmol/L Chloride (98-107) mmol/L Carbon Dioxide (21.0-32.0) mmol/L Anion Gap (5-15) BUN (7-18) mg/dL Creatinine (0.70-1.30) mg/dL Estim Creat Clear Calc ml/min Est GFR (MDRD) Af Amer (>60) mL/min Est GFR (MDRD) Non-Af (>60) mL/min BUN/Creatinine Ratio (10-20) RATIO Glucose (74-106) mg/dL Calcium (8.5-10.1) mg/dL Phosphorus (2.5-4.9) mg/dL Magnesium (1.6-2.6) mg/dL Total Bilirubin (0.20-1.00) mg/dL AST (15-37) U/L ALT (16-61) U/L Alkaline Phosphatase (45-117) U/L Total Protein (6.4-8.2) g/dL Albumin (3.2-5.0) g/dL Globulin (2.2-4.2) g/dL Albumin/Globulin Ratio (0.9-2.4) RATIO Vitamin D 25-Hydroxy (29.95-100.01) ng/mL Valproic Acid (50-100) ug/mL Levetiracetam (10.0-40.0) ug/mL POC Glucose 143 H 147 H 155 H (70-110) mg/dL 10/24/19 10/23/19 10/23/19 Range/Units 06:42 21:11 16:07 WBC (4.4-11.0) K/mm3 RBC (4.6-6.2) M/mm3 Hgb (13.0-16.5) g/dL Hct (40-54) % MCV (80-94) fL MCH (27.0-32.0) pg MCHC (32-36) g/dL RDW Std Deviation (35.1-43.9) fl RDW Coeff of Jake (11.6-14.6) % Plt Count (150-450) K/mm3 MPV (6.2-12.0) fl Immature Gran % (Auto) (0.0-0.9) % Neut % (Auto) (47-70) % Lymph % (Auto) (19-41) % [place] % (Auto) (0-10) % Eos % (Auto) (0-5) % Baso % (Auto) (0-1) % Absolute Neuts (auto) (2.0-7.7) X10^3/uL Absolute Lymphs (auto) (0.83-4.51) X10^3/uL Nucleated RBC % (0-5) % Differential Comment PT (11.7-14.9) SECONDS INR APTT (24.1-36.2) Seconds Sodium (136-145) mmol/L Potassium (3.5-5.1) mmol/L Chloride (98-107) mmol/L Carbon Dioxide (21.0-32.0) mmol/L Anion Gap (5-15) BUN (7-18) mg/dL Creatinine (0.70-1.30) mg/dL Estim Creat Clear Calc ml/min Est GFR (MDRD) Af Amer (>60) mL/min Est GFR (MDRD) Non-Af (>60) mL/min BUN/Creatinine Ratio (10-20) RATIO Glucose (74-106) mg/dL Calcium (8.5-10.1) mg/dL Phosphorus (2.5-4.9) mg/dL Magnesium (1.6-2.6) mg/dL Total Bilirubin (0.20-1.00) mg/dL AST (15-37) U/L ALT (16-61) U/L Alkaline Phosphatase (45-117) U/L Total Protein (6.4-8.2) g/dL Albumin (3.2-5.0) g/dL Globulin (2.2-4.2) g/dL Albumin/Globulin Ratio (0.9-2.4) RATIO Vitamin D 25-Hydroxy (29.95-100.01) ng/mL Valproic Acid (50-100) ug/mL Levetiracetam (10.0-40.0) ug/mL POC Glucose 93 155 H 103 (70-110) mg/dL 10/23/19 10/23/19 10/23/19 Range/Units 12:50 11:34 06:21 WBC (4.4-11.0) K/mm3 RBC (4.6-6.2) M/mm3 Hgb (13.0-16.5) g/dL Hct (40-54) % MCV (80-94) fL MCH (27.0-32.0) pg MCHC (32-36) g/dL RDW Std Deviation (35.1-43.9) fl RDW Coeff of Jake (11.6-14.6) % Plt Count (150-450) K/mm3 MPV (6.2-12.0) fl Immature Gran % (Auto) (0.0-0.9) % Neut % (Auto) (47-70) % Lymph % (Auto) (19-41) % [place] % (Auto) (0-10) % Eos % (Auto) (0-5) % Baso % (Auto) (0-1) % Absolute Neuts (auto) (2.0-7.7) X10^3/uL Absolute Lymphs (auto) (0.83-4.51) X10^3/uL Nucleated RBC % (0-5) % Differential Comment PT (11.7-14.9) SECONDS INR APTT (24.1-36.2) Seconds Sodium (136-145) mmol/L Potassium (3.5-5.1) mmol/L Chloride (98-107) mmol/L Carbon Dioxide (21.0-32.0) mmol/L Anion Gap (5-15) BUN (7-18) mg/dL Creatinine (0.70-1.30) mg/dL Estim Creat Clear Calc ml/min Est GFR (MDRD) Af Amer (>60) mL/min Est GFR (MDRD) Non-Af (>60) mL/min BUN/Creatinine Ratio (10-20) RATIO Glucose (74-106) mg/dL Calcium (8.5-10.1) mg/dL Phosphorus (2.5-4.9) mg/dL Magnesium (1.6-2.6) mg/dL Total Bilirubin (0.20-1.00) mg/dL AST (15-37) U/L ALT (16-61) U/L Alkaline Phosphatase (45-117) U/L Total Protein (6.4-8.2) g/dL Albumin (3.2-5.0) g/dL Globulin (2.2-4.2) g/dL Albumin/Globulin Ratio (0.9-2.4) RATIO Vitamin D 25-Hydroxy 10.1 L (29.95-100.01) ng/mL Valproic Acid (50-100) ug/mL Levetiracetam (10.0-40.0) ug/mL POC Glucose 127 H 88 (70-110) mg/dL 10/23/19 10/23/19 10/23/19 Range/Units 06:16 06:16 06:16 WBC 4.0 L (4.4-11.0) K/mm3 RBC 3.65 L (4.6-6.2) M/mm3 Hgb 11.2 L (13.0-16.5) g/dL Hct 34.9 L (40-54) % MCV 95.6 H (80-94) fL MCH 30.7 (27.0-32.0) pg MCHC 32.1 (32-36) g/dL RDW Std Deviation 47.7 H (35.1-43.9) fl RDW Coeff of Jake 13.6 (11.6-14.6) % Plt Count 102 L (150-450) K/mm3 MPV 10.0 (6.2-12.0) fl Immature Gran % (Auto) (0.0-0.9) % Neut % (Auto) (47-70) % Lymph % (Auto) (19-41) % [place] % (Auto) (0-10) % Eos % (Auto) (0-5) % Baso % (Auto) (0-1) % Absolute Neuts (auto) (2.0-7.7) X10^3/uL Absolute Lymphs (auto) (0.83-4.51) X10^3/uL Nucleated RBC % (0-5) % Differential Comment PT (11.7-14.9) SECONDS INR APTT (24.1-36.2) Seconds Sodium 142 (136-145) mmol/L Potassium 4.0 (3.5-5.1) mmol/L Chloride 111 H (98-107) mmol/L Carbon Dioxide 28.0 (21.0-32.0) mmol/L Anion Gap 3 L (5-15) BUN 18 (7-18) mg/dL Creatinine 1.08 (0.70-1.30) mg/dL Estim Creat Clear Calc 72.85 ml/min Est GFR (MDRD) Af Amer 88 (>60) mL/min Est GFR (MDRD) Non-Af 72 (>60) mL/min BUN/Creatinine Ratio 16.7 (10-20) RATIO Glucose 86 (74-106) mg/dL Calcium 7.7 L (8.5-10.1) mg/dL Phosphorus (2.5-4.9) mg/dL Magnesium (1.6-2.6) mg/dL Total Bilirubin (0.20-1.00) mg/dL AST (15-37) U/L ALT (16-61) U/L Alkaline Phosphatase (45-117) U/L Total Protein (6.4-8.2) g/dL Albumin (3.2-5.0) g/dL Globulin (2.2-4.2) g/dL Albumin/Globulin Ratio (0.9-2.4) RATIO Vitamin D 25-Hydroxy (29.95-100.01) ng/mL Valproic Acid 56 (50-100) ug/mL Levetiracetam (10.0-40.0) ug/mL POC Glucose (70-110) mg/dL 10/22/19 10/22/19 10/22/19 Range/Units 20:40 16:40 12:05 WBC (4.4-11.0) K/mm3 RBC (4.6-6.2) M/mm3 Hgb (13.0-16.5) g/dL Hct (40-54) % MCV (80-94) fL MCH (27.0-32.0) pg MCHC (32-36) g/dL RDW Std Deviation (35.1-43.9) fl RDW Coeff of Jake (11.6-14.6) % Plt Count (150-450) K/mm3 MPV (6.2-12.0) fl Immature Gran % (Auto) (0.0-0.9) % Neut % (Auto) (47-70) % Lymph % (Auto) (19-41) % [place] % (Auto) (0-10) % Eos % (Auto) (0-5) % Baso % (Auto) (0-1) % Absolute Neuts (auto) (2.0-7.7) X10^3/uL Absolute Lymphs (auto) (0.83-4.51) X10^3/uL Nucleated RBC % (0-5) % Differential Comment PT (11.7-14.9) SECONDS INR APTT (24.1-36.2) Seconds Sodium (136-145) mmol/L Potassium (3.5-5.1) mmol/L Chloride (98-107) mmol/L Carbon Dioxide (21.0-32.0) mmol/L Anion Gap (5-15) BUN (7-18) mg/dL Creatinine (0.70-1.30) mg/dL Estim Creat Clear Calc ml/min Est GFR (MDRD) Af Amer (>60) mL/min Est GFR (MDRD) Non-Af (>60) mL/min BUN/Creatinine Ratio (10-20) RATIO Glucose (74-106) mg/dL Calcium (8.5-10.1) mg/dL Phosphorus (2.5-4.9) mg/dL Magnesium (1.6-2.6) mg/dL Total Bilirubin (0.20-1.00) mg/dL AST (15-37) U/L ALT (16-61) U/L Alkaline Phosphatase (45-117) U/L Total Protein (6.4-8.2) g/dL Albumin (3.2-5.0) g/dL Globulin (2.2-4.2) g/dL Albumin/Globulin Ratio (0.9-2.4) RATIO Vitamin D 25-Hydroxy (29.95-100.01) ng/mL Valproic Acid (50-100) ug/mL Levetiracetam (10.0-40.0) ug/mL POC Glucose 131 H 111 H 145 H (70-110) mg/dL 10/22/19 10/21/19 10/21/19 Range/Units 06:58 20:28 15:52 WBC (4.4-11.0) K/mm3 RBC (4.6-6.2) M/mm3 Hgb (13.0-16.5) g/dL Hct (40-54) % MCV (80-94) fL MCH (27.0-32.0) pg MCHC (32-36) g/dL RDW Std Deviation (35.1-43.9) fl RDW Coeff of Jake (11.6-14.6) % Plt Count (150-450) K/mm3 MPV (6.2-12.0) fl Immature Gran % (Auto) (0.0-0.9) % Neut % (Auto) (47-70) % Lymph % (Auto) (19-41) % [place] % (Auto) (0-10) % Eos % (Auto) (0-5) % Baso % (Auto) (0-1) % Absolute Neuts (auto) (2.0-7.7) X10^3/uL Absolute Lymphs (auto) (0.83-4.51) X10^3/uL Nucleated RBC % (0-5) % Differential Comment PT (11.7-14.9) SECONDS INR APTT (24.1-36.2) Seconds Sodium (136-145) mmol/L Potassium (3.5-5.1) mmol/L Chloride (98-107) mmol/L Carbon Dioxide (21.0-32.0) mmol/L Anion Gap (5-15) BUN (7-18) mg/dL Creatinine (0.70-1.30) mg/dL Estim Creat Clear Calc ml/min Est GFR (MDRD) Af Amer (>60) mL/min Est GFR (MDRD) Non-Af (>60) mL/min BUN/Creatinine Ratio (10-20) RATIO Glucose (74-106) mg/dL Calcium (8.5-10.1) mg/dL Phosphorus (2.5-4.9) mg/dL Magnesium (1.6-2.6) mg/dL Total Bilirubin (0.20-1.00) mg/dL AST (15-37) U/L ALT (16-61) U/L Alkaline Phosphatase (45-117) U/L Total Protein (6.4-8.2) g/dL Albumin (3.2-5.0) g/dL Globulin (2.2-4.2) g/dL Albumin/Globulin Ratio (0.9-2.4) RATIO Vitamin D 25-Hydroxy (29.95-100.01) ng/mL Valproic Acid (50-100) ug/mL Levetiracetam (10.0-40.0) ug/mL POC Glucose 78 124 H 138 H (70-110) mg/dL 10/21/19 10/21/19 10/20/19 Range/Units 11:16 06:25 19:53 WBC (4.4-11.0) K/mm3 RBC (4.6-6.2) M/mm3 Hgb (13.0-16.5) g/dL Hct (40-54) % MCV (80-94) fL MCH (27.0-32.0) pg MCHC (32-36) g/dL RDW Std Deviation (35.1-43.9) fl RDW Coeff of Jake (11.6-14.6) % Plt Count (150-450) K/mm3 MPV (6.2-12.0) fl Immature Gran % (Auto) (0.0-0.9) % Neut % (Auto) (47-70) % Lymph % (Auto) (19-41) % [place] % (Auto) (0-10) % Eos % (Auto) (0-5) % Baso % (Auto) (0-1) % Absolute Neuts (auto) (2.0-7.7) X10^3/uL Absolute Lymphs (auto) (0.83-4.51) X10^3/uL Nucleated RBC % (0-5) % Differential Comment PT (11.7-14.9) SECONDS INR APTT (24.1-36.2) Seconds Sodium (136-145) mmol/L Potassium (3.5-5.1) mmol/L Chloride (98-107) mmol/L Carbon Dioxide (21.0-32.0) mmol/L Anion Gap (5-15) BUN (7-18) mg/dL Creatinine (0.70-1.30) mg/dL Estim Creat Clear Calc ml/min Est GFR (MDRD) Af Amer (>60) mL/min Est GFR (MDRD) Non-Af (>60) mL/min BUN/Creatinine Ratio (10-20) RATIO Glucose (74-106) mg/dL Calcium (8.5-10.1) mg/dL Phosphorus (2.5-4.9) mg/dL Magnesium (1.6-2.6) mg/dL Total Bilirubin (0.20-1.00) mg/dL AST (15-37) U/L ALT (16-61) U/L Alkaline Phosphatase (45-117) U/L Total Protein (6.4-8.2) g/dL Albumin (3.2-5.0) g/dL Globulin (2.2-4.2) g/dL Albumin/Globulin Ratio (0.9-2.4) RATIO Vitamin D 25-Hydroxy (29.95-100.01) ng/mL Valproic Acid (50-100) ug/mL Levetiracetam (10.0-40.0) ug/mL POC Glucose 95 74 107 (70-110) mg/dL 10/20/19 10/20/19 10/20/19 Range/Units 16:16 11:21 06:08 WBC (4.4-11.0) K/mm3 RBC (4.6-6.2) M/mm3 Hgb (13.0-16.5) g/dL Hct (40-54) % MCV (80-94) fL MCH (27.0-32.0) pg MCHC (32-36) g/dL RDW Std Deviation (35.1-43.9) fl RDW Coeff of Jake (11.6-14.6) % Plt Count (150-450) K/mm3 MPV (6.2-12.0) fl Immature Gran % (Auto) (0.0-0.9) % Neut % (Auto) (47-70) % Lymph % (Auto) (19-41) % [place] % (Auto) (0-10) % Eos % (Auto) (0-5) % Baso % (Auto) (0-1) % Absolute Neuts (auto) (2.0-7.7) X10^3/uL Absolute Lymphs (auto) (0.83-4.51) X10^3/uL Nucleated RBC % (0-5) % Differential Comment PT (11.7-14.9) SECONDS INR APTT (24.1-36.2) Seconds Sodium (136-145) mmol/L Potassium (3.5-5.1) mmol/L Chloride (98-107) mmol/L Carbon Dioxide (21.0-32.0) mmol/L Anion Gap (5-15) BUN (7-18) mg/dL Creatinine (0.70-1.30) mg/dL Estim Creat Clear Calc ml/min Est GFR (MDRD) Af Amer (>60) mL/min Est GFR (MDRD) Non-Af (>60) mL/min BUN/Creatinine Ratio (10-20) RATIO Glucose (74-106) mg/dL Calcium (8.5-10.1) mg/dL Phosphorus (2.5-4.9) mg/dL Magnesium (1.6-2.6) mg/dL Total Bilirubin (0.20-1.00) mg/dL AST (15-37) U/L ALT (16-61) U/L Alkaline Phosphatase (45-117) U/L Total Protein (6.4-8.2) g/dL Albumin (3.2-5.0) g/dL Globulin (2.2-4.2) g/dL Albumin/Globulin Ratio (0.9-2.4) RATIO Vitamin D 25-Hydroxy (29.95-100.01) ng/mL Valproic Acid (50-100) ug/mL Levetiracetam (10.0-40.0) ug/mL POC Glucose 150 H 96 90 (70-110) mg/dL 10/20/19 10/20/19 10/20/19 Range/Units 05:50 05:50 05:50 WBC 3.6 L (4.4-11.0) K/mm3 RBC 3.90 L (4.6-6.2) M/mm3 Hgb 12.2 L (13.0-16.5) g/dL Hct 37.4 L (40-54) % MCV 95.9 H (80-94) fL MCH 31.3 (27.0-32.0) pg MCHC 32.6 (32-36) g/dL RDW Std Deviation 47.7 H (35.1-43.9) fl RDW Coeff of Jake 13.5 (11.6-14.6) % Plt Count 89 L (150-450) K/mm3 MPV 9.7 (6.2-12.0) fl Immature Gran % (Auto) (0.0-0.9) % Neut % (Auto) (47-70) % Lymph % (Auto) (19-41) % [place] % (Auto) (0-10) % Eos % (Auto) (0-5) % Baso % (Auto) (0-1) % Absolute Neuts (auto) (2.0-7.7) X10^3/uL Absolute Lymphs (auto) (0.83-4.51) X10^3/uL Nucleated RBC % (0-5) % Differential Comment PT 15.0 H (11.7-14.9) SECONDS INR 1.2 APTT 42.9 H (24.1-36.2) Seconds Sodium 140 (136-145) mmol/L Potassium 4.2 (3.5-5.1) mmol/L Chloride 106 (98-107) mmol/L Carbon Dioxide 31.0 (21.0-32.0) mmol/L Anion Gap 3 L (5-15) BUN 27 H (7-18) mg/dL Creatinine 1.18 (0.70-1.30) mg/dL Estim Creat Clear Calc 66.68 ml/min Est GFR (MDRD) Af Amer 79 (>60) mL/min Est GFR (MDRD) Non-Af 65 (>60) mL/min BUN/Creatinine Ratio 22.9 H (10-20) RATIO Glucose 89 (74-106) mg/dL Calcium 7.8 L (8.5-10.1) mg/dL Phosphorus 2.5 (2.5-4.9) mg/dL Magnesium 2.2 (1.6-2.6) mg/dL Total Bilirubin (0.20-1.00) mg/dL AST (15-37) U/L ALT (16-61) U/L Alkaline Phosphatase (45-117) U/L Total Protein (6.4-8.2) g/dL Albumin (3.2-5.0) g/dL Globulin (2.2-4.2) g/dL Albumin/Globulin Ratio (0.9-2.4) RATIO Vitamin D 25-Hydroxy (29.95-100.01) ng/mL Valproic Acid (50-100) ug/mL Levetiracetam (10.0-40.0) ug/mL POC Glucose (70-110) mg/dL 10/19/19 10/19/19 10/19/19 Range/Units 20:52 16:18 14:02 WBC (4.4-11.0) K/mm3 RBC (4.6-6.2) M/mm3 Hgb (13.0-16.5) g/dL Hct (40-54) % MCV (80-94) fL MCH (27.0-32.0) pg MCHC (32-36) g/dL RDW Std Deviation (35.1-43.9) fl RDW Coeff of Jake (11.6-14.6) % Plt Count (150-450) K/mm3 MPV (6.2-12.0) fl Immature Gran % (Auto) (0.0-0.9) % Neut % (Auto) (47-70) % Lymph % (Auto) (19-41) % [place] % (Auto) (0-10) % Eos % (Auto) (0-5) % Baso % (Auto) (0-1) % Absolute Neuts (auto) (2.0-7.7) X10^3/uL Absolute Lymphs (auto) (0.83-4.51) X10^3/uL Nucleated RBC % (0-5) % Differential Comment PT (11.7-14.9) SECONDS INR APTT (24.1-36.2) Seconds Sodium (136-145) mmol/L Potassium (3.5-5.1) mmol/L Chloride (98-107) mmol/L Carbon Dioxide (21.0-32.0) mmol/L Anion Gap (5-15) BUN (7-18) mg/dL Creatinine (0.70-1.30) mg/dL Estim Creat Clear Calc ml/min Est GFR (MDRD) Af Amer (>60) mL/min Est GFR (MDRD) Non-Af (>60) mL/min BUN/Creatinine Ratio (10-20) RATIO Glucose (74-106) mg/dL Calcium (8.5-10.1) mg/dL Phosphorus (2.5-4.9) mg/dL Magnesium (1.6-2.6) mg/dL Total Bilirubin (0.20-1.00) mg/dL AST (15-37) U/L ALT (16-61) U/L Alkaline Phosphatase (45-117) U/L Total Protein (6.4-8.2) g/dL Albumin (3.2-5.0) g/dL Globulin (2.2-4.2) g/dL Albumin/Globulin Ratio (0.9-2.4) RATIO Vitamin D 25-Hydroxy (29.95-100.01) ng/mL Valproic Acid (50-100) ug/mL Levetiracetam 35.4 (10.0-40.0) ug/mL POC Glucose 104 107 (70-110) mg/dL 10/19/19 10/19/19 10/18/19 Range/Units 12:00 06:35 21:31 WBC (4.4-11.0) K/mm3 RBC (4.6-6.2) M/mm3 Hgb (13.0-16.5) g/dL Hct (40-54) % MCV (80-94) fL MCH (27.0-32.0) pg MCHC (32-36) g/dL RDW Std Deviation (35.1-43.9) fl RDW Coeff of Jake (11.6-14.6) % Plt Count (150-450) K/mm3 MPV (6.2-12.0) fl Immature Gran % (Auto) (0.0-0.9) % Neut % (Auto) (47-70) % Lymph % (Auto) (19-41) % [place] % (Auto) (0-10) % Eos % (Auto) (0-5) % Baso % (Auto) (0-1) % Absolute Neuts (auto) (2.0-7.7) X10^3/uL Absolute Lymphs (auto) (0.83-4.51) X10^3/uL Nucleated RBC % (0-5) % Differential Comment PT (11.7-14.9) SECONDS INR APTT (24.1-36.2) Seconds Sodium (136-145) mmol/L Potassium (3.5-5.1) mmol/L Chloride (98-107) mmol/L Carbon Dioxide (21.0-32.0) mmol/L Anion Gap (5-15) BUN (7-18) mg/dL Creatinine (0.70-1.30) mg/dL Estim Creat Clear Calc ml/min Est GFR (MDRD) Af Amer (>60) mL/min Est GFR (MDRD) Non-Af (>60) mL/min BUN/Creatinine Ratio (10-20) RATIO Glucose (74-106) mg/dL Calcium (8.5-10.1) mg/dL Phosphorus (2.5-4.9) mg/dL Magnesium (1.6-2.6) mg/dL Total Bilirubin (0.20-1.00) mg/dL AST (15-37) U/L ALT (16-61) U/L Alkaline Phosphatase (45-117) U/L Total Protein (6.4-8.2) g/dL Albumin (3.2-5.0) g/dL Globulin (2.2-4.2) g/dL Albumin/Globulin Ratio (0.9-2.4) RATIO Vitamin D 25-Hydroxy (29.95-100.01) ng/mL Valproic Acid (50-100) ug/mL Levetiracetam (10.0-40.0) ug/mL POC Glucose 99 79 86 (70-110) mg/dL 10/18/19 10/18/19 10/18/19 Range/Units 16:31 11:50 06:48 WBC (4.4-11.0) K/mm3 RBC (4.6-6.2) M/mm3 Hgb (13.0-16.5) g/dL Hct (40-54) % MCV (80-94) fL MCH (27.0-32.0) pg MCHC (32-36) g/dL RDW Std Deviation (35.1-43.9) fl RDW Coeff of Jake (11.6-14.6) % Plt Count (150-450) K/mm3 MPV (6.2-12.0) fl Immature Gran % (Auto) (0.0-0.9) % Neut % (Auto) (47-70) % Lymph % (Auto) (19-41) % [place] % (Auto) (0-10) % Eos % (Auto) (0-5) % Baso % (Auto) (0-1) % Absolute Neuts (auto) (2.0-7.7) X10^3/uL Absolute Lymphs (auto) (0.83-4.51) X10^3/uL Nucleated RBC % (0-5) % Differential Comment PT (11.7-14.9) SECONDS INR APTT (24.1-36.2) Seconds Sodium (136-145) mmol/L Potassium (3.5-5.1) mmol/L Chloride (98-107) mmol/L Carbon Dioxide (21.0-32.0) mmol/L Anion Gap (5-15) BUN (7-18) mg/dL Creatinine (0.70-1.30) mg/dL Estim Creat Clear Calc ml/min Est GFR (MDRD) Af Amer (>60) mL/min Est GFR (MDRD) Non-Af (>60) mL/min BUN/Creatinine Ratio (10-20) RATIO Glucose (74-106) mg/dL Calcium (8.5-10.1) mg/dL Phosphorus (2.5-4.9) mg/dL Magnesium (1.6-2.6) mg/dL Total Bilirubin (0.20-1.00) mg/dL AST (15-37) U/L ALT (16-61) U/L Alkaline Phosphatase (45-117) U/L Total Protein (6.4-8.2) g/dL Albumin (3.2-5.0) g/dL Globulin (2.2-4.2) g/dL Albumin/Globulin Ratio (0.9-2.4) RATIO Vitamin D 25-Hydroxy (29.95-100.01) ng/mL Valproic Acid (50-100) ug/mL Levetiracetam (10.0-40.0) ug/mL POC Glucose 90 100 89 (70-110) mg/dL 10/17/19 10/17/19 10/17/19 Range/Units 21:15 16:55 12:01 WBC (4.4-11.0) K/mm3 RBC (4.6-6.2) M/mm3 Hgb (13.0-16.5) g/dL Hct (40-54) % MCV (80-94) fL MCH (27.0-32.0) pg MCHC (32-36) g/dL RDW Std Deviation (35.1-43.9) fl RDW Coeff of Jake (11.6-14.6) % Plt Count (150-450) K/mm3 MPV (6.2-12.0) fl Immature Gran % (Auto) (0.0-0.9) % Neut % (Auto) (47-70) % Lymph % (Auto) (19-41) % Ingham % (Auto) (0-10) % Eos % (Auto) (0-5) % Baso % (Auto) (0-1) % Absolute Neuts (auto) (2.0-7.7) X10^3/uL Absolute Lymphs (auto) (0.83-4.51) X10^3/uL Nucleated RBC % (0-5) % Differential Comment PT (11.7-14.9) SECONDS INR APTT (24.1-36.2) Seconds Sodium (136-145) mmol/L Potassium (3.5-5.1) mmol/L Chloride (98-107) mmol/L Carbon Dioxide (21.0-32.0) mmol/L Anion Gap (5-15) BUN (7-18) mg/dL Creatinine (0.70-1.30) mg/dL Estim Creat Clear Calc ml/min Est GFR (MDRD) Af Amer (>60) mL/min Est GFR (MDRD) Non-Af (>60) mL/min BUN/Creatinine Ratio (10-20) RATIO Glucose (74-106) mg/dL Calcium (8.5-10.1) mg/dL Phosphorus (2.5-4.9) mg/dL Magnesium (1.6-2.6) mg/dL Total Bilirubin (0.20-1.00) mg/dL AST (15-37) U/L ALT (16-61) U/L Alkaline Phosphatase (45-117) U/L Total Protein (6.4-8.2) g/dL Albumin (3.2-5.0) g/dL Globulin (2.2-4.2) g/dL Albumin/Globulin Ratio (0.9-2.4) RATIO Vitamin D 25-Hydroxy (29.95-100.01) ng/mL Valproic Acid (50-100) ug/mL Levetiracetam (10.0-40.0) ug/mL POC Glucose 115 H 86 101 (70-110) mg/dL 10/17/19 10/17/19 10/17/19 Range/Units 06:10 05:30 05:30 WBC 4.3 L (4.4-11.0) K/mm3 RBC 3.85 L (4.6-6.2) M/mm3 Hgb 11.9 L (13.0-16.5) g/dL Hct 36.9 L (40-54) % MCV 95.8 H (80-94) fL MCH 30.9 (27.0-32.0) pg MCHC 32.2 (32-36) g/dL RDW Std Deviation 46.3 H (35.1-43.9) fl RDW Coeff of Jake 13.2 (11.6-14.6) % Plt Count 71 L (150-450) K/mm3 MPV 10.1 (6.2-12.0) fl Immature Gran % (Auto) (0.0-0.9) % Neut % (Auto) (47-70) % Lymph % (Auto) (19-41) % Ingham % (Auto) (0-10) % Eos % (Auto) (0-5) % Baso % (Auto) (0-1) % Absolute Neuts (auto) (2.0-7.7) X10^3/uL Absolute Lymphs (auto) (0.83-4.51) X10^3/uL Nucleated RBC % (0-5) % Differential Comment PT (11.7-14.9) SECONDS INR APTT (24.1-36.2) Seconds Sodium 140 (136-145) mmol/L Potassium 3.8 (3.5-5.1) mmol/L Chloride 106 (98-107) mmol/L Carbon Dioxide 30.0 (21.0-32.0) mmol/L Anion Gap 4 L (5-15) BUN 26 H (7-18) mg/dL Creatinine 1.37 H (0.70-1.30) mg/dL Estim Creat Clear Calc 57.43 ml/min Est GFR (MDRD) Af Amer 67 (>60) mL/min Est GFR (MDRD) Non-Af 55 L (>60) mL/min BUN/Creatinine Ratio 19.0 (10-20) RATIO Glucose 87 (74-106) mg/dL Calcium 8.1 L (8.5-10.1) mg/dL Phosphorus 3.6 (2.5-4.9) mg/dL Magnesium 2.0 (1.6-2.6) mg/dL Total Bilirubin 0.80 (0.20-1.00) mg/dL AST 58 H (15-37) U/L ALT 23 (16-61) U/L Alkaline Phosphatase 40 L (45-117) U/L Total Protein 5.0 L (6.4-8.2) g/dL Albumin 2.1 L (3.2-5.0) g/dL Globulin 2.9 (2.2-4.2) g/dL Albumin/Globulin Ratio 0.7 L (0.9-2.4) RATIO Vitamin D 25-Hydroxy (29.95-100.01) ng/mL Valproic Acid (50-100) ug/mL Levetiracetam (10.0-40.0) ug/mL POC Glucose 72 (70-110) mg/dL 10/17/19 10/16/19 10/16/19 Range/Units 05:30 21:02 16:23 WBC (4.4-11.0) K/mm3 RBC (4.6-6.2) M/mm3 Hgb (13.0-16.5) g/dL Hct (40-54) % MCV (80-94) fL MCH (27.0-32.0) pg MCHC (32-36) g/dL RDW Std Deviation (35.1-43.9) fl RDW Coeff of Jake (11.6-14.6) % Plt Count (150-450) K/mm3 MPV (6.2-12.0) fl Immature Gran % (Auto) (0.0-0.9) % Neut % (Auto) (47-70) % Lymph % (Auto) (19-41) % Ingham % (Auto) (0-10) % Eos % (Auto) (0-5) % Baso % (Auto) (0-1) % Absolute Neuts (auto) (2.0-7.7) X10^3/uL Absolute Lymphs (auto) (0.83-4.51) X10^3/uL Nucleated RBC % (0-5) % Differential Comment PT (11.7-14.9) SECONDS INR APTT (24.1-36.2) Seconds Sodium (136-145) mmol/L Potassium (3.5-5.1) mmol/L Chloride (98-107) mmol/L Carbon Dioxide (21.0-32.0) mmol/L Anion Gap (5-15) BUN (7-18) mg/dL Creatinine (0.70-1.30) mg/dL Estim Creat Clear Calc ml/min Est GFR (MDRD) Af Amer (>60) mL/min Est GFR (MDRD) Non-Af (>60) mL/min BUN/Creatinine Ratio (10-20) RATIO Glucose (74-106) mg/dL Calcium (8.5-10.1) mg/dL Phosphorus (2.5-4.9) mg/dL Magnesium (1.6-2.6) mg/dL Total Bilirubin (0.20-1.00) mg/dL AST (15-37) U/L ALT (16-61) U/L Alkaline Phosphatase (45-117) U/L Total Protein (6.4-8.2) g/dL Albumin (3.2-5.0) g/dL Globulin (2.2-4.2) g/dL Albumin/Globulin Ratio (0.9-2.4) RATIO Vitamin D 25-Hydroxy (29.95-100.01) ng/mL Valproic Acid 70 (50-100) ug/mL Levetiracetam (10.0-40.0) ug/mL POC Glucose 102 115 H (70-110) mg/dL 10/16/19 10/16/19 10/15/19 Range/Units 11:45 06:40 20:57 WBC (4.4-11.0) K/mm3 RBC (4.6-6.2) M/mm3 Hgb (13.0-16.5) g/dL Hct (40-54) % MCV (80-94) fL MCH (27.0-32.0) pg MCHC (32-36) g/dL RDW Std Deviation (35.1-43.9) fl RDW Coeff of Jake (11.6-14.6) % Plt Count (150-450) K/mm3 MPV (6.2-12.0) fl Immature Gran % (Auto) (0.0-0.9) % Neut % (Auto) (47-70) % Lymph % (Auto) (19-41) % [place] % (Auto) (0-10) % Eos % (Auto) (0-5) % Baso % (Auto) (0-1) % Absolute Neuts (auto) (2.0-7.7) X10^3/uL Absolute Lymphs (auto) (0.83-4.51) X10^3/uL Nucleated RBC % (0-5) % Differential Comment PT (11.7-14.9) SECONDS INR APTT (24.1-36.2) Seconds Sodium (136-145) mmol/L Potassium (3.5-5.1) mmol/L Chloride (98-107) mmol/L Carbon Dioxide (21.0-32.0) mmol/L Anion Gap (5-15) BUN (7-18) mg/dL Creatinine (0.70-1.30) mg/dL Estim Creat Clear Calc ml/min Est GFR (MDRD) Af Amer (>60) mL/min Est GFR (MDRD) Non-Af (>60) mL/min BUN/Creatinine Ratio (10-20) RATIO Glucose (74-106) mg/dL Calcium (8.5-10.1) mg/dL Phosphorus (2.5-4.9) mg/dL Magnesium (1.6-2.6) mg/dL Total Bilirubin (0.20-1.00) mg/dL AST (15-37) U/L ALT (16-61) U/L Alkaline Phosphatase (45-117) U/L Total Protein (6.4-8.2) g/dL Albumin (3.2-5.0) g/dL Globulin (2.2-4.2) g/dL Albumin/Globulin Ratio (0.9-2.4) RATIO Vitamin D 25-Hydroxy (29.95-100.01) ng/mL Valproic Acid (50-100) ug/mL Levetiracetam (10.0-40.0) ug/mL POC Glucose 110 91 100 (70-110) mg/dL 10/15/19 10/15/19 10/15/19 Range/Units 16:30 11:48 06:53 WBC (4.4-11.0) K/mm3 RBC (4.6-6.2) M/mm3 Hgb (13.0-16.5) g/dL Hct (40-54) % MCV (80-94) fL MCH (27.0-32.0) pg MCHC (32-36) g/dL RDW Std Deviation (35.1-43.9) fl RDW Coeff of Jake (11.6-14.6) % Plt Count (150-450) K/mm3 MPV (6.2-12.0) fl Immature Gran % (Auto) (0.0-0.9) % Neut % (Auto) (47-70) % Lymph % (Auto) (19-41) % [place]ham % (Auto) (0-10) % Eos % (Auto) (0-5) % Baso % (Auto) (0-1) % Absolute Neuts (auto) (2.0-7.7) X10^3/uL Absolute Lymphs (auto) (0.83-4.51) X10^3/uL Nucleated RBC % (0-5) % Differential Comment PT (11.7-14.9) SECONDS INR APTT (24.1-36.2) Seconds Sodium (136-145) mmol/L Potassium (3.5-5.1) mmol/L Chloride (98-107) mmol/L Carbon Dioxide (21.0-32.0) mmol/L Anion Gap (5-15) BUN (7-18) mg/dL Creatinine (0.70-1.30) mg/dL Estim Creat Clear Calc ml/min Est GFR (MDRD) Af Amer (>60) mL/min Est GFR (MDRD) Non-Af (>60) mL/min BUN/Creatinine Ratio (10-20) RATIO Glucose (74-106) mg/dL Calcium (8.5-10.1) mg/dL Phosphorus (2.5-4.9) mg/dL Magnesium (1.6-2.6) mg/dL Total Bilirubin (0.20-1.00) mg/dL AST (15-37) U/L ALT (16-61) U/L Alkaline Phosphatase (45-117) U/L Total Protein (6.4-8.2) g/dL Albumin (3.2-5.0) g/dL Globulin (2.2-4.2) g/dL Albumin/Globulin Ratio (0.9-2.4) RATIO Vitamin D 25-Hydroxy (29.95-100.01) ng/mL Valproic Acid (50-100) ug/mL Levetiracetam (10.0-40.0) ug/mL POC Glucose 128 H 108 110 (70-110) mg/dL 10/14/19 10/14/19 10/14/19 Range/Units 21:09 17:10 12:07 WBC (4.4-11.0) K/mm3 RBC (4.6-6.2) M/mm3 Hgb (13.0-16.5) g/dL Hct (40-54) % MCV (80-94) fL MCH (27.0-32.0) pg MCHC (32-36) g/dL RDW Std Deviation (35.1-43.9) fl RDW Coeff of Jake (11.6-14.6) % Plt Count (150-450) K/mm3 MPV (6.2-12.0) fl Immature Gran % (Auto) (0.0-0.9) % Neut % (Auto) (47-70) % Lymph % (Auto) (19-41) % [place] % (Auto) (0-10) % Eos % (Auto) (0-5) % Baso % (Auto) (0-1) % Absolute Neuts (auto) (2.0-7.7) X10^3/uL Absolute Lymphs (auto) (0.83-4.51) X10^3/uL Nucleated RBC % (0-5) % Differential Comment PT (11.7-14.9) SECONDS INR APTT (24.1-36.2) Seconds Sodium (136-145) mmol/L Potassium (3.5-5.1) mmol/L Chloride (98-107) mmol/L Carbon Dioxide (21.0-32.0) mmol/L Anion Gap (5-15) BUN (7-18) mg/dL Creatinine (0.70-1.30) mg/dL Estim Creat Clear Calc ml/min Est GFR (MDRD) Af Amer (>60) mL/min Est GFR (MDRD) Non-Af (>60) mL/min BUN/Creatinine Ratio (10-20) RATIO Glucose (74-106) mg/dL Calcium (8.5-10.1) mg/dL Phosphorus (2.5-4.9) mg/dL Magnesium (1.6-2.6) mg/dL Total Bilirubin (0.20-1.00) mg/dL AST (15-37) U/L ALT (16-61) U/L Alkaline Phosphatase (45-117) U/L Total Protein (6.4-8.2) g/dL Albumin (3.2-5.0) g/dL Globulin (2.2-4.2) g/dL Albumin/Globulin Ratio (0.9-2.4) RATIO Vitamin D 25-Hydroxy (29.95-100.01) ng/mL Valproic Acid (50-100) ug/mL Levetiracetam (10.0-40.0) ug/mL POC Glucose 126 H 123 H 123 H (70-110) mg/dL 10/14/19 10/14/19 10/13/19 Range/Units 12:00 06:36 20:53 WBC (4.4-11.0) K/mm3 RBC (4.6-6.2) M/mm3 Hgb (13.0-16.5) g/dL Hct (40-54) % MCV (80-94) fL MCH (27.0-32.0) pg MCHC (32-36) g/dL RDW Std Deviation (35.1-43.9) fl RDW Coeff of Jake (11.6-14.6) % Plt Count (150-450) K/mm3 MPV (6.2-12.0) fl Immature Gran % (Auto) (0.0-0.9) % Neut % (Auto) (47-70) % Lymph % (Auto) (19-41) % Ingham % (Auto) (0-10) % Eos % (Auto) (0-5) % Baso % (Auto) (0-1) % Absolute Neuts (auto) (2.0-7.7) X10^3/uL Absolute Lymphs (auto) (0.83-4.51) X10^3/uL Nucleated RBC % (0-5) % Differential Comment PT (11.7-14.9) SECONDS INR APTT (24.1-36.2) Seconds Sodium (136-145) mmol/L Potassium (3.5-5.1) mmol/L Chloride (98-107) mmol/L Carbon Dioxide (21.0-32.0) mmol/L Anion Gap (5-15) BUN (7-18) mg/dL Creatinine (0.70-1.30) mg/dL Estim Creat Clear Calc ml/min Est GFR (MDRD) Af Amer (>60) mL/min Est GFR (MDRD) Non-Af (>60) mL/min BUN/Creatinine Ratio (10-20) RATIO Glucose (74-106) mg/dL Calcium (8.5-10.1) mg/dL Phosphorus (2.5-4.9) mg/dL Magnesium (1.6-2.6) mg/dL Total Bilirubin (0.20-1.00) mg/dL AST (15-37) U/L ALT (16-61) U/L Alkaline Phosphatase (45-117) U/L Total Protein (6.4-8.2) g/dL Albumin (3.2-5.0) g/dL Globulin (2.2-4.2) g/dL Albumin/Globulin Ratio (0.9-2.4) RATIO Vitamin D 25-Hydroxy (29.95-100.01) ng/mL Valproic Acid 90 (50-100) ug/mL Levetiracetam (10.0-40.0) ug/mL POC Glucose 115 H 94 (70-110) mg/dL none Operations: None Procedures: None Summary of Care Provided: The patient is a 69 year old M with a PMH of DM II, HTN, HLD, 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 He slept most of the day and all night. He had no appetite and had been losing weight. He had no motivation to do things he usually did even 1 year ago. His stated he used to be very active. He had a fall at home on the night of 10/09/19 and fractured the distal left clavicle. He presented to the ED and a non-contrasted CT brain showed no acute findings. He was admitted to the hospital on 10/11/19 and an MRI was done which showed no acute findings. He was seen by Dr. Billings in consult while in the hospital and there was no indication for surgical intervention. He was placed in a sling for 2 weeks. He was seen by PT/OT prior to discharge from the hospital and they recommended an admission to rehab with a goal of doing 3 hours of therapy daily in an effort to return home at or near his prior level of function/independence. He was admitted to the rehab unit on 10/13/19. The etiology for the progressive decline over the preceding 6 months was not obvious. Acetylcholine antibodies were sent to rule out myasthenia gravis. These antibodies were negative. A diagnosis of pseudobulbar palsy was also considered. We requisitioned records from Dr. Payne and also Dr. Pearson. The only new medication over the preceding 6 months was Primidone which was started for essential tremor. The dose was started at 12.5 mg daily and gradually increased to 50 mg daily at the time of admission to the hospital. The side effects of Primidone include all of the things the patient had experienced over the preceding 6 months including depression, loss of appetite, weight loss, nausea, ataxia, drowsiness, granulocytopenia, megaloblastic anemia and red cell aplasia. Primidone was discontinued and within 48 hours his appetite improved and he was eating 100% of his meals. He started doing much better with PT/OT and the dysphagia markedly improved. Over the next few days he became much more alert and his voice became stronger and less slurred. 1 day prior to discharge she was able to ambulate 60 feet with a wheeled walker and contact-guard assist of 1. He was able to manage clothing up and down but required assistance with the urinal. 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 His problem solving with ST had improved. On 10/29/[address] [facility] for additional PT/OT/ST prior to returning home. Unfortunately with the discontinuation of the primidone the essential tremor got worse. Another drug for the treatment of essential tremor is propanolol however the patient's heart rate is in the high 50s and low 60s and I did not feel comfortable starting propanolol at the time of discharge. He will follow up with neurology going forward for treatment of essential tremor. HGBA1C at admission to the rehab unit was only 5.2%. I am sure he was having hypoglycemic episodes at home. Oral hypoglycemics and SSI were discontinued and the blood sugars have been very well controlled with diet alone. A CBC was drawn on 10/27/2019 and the white blood cell count had increased to within normal limits at 5.1. Hemoglobin was 11.7 and stable. Platelets had returned to within normal limits and were 191,000. Until he can see a neurologist the Speech therapist recommended weighted utensils to eat with to help with tremor. Keppra level prior to discharge was 35.4 and within the therapeutic window. His valproic acid level was therapeutic for the duration of his stay in rehab. Alert and oriented X 3, NAD, appropriate, lying in bed, voice quality is strong and he is not slurring Lungs - CTA Heart RRR, no gallop abd - soft, NT, ND, normal BS's in all quadrants no edema This note was generated with Priztagation software. It may contain incorrect words, spelling, and punctuation that were not noted in checking the note before signing. - Physical Exam Vitals/I&O's: Vital Signs Temp Pulse Resp BP Pulse Ox 97.7 F L 53 L 16 134/75 H 95 10/29/19 07:00 10/29/19 07:00 10/29/19 07:00 10/29/19 07:00 10/29/19 07:00 Oxygen Delivery Method Room Air Weight: 217 lb 2.485 oz Body Mass Index (BMI) 28.3 Finger Stick Blood Glucose 106 Intake and Output for Last 24 Hours 10/27/19 10/28/19 10/29/19 23:59 23:59 23:59 Intake Total 1060 / 1060 600 / 600 Output Total 600 / 600 Balance 460 / 460 600 / 600 Laboratory Results 10/28/19 16:09: POC Glucose 107 10/29/19 06:12: POC Glucose 88 Current Medications Acetaminophen (Tylenol) 1,000 mg PO Q8H [facility] Last Admin: 10/29/19 13:15 Dose: 1,000 mg Documented by: Bisacodyl (Dulcolax) 10 mg RECTAL .PRN X 1 PRN PRN Reason: Constipation Calamine/Phenol (Calmoseptine Ointment) 1 applic TOPICAL BID [facility]; Protocol Last Admin: 10/29/19 08:42 Dose: 1 applicatio Documented by: Cholecalciferol (Vitamin D) 1,000 unit PO DAILY [facility] Last Admin: 10/29/19 08:41 Dose: 1,000 unit Documented by: Clopidogrel Bisulfate (Plavix) 75 mg PO DAILY [facility] Last Admin: 10/29/19 08:41 Dose: 75 mg Documented by: Divalproex Sodium (Depakote Er) 1,500 mg PO QAM [facility] Last Admin: 10/29/19 08:41 Dose: 1,500 mg Documented by: Divalproex Sodium (Depakote Er) 2,000 mg PO QHS [facility] Last Admin: 10/28/19 23:48 Dose: 2,000 mg Documented by: Enoxaparin Sodium (Lovenox) 40 mg SC DAILY@0600 [facility] Last Admin: 10/29/19 07:14 Dose: 40 mg Documented by: Fenofibrate (Tricor) 145 mg PO DAILYCM [facility] Last Admin: 10/29/19 08:41 Dose: 145 mg Documented by: Levetiracetam (Keppra Tablet) 750 mg PO BID [facility] Last Admin: 10/29/19 08:41 Dose: 750 mg Documented by: Lisinopril (Zestril) 30 mg PO DAILY [facility] Last Admin: 10/29/19 08:41 Dose: 30 mg Documented by: Magnesium Hydroxide (Milk Of Magnesia) 30 ml PO .PRN X 1 PRN PRN Reason: Constipation Last Admin: 10/18/19 22:34 Dose: 30 ml Documented by: Pravastatin Sodium (Pravachol) 20 mg PO QHS [facility] Last Admin: 10/28/19 23:48 Dose: 20 mg Documented by: Senna/Docusate Sodium (Senokot-S, [place]-Colace) 2 tablet PO BID [facility] Last Admin: 10/29/19 08:42 Dose: Not Given Documented by: Sertraline HCl (Zoloft) 50 mg PO DAILY [facility] Last Admin: 10/29/19 08:41 Dose: 50 mg Documented by: Sodium Chloride () 5 - 15 ml IV UD PRN PRN Reason: SALINE FLUSH Last Admin: 10/24/19 22:40 Dose: 10 ml Documented by: Tramadol HCl (Ultram) 50 mg PO TID PRN PRN PRN Reason: pain >4 Last Admin: 10/21/19 16:14 Dose: 50 mg Documented by: Home Medications: Medications to take at Discharge Clopidogrel Bisulfate [Plavix] 75 mg PO DAILY 07/26/17 Pravastatin [Pravachol] 20 mg PO QHS 07/26/17 Fenofibrate Nanocrystallized [Fenofibrate] 145 mg PO DAILY 10/11/19 Lisinopril 30 mg PO DAILY 10/11/19 levETIRAcetam tablet [Keppra tablet] 750 mg PO BID 10/11/19 Acetaminophen [Tylenol] 1,000 mg PO Q8H PRN PRN #1 tab 10/29/19 Bisacodyl [Dulcolax] 10 mg RECTAL .PRN X 1 PRN suppos. 10/29/19 Cholecalciferol (VIT D3) [Vitamin D3] 1,000 unit PO DAILY tab 10/29/19 Divalproex (ER) [Depakote ER] 1,500 mg PO QAM tab 10/29/19 Divalproex (ER) [Depakote ER] 2,000 mg PO QHS tab 10/29/19 Magnesium Hydroxide [Milk Of Magnesia] 30 ml PO .PRN X 1 PRN udc 10/29/19 Menthol/Lanolin/Calamine/Znox [Calmoseptine Ointment] 1 applic TOPICAL BID tube 10/29/19 Senna/Docusate Sodium [Senokot-S] 2 tab PO BID tab 10/29/19 Sertraline HCl [Zoloft] 50 mg PO DAILY tab 10/29/19 Primary Care Physician: Antonio Pearson MD [Primary Care Provider] - Please follow up with your Primary Care Physician in: following DC from SNF Please Follow Up With: Dr Alexandre Eubanks When: for essential tremor as soon as possible Please Follow Up With: Chikis Billings DO When: has appt Minutes spent on discharge:: 40 Patient Condition:: Good Medical Necessity - Tobacco Use Smoking Status: Never smoker Tobacco Use: Non-smoker Meaningful Use Info Meaningful Use Diagnoses (Choose all that apply): None applicable Code Visit Inpatient E&M: 86302 Disch Hosp
--- NOTE | 2019-10-29 16:19 | NURSING ---
Report called to [facility] [place]. transporting patient in car. Patient in good spirits.
== END 2019-10-29 16:20 | disposition skilled nursing facility (03) | DRG 560 ==
PROVIDERS: Hospitalist; Internal Medicine; Admitting Provider Internal Medicine; Family Provider Family Medicine; PCP Family Medicine; Referring Provider Internal Medicine; Visit Provider Internal Medicine
DX: S42.032D Displaced fracture of lateral end of left clavicle, subsequent encounter for fracture with routine healing (principal); I69.354 Hemiplegia and hemiparesis following cerebral infarction affecting left non-dominant side; D61.818 Other pancytopenia; G40.909 Epilepsy, unspecified, not intractable, without status epilepticus; F32.9 Major depressive disorder, single episode, unspecified; N18.3 Chronic kidney disease, stage 3 (moderate); E11.22 Type 2 diabetes mellitus with diabetic chronic kidney disease; E78.5 Hyperlipidemia, unspecified; I12.9 Hypertensive chronic kidney disease with stage 1 through stage 4 chronic kidney disease, or unspecified chronic kidney disease; G47.33 Obstructive sleep apnea (adult) (pediatric); W19.XXXD Unspecified fall, subsequent encounter; R13.10 Dysphagia, unspecified; G25.0 Essential tremor; T42.6X5A Adverse effect of other antiepileptic and sedative-hypnotic drugs, initial encounter
CPT/HCPCS: 36415; 80048; 80053; 80164; 80177; 82306; 82962; 83735; 84100; 85025; 85027; 85610; 85730; 92507; 92508; 92523; 92526; 92610; 97110; 97112; 97116; 97140; 97163; 97166; 97530; 97535; 97802; 97803; 99251; J7120; A4216; G0463

== ENCOUNTER → 2019-11-09 14:55 | Outpatient (CLI) | payer MEDICARE, OTHER, SELFPAY ==
[2019-11-09 14:50] VITALS: BMI 28.3
--- NOTE | 2019-11-09 14:56 | RAD_ITS ---
STUDY: X-RAY - LEFT SHOULDER REASON FOR EXAM: Male, 69 years old. Shoulder pain. TECHNIQUE: 3 view(s) of the shoulder. COMPARISON: None. FINDINGS: Normal glenohumeral articulation. Normal acromioclavicular joint. Normal acromion. Distal clavicular fracture better seen on today''s studies. Mild superior displacement of the proximal fragment in relation to the distal fragment. Fracture is comminuted as was mentioned on the prior study. Normal humeral head and visualized proximal humerus. The soft tissue structures are unremarkable. Normal visualized pulmonary apex. RAD/Shoulder min 2 Views IMPRESSION: Distal clavicular fracture with increased displacement since the prior study. Electronically Signed: Shalom Shi MD at 16:27 EST , Service support ,
== END ==
PROVIDERS: Family Provider Family Medicine; PCP Family Medicine; Referring Provider Orthopaedic Surgery; Visit Provider Orthopaedic Surgery
DX: S42.032A Displaced fracture of lateral end of left clavicle, initial encounter for closed fracture (principal); X58.XXXA Exposure to other specified factors, initial encounter
CPT/HCPCS: 73030

== ENCOUNTER 2019-12-18 21:26 | Inpatient (IN) | payer MEDICARE, OTHER, SELFPAY ==
[2019-11-09 14:50] VITALS: BMI 28.3
[2019-12-18] VITALS (8 sets, daily range): BP systolic 113–130; BP diastolic 71–81; PULSE 61–68; RESP 12–18; TEMP 36.9; O2SAT 95–99; BMI 27.7
--- NOTE | 2019-12-18 21:45 | EKG12_ITS ---
Test Reason : Blood Pressure : / mmHG Vent. Rate : 063 BPM Atrial Rate : 063 BPM P-R Int : 144 ms QRS Dur : 072 ms QT Int : 400 ms P-R-T Axes : 050 028 040 degrees QTc Int : 409 ms Sinus rhythm with occasional Premature ventricular complexes Low voltage QRS Nonspecific T wave abnormality Abnormal ECG When compared with ECG of 18-DEC-2019 21:58, MANUAL COMPARISON REQUIRED, DATA IS UNCONFIRMED Confirmed by SERINA BUTLER ([id number]), editor managing director LUIS MOCTEZUMA ([id number]) on 12/22/2019 1:27:32 PM Referred By: DAVID Confirmed By:SERINA BUTLER
--- NOTE | 2019-12-18 21:45 | CT_ITS ---
HISTORY: STROKE, INCREASED WEAKNESS, DROOLING LEFT SIDE, SLURRED SPEECH, LKW 24 HOURS AGO, HX CVA Technique:CT Head or Brain W/O Contrast Injection Number of Images including paperwork:272 Comparison: Most recent MRI of the brain is from October 12, 2019. Most recent CT scan of the brain is from October 11, 2019. Findings: CT images of the head were obtained without contrast. Periventricular deep and subcortical white matter disease is present. Abnormal decreased density with volume loss and loss of cortés-white differentiation involves the right MCA distribution from a previous infarct. The severity of the disease within this distribution is similar to that of the 2 previous studies. No acute ischemia is perceived on the background of this severe previous right MCA distribution infarct Paranasal sinuses are clear. The brain is atrophic. Calcific ASCVD involves intracranial arteries. No acute intracranial hemorrhage. No acute abnormality of orbits. Middle ear cavities and mastoid air cells are well aerated. Skull is normal. CT/Brain/Head without Contrast IMPRESSION: No acute intracranial abnormality. 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 Chronic changes as above. ASPECT 10. Individualized dose optimization techniques were used for this CT. at 2209 Reported and signed by: Titus Sifuentes MD N.B. : The above information has been verbally conveyed by Titus Sifuentes MD to Dr. Ethan Taylor MD, on 12/18/2019 22:09:53 (ET). Electronically Signed: Titus Sifuentes MD at 22:08 EST Tel , Service support ,
--- NOTE | 2019-12-18 22:05 | CM.ED ---
SOCIAL WORK REASON FOR CONSULT: STROKE ALERT MET WITH PATIENT'S IN ROOM. INTRODUCED ROLE AND REASON FOR REFERRAL. REPORTS OVER THE LAST WEEK PATIENT HAS BEEN DECLINING AND LAST 3 DAYS HAVE BEEN WORSE. PER , PATIENT DISCHARGED FROM [facility] EITHER November OR . REPORTS HAS HOME HEALTH THROUGH [facility]. SUPPORT, EDUCATION AND ACTIVE LISTENING PROVIDED. PLAN: ROSALINO COTO, BEEF PLUCK TRIMMER, ENGINEER GEOPH[employer]ORAT[employer].
[2019-12-18 22:27] LABS: Absolute Lymphocyte Count 1.21 X10^3/uL (0.83-4.51); Absolute Neutrophil Count 2.5 X10^3/uL (2.0-7.7); Basophil# 0.03 X10^3/uL; Basophil% 0.6 % (0-1); Eosinophil# 0.07 X10^3/uL; Eosinophils% 1.4 % (0-5); Hematocrit 38.9 % (40-54); Hemoglobin 12.6 g/dL (13.0-16.5); Lymphocyte # 1.21 X10^3/ul (4.0); Lymphocyte % 24.7 % (19-41); Mean Corp Hgb Conc 32.4 g/dL (32-36); Mean Corpuscular Hgb 31.9 pg (27.0-32.0); Mean Corpuscular Volume 98.5 fL (80-94); Mean Platelet Vol. 11.3 fl (6.2-12.0); Monocyte# 1.07 X10^3/uL; Monocyte% 21.9 % (0-10); NRBC Flagged by Analyzer 0 % (0-5); Neutrophil # 2.45 X10^3/uL (2.7-7.7); Neutrophil % 50.2 % (47-70); POSITIVE COUNT YES; Platelet Count 53 K/mm3 (150-450); RBC Distribution Width CV 14.5 % (11.6-14.6); RBC Distribution Width SD 52.9 fl (35.1-43.9); Red Blood Count 3.95 M/mm3 (4.6-6.2); White Blood Count 4.9 K/mm3 (4.4-11.0)
--- NOTE | 2019-12-18 22:28 | RAD_ITS ---
HISTORY: WEAKNESS EXAM: XR Chest 1 View: COMPARISON: October 11, 2019 FINDINGS: # of images incl. paperwork: 2 Lungs are clear. Heart is not enlarged. Gentle leftward curvature to the spine consistent with mild degenerative changes. The curvature is new since the previous study, and therefore may just be positional.. Pulmonary vascularity is distinct. No effusions. RAD/Chest 1 View IMPRESSION: No acute cardiopulmonary disease. at 2249 Reported and signed by: Titus Sifuentes MD Electronically Signed: Titus Sifuentes MD at 22:47 EST Tel , Service support ,
[2019-12-18 22:30] LABS: Differential Indicated SCAN CRITERIA MET
[2019-12-18 22:32] LABS: International Normalized Ratio 1.1; Partial Thromboplast Time 29.3 Seconds (24.1-36.2); Prothrombin Time (Protime)PT. 14.3 SECONDS (11.7-14.9)
[2019-12-18 22:37] LABS: Anion Gap 4 (5-15); BUN 27 mg/dL (7-18); BUN/Creat Ratio 19.3 RATIO (10-20); Calcium,Total 8.4 mg/dL (8.5-10.1); Chloride 109 mmol/L (98-107); EST Glomerular Filtration Rate 54 mL/min (>60); Est Glom Filt Rate - Afr Amer 65 mL/min (>60); Estimated Creatinine Clearance 54.53 ml/min; Glucose 101 mg/dL (74-106); Potassium 4.3 mmol/L (3.5-5.1); Sodium Level 145 mmol/L (136-145)
[2019-12-18 22:56] LABS: Differential Comment SCANNED; Platelet Estimate MOD DEC (ADEQ)
--- NOTE | 2019-12-18 23:00 | ED.VISSUMM ---
- ER Visit Summary Date of Service: 12/18/19 Chief Complaint: Weakness History of Present Illness: The patient is a 69 M with weakness increasing over the past 3 days and then worse tonight starting at 8 PM. Patient had a stroke in October 2019 and has subsequent left side weakness. He was discharged from rehab on November 17, and has been home with his since. Over the past several days, he is increasingly weak. He feels like he has weights on his legs. Tonight, he fell asleep in his chair around 7:30 PM. He woke up at 8 PM with increasing slurred speech and increasing weakness on his left side. Physical Examination: Afebrile and vital signs unremarkable. Patient is alert and oriented, but slow to respond and answer questions. Head and neck are atraumatic. Mucous membranes are moist. Heart regular rate and rhythm. Lungs clear. Abdomen soft. NIH stroke scale is 10 (LOC one-point, questions one-point, right lower extremity 4 points, left lower extremity 3 points, dysarthria one-point). Test Results: EKG showed sinus rhythm with PVCs at a rate of 68. Hemoglobin 12.6 and platelets 53. Chloride 109, creatinine 1.4. Coags normal. Urinalysis pending. Troponin normal. Chest x-ray normal, nothing acute. CT brain showed an old right MCA stroke with no acute change. Emergency Department Course and Treatment: Patient was initially triaged for stroke symptoms starting over 24 hours ago. Initially, when I spoke with the , she said that the symptoms started 3 days ago. Later, as we were speaking, she said that the symptoms were worse tonight around 8 PM. She said that around 8 PM, he woke up and he seemed to have increasing slurred speech and increasing weakness on his left side. Because of this abrupt change at 8 PM, I did activate a stroke team. The tele-stroke doctor did evaluate the patient. He seems to be improving since he has been in the ED. Neurology does not recommend TPA. They believe that he may have a metabolic or infectious process going on which is making his stroke symptoms worse. They still recommended admission for MRI and MRA. Based on the patient's symptoms and mental status, I believe that admission is appropriate. Hemoglobin 12.6. Platelets 53, he has a history of thrombocytopenia and anemia. Urinalysis is still pending. Oncoming doctor will check. Patient is stable on reevaluation. Will discuss with the hospitalist for admission. Treatment Plan: As above Disposition: Admission Impression: 1. Generalized weakness 2. History of stroke This note was generated with [employer] dictation software. It may contain incorrect words, spelling, and punctuation that were not noted in review of the chart prior to signing ED Disposition - Plan for ED Patient: Referrals: Antonio Pearson MD [Primary Care Provider] -
[2019-12-18 23:23] LABS: Bacteria 0 SEEN /hpf (None Seen); Mucous, Urine 0 SEEN /hpf (<or=2+)
[2019-12-18 23:24] LABS: Color, Urine Yellow (Yellow); Glucose, Dipstick Normal (Normal); Ketone-Dipstick 5 mg/dl (Negative); Leukocyte Esterase-Dipstick Negative /ul (Negative); Nitrite-Dipstick Negative (Negative); Occult Blood-Urine Negative /ul (Negative); Protein-Dipstick Negative (Negative); Urine Bilirubin Dipstick Negative (Negative); Urine Urobilinogen 1 mg/dl (Normal)
[2019-12-18 23:25] LABS: Urine Clarity Clear (Clear)
--- NOTE | 2019-12-18 23:28 | PCM.HP.STD ---
Problem List (1) Physical debility Status: Chronic Comment: secondary to severe adverse reaction to Primodone (2) Depression Status: Chronic (3) Closed left clavicular fracture Status: Chronic Qualifiers: (4) Chronic renal failure, stage 3 (moderate) Status: Chronic (5) Seizure disorder Status: Chronic (6) DM2 (diabetes mellitus, type 2) Status: Chronic Comment: diet controlled (7) Dyslipidemia Status: Chronic (8) HTN (hypertension) Status: Chronic Qualifiers: (9) CVA (cerebral vascular accident) Status: Chronic Comment: remote 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 History of Present Illness Date of Admission: 12/18/19 Chief Complaint: generalized weakness The patient is a 69 year old male patient with a past medical history of remote stroke, seizure disorder that is post event in October for which she stayed 3 weeks in the [facility] rehab unit followed by 3 weeks at [facility] for rehab as an outpatient. Patient has history of recent fall with left distal clavicular fracture for which he has seen orthopedic surgeon. Edmundoight patient spouse states that at 730 he was sleeping in his chair woke up at 8:00 and was slurring his speech and stated his legs felt heavy as if there were weights on them. He does have a history of left-sided weakness from previous stroke. Initial CT scan and work-up were negative for acute hemorrhage, however,tele-stroke neurologist requested inpatient observation overnight and MRI MRA to be done in the morning. According to his spouse he has regained his normal baseline since arrival in the emergency room and she is comfortable with our plan of admission for observation Past Medical History Past Medical History (Chronic Problems): Chronic Problems Physical debility (Chronic) secondary to severe adverse reaction to Primodone Thrombocytopenia (Chronic) Depression (Chronic) Closed left clavicular fracture (Chronic) Chronic renal failure, stage 3 (moderate) (Chronic) Vitamin D deficiency (Chronic) Seizure disorder (Chronic) DM2 (diabetes mellitus, type 2) (Chronic) diet controlled Dyslipidemia (Chronic) HTN (hypertension) (Chronic) CVA (cerebral vascular accident) (Chronic) remote 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 Allergies primidone Adverse Reaction (Verified 12/18/19 21:37) Other Home Medications: Ambulatory Orders Medication Instructions Recorded Clopidogrel Bisulfate [Plavix] 75 mg PO DAILY 07/26/17 Pravastatin [Pravachol] 20 mg PO QHS 07/26/17 Fenofibrate Nanocrystallized 145 mg PO DAILY 10/11/19 [Fenofibrate] Lisinopril 30 mg PO DAILY 10/11/19 levETIRAcetam tablet [Keppra 750 mg PO BID 10/11/19 tablet] Acetaminophen [Tylenol] 1,000 mg PO Q8H PRN PRN #1 tab 10/29/19 Bisacodyl [Dulcolax] 10 mg RECTAL .PRN X 1 PRN suppos. 10/29/19 Cholecalciferol (VIT D3) [Vitamin 1,000 unit PO DAILY tab 10/29/19 D3] Magnesium Hydroxide [Milk Of 30 ml PO .PRN X 1 PRN udc 10/29/19 Magnesia] Senna/Docusate Sodium [Senokot-S] 2 tab PO BID tab 10/29/19 Sertraline HCl [Zoloft] 50 mg PO DAILY tab 10/29/19 Divalproex (ER) [Depakote ER] 1,000 mg PO QAM 12/18/19 Divalproex (ER) [Depakote ER] 750 mg PO QHS 12/18/19 Surgical History: cholecystectomy, herniorrhaphy Psychiatric History: No pertinent psych hx Smoking Status: Never smoker - *Family History Maternal History Items: Cancer, Hypertension, - - ovarian cancer Paternal History Items: Heart Disease, Hypertension Sibling History Items: - - brother with abdominal aortic anuerysm Review of Systems Constitutional: Reports: Weakness, Fatigue. Denies: Chills, Fever, Weight Change HEENT: Denies: Head Aches, Sinus Congestion, Sinus Drainage Cardiovascular: Denies: Chest Pain, Palpitations Respiratory: Denies: Cough, Shortness of breath at rest, Sputum production Gastrointestinal: Denies: Abdominal Pain, Nausea, Vomiting Genitourinary: Denies: Dysuria Musculoskeletal: Reports: - - left clavicle pain. Denies: Joint Pain, Joint Tenderness Skin: Denies: Rash, Wounds Neurological: Reports: Slurred speech, Focal weakness - left arm/leg. Denies: Numbness, Tingling Psychiatric: Denies: Anxiety, Depression, Homicidal Ideations, Suicidal Ideations Hematologic/ Lymphatic: Denies: Easy Bruising, Easy Bleeding VTE Information - Inpt Only VTE Present on Admission: No VTE Mechan Device Prophylaxis: None VTE Pharm Prophylaxis ordered?: Yes - Physical Exam Vitals/I&O's: Vital Signs Temp Pulse Resp BP Pulse Ox 98.5 F 61 12 120/81 H 99 12/18/19 21:52 12/18/19 23:00 12/18/19 23:00 12/18/19 23:00 12/18/19 23:00 Oxygen Delivery Method Room Air Weight: 199 lb 1.239 oz Body Mass Index (BMI) 27.7 Finger Stick Blood Glucose 95 General: Alert, Cooperative, Lethargic HEENT: Atraumatic, PERRLA, EOMI, Normocephalic Neck: Supple, Negative Carotid Bruits Lungs: Clear to auscultation, Normal air movement Cardiovascular: Regular rate, Regular Rhythm, Normal S1, Normal S2, No murmurs Abdomen: Bowel Sounds Present, Soft, Non Tender Extremities: No edema Skin: No rashes, No breakdown Musculoskeletal: No Tenderness to Palpation of Joints or Extremities Neurological: Cranial nerves II-XII grossly intact, Motor Exam 5/5 strength throughout - with the exception of slight drift holding left arm up Psych/Mental Status: Appropriate Laboratory Results 12/18/19 22:10: WBC 4.9, RBC 3.95 L, Hgb 12.6 L, Hct 38.9 L, MCV 98.5 H, MCH 31.9, MCHC 32.4, RDW Std Deviation 52.9 H, RDW Coeff of Jake 14.5, Plt Count 53 L, MPV 11.3, Immature Gran % (Auto) 1.200 H, Neut % (Auto) 50.2, Lymph % (Auto) 24.7, [place] % (Auto) 21.9 H, Eos % (Auto) 1.4, Baso % (Auto) 0.6, Absolute Neuts (auto) 2.5, Absolute Lymphs (auto) 1.21, Nucleated RBC % 0, Differential Comment SCANNED, Platelet Estimate MOD 12/18/19 22:10: PT 14.3, INR 1.1, APTT 29.3 12/18/19 22:10: Sodium 145, Potassium 4.3, Chloride 109 H, Carbon Dioxide 32.0, Anion Gap 4 L, BUN 27 H, Creatinine 1.40 H, Estim Creat Clear Calc 54.53, Est GFR (MDRD) Af Amer 65, Est GFR (MDRD) Non-Af 54 L, BUN/Creatinine Ratio 19.3, Glucose 101, Calcium 8.4 L, Troponin I < 0.015 12/18/19 23:18: Urine Color Yellow, Urine Clarity Clear, Urine pH 6.0, Ur Specific [place] 1.020, Urine Protein Negative, Urine Glucose (UA) Normal, Urine Ketones 5 H, Urine Occult Blood Negative, Urine Nitrite Negative, Urine Bilirubin Negative, Urine Urobilinogen 1 H, Ur Leukocyte Esterase Negative, Urine RBC Pending, Urine WBC Pending, Ur Squamous Epith Cells Pending, Urine Bacteria Pending, Urine Mucus Pending Current Medications Sodium Chloride () 500 mls @ 999 mls/hr IV .Q31M ONE Last Admin: 12/18/19 22:21 Dose: 999 mls/hr Documented by: Assessment/Plan All Active Problems Dysphagia (Acute) Adverse drug reaction (Acute) Macrocytic anemia (Acute) Leukopenia (Resolved) Waqas's paralysis (Resolved) Chronic Problems Physical debility (Chronic) secondary to severe adverse reaction to Primodone Thrombocytopenia (Chronic) Depression (Chronic) Closed left clavicular fracture (Chronic) Chronic renal failure, stage 3 (moderate) (Chronic) Vitamin D deficiency (Chronic) Seizure disorder (Chronic) DM2 (diabetes mellitus, type 2) (Chronic) diet controlled Dyslipidemia (Chronic) HTN (hypertension) (Chronic) CVA (cerebral vascular accident) (Chronic) remote 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 Plan 1. Weakness/history of stroke?admit to PCU for observation, MRI MRA in the morning, physical therapy to evaluate and treat, neuro checks per protocol, patient should continue aspirin 2. Depression?continue current medication 3. Diabetes?continue home medications 4. Dyslipidemia?continue statin 5. Hypertension?continue home medication stable 6. DVT prophylaxis?low molecular weight heparin
[2019-12-18 23:37] LABS: Amorphous Sediment 1+; Red Blood Cells-Urine 0-5 SEEN /hpf (0-5); Squamous Epithelial Cells - UA 0-5 SEEN /hpf (0-5); Transitional Epithelial - Ur 0 SEEN /hpf (0-5); White Blood Cells 0-5 SEEN /hpf (0-5)
[2019-12-19] VITALS (12 sets, daily range): BP systolic 94–117; BP diastolic 52–71; PULSE 59–74; RESP 14–18; TEMP 36.4–36.8; O2SAT 94–98; BMI 26.6; BMI 26.7
--- NOTE | 2019-12-19 | MRI_ITS ---
STUDY: MRI BRAIN WITHOUT CONTRAST REASON FOR EXAM: Male, 69 years old. Increasing LEFT SIDED WEAKNESS,slurred speech, dragging leg. Prior CVA, chronic renal failure, HTN TECHNIQUE: Standardized multiplanar fat and water weighted pulse sequences were obtained. COMPARISON: 10/12/2019 FINDINGS: There is moderate cerebral atrophy with widening of the extra-axial spaces and ventricular dilatation. There are a limited number of small white matter hyperintensities, distributed throughout the deep white matter tracts of the cerebral hemispheres, consistent with mild chronic white matter ischemic changes. There is no evidence for recent intracranial ischemia or other cause of cytotoxic edema on diffusion weighted imaging (DWI). Large area of insufflation gliosis within the right parietal lobe consistent with a chronic right middle cerebral artery infarct. Examination gradient echo images demonstrates linear areas of hemosiderin staining within the infarct consistent with prior, not acute, hemorrhage. This is unchanged. Normal bilateral basal ganglia. Normal thalami. There is no extra-axial fluid accumulation. Normal flow voids within the major intracranial circulation suggesting patency by spin echo criteria. Normal sella turcica, pituitary gland, infundibular stalk, optic chiasm and hypothalamus. Normal tectal plate and pineal gland. Normal midbrain, krista and medulla. Normal cerebellum. Normal basal cisterns. There is mild chronic otomastoiditis of the bilateral temporal bones. Normal bilateral internal auditory canals. No demonstrated orbital abnormality, within the constraints of a routine brain study. Normal visualized paranasal sinuses. Normal calvarium and skull base. Normal visualized soft tissue structures. Normal visualized upper cervical spine. MRI/Brain without Contrast IMPRESSION: Involutional changes of the brain, as described above. Chronic right middle cerebral artery infarct. No acute infarct. Electronically Signed: Major Betancourt MD at 9:55 EST Tel , Service support ,
--- NOTE | 2019-12-19 | MRI_ITS ---
STUDY: MRA OF THE HEAD WITHOUT CONTRAST REASON FOR EXAM: Male, 69 years old. Increasing LEFT SIDED WEAKNESS,slurred speech, dragging leg. Prior CVA, chronic renal failure, HTN TECHNIQUE: 3-D hvie-te-lcactr (TOF) imaging was performed with MIPs. The study was performed unenhanced. COMPARISON: 03/27/2018 FINDINGS: Normal bilateral petrous carotid arteries. Normal right cavernous carotid artery with a normal supraclinoid bifurcation. Normal left cavernous carotid artery with a normal supraclinoid bifurcation. Normal right A1 segments of the anterior cerebral artery. There is hypoplastic development of the left A1 segment of the anterior cerebral arteries with an atretic but intact artery. Normal intact anterior communicating artery (ACOM). Normal bilateral A2 segments of the anterior cerebral arteries. Normal right M1 and M2 segments of the middle cerebral arteries, with a normal M1 bifurcation. Normal left M1 and M2 segments of the middle cerebral arteries, with a normal M1 bifurcation. Normal right posterior communicating artery (PCOM). Normal left posterior communicating artery (PCOM). There is a small atretic right vertebral artery with a dominant left vertebral artery. Normal basilar artery with a normal basilar bifurcation. The visualized bilateral superior cerebellar (SCA) arteries are normal. Normal bilateral P1, P2 and visualized P3 segments of the posterior cerebral arteries. There is no demonstrated aneurysm of the [place] of [place]. There is no major vessel occlusion or hemodynamically significant stenosis. There is no demonstrated abnormality of the visualized brain. MRI/MRA Head ONLY without Contrast IMPRESSION: Normal MRA of the head Electronically Signed: Major Betancourt MD at 9:56 EST Tel , Service support ,
[2019-12-19 04:05] LABS: Bedside Glucose 88 mg/dL (70-110)
[2019-12-19 06:31] LABS: Bedside Glucose 79 mg/dL (70-110)
[2019-12-19 07:11] LABS: Absolute Lymphocyte Count 1.46 X10^3/uL (0.83-4.51); Absolute Neutrophil Count 2.2 X10^3/uL (2.0-7.7); Basophil# 0.01 X10^3/uL; Basophil% 0.2 % (0-1); Eosinophil# 0.06 X10^3/uL; Eosinophils% 1.3 % (0-5); Hematocrit 39.8 % (40-54); Hemoglobin 12.9 g/dL (13.0-16.5); Lymphocyte # 1.46 X10^3/ul (4.0); Lymphocyte % 31.2 % (19-41); Mean Corp Hgb Conc 32.4 g/dL (32-36); Mean Corpuscular Hgb 31.8 pg (27.0-32.0); Mean Platelet Vol. 10.7 fl (6.2-12.0); Monocyte# 0.86 X10^3/uL; Monocyte% 18.4 % (0-10); NRBC Flagged by Analyzer 0 % (0-5); Neutrophil # 2.21 X10^3/uL (2.7-7.7); Neutrophil % 47.2 % (47-70); POSITIVE COUNT YES; RBC Distribution Width CV 14.6 % (11.6-14.6); RBC Distribution Width SD 53.3 fl (35.1-43.9); Red Blood Count 4.06 M/mm3 (4.6-6.2); White Blood Count 4.7 K/mm3 (4.4-11.0)
[2019-12-19 07:53] LABS: Anion Gap 3 (5-15); BUN 23 mg/dL (7-18); BUN/Creat Ratio 20.2 RATIO (10-20); Calcium,Total 8.3 mg/dL (8.5-10.1); Chloride 112 mmol/L (98-107); Creatinine, Serum 1.14 mg/dL (0.70-1.30); EST Glomerular Filtration Rate 68 mL/min (>60); Est Glom Filt Rate - Afr Amer 82 mL/min (>60); Estimated Creatinine Clearance 66.97 ml/min; Glucose 75 mg/dL (74-106); Potassium 4.2 mmol/L (3.5-5.1); Sodium Level 144 mmol/L (136-145)
[2019-12-19 07:58] LABS: Differential Indicated SCAN CRITERIA MET; Platelet Count 48 K/mm3 (150-450)
--- NOTE | 2019-12-19 08:16 | EKG12_ITS ---
Test Reason : DYSRHYTHMIA Blood Pressure : / mmHG Vent. Rate : 068 BPM Atrial Rate : 068 BPM P-R Int : 142 ms QRS Dur : 074 ms QT Int : 406 ms P-R-T Axes : 057 007 033 degrees QTc Int : 431 ms Sinus rhythm with occasional Premature ventricular complexes Otherwise normal ECG Confirmed by SONU ANDERSON, GLADIS ([id number]), general expeditor LUIS MOCTEZUMA ([id number]) on 12/20/2019 9:54:09 AM Referred By: DC Confirmed By:GLADIS ASCENCIO MD
--- NOTE | 2019-12-19 08:44 | ECHOCS_ITS ---
Reason For Study: TIA/CVA Procedure This was a 2D Doppler, Color Flow transthoracic echocardiogram. The study was technically difficult. Exam performed portable in patient room. Left Ventricle Normal size and thickness. The estimated ejection fraction is 65 %. Stage 1 diastolic dysfunction. No regional wall motion abnormalities noted. Right Ventricle Moderately dilated right ventricle. Normal systolic function. Atria Normal left atrium. Normal right atrium. Normal atrial septum. Mitral Valve The mitral valve is structurally normal. No prolapse or stenosis seen. Tricuspid Valve Normal tricuspid valve. Unable to estimate RV systolic pressure due to insufficient tricuspid regurgitant envelope. Aortic Valve Normal aortic valve. Trisinus/trileaflet aortic valve. Pulmonic Valve Normal pulmonic valve. Great Vessels Normal aortic root. Normal arch. Normal inferior vena cava. Inferior vena cava collapse with sniff. Pericardium/Pleural No pericardial effusion. Medication Diluted definity 5ml given slow IV push to enhance endocardial definition. MMode/2D Measurements & Calculations LVIDd: 5.0 cm IVSd: 0.82 cm LAV(MOD-sp4): 31.1 ml LVIDs: 2.8 cm LVPWd: 0.99 cm RVDd: 4.4 cm FS: 45.2 % LA A4 area: 14.5 cm2 RA A4 area: 17.8 cm2 Time Measurements MV dec time: 0.23 sec Doppler Measurements & Calculations MV E max shane: 53.8 cm/sec Lat Peak E' Shane: 9.8 cm/sec Med Peak E' Shane: 10.5 cm/sec MV A max shane: 61.8 cm/sec E/E' lat: 5.5 E/E' med: 5.1 MV E/A: 0.87 Ao V2 max: 158.7 cm/sec LV V1 max: 70.1 cm/sec PA V2 max: 92.9 cm/sec Ao max P.1 mmHg LV V1 max P.0 mmHg Interpretation Summary The estimated ejection fraction is 65 %. Stage 1 diastolic dysfunction. Moderately dilated right ventricle. Unable to estimate RV systolic pressure due to insufficient tricuspid regurgitant envelope. Compared to echo report dated 11/03/2016, no appreciable changes noted. The study was technically difficult. Contrast injection was performed. Ordering Physician: Regis Willis Referring Physician: IAN FIGUEROA Performed By: Munira Nick RDCS
[2019-12-19 08:49] LABS: AST(SGOT) 21 U/L (15-37); Alanine Aminotransfer ALT/SGPT 13 U/L (16-61); Albumin, Serum 2.5 g/dL (3.2-5.0); Alkaline Phosphatase 49 U/L (45-117); Bilirubin, Direct 0.22 mg/dL (0.00-0.30); Globulin 2.7 g/dL (2.2-4.2); Protein, Total 5.2 g/dL (6.4-8.2)
[2019-12-19 09:44] LABS: HIV - WCH Non-Reactive (Nonreactive)
[2019-12-19] MEDS: Divalproex (ER) 250 MG Tablet 1000 MG PO (10:14)
[2019-12-19] MEDS: levETIRAcetam 750 MG Tablet PO (10:14)
[2019-12-19] MEDS: Sertraline 50 MG Tablet PO (10:17)
[2019-12-19] MEDS: Aspirin 81 MG TAB.CHEW PO (10:17)
[2019-12-19] MEDS: Fenofibrate 145 MG Tablet PO (10:17)
[2019-12-19] MEDS: Clopidogrel Bisulfate 75 MG Tablet PO (10:17)
[2019-12-19] MEDS: Glucerna Shake 120 ML LIQUID PO (10:23)
[2019-12-19] MEDS: Lisinopril 5 MG Tablet 15 MG PO (10:24)
--- NOTE | 2019-12-19 10:52 | CASEMGMT ---
Physician indicated patient may need placement again. He was at [facility] in November. SW called [facility] and patient left [facility] 11-24-19. Therefore, he is within his 30 day window and does not need another qualifying stay. PAULA told patient's this information. She wants to see how he does with therapy because if he is mobile she wants to take him home. Rosetta NAJERA MSW
--- NOTE | 2019-12-19 12:39 | PCM.PN.HOSP ---
<Regis Willis - Last Filed: 12/19/19 12:39> Reason for Visit: worsening left facial droop, slurred speech, left sided weakness Subjective: Pt has chronic left facial droop, and left sided upper and lower extremity weakness from prior stroke. Last night he had worsening of his chronic issues and new slurred speech. This AM his notes that he seems much more improved. She also notes that before his symptoms worsened last night he had started a new medication - remeron - which was started for appetite stimulation. This is complicated by a hx of gradual decline in his overall generlized debility over several months. Today he complains of left shoulder pain. He has a known broken clavicle and has an appointment with Dr. Bruce - they have requested to see her here. Vitals/I&O's: Vital Signs Temp Pulse Resp BP Pulse Ox 98.3 F 66 16 105/62 95 12/19/19 08:00 12/19/19 08:00 12/19/19 08:00 12/19/19 08:00 12/19/19 08:00 Oxygen Delivery Method Room Air Weight: 191 lb 2.252 oz Body Mass Index (BMI) 26.6 Finger Stick Blood Glucose 95 Intake and Output for Last 24 Hours 12/17/19 12/18/19 12/19/19 23:59 23:59 23:59 Intake Total 500 / 500 240 / 240 Output Total 350 / 350 Balance 500 / 500 -110 / -110 General: Alert, Oriented x3, Cooperative HEENT: Atraumatic, PERRLA, EOMI, Normocephalic Neck: Supple, No JVD, Negative Carotid Bruits Lungs: Clear to auscultation, Normal air movement Cardiovascular: Regular rate, No murmurs Abdomen: Bowel Sounds Present, Soft, Non Tender Extremities: No edema, Capillary Refill Less than 3 Seconds Skin: No rashes, No breakdown Musculoskeletal: No Tenderness to Palpation of Joints or Extremities Neurological: Cranial nerves II-XII grossly intact Psych/Mental Status: Normal Affect, Appropriate, Alert and oriented to time, place, person, mood and affect Laboratory Results 12/18/19 22:00: HIV 1&2 Antibody Non-Reactive 12/18/19 22:10: WBC 4.9, RBC 3.95 L, Hgb 12.6 L, Hct 38.9 L, MCV 98.5 H, MCH 31.9, MCHC 32.4, RDW Std Deviation 52.9 H, RDW Coeff of Jake 14.5, Plt Count 53 L, MPV 11.3, Immature Gran % (Auto) 1.200 H, Neut % (Auto) 50.2, Lymph % (Auto) 24.7, Perkins % (Auto) 21.9 H, Eos % (Auto) 1.4, Baso % (Auto) 0.6, Absolute Neuts (auto) 2.5, Absolute Lymphs (auto) 1.21, Nucleated RBC % 0, Differential Comment SCANNED, Platelet Estimate MOD 12/18/19 22:10: PT 14.3, INR 1.1, APTT 29.3 12/18/19 22:10: Sodium 145, Potassium 4.3, Chloride 109 H, Carbon Dioxide 32.0, Anion Gap 4 L, BUN 27 H, Creatinine 1.40 H, Estim Creat Clear Calc 54.53, Est GFR (MDRD) Af Amer 65, Est GFR (MDRD) Non-Af 54 L, BUN/Creatinine Ratio 19.3, Glucose 101, Calcium 8.4 L, Troponin I < 0.015 12/18/19 23:18: Urine Color Yellow, Urine Clarity Clear, Urine pH 6.0, Ur Specific [place] 1.020, Urine Protein Negative, Urine Glucose (UA) Normal, Urine Ketones 5 H, Urine Occult Blood Negative, Urine Nitrite Negative, Urine Bilirubin Negative, Urine Urobilinogen 1 H, Ur Leukocyte Esterase Negative, Urine RBC 0-5 SEEN, Urine WBC 0-5 SEEN, Ur Squamous Epith Cells 0-5 SEEN, Ur Transition Epith Cell 0 SEEN, Amorphous Sediment 1+, Urine Bacteria 0 SEEN, Urine Mucus 0 SEEN 12/19/19 03:57: POC Glucose 88 12/19/19 06:28: POC Glucose 79 12/19/19 07:02: WBC 4.7, RBC 4.06 L, Hgb 12.9 L, Hct 39.8 L, MCV 98.0 H, MCH 31.8, MCHC 32.4, RDW Std Deviation 53.3 H, RDW Coeff of Jake 14.6, Plt Count 48 L*, MPV 10.7, Immature Gran % (Auto) 1.700 H, Neut % (Auto) 47.2, Lymph % (Auto) 31.2, Perkins % (Auto) 18.4 H, Eos % (Auto) 1.3, Baso % (Auto) 0.2, Absolute Neuts (auto) 2.2, Absolute Lymphs (auto) 1.46, Nucleated RBC % 0, Differential Comment COMMENT, Diff Path Review March foll 12/19/19 07:02: Sodium 144, Potassium 4.2, Chloride 112 H, Carbon Dioxide 29.0, Anion Gap 3 L, BUN 23 H, Creatinine 1.14, Estim Creat Clear Calc 66.97, Est GFR (MDRD) Af Amer 82, Est GFR (MDRD) Non-Af 68, BUN/Creatinine Ratio 20.2 H, Glucose 75, Calcium 8.3 L 12/19/19 07:02: Total Bilirubin 0.30, Direct Bilirubin 0.22, AST 21, ALT 13 L, Alkaline Phosphatase 49, Total Protein 5.2 L, Albumin 2.5 L, Globulin 2.7 12/19/19 07:02: Hepatitis A IgM Ab Pending, Hep Bs Antigen Pending, Hep B Core IgM Ab Pending, Hepatitis C Ab (EIA) Pending Current Medications Acetaminophen (Tylenol) 650 mg PO Q6H PRN PRN PRN Reason: Pain Score 1-10/Temp > 100.7 F Aspirin (Aspirin, Baby) 81 mg PO DAILY@0800 [facility] Last Admin: 12/19/19 10:17 Dose: 81 mg Documented by: Bisacodyl (Dulcolax) 10 mg RECTAL .PRN X 1 PRN PRN Reason: Constipation Clopidogrel Bisulfate (Plavix) 75 mg PO DAILY [facility] Last Admin: 12/19/19 10:17 Dose: 75 mg Documented by: Divalproex Sodium (Depakote Er) 750 mg PO QHS [facility] Divalproex Sodium (Depakote Er) 1,000 mg PO QAM [facility] Last Admin: 12/19/19 10:14 Dose: 1,000 mg Documented by: [facility] Last Admin: 12/19/19 10:17 Dose: 145 mg Documented by: Glucagon () 1 mg IM .X1 PRN PRN Reason: Hypoglycemia Sodium Chloride () 500 mls @ 999 mls/hr IV .Q31M ONE Last Infusion: 12/18/19 23:34 Dose: Infused Documented by: Dextrose (Dextrose 10%-Water) 250 mls @ 999 mls/hr IV .Q16M PRN; Protocol PRN Reason: HYPOGLYCEMIA Sodium Chloride () 250 mls @ 15 mls/hr IV .[id number] PRN PRN Reason: Saline Flush Sodium Chloride () 250 mls @ 15 mls/hr IV .[id number] PRN PRN Reason: Additional IVPB Infusion Levetiracetam (Keppra Tablet) 750 mg PO BID [facility] Last Admin: 12/19/19 10:14 Dose: 750 mg Documented by: Lisinopril (Zestril) 15 mg PO DAILY [facility] Last Admin: 12/19/19 10:24 Dose: 15 mg Documented by: Magnesium Hydroxide (Milk Of Magnesia) 30 ml PO .PRN X 1 PRN PRN Reason: Constipation Nutritional Formula (Lactose Free) (Glucerna Shake) 120 ml PO TIDCM [facility] Last Admin: 12/19/19 10:23 Dose: 120 ml Documented by: Pravastatin Sodium (Pravachol) 20 mg PO QHS [facility] Sertraline HCl (Zoloft) 50 mg PO DAILY [facility] Last Admin: 12/19/19 10:17 Dose: 50 mg Documented by: Sodium Chloride () 10 - 40 ml IV UD PRN PRN Reason: SALINE FLUSH Medical Necessity - Tobacco Use Smoking Status: Never smoker Assessment/Plan All Active Problems Dysphagia (Acute) Adverse drug reaction (Acute) Macrocytic anemia (Acute) Leukopenia (Resolved) Waqas's paralysis (Resolved) 1. Worsening of chronic weakness - possibly due to new medication, gradual functional decline, or possibly he has had seizures as these have led to worsening of his symptoms in the past. MRI brain MRA head negative. CT brain negative. Echo pending. EEG ordered. Continue PTOTST evals. 2. Thrombocytopenia - he has chronically had low platelets however this is significantly worse. LFTs normal. Recheck in AM. Check hep/hiv screen/ Avoid any lovenox/heparin/aspirin. Continue prior plavix for now. If worse in AM will c/s hem/onc 3. Seizure disorder - EEG will be obtained. Continue serena murillo. 4. Clavicular fracture - pt requested to see Dr. Bruce for this - he has an outpatient appointment. It is not acute. 5. HTN - stable 6. Prior CVA - continue prior meds. 7. HLD - statin, tricor 8. Depression - zoloft. hold remeron. DVT ppx: SCDs DC planning: PTOT. This patient was seen by Regis Willis PA-C under the supervision of Dr. Webb. <Nikolas Webb F - Last Filed: 12/19/19 17:07> Vitals/I&O's: Vital Signs Temp Pulse Resp BP Pulse Ox 97.7 F L 61 14 96/52 L 94 12/19/19 14:00 12/19/19 15:41 12/19/19 14:00 12/19/19 14:00 12/19/19 14:00 Oxygen Delivery Method Room Air Weight: 191 lb 2.252 oz Body Mass Index (BMI) 26.6 Finger Stick Blood Glucose 95 Intake and Output for Last 24 Hours 12/17/19 12/18/19 12/19/19 23:59 23:59 23:59 Intake Total 500 / 500 240 / 240 Output Total 350 / 350 Balance 500 / 500 -110 / -110 Laboratory Results 12/18/19 22:00: HIV 1&2 Antibody Non-Reactive 12/18/19 22:10: WBC 4.9, RBC 3.95 L, Hgb 12.6 L, Hct 38.9 L, MCV 98.5 H, MCH 31.9, MCHC 32.4, RDW Std Deviation 52.9 H, RDW Coeff of Jake 14.5, Plt Count 53 L, MPV 11.3, Immature Gran % (Auto) 1.200 H, Neut % (Auto) 50.2, Lymph % (Auto) 24.7, Perkins % (Auto) 21.9 H, Eos % (Auto) 1.4, Baso % (Auto) 0.6, Absolute Neuts (auto) 2.5, Absolute Lymphs (auto) 1.21, Nucleated RBC % 0, Differential Comment SCANNED, Platelet Estimate MOD DEC 12/18/19 22:10: PT 14.3, INR 1.1, APTT 29.3 12/18/19 22:10: Sodium 145, Potassium 4.3, Chloride 109 H, Carbon Dioxide 32.0, Anion Gap 4 L, BUN 27 H, Creatinine 1.40 H, Estim Creat Clear Calc 54.53, Est GFR (MDRD) Af Amer 65, Est GFR (MDRD) Non-Af 54 L, BUN/Creatinine Ratio 19.3, Glucose 101, Calcium 8.4 L, Troponin I < 0.015 12/18/19 23:18: Urine Color Yellow, Urine Clarity Clear, Urine pH 6.0, Ur Specific [place] 1.020, Urine Protein Negative, Urine Glucose (UA) Normal, Urine Ketones 5 H, Urine Occult Blood Negative, Urine Nitrite Negative, Urine Bilirubin Negative, Urine Urobilinogen 1 H, Ur Leukocyte Esterase Negative, Urine RBC 0-5 SEEN, Urine WBC 0-5 SEEN, Ur Squamous Epith Cells 0-5 SEEN, Ur Transition Epith Cell 0 SEEN, Amorphous Sediment 1+, Urine Bacteria 0 SEEN, Urine Mucus 0 SEEN 12/19/19 03:57: POC Glucose 88 12/19/19 06:28: POC Glucose 79 12/19/19 07:02: WBC 4.7, RBC 4.06 L, Hgb 12.9 L, Hct 39.8 L, MCV 98.0 H, MCH 31.8, MCHC 32.4, RDW Std Deviation 53.3 H, RDW Coeff of Jake 14.6, Plt Count 48 L*, MPV 10.7, Immature Gran % (Auto) 1.700 H, Neut % (Auto) 47.2, Lymph % (Auto) 31.2, Perkins % (Auto) 18.4 H, Eos % (Auto) 1.3, Baso % (Auto) 0.2, Absolute Neuts (auto) 2.2, Absolute Lymphs (auto) 1.46, Nucleated RBC % 0, Differential Comment COMMENT, Diff Path Review Reviewed 12/19/19 07:02: Sodium 144, Potassium 4.2, Chloride 112 H, Carbon Dioxide 29.0, Anion Gap 3 L, BUN 23 H, Creatinine 1.14, Estim Creat Clear Calc 66.97, Est GFR (MDRD) Af Amer 82, Est GFR (MDRD) Non-Af 68, BUN/Creatinine Ratio 20.2 H, Glucose 75, Calcium 8.3 L 12/19/19 07:02: Total Bilirubin 0.30, Direct Bilirubin 0.22, AST 21, ALT 13 L, Alkaline Phosphatase 49, Total Protein 5.2 L, Albumin 2.5 L, Globulin 2.7 12/19/19 07:02: Hepatitis A IgM Ab Pending, Hep Bs Antigen Pending, Hep B Core IgM Ab Pending, Hepatitis C Ab (EIA) Pending 12/19/19 12:39: POC Glucose 114 H Current Medications Acetaminophen (Tylenol) 650 mg PO Q6H PRN PRN PRN Reason: Pain Score 1-10/Temp > 100.7 F Last Admin: 12/19/19 15:44 Dose: 650 mg Documented by: Aspirin (Aspirin, Baby) 81 mg PO DAILY@0800 [facility] Last Admin: 12/19/19 10:17 Dose: 81 mg Documented by: Bisacodyl (Dulcolax) 10 mg RECTAL .PRN X 1 PRN PRN Reason: Constipation Clopidogrel Bisulfate (Plavix) 75 mg PO DAILY [facility] Last Admin: 12/19/19 10:17 Dose: 75 mg Documented by: Divalproex Sodium (Depakote Er) 750 mg PO QHS [facility] Divalproex Sodium (Depakote Er) 1,000 mg PO QAM [facility] Last Admin: 12/19/19 10:14 Dose: 1,000 mg Documented by: Fenofibrate (Tricor) 145 mg PO DAILYCM [facility] Last Admin: 12/19/19 10:17 Dose: 145 mg Documented by: Glucagon () 1 mg IM .X1 PRN PRN Reason: Hypoglycemia Sodium Chloride () 500 mls @ 999 mls/hr IV .Q31M ONE Last Infusion: 12/18/19 23:34 Dose: Infused Documented by: Dextrose (Dextrose 10%-Water) 250 mls @ 999 mls/hr IV .Q16M PRN; Protocol PRN Reason: HYPOGLYCEMIA Sodium Chloride () 250 mls @ 15 mls/hr IV .[id number] PRN PRN Reason: Saline Flush Sodium Chloride () 250 mls @ 15 mls/hr IV .[id number] PRN PRN Reason: Additional IVPB Infusion Levetiracetam (Keppra Tablet) 750 mg PO BID [facility] Last Admin: 12/19/19 10:14 Dose: 750 mg Documented by: Lisinopril (Zestril) 15 mg PO DAILY [facility] Last Admin: 12/19/19 10:24 Dose: 15 mg Documented by: Magnesium Hydroxide (Milk Of Magnesia) 30 ml PO .PRN X 1 PRN PRN Reason: Constipation Nutritional Formula (Lactose Free) (Glucerna Shake) 120 ml PO TIDCM [facility] Last Admin: 12/19/19 17:03 Dose: Not Given Documented by: Pravastatin Sodium (Pravachol) 20 mg PO QHS [facility] Sertraline HCl (Zoloft) 50 mg PO DAILY [facility] Last Admin: 12/19/19 10:17 Dose: 50 mg Documented by: Sodium Chloride () 10 - 40 ml IV UD PRN PRN Reason: SALINE FLUSH STROKE Vital Signs/Narrative: Vital Signs Temp Pulse Resp BP Pulse Ox 12/19/19 15:41 61 12/19/19 14:00 97.7 F L 62 14 96/52 L 94 Code Visit Addendum: Dr. Webb I personally examined the patient and reviewed the chart. I agree with the above. 69-year-old male who had a previous large stroke and that stroke caused him to develop a seizure disorder, presents with worsening left-sided weakness as well as facial droop and slurred speech. These were all the deficits he had with his initial stroke and they worsened over the last several days but had become significantly worse last night. MRI of his head was normal for no new stroke, his MRAs of his head and neck were also negative. There is a little bit of concern that he could be having seizure activity so an EEG was ordered to evaluate for that. Also he has a new more acute thrombocytopenia. He is usually between 100-50 however this morning he was 48. We will recheck in the morning and will likely have hematology see him. Of note both Keppra and Depakote can lead to thrombocytopenia so this may just be a medication reaction. Inpatient E&M: 20144 Subs Hosp L2
[2019-12-19 12:50] LABS: Bedside Glucose 114 mg/dL (70-110)
[2019-12-19 13:26] LABS: Pathologist Review Reviewed
--- NOTE | 2019-12-19 14:32 | CASEMGMT ---
SW did not complete a PHQ 9 with patient as he did not have a Stroke or TIA. Rosetta NAJERA MSW
--- NOTE | 2019-12-19 15:07 | CASEMGMT ---
PAULA spoke with patient's and let her know that therapy is recommending patient go somewhere for rehab. PAULA told her they felt he would be a good candidate to return to the Inpatient Rehab Unit at [facility]. Patient's appears to be open to patient returning to the Inpatient Rehab Unit. PAULA spoke with Tuyet in the rehab unit and she will check with physician tomorrow. Plan: Possibly [facility] Inpatient Rehab Unit Rosetta NAJERA MSW
[2019-12-19] MEDS: Acetaminophen 325 MG Tablet 650 MG PO (15:44)
[2019-12-19 17:10] LABS: Bedside Glucose 84 mg/dL (70-110)
[2019-12-19 21:40] LABS: Bedside Glucose 90 mg/dL (70-110)
[2019-12-20] VITALS (8 sets, daily range): BP systolic 92–113; BP diastolic 56–60; PULSE 54–63; RESP 14–16; TEMP 36.6–36.7; O2SAT 92–97; BMI 26.6
[2019-12-20 05:06] LABS: HEPATITIS B SURFACE AG Negative (Negative); Hepatitis A IgM Antibody Negative (Negative); Hepatitis B Core AB IgM Negative (Negative)
--- NOTE | 2019-12-20 05:07 | NURSING ---
LOW UO OVERNIGHT. PT BLADDER SCANNED FOR 251.
[2019-12-20 05:30] LABS: Absolute Lymphocyte Count 1.56 X10^3/uL (0.83-4.51); Absolute Neutrophil Count 1.6 X10^3/uL (2.0-7.7); Basophil# 0.02 X10^3/uL; Basophil% 0.5 % (0-1); Eosinophil# 0.06 X10^3/uL; Eosinophils% 1.5 % (0-5); Hematocrit 40.8 % (40-54); Hemoglobin 13.1 g/dL (13.0-16.5); Lymphocyte # 1.56 X10^3/ul (4.0); Lymphocyte % 39.4 % (19-41); Mean Corp Hgb Conc 32.1 g/dL (32-36); Mean Corpuscular Hgb 31.2 pg (27.0-32.0); Mean Corpuscular Volume 97.1 fL (80-94); Mean Platelet Vol. 11.1 fl (6.2-12.0); Monocyte% 17.7 % (0-10); NRBC Flagged by Analyzer 0 % (0-5); Neutrophil # 1.59 X10^3/uL (2.7-7.7); Neutrophil % 40.1 % (47-70); POSITIVE COUNT YES; RBC Distribution Width CV 14.7 % (11.6-14.6); RBC Distribution Width SD 52.6 fl (35.1-43.9)
[2019-12-20 05:32] LABS: Differential Indicated SCAN CRITERIA MET; Platelet Count 43 K/mm3 (150-450)
[2019-12-20 05:59] LABS: Platelet Estimate MKD DEC (ADEQ)
[2019-12-20 06:41] LABS: Bedside Glucose 70 mg/dL (70-110)
[2019-12-20] MEDS: Fenofibrate 145 MG Tablet PO (10:03)
[2019-12-20] MEDS: Aspirin 81 MG TAB.CHEW PO (10:03)
[2019-12-20] MEDS: levETIRAcetam 750 MG Tablet PO (10:03)
[2019-12-20] MEDS: Clopidogrel Bisulfate 75 MG Tablet PO (10:04)
[2019-12-20] MEDS: Sertraline 50 MG Tablet PO (10:04)
[2019-12-20] MEDS: Divalproex (ER) 250 MG Tablet 1000 MG PO (10:05)
[2019-12-20] MEDS: Lisinopril 5 MG Tablet 15 MG PO (10:06)
[2019-12-20 12:29] LABS: Hep C Antibodies <0.1 s/co ratio (0.0-0.9)
[2019-12-20 13:32] LABS: Pathologist Review Reviewed
--- NOTE | 2019-12-20 13:42 | CASEMGMT ---
PAULA spoke with Tuyet in the rehab unit and they can accept patient. SW notified patient's and she said they talked about it and they think that would be the best plan. Plan: [facility] 4th floor rehab unit Rosetta SINGH
--- NOTE | 2019-12-20 13:58 | PN_ITS ---
Reason for Visit: left sided weakness Subjective: ongoing weakness. pt able to sit on side of bed and take a few steps across the room. No new weakness, double vision, PACE, SOB, parasthesias, slurred speech. MRI and EEG neg. Pt and family agreeable to rehab. Vitals/I&O's: Vital Signs Temp Pulse Resp BP Pulse Ox 98.1 F 63 15 113/60 97 12/20/19 09:55 12/20/19 09:55 12/20/19 09:55 12/20/19 09:55 12/20/19 09:55 Oxygen Delivery Method Room Air Weight: 191 lb 2.252 oz Body Mass Index (BMI) 26.6 Finger Stick Blood Glucose 95 Intake and Output for Last 24 Hours 12/18/19 12/19/19 12/20/19 23:59 23:59 23:59 Intake Total 500 / 500 480 / 480 750 / 750 Output Total 450 / 450 400 / 400 Balance 500 / 500 30 / 30 350 / 350 General: Alert, Oriented x3, Cooperative, Lethargic HEENT: Atraumatic, PERRLA, EOMI, Normocephalic Neck: Supple, No JVD, Negative Carotid Bruits Lungs: Clear to auscultation, Normal air movement Cardiovascular: Regular rate, No murmurs Abdomen: Bowel Sounds Present, Soft, Non Tender Extremities: No edema, Capillary Refill Less than 3 Seconds Skin: No rashes, No breakdown Musculoskeletal: No Tenderness to Palpation of Joints or Extremities Neurological: Cranial nerves II-XII grossly intact Psych/Mental Status: Normal Affect, Appropriate, Alert and oriented to time, place, person, mood and affect Laboratory Results 12/19/19 07:02: Hepatitis A IgM Ab Negative, Hep Bs Antigen Negative, Hep B Core IgM Ab Negative, Hepatitis C Ab (EIA) <0.1 12/19/19 17:02: POC Glucose 84 12/19/19 21:34: POC Glucose 90 12/20/19 05:00: WBC 4.0 L, RBC 4.20 L, Hgb 13.1, Hct 40.8, MCV 97.1 H, MCH 31.2, MCHC 32.1, RDW Std Deviation 52.6 H, RDW Coeff of Jake 14.7 H, Plt Count 43 L*, MPV 11.1, Immature Gran % (Auto) 0.800, Neut % (Auto) 40.1 L, Lymph % (Auto) 39.4, [place] % (Auto) 17.7 H, Eos % (Auto) 1.5, Baso % (Auto) 0.5, Absolute Neuts (auto) 1.6 L, Absolute Lymphs (auto) 1.56, Nucleated RBC % 0, Diff Path Review Reviewed, Platelet Estimate MKD 12/20/19 06:14: POC Glucose 70 Current Medications Acetaminophen (Tylenol) 650 mg PO Q6H PRN PRN PRN Reason: Pain Score 1-10/Temp > 100.7 F Last Admin: 12/19/19 15:44 Dose: 650 mg Documented by: Bisacodyl (Dulcolax) 10 mg RECTAL .PRN X 1 PRN PRN Reason: Constipation Clopidogrel Bisulfate (Plavix) 75 mg PO DAILY [facility] Last Admin: 12/20/19 10:04 Dose: 75 mg Documented by: Divalproex Sodium (Depakote Er) 750 mg PO QHS [facility] Last Admin: 12/19/19 21:36 Dose: Not Given Documented by: Divalproex Sodium (Depakote Er) 1,000 mg PO QAM [facility] Last Admin: 12/20/19 10:05 Dose: 1,000 mg Documented by: [facility]) [facility] Last Admin: 12/20/19 10:03 Dose: 145 mg Documented by: Glucagon () 1 mg IM .X1 PRN PRN Reason: Hypoglycemia Sodium Chloride () 500 mls @ 999 mls/hr IV .Q31M ONE Last Infusion: 12/18/19 23:34 Dose: Infused Documented by: Dextrose (Dextrose 10%-Water) 250 mls @ 999 mls/hr IV .Q16M PRN; Protocol PRN Reason: HYPOGLYCEMIA Sodium Chloride () 250 mls @ 15 mls/hr IV .[id number] PRN PRN Reason: Saline Flush Sodium Chloride () 250 mls @ 15 mls/hr IV .[id number] PRN PRN Reason: Additional IVPB Infusion Levetiracetam (Keppra Tablet) 750 mg PO BID [facility] Last Admin: 12/20/19 10:03 Dose: 750 mg Documented by: Lisinopril (Zestril) 15 mg PO DAILY [facility] Last Admin: 12/20/19 10:06 Dose: 15 mg Documented by: Magnesium Hydroxide (Milk Of Magnesia) 30 ml PO .PRN X 1 PRN PRN Reason: Constipation Nutritional Formula (Lactose Free) (Glucerna Shake) 120 ml PO TIDCM [facility] Last Admin: 12/20/19 11:43 Dose: Not Given Documented by: Pravastatin Sodium (Pravachol) 20 mg PO QHS [facility] Last Admin: 12/19/19 21:36 Dose: Not Given Documented by: Sertraline HCl (Zoloft) 50 mg PO DAILY [facility] Last Admin: 12/20/19 10:04 Dose: 50 mg Documented by: Sodium Chloride () 10 - 40 ml IV UD PRN PRN Reason: SALINE FLUSH Medical Necessity - Tobacco Use Smoking Status: Never smoker Assessment/Plan All Active Problems Dysphagia (Acute) Adverse drug reaction (Acute) Macrocytic anemia (Acute) Leukopenia (Resolved) Waqas's paralysis (Resolved) 1. Worsening of chronic weakness - no acute CVA identified. MRI neg, MRA neg, CT neg, EEG neg, echo unchanged. Hold adding aspirin with worsening thrombocytopenia. hold remeron as slurred speech occurred after starting for the first time. 2. Thrombocytopenia - declining. Hematology consult. on multiple medications with possible thrombocytopenia including keppra, depakote, plavix, tricor, pravastatin. 3. Seizure disorder - Continue keppra, depakote. 4. Clavicular fracture - known, outpatient follow up with Dr. Epps. 5. HTN - stable 6. Prior CVA - continue prior meds. 7. HLD - statin, tricor 8. Depression - zoloft. hold remeron. DVT ppx: SCDs DC planning: PTOT. This patient was seen by Regis Willis PA-C under the supervision of Dr. Webb.
--- NOTE | 2019-12-20 16:44 | CON.PCM_ITS ---
Consult Referring Physician: Dr. Christian Webb. Consult Results: Thrombocytopenia-etiology may multifactorial mainly due to medication. 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 (Chronic) Seizure disorder (Chronic) DM2 (diabetes mellitus, type 2) (Chronic) diet controlled Dyslipidemia (Chronic) HTN (hypertension) (Chronic) CVA (cerebral vascular accident) (Chronic) remote 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 Past Medical/Surgical History: Past Medical History - Most Recent Inpatient Visit Past Medical History Start: 12/19/19 00:03 Text: Status: Complete Freq: ONCE Protocol: Document 12/19/19 00:17 HS (Rec: 12/19/19 00:18 HS [id number]) BMI Required to complete PMH What is Patient's BMI 26.7 Past Medical History Unable History Recalled Yes Query Text:Pt Unable/Family Not Present Neurologic Medical History Hx Stroke/TIA Yes: 11/02/16 Hx Dementia/Alzheimer's No Hx Parkinson's Disease No Hx Seizures Yes Hx Multiple Sclerosis No Hx Migraines Yes Cardiac Medical History VTE Present on Admission No Hx of Deep Vein Thrombosis/VTE/PE No Hx Hypertension Yes Hx Chest Pain/Angina No Hx Heart Attack No Hx Cardiac Surgery/Stents/Etc. No Hx Heart Failure No Hx Pacemaker/AICD No Hx Irregular Heartbeat and/or Afib No Hx Anticoagulant Therapy Yes: PLAVIX Query Text:(Coumadin, Aspirin, Plavix, Xarelto, etc.) Hx Pain in Legs when Walking/Leg Cramps No Respiratory Medical History Hx COPD No Hx Emphysema No Hx Smoking No Smoking Status Never smoker Hx Smoking Cessation Counseling No Hx Smoking Exposure No Hx Tobacco Use in last 12 months No Hx of Pipe Smoking No Hx Sleep Apnea Yes: C-PAP CPAP Yes BIPAP No STOP Results Positive GI Medical History Hx Ulcer No Hx Hepatitis No Hx Cirrhosis No Hx GI Bleed No Hx Unplanned Weight Loss Yes: 25 pounds over last few months Genitourinary Medical History Indwelling Catheter in Place on Arrival/ No Admission Hx Renal Disease No Hx Dialysis No Musculoskeletal History Hx Arthritis No Hx Rheumatoid Arthritis No Endocrine Medical History Hx Diabetes Yes Hx Thyroid Disease No Hematologic Medical History Hx of Blood Transfusion No Hx of Transfusion in last 3 Months No Ever experience any problems with No transfusion(s)? Hx of Preganancy in last 3 Months N/A Nurse Filling Out Transfusion & HSMUCKER Questions: Date: 12/19/19 Time: 00:17 Psycho/Social Medical History Hx Depression No Hx Anxiety No Hx Behavior Disorder No Hx Alcohol Use No Hx Substance Use No Other Medical History Hx Blood Disorders No Hx Anemia No Hx Cancer No Hx Drug Resistant Organism No Wound/Pressure Injury Present on Arrival No /Admission Query Text:If yes, chart assessment in Shift/Clinical Findings Central Line/PICC/VAD Present on Arrival No /Admission Antibiotics within last 7 days? No Risk for Readmission Number of Risk Factors 2 At Risk for Readmission Patient is At Risk For Readmission Patient is eligible for Call Back Y Maternal Family History: Cancer, Hypertension, - - ovarian cancer Paternal Family History: Heart Disease, Hypertension Sibling Family History: - - brother with abdominal aortic anuerysm - Social History Smoking Status: Never smoker Allergies/Adverse Reactions: Allergy/AdvReac Type Severity Reaction Status Date / Time primidone AdvReac Other Verified 12/18/19 21:37 Review of Systems Constitutional:: Reports: Weakness, Fatigue. Denies: Fever, Sweats Cardiovascular:: Denies: Chest pain, Palpitations, Dyspnea on exertion, Orthopnea, PND, Shortness of breath Respiratory: Denies: Cough, Hemoptysis, Shortness of Breath, Wheezing Gastrointestinal:: Denies: Abdominal pain, Nausea, Vomiting, Diarrhea, C onstipation, Hematochezia Genitourinary: Denies: Dysuria, Hematuria, 15, Flank pain Neurological:: Reports: Tremors, Memory loss, Muscle weakness - Left sided. Psychiatric: Denies: Anxiety, Depression, Homicidal Ideations, Suicidal Ideations Vital Signs Height 5 ft 11 in Weight: 86.7 kg Weight in Pounds 191.1 lbs Pulse Ox 92 Temperature 98.1 F Pulse Rate 60 Respiratory Rate 14 Blood Pressure 92/57 Blood Pressure Position Semi-Fowlers - Physical Exam General: Alert, No apparent distress HEENT: Atraumatic, PERRLA, EOMI, Normocephalic Oropharynx:: Dry mucosa Neck:: Supple, Trachea midline. Negative for: JVD, bilateral Cardiac:: Regular rate, Regular rhythm, Normal S1, Normal S2. Negative for: Murmur Lungs: Clear to auscultation, Excusion symmetrical. Negative for: Rhonchi, Wheezes Neurological: Cranial nerves II-XII grossly intact, Slurred Speech, - - L hemiparesis. Lymphatics:: Negative for: Cervical lymphadenopathy, Supraclavicular lymphadenopathy, Axillary lymphadenopathy Laboratory Data: Laboratory Tests 12/20/19 12/20/19 12/19/19 Range/Units 06:14 05:00 21:34 WBC 4.0 L (4.4-11.0) K/mm3 RBC 4.20 L (4.6-6.2) M/mm3 Hgb 13.1 (13.0-16.5) g/dL Hct 40.8 (40-54) % MCV 97.1 H (80-94) fL MCH 31.2 (27.0-32.0) pg MCHC 32.1 (32-36) g/dL RDW Std Deviation 52.6 H (35.1-43.9) fl RDW Coeff of Jake 14.7 H (11.6-14.6) % Plt Count 43 L* (150-450) K/mm3 MPV 11.1 (6.2-12.0) fl Immature Gran % (Auto) 0.800 (0.0-0.9) % Neut % (Auto) 40.1 L (47-70) % Lymph % (Auto) 39.4 (19-41) % [place] % (Auto) 17.7 H (0-10) % Eos % (Auto) 1.5 (0-5) % Baso % (Auto) 0.5 (0-1) % Absolute Neuts (auto) 1.6 L (2.0-7.7) X10^3/uL Absolute Lymphs (auto) 1.56 (0.83-4.51) X10^3/uL Nucleated RBC % 0 (0-5) % Diff Path Review Reviewed Platelet Estimate MKD DEC (ADEQ) Hepatitis A IgM Ab (Negative) Hep Bs Antigen (Negative) Hep B Core IgM Ab (Negative) Hepatitis C Ab (EIA) (0.0-0.9) s/co ratio POC Glucose 70 90 (70-110) mg/dL 12/19/19 12/19/19 Range/Units 17:02 07:02 WBC (4.4-11.0) K/mm3 RBC (4.6-6.2) M/mm3 Hgb (13.0-16.5) g/dL Hct (40-54) % MCV (80-94) fL MCH (27.0-32.0) pg MCHC (32-36) g/dL RDW Std Deviation (35.1-43.9) fl RDW Coeff of Jake (11.6-14.6) % Plt Count (150-450) K/mm3 MPV (6.2-12.0) fl Immature Gran % (Auto) (0.0-0.9) % Neut % (Auto) (47-70) % Lymph % (Auto) (19-41) % [place] % (Auto) (0-10) % Eos % (Auto) (0-5) % Baso % (Auto) (0-1) % Absolute Neuts (auto) (2.0-7.7) X10^3/uL Absolute Lymphs (auto) (0.83-4.51) X10^3/uL Nucleated RBC % (0-5) % Diff Path Review Platelet Estimate (ADEQ) Hepatitis A IgM Ab Negative (Negative) Hep Bs Antigen Negative (Negative) Hep B Core IgM Ab Negative (Negative) Hepatitis C Ab (EIA) <0.1 (0.0-0.9) s/co ratio POC Glucose 84 (70-110) mg/dL Diagnostic Data: Diagnostic Data Brain CT 12/18/19 21:45 IMPRESSION: No acute intracranial abnormality. 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 Chronic changes as above. ASPECT 10. Individualized dose optimization techniques were used for this CT. at 2209 Reported and signed by: Titus Sifuentes MD N.B. : The above information has been verbally conveyed by Titus Sifuentes MD to Dr. Ethan Taylor MD, on 12/18/2019 22:09:53 (ET). Electronically Signed: Titus Sifuentes MD at 22:08 EST Tel , Service support , ADDENDUM: 12/18/19 2217 IMPRESSION: No acute intracranial abnormality. 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 Chronic changes as above. ASPECT 10. Individualized dose optimization techniques were used for this CT. at 2209 Reported and signed by: Titus Sifuentes MD N.B. : The above information has been verbally conveyed by Titus Sifuentes MD to Dr. Ethan Taylor MD, on 12/18/2019 22:09:53 (ET). Electronically Signed: Titus Sifuentes MD at 22:08 EST Tel , Service support , Chest X-Ray 12/18/19 22:28 IMPRESSION: No acute cardiopulmonary disease. at 2249 Reported and signed by: Titus Sifuentes MD Electronically Signed: Titus Sifuentes MD at 22:47 EST Tel , Service support , Brain MRI 12/19/19 00:00 IMPRESSION: Involutional changes of the brain, as described above. Chronic right middle cerebral artery infarct. No acute infarct. Electronically Signed: Major Betancourt MD at 9:55 EST Tel , Service support , Head MRA 12/19/19 00:00 IMPRESSION: Normal MRA of the head Electronically Signed: Major Betancourt MD at 9:56 EST Tel , Service support , Assessment and Plan Chronic Thrombocytopenia, etiology may be multifactorial, medications especially Plavix. Platelet count is about 30K at the moment. Mild Macrocytosis R/O Vitamin B12 and Folate deficiency. If it drops below 30K, will try Steroids to see he has ITP. Suggestion is to observe for now. Check Vitamin B 12 and Folate levels, replace if needed. If he is discharged, he can follow at [facility] for further evaluation. Will not follow further on this admission. Thank you. Medications: Prescriptions This Visit Medication Instructions Recorded Divalproex (ER) [Depakote ER] 1,000 mg PO QAM 12/18/19 Divalproex (ER) [Depakote ER] 750 mg PO QHS 12/18/19 Primary Care Provider: Antonio Pearson MD Referring Provider: - Problem List (1) Thrombocytopenia Status: Chronic (2) CVA (cerebral vascular accident) Status: Chronic Comment: remote 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 (3) Macrocytosis without anemia Status: Chronic Code Visit Office Visits / Consults: [id number] IP Consult L5
--- NOTE | 2019-12-20 17:06 | DCINST_ITS ---
- Discharge Diagnoses Current Active Problems: Current Active and Chronic Problems Macrocytosis without anemia (Chronic) You will use the following diet at home:: Cardiac Your food should be the consistency of: Regular Your liquids should be the consistency of: Regular/Thin Discharge Activity: Return to Normal Activity Allergies/Adverse Reactions: Allergies primidone Adverse Reaction (Verified 12/18/19 21:37) Other Medications to take at Discharge Clopidogrel Bisulfate [Plavix] 75 mg PO DAILY 07/26/17 Pravastatin [Pravachol] 20 mg PO QHS 07/26/17 Fenofibrate Nanocrystallized [Fenofibrate] 145 mg PO DAILY 10/11/19 Lisinopril 15 mg PO DAILY 10/11/19 levETIRAcetam tablet [Keppra tablet] 750 mg PO BID 10/11/19 Sertraline HCl [Zoloft] 50 mg PO DAILY tab 10/29/19 Divalproex (ER) [Depakote ER] 1,000 mg PO QAM 12/18/19 Divalproex (ER) [Depakote ER] 750 mg PO QHS 12/18/19 Acetaminophen [Tylenol Tablet] 650 mg PO Q6H PRN PRN tablet 12/20/19 Glucerna Shake 120 ml PO TIDCM liquid 12/20/19 Primary Care Physician: Antonio Pearson MD [Primary Care Provider] - Please follow up with your Primary Care Physician in: 1-2 weeks Test Results: Test results from this visit will be discussed in further detail at your follow- up appointment, if applicable. Please Follow Up With: Chikis Billings DO When: 1 week Please Follow Up With: Hari Oconnell MD When: 1-2 weeks
--- NOTE | 2019-12-20 17:08 | PCM.DC.SUM ---
<Regis Willis - Last Filed: 12/20/19 17:08> Discharge Date and Diagnosis Date of Admission: 12/18/19 Date of Discharge: 12/20/19 - Primary Discharge Diagnosis Generalized weakness Acute CVA ruled out thrombocytopenia seizure disorder clavicular fracture HTN Hx CVA HLD Depression - Secondary Discharge Diagnosis Chronic Problems Physical debility (Chronic) secondary to severe adverse reaction to Primodone Thrombocytopenia (Chronic) Depression (Chronic) Closed left clavicular fracture (Chronic) Chronic renal failure, stage 3 (moderate) (Chronic) Vitamin D deficiency (Chronic) Macrocytosis without anemia (Chronic) Seizure disorder (Chronic) DM2 (diabetes mellitus, type 2) (Chronic) diet controlled Dyslipidemia (Chronic) HTN (hypertension) (Chronic) CVA (cerebral vascular accident) (Chronic) remote 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 Chronic changes as above. ASPECT 10. Individualized dose optimization techniques were used for this CT. RAD/Chest 1 View IMPRESSION: No acute cardiopulmonary disease. MRI/Brain without Contrast IMPRESSION: Involutional changes of the brain, as described above. Chronic right middle cerebral artery infarct. No acute infarct. MRI/MRA Head ONLY without Contrast IMPRESSION: Normal MRA of the head Echo: Interpretation Summary The estimated ejection fraction is 65 %. Stage 1 diastolic dysfunction. Moderately dilated right ventricle. Unable to estimate RV systolic pressure due to insufficient tricuspid regurgitant envelope. Compared to echo report dated 11/03/2016, no appreciable changes noted. The study was technically difficult. Contrast injection was performed. Consults: Prah - Hem/Onc Operations: None Procedures: 2-D Echocardiogram Summary of Care Provided: Hospital Course: The patient is a 69 year old M with pmhx of prior stroke with ongoing left sided weakness, seizure, recent clavular fracture, depression, DMt2, HLD, HTN who presented to the ER with c/o worsening of his chronic left sided weakness, slurred speech, and left facial droop. This began in the evening after the patient took the first dose of a new medication for him - remeron (started for appetite stimulation). He came to the ER and had concern for new CVA. He had a CT brain that was negative. Labs demonstrated thrombocytopenia worse than on previous labs, and elevated BUN/Cr. He was started on aspirin in addition to his plavix and statin, and was admitted for stroke work up. No events on tele. MRI brain and MRA head were negative. Echo showed no new changes. In the past he had worsening of his stroke symptoms after having a seizure, so we checked an EEG which demonstrated generalized slowing consistent with encephalopathy. His symptoms resolved by the following morning. Platelets were trending down to aspirin was taken away. Hematology was consulted. They recommended checking b12 and folate (pending), and trending the platelets, possibly trying steroids for ITP if they continued to decline. They recommended outpatient follow up. The patient is on multiple medications that may affect the platelets including plavix, pravastatin, tricor, keppra, and depakote. He may need to follow up with his neurologist if the seizure medications are to be adjusted. He remained significantly debilitated and his noted that his overall function at home had been progressively declining for several weeks. PTOT felt that he would benefit from further treatment at inpatient rehab. This was arranged for him. He was discharged to the rehab unit in stable condition. Also of note he has a known left clavicular fracture. He was supposed to see Dr. Billings for this as an outpatient, and a clavicular film was ordered, which is also pending at this time. He will need follow up with his PCP in 1-2 weeks and Hem/Onc in 1-2 weeks. He will need a CBC in tomorrow and with close frequency depending on the platelet trend. This patient was seen by Regis Willis PA-C under the supervision of Dr. Webb. [] - Physical Exam Vitals/I&O's: Vital Signs Temp Pulse Resp BP Pulse Ox 98.1 F 60 14 92/57 L 92 12/20/19 15:39 12/20/19 15:39 12/20/19 15:39 12/20/19 15:39 12/20/19 15:39 Oxygen Delivery Method Room Air Weight: 191 lb 2.252 oz Body Mass Index (BMI) 26.6 Finger Stick Blood Glucose 95 Intake and Output for Last 24 Hours 12/18/19 12/19/19 12/20/19 23:59 23:59 23:59 Intake Total 500 / 500 480 / 480 750 / 750 Output Total 450 / 450 400 / 400 Balance 500 / 500 30 / 30 350 / 350 General: Alert, Oriented x3, Cooperative HEENT: Atraumatic, PERRLA, EOMI, Normocephalic Neck: Supple, No JVD, Negative Carotid Bruits Lungs: Clear to auscultation, Normal air movement Cardiovascular: Regular rate, No murmurs Abdomen: Bowel Sounds Present, Soft, Non Tender Extremities: No edema, Capillary Refill Less than 3 Seconds Skin: No rashes, No breakdown Musculoskeletal: No Tenderness to Palpation of Joints or Extremities Neurological: - - mild left facial droop. left arm and leg weakness vs right (BL weakness L>R), decreased check viewer strength, neg. pronator drift. Psych/Mental Status: Normal Affect, Appropriate, Alert and oriented to time, place, person, mood and affect Laboratory Results 12/19/19 07:02: Hepatitis A IgM Ab Negative, Hep Bs Antigen Negative, Hep B Core IgM Ab Negative, Hepatitis C Ab (EIA) <0.1 12/19/19 17:02: POC Glucose 84 12/19/19 21:34: POC Glucose 90 12/20/19 05:00: WBC 4.0 L, RBC 4.20 L, Hgb 13.1, Hct 40.8, MCV 97.1 H, MCH 31.2, MCHC 32.1, RDW Std Deviation 52.6 H, RDW Coeff of Jake 14.7 H, Plt Count 43 L*, MPV 11.1, Immature Gran % (Auto) 0.800, Neut % (Auto) 40.1 L, Lymph % (Auto) 39.4, [place] % (Auto) 17.7 H, Eos % (Auto) 1.5, Baso % (Auto) 0.5, Absolute Neuts (auto) 1.6 L, Absolute Lymphs (auto) 1.56, Nucleated RBC % 0, Diff Path Review Reviewed, Platelet Estimate MKD 12/20/19 06:14: POC Glucose 70 Current Medications Acetaminophen (Tylenol) 650 mg PO Q6H PRN PRN PRN Reason: Pain Score 1-10/Temp > 100.7 F Last Admin: 12/19/19 15:44 Dose: 650 mg Documented by: Bisacodyl (Dulcolax) 10 mg RECTAL .PRN X 1 PRN PRN Reason: Constipation Clopidogrel Bisulfate (Plavix) 75 mg PO DAILY [facility] Last Admin: 12/20/19 10:04 Dose: 75 mg Documented by: Divalproex Sodium (Depakote Er) 750 mg PO QHS [facility] Last Admin: 12/19/19 21:36 Dose: Not Given Documented by: Divalproex Sodium (Depakote Er) 1,000 mg PO QAM [facility] Last Admin: 12/20/19 10:05 Dose: 1,000 mg Documented by: Fenofibrate (Tricor) 145 mg PO DAILYCM [facility] Last Admin: 12/20/19 10:03 Dose: 145 mg Documented by: Glucagon () 1 mg IM .X1 PRN PRN Reason: Hypoglycemia Sodium Chloride () 500 mls @ 999 mls/hr IV .Q31M ONE Last Infusion: 12/18/19 23:34 Dose: Infused Documented by: Dextrose (Dextrose 10%-Water) 250 mls @ 999 mls/hr IV .Q16M PRN; Protocol PRN Reason: HYPOGLYCEMIA Sodium Chloride () 250 mls @ 15 mls/hr IV .[id number] PRN PRN Reason: Saline Flush Sodium Chloride () 250 mls @ 15 mls/hr IV .[id number] PRN PRN Reason: Additional IVPB Infusion Levetiracetam (Keppra Tablet) 750 mg PO BID [facility] Last Admin: 12/20/19 10:03 Dose: 750 mg Documented by: Lisinopril (Zestril) 15 mg PO DAILY [facility] Last Admin: 12/20/19 10:06 Dose: 15 mg Documented by: Magnesium Hydroxide (Milk Of Magnesia) 30 ml PO .PRN X 1 PRN PRN Reason: Constipation Nutritional Formula (Lactose Free) (Glucerna Shake) 120 ml PO TIDCM [facility] Last Admin: 12/20/19 15:53 Dose: Not Given Documented by: Pravastatin Sodium (Pravachol) 20 mg PO QHS [facility] Last Admin: 12/19/19 21:36 Dose: Not Given Documented by: Sertraline HCl (Zoloft) 50 mg PO DAILY [facility] Last Admin: 12/20/19 10:04 Dose: 50 mg Documented by: Sodium Chloride () 10 - 40 ml IV UD PRN PRN Reason: SALINE FLUSH Discharge Diet: Low fat/ Low Cholesterol, 2000 mg Sodium Diet Discharge Activity: Return to Normal Activity Home Medications: Medications to take at Discharge Clopidogrel Bisulfate [Plavix] 75 mg PO DAILY 07/26/17 Pravastatin [Pravachol] 20 mg PO QHS 07/26/17 Fenofibrate Nanocrystallized [Fenofibrate] 145 mg PO DAILY 10/11/19 Lisinopril 15 mg PO DAILY 10/11/19 levETIRAcetam tablet [Keppra tablet] 750 mg PO BID 10/11/19 Divalproex (ER) [Depakote ER] 1,000 mg PO QAM 12/18/19 Divalproex (ER) [Depakote ER] 750 mg PO QHS 12/18/19 Acetaminophen [Tylenol Tablet] 650 mg PO Q6H PRN PRN tab 12/20/19 Glucerna Shake 120 ml PO TIDCM 12/20/19 Sennosides/Docusate Sodium [Senna-S Tablet] 2 tab PO BID PRN 12/20/19 Sertraline HCl [Zoloft] 50 mg PO DAILY 12/20/19 Primary Care Physician: Antonio Pearson MD [Primary Care Provider] - Please follow up with your Primary Care Physician in: 1-2 weeks Please Follow Up With: Chikis Billings DO When: 1 week Please Follow Up With: Hari Oconnell MD When: 1-2 weeks Disposition: Inpt Rehab Unit/Facility Minutes spent on discharge:: 45 Patient Condition:: Stable Medical Necessity - Tobacco Use Smoking Status: Never smoker Meaningful Use Info Meaningful Use Diagnoses (Choose all that apply): None applicable <Nikolas Webb - Last Filed: 12/21/19 10:46> Discharge Date and Diagnosis - Secondary Discharge Diagnosis Chronic Problems Physical debility (Chronic) secondary to severe adverse reaction to Primodone Thrombocytopenia (Chronic) Depression (Chronic) Closed left clavicular fracture (Chronic) Chronic renal failure, stage 3 (moderate) (Chronic) Vitamin D deficiency (Chronic) Macrocytosis without anemia (Chronic) Seizure disorder (Chronic) DM2 (diabetes mellitus, type 2) (Chronic) diet controlled Dyslipidemia (Chronic) HTN (hypertension) (Chronic) CVA (cerebral vascular accident) (Chronic) remote 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 Hospital Course and Treatment Summary of Care Provided: The patient is a 69 year old M [] - Physical Exam Vitals/I&O's: Vital Signs Temp Pulse Resp BP Pulse Ox 98.1 F 60 14 92/57 L 92 12/20/19 15:39 12/20/19 15:39 12/20/19 15:39 12/20/19 15:39 12/20/19 15:39 Oxygen Delivery Method Room Air Weight: 191 lb 2.252 oz Body Mass Index (BMI) 26.6 Finger Stick Blood Glucose 95 Intake and Output for Last 24 Hours 12/19/19 12/20/19 12/21/19 23:59 23:59 23:59 Intake Total 480 / 480 750 / 750 Output Total 450 / 450 400 / 400 Balance 30 / 30 350 / 350 Laboratory Results 12/19/19 07:02: Hepatitis A IgM Ab Negative, Hep Bs Antigen Negative, Hep B Core IgM Ab Negative, Hepatitis C Ab (EIA) <0.1 12/20/19 05:00: Diff Path Review Reviewed 12/20/19 05:00: Vitamin B12 1281 H 12/20/19 05:00: Folate 6.70 12/20/19 16:48: POC Glucose 88 Code Visit Addendum: Dr. Webb I personally examined the patient and reviewed the chart. I agree with the above. 69-year-old male with a history of a stroke which led to seizure activity presents with what was felt to be initially by his of stroke. He does had worsening of his chronic left-sided deficits. MRI was negative for stroke. However he is found to have thrombocytopenia. He is on multiple medication that can cause this however he did have a sudden acute drop to 48,000 yesterday and then 43,000 platelets today. We did consult hematology whose recommendations are to check folic acid as well as vitamin B12 and may potentially need to start steroids if his platelet count drops below 30. Plan is to be discharged to rehab. Inpatient E&M: [id number] Disch Hosp
[2019-12-20 17:21] LABS: Bedside Glucose 88 mg/dL (70-110)
--- NOTE | 2019-12-20 17:38 | RAD_ITS ---
STUDY: X-RAY - LEFT CLAVICLE REASON FOR EXAM: Male, 69 years old. Increased clavicular pain TECHNIQUE: 2 view(s) of the clavicle. COMPARISON: None. FINDINGS: Normal clavicle. Mild degenerative hypertrophy at the acromioclavicular articulation. Normal visualized sternoclavicular articulation. Soft tissue calcification noted adjacent to the clavicle possibly related to myositis ossificans. Normal visualized pulmonary apex. RAD/Clavicle IMPRESSION: Mild degenerative changes of the clavicle. 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 Electronically Signed: Wesley Boyer DO at 20:55 EST Tel [phone], Service support ,
[2019-12-20 17:50] LABS: Vitamin B12 1281 pg/mL (211-911)
== END 2019-12-20 18:01 | DRG 57 ==
LOC: ED 21:53 → PCU 23:48
PROVIDERS: Physician Assistant; Admitting Provider Family Medicine; Emergency Provider Emergency Medicine; PCP Family Medicine; Visit Provider Family Medicine
DX: I69.354 Hemiplegia and hemiparesis following cerebral infarction affecting left non-dominant side (principal); R53.1 Weakness; I69.328 Other speech and language deficits following cerebral infarction; I69.392 Facial weakness following cerebral infarction; I12.9 Hypertensive chronic kidney disease with stage 1 through stage 4 chronic kidney disease, or unspecified chronic kidney disease; E11.22 Type 2 diabetes mellitus with diabetic chronic kidney disease; N18.3 Chronic kidney disease, stage 3 (moderate); D69.6 Thrombocytopenia, unspecified; G40.909 Epilepsy, unspecified, not intractable, without status epilepticus; E78.5 Hyperlipidemia, unspecified; F32.9 Major depressive disorder, single episode, unspecified; E55.9 Vitamin D deficiency, unspecified; D75.89 Other specified diseases of blood and blood-forming organs; S42.002A Fracture of unspecified part of left clavicle, initial encounter for closed fracture; T42.6X5A Adverse effect of other antiepileptic and sedative-hypnotic drugs, initial encounter; R53.81 Other malaise; Z79.02 Long term (current) use of antithrombotics/antiplatelets; Z79.82 Long term (current) use of aspirin
CPT/HCPCS: 36415; 70450; 70544; 70551; 71045; 73000; 80048; 80074; 80076; 81001; 82607; 82746; 82962; 84484; 85025; 85610; 85730; 86703; 93005; 93306; 95819; 97116; 97163; 97166; 97530; 97535; 97802; 99285; J7030; Q9957; A4216; C8929

== ENCOUNTER 2019-12-20 18:05 | Inpatient (IN) | payer MEDICARE, OTHER, SELFPAY ==
[2019-12-20 09:48] VITALS: BMI 26.6
[2019-12-20 18:23] VITALS: BP 116/63; PULSE 75; RESP 16; TEMP 36.8; O2SAT 94; BMI 27.3
--- NOTE | 2019-12-20 19:46 | NURSING ---
PT'S HAS BEEN MADE AWARE OF PT'S DNR CCA STATUS AND ORDER THAT HAS BEEN SIGNED BY PT AND DR JOHNSON.
[2019-12-20 21:14] VITALS: BP 98/61; PULSE 56; RESP 16; TEMP 36.5; O2SAT 94
[2019-12-20] MEDS: Divalproex (ER) 250 MG Tablet 750 MG PO (21:56)
[2019-12-20] MEDS: Pravastatin 20 MG Tablet PO (21:56)
[2019-12-20] MEDS: levETIRAcetam 750 MG Tablet PO (21:56)
[2019-12-21 06:34] VITALS: O2SAT 96
[2019-12-21] MEDS: Sertraline 50 MG Tablet PO (07:54)
[2019-12-21] MEDS: Fenofibrate 145 MG Tablet PO (07:54)
[2019-12-21] MEDS: Lisinopril 5 MG Tablet 15 MG PO (07:55)
[2019-12-21] MEDS: Clopidogrel Bisulfate 75 MG Tablet PO (07:56)
[2019-12-21] MEDS: Divalproex (ER) 250 MG Tablet 1000 MG PO (07:57)
[2019-12-21 08:13] VITALS: BP 115/63; PULSE 56; RESP 16; TEMP 36.8; O2SAT 94
[2019-12-21] MEDS: Acetaminophen 325 MG Tablet 650 MG PO ×2 (10:11→21:13)
[2019-12-21] MEDS: levETIRAcetam 750 MG Tablet PO ×2 (10:11→21:14)
--- NOTE | 2019-12-21 12:03 | RAD_ITS ---
STUDY: X-RAY - LEFT SHOULDER REASON FOR EXAM: Clavicle fracture. TECHNIQUE: 3 view(s) of the shoulder. COMPARISON: Radiographs 12/20/2019, 11/09/2019 and 10/11/2019. FINDINGS: Normal glenohumeral articulation. There is mild superior migration of the distal clavicle at the acromioclavicular joint. There is a healing fracture of the distal clavicle and increasing ossification in the region of the coracoclavicular ligaments. Normal acromion. Normal humeral head and visualized proximal humerus. Normal visualized pulmonary apex. RAD/Shoulder min 2 Views IMPRESSION: Healing fracture of the distal clavicle with mild superior migration of the distal clavicle at the acromioclavicular joint and increasing ossification in the region of the coracoclavicular ligaments. Electronically Signed: Mukund Arango MD at 14:32 EST Tel , Service support ,
--- NOTE | 2019-12-21 12:25 | PCM.HP.STD ---
Problem List (1) Sequela, post-stroke Status: Acute Comment: increasing weakness on the left side, confusion, weak voice (2) Adverse drug reaction Status: Resolved Comment: weakness, dysphagia, decreased appetite, depression, blood cell dyscrasias secondary to Primidone. Primidone was discontinued (3) Dysphagia Status: Chronic (4) Macrocytic anemia Status: Acute (5) CVA (cerebral vascular accident) Status: Chronic Qualifiers: Laterality of affected vessel: right Comment: remote 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 (6) Chronic renal failure, stage 3 (moderate) Status: Chronic (7) Closed left clavicular fracture Status: Chronic Qualifiers: Encounter type: subsequent encounter Clavicle location: lateral end Comment: Left clavicle (8) DM2 (diabetes mellitus, type 2) Status: Chronic Qualifiers: Chronic kidney disease stage: stage 3 (moderate) Comment: diet controlled (9) Depression Status: Chronic Qualifiers: Active/Remission status: currently active (10) Dyslipidemia Status: Chronic (11) HTN (hypertension) Status: Chronic Qualifiers: (12) Macrocytosis without anemia Status: Chronic Comment: suspect due to steatohepatosis (13) Physical debility Status: Resolved Comment: secondary to severe adverse reaction to Primodone (14) Seizure disorder Status: Chronic (15) Thrombocytopenia Status: Chronic Comment: acute on chronic thrombocytopenia....has been thrombocytopenic since at least 2014 (16) Vitamin D deficiency Status: Chronic (17) Leukopenia Status: Resolved History of Present Illness Date of Admission: 12/20/19 Chief Complaint: Physical debility secondary to prior CVA with recent fall causing a clavicle fracture The patient is a 69 year old M with a PMH of DM II, HTN, HLD, 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 Noncontrasted CT brain in the emergency department did not show any acute findings. The [facility] tele-stroke neurologist felt he should be admitted overnight for observation and that an MRI and MRA should be done in the morning. The brain MRI showed involutional changes of the brain with chronic right middle cerebral artery infarct. There were no acute changes. MRA of the head was normal. Echocardiogram showed a 65% ejection fraction with stage I diastolic dysfunction and a moderately dilated right ventricle. Patient has known obstructive sleep apnea. A right ventricular pressure could not be NSTEMI did due to insufficient tricuspid regurgitant envelope. EEG suggested mild diffuse encephalopathy based on intermittent slow generalized waveforms and mild posterior background slowing. There were no epileptiform discharges or lateralizing signs. He was seen by PT/OT/ST in the hospital and the recommendation was for inpt rehab at [facility]. He was admitted to the [facility] on 12/20/2019 for greater than or equal to 3 hours of therapy daily to restore him to at or near his prior level of function/independence prior to admission. I spoke with his . He has been mostly sitting for the past few weeks and not very active. He has gotten progressively weaker and he has also not been eating and has lost 22 lbs since he left rehab in October of 2019. Has not been doing any OP PT. Past Medical History Past Medical History (Chronic Problems): Chronic Problems Dysphagia (Chronic) Thrombocytopenia (Chronic) acute on chronic thrombocytopenia....has been thrombocytopenic since at least 2014 Depression (Chronic) Closed left clavicular fracture (Chronic) Left clavicle Chronic renal failure, stage 3 (moderate) (Chronic) Vitamin D deficiency (Chronic) Macrocytosis without anemia (Chronic) suspect due to steatohepatosis Seizure disorder (Chronic) DM2 (diabetes mellitus, type 2) (Chronic) diet controlled Dyslipidemia (Chronic) HTN (hypertension) (Chronic) CVA (cerebral vascular accident) (Chronic) remote 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 Allergies primidone Adverse Reaction (Verified 12/18/19 21:37) Other Home Medications: Ambulatory Orders Medication Instructions Recorded Clopidogrel Bisulfate [Plavix] 75 mg PO DAILY 07/26/17 Pravastatin [Pravachol] 20 mg PO QHS 07/26/17 Fenofibrate Nanocrystallized 145 mg PO DAILY 10/11/19 [Fenofibrate] Lisinopril 15 mg PO DAILY 10/11/19 levETIRAcetam tablet [Keppra 750 mg PO BID 10/11/19 tablet] Divalproex (ER) [Depakote ER] 1,000 mg PO QAM 12/18/19 Divalproex (ER) [Depakote ER] 750 mg PO QHS 12/18/19 Acetaminophen [Tylenol Tablet] 650 mg PO Q6H PRN PRN tab 12/20/19 Glucerna Shake 120 ml PO TIDCM 12/20/19 Sennosides/Docusate Sodium 2 tab PO BID PRN 12/20/19 [Senna-S Tablet] Sertraline HCl [Zoloft] 50 mg PO DAILY 12/20/19 Surgical History: cholecystectomy, herniorrhaphy Psychiatric History: Depression Lives: Spouse/ Significant Other Smoking Status: Never smoker Tobacco Use: Non-smoker Alcohol: None Drugs: None - *Family History Maternal History Items: Cancer, Hypertension, - - ovarian cancer Paternal History Items: Heart Disease, Hypertension Sibling History Items: - - brother with abdominal aortic anuerysm Review of Systems Constitutional: Reports: Anorexia, Weakness - genrealized but worse on the left side due to the prior R MCA infarct. Denies: Chills, Fever, Weight Change Eyes: Reports: - - no recent change in vision HEENT: Reports: Difficulty Hearing - he has hearing aids. Denies: Head Aches, Sinus Congestion, Sinus Drainage Cardiovascular: Denies: Chest Pain, Claudication, Chest Tightness, Edema, Palpitations, Paroxysmal Noc. Dyspnea, Syncope Respiratory: Denies: Cough, Shortness of breath at rest, Sputum production, Wheezing Gastrointestinal: Denies: Abdominal Pain, Diarrhea, Nausea, Vomiting Genitourinary: Reports: Incontinence - occasional. Denies: Dysuria Musculoskeletal: Reports: Shoulder Pain - left - recent closed fracture of the distal clavicle. Denies: Joint Pain, Joint Tenderness Skin: Reports: - - no large bruises. Denies: Jaundice, Lesions, Rash, Wounds Neurological: Reports: Balance problems, Slurred speech, Confusion - at times, Tremor - he has benign essential tremor. Denies: Focal weakness, Numbness, Tingling Psychiatric: Denies: Anxiety, Depression, Homicidal Ideations, Suicidal Ideations Hematologic/ Lymphatic: Denies: Easy Bruising, Easy Bleeding, Purpura, Hx of blood clot VTE Information - Inpt Only VTE Present on Admission: No VTE Mechan Device Prophylaxis: SCD's, Knee High KIRBY Hose VTE Pharm Prophylaxis ordered?: No Reason prophylaxis not ordered:: Treatment Not Indicated - he has thrombocytopenia Patient Problems: Active and Suspected Problems Sequela, post-stroke (Acute) increasing weakness on the left side, confusion, weak voice - Physical Exam Vitals/I&O's: Vital Signs Temp Pulse Resp BP Pulse Ox 98.2 F 56 L 16 115/63 94 12/21/19 08:13 12/21/19 08:13 12/21/19 08:13 12/21/19 08:13 12/21/19 08:13 Oxygen Delivery Method Room Air Weight: 195 lb 12.328 oz Body Mass Index (BMI) 27.3 Finger Stick Blood Glucose 95 Intake and Output for Last 24 Hours 12/19/19 12/20/19 12/21/19 23:59 23:59 23:59 Intake Total 200 / 200 600 / 600 Output Total 300 / 300 300 / 300 Balance -100 / -100 300 / 300 General: Cooperative, Well developed, Confused, Disoriented - he is oriented to person only today, Lethargic, - HEENT: Atraumatic, PERRLA, EOMI, Normocephalic, - - hearing aids are in place Oral: No Gingival or Mucosal Lesions/ Ulcerations, Dry Mucosa Neck: Supple, No JVD, Negative Carotid Bruits, - - neck muscles are weak and he is not able to hold his head up ....chin is flexed on the chest Lungs: Clear to auscultation, Diminished - in the bases- due to poor inspiratory effort, - - Not tachypneic, no conversational dyspnea. There is symmetric chest expansion Cardiovascular: Regular rate, Normal S1, Normal S2, No murmurs, No Ectopic Activity, No rub noted, No Gallop Abdomen: Bowel Sounds Present, Soft, Non Tender, - - has obviously lost a significant amount of weight since DC from rehab in October Extremities: No clubbing, No cyanosis, No edema, Capillary Refill Less than 3 Seconds, No Calf Tenderness, Peripheral Pulses Normal Skin: No rashes, No breakdown Musculoskeletal: Tenderness - Left shoulder Neurological: Cranial nerves II-XII grossly intact - except the tongue deviates to the left, - - he has tremor, R > L hand, He has 2-3/5 weakness on the LUE and the LLE, he is 4/5 in the R UE and the RLE. He has difficulty holding his head up and it is mostly flexed on his chest today Psych/Mental Status: Flat Affect, Depressed Current Medications Acetaminophen (Tylenol) 650 mg PO Q6H PRN PRN PRN Reason: Pain Score 1-10/Temp > 100.7 F Last Admin: 12/21/19 10:11 Dose: 650 mg Documented by: Bisacodyl (Dulcolax) 10 mg RECTAL .PRN X 1 PRN PRN Reason: Constipation Clopidogrel Bisulfate (Plavix) 75 mg PO DAILY [facility] Last Admin: 12/21/19 07:56 Dose: 75 mg Documented by: Divalproex Sodium (Depakote Er) 750 mg PO QHS [facility] Last Admin: 12/20/19 21:56 Dose: 750 mg Documented by: Divalproex Sodium (Depakote Er) 1,000 mg PO QAM [facility] Last Admin: 12/21/19 07:57 Dose: 1,000 mg Documented by: Fenofibrate (Tricor) 145 mg PO DAILYCM [facility] Last Admin: 12/21/19 07:54 Dose: 145 mg Documented by: Levetiracetam (Keppra Tablet) 750 mg PO BID [facility] Last Admin: 12/21/19 10:11 Dose: 750 mg Documented by: Lisinopril (Zestril) 15 mg PO DAILY [facility] Last Admin: 12/21/19 07:55 Dose: 15 mg Documented by: Magnesium Hydroxide (Milk Of Magnesia) 30 ml PO .PRN X 1 PRN PRN Reason: Constipation Nutritional Formula (Lactose Free) (Glucerna Shake) 120 ml PO TIDCM [facility] Last Admin: 12/21/19 11:27 Dose: Not Given Documented by: Pravastatin Sodium (Pravachol) 20 mg PO QHS [facility] Last Admin: 12/20/19 21:56 Dose: 20 mg Documented by: Senna/Docusate Sodium (Senokot-S, [place]-Colace) 2 tablet PO BID PRN PRN PRN Reason: stool softener Sertraline HCl (Zoloft) 50 mg PO DAILY [facility] Last Admin: 12/21/19 07:54 Dose: 50 mg Documented by: Assessment/Plan All Active Problems Macrocytic anemia (Acute) Leukopenia (Resolved) Sequela, post-stroke (Acute) Adverse drug reaction (Resolved) Physical debility (Resolved) Waqas's paralysis (Resolved) Impressions 1. Hx of large R MCA CVA with recent debility/decline in function 2. acute thrombocytopenia on Chronic thrombocytopenia 3. pain in the left shoulder due to Left distal clavicle fx from a fall in October 2019 4. Depression - undertreated 5. chronic medical conditions: Chronic renal failure stage III/diet-controlled diabetes mellitus type 2/dyslipidemia/hypertension/macrocytic anemia/seizure disorder/vitamin D deficiency/dysphagia-complicate care, management and treatment. Continue the home medications PLAN PT for gait stability OT for ADL's ST for evaluation Analgesics as needed Bowel protocol Fall precautions Assess for Anxiety/Depression - will increase the Sertraline to 100 mg daily. GI prophylaxis not needed DVT prophylaxis with SCDs and KIRBY hose - Pharmacologic prophylaxis is contraindicated due to the acute on chronic thrombocytopenia Follow up with Dr. Pearson, neurology, Dr. Billings following [facility] from [facility]. I also suggested to the pt and the family that he may benefit from psychotherapy in addition to an antidepressant to tx his depression. One of the challenges we are going to have in rehab is to try and find things he likes to do and get him involved with these activities and also to promote socialization. I believe the reason he declines at home is he is sitting in a chair, not active and not engaged in any hobbies. He is not getting out and not socializing. I encouraged the family to get a WC so that they can take him to things like ball games and concerts.....where there would be a long distance for him to walk. Think of joining the gym at [facility] after therapy has released him to keep his muscle tone and strength rather than just going home and sitting. Code Visit Inpatient E&M: 36476 Init Hosp L2
--- NOTE | 2019-12-21 12:31 | REHABEVAL_ITS ---
Admission Information Primary Diagnosis:: Debility secondary to prior CVA Status Changes from Prescreening?: No changes Identified Actual Problem List:: Falls, Skin Intergrity, Depression, Mobility Impaired, Self Care Deficit, Alteration-Leisure Activ. Potential Problem List:: DVT, Bleeding, Infection, UTI, Aspiration, Falls, Skin Integrity, Depression Risk of Complications DVT: KIRBY Hose, Sequential Compression Device Bleeding: Monitor Lab Values, Nursing to Teach Precautions for anti-coagulation therapy., Wound, if applicable, to be assessed every shift., Stroke patients assessed for lethargy or change in status. Infection: Clinical Staff to Monitor for S/S of infection:, S/S of infection include fever, redness, warmth, etc. Urinary Tract Infection: Monitor for frequency, burning, discomfort, or incontinence., Nursing will obtain urine sample for urinalysis and C&S when ordered. Aspiration: Clinical staff will monitor for coughing, drooling, congestion., Speech will evaluate swallowing and dsyphasia., Nursing will monitor patient swallowing during meals. Falls: Patient will be evaluated for Fall Precautions, Patient will be placed on Fall Precautions as indicated per protocol. Skin Breakdown: Nursing will assess skin daily using assessment tool., Nursing will place on Skin Breakdown Precautions as indicated. Pain: Clinical staff will assess patient's pain level per protocol., Medications will be given, if needed, and the pain level reassessed., Other methods: Massage, distraction, decrease stimulus, etc. used PRN. Plan of Care Patient requires physician specializing in physical medicine and rehab oversight to provide close medical supervision of rehab issues including: Pain Management, Sleep Problems, Bowel and Bladder, Medical and co-morbidity Management, DVT prophylaxis, Rehabilitation Leadership, Coordination of treatment team Patient needs Physical Therapy: For a minimum of 1 hour, At least 5 out of 7 days Patient needs Physical Therapy to improve:: Mobility, Mobility, Mobility, Strengthening, Transfers, Stretching, ROM, Endurance, Stairs, Gait, Balance Patient needs Occupational Therapy: For a minimum of 1 hour, At least 5 out of 7 days Patient needs Occupational Therapy to improve ADL's incl.: Eating, Grooming, Bathing, Dressing, Toileting, Toilet transfers, Community Reintegration, Higher functioning activities, Household tasks, Adaptive Equipment, Splinting, Other activities as determined Patient requires speech therapy: For a minimum of 1 hour, At least 5 out of 7 days Patient requires speech therapy for: Swallowing, Cognition, Language Skills, Compensatory Strategies Patient requires 24/ Rehabilitation Nursing for: Pain Issues, Identifying and preventing risk factors, Monitoring and reporting current medical conditions, Assisting with ambulation, transfer, and all ADL's, Teaching patients about disease process and medications, Family teaching, Providing safe environment, Bowel and Bladder Issues, Skin integrity, Medication Management Patient needs Sales Development Executive/ Case Management for: Discharge Planning, Arranging Home Equipment or Services, Family Interventions Patient needs Dietary and Nutrition Services for: Adequate Nutrition, Nutritional Supplements, Nutritional Education Goals Patient will remain: free from falls, or injury at time of discharge. Patient will perform bed mobility at: MOD I level of assist. Patient will complete transfers from bed to chair at: MOD I level of assist. Patient will ambulate: 100 feet, with MOD I assist, with LRD Patient will complete upper body dressing at: MOD I level of assist. Patient will complete lower body dressing at: MOD I level of assist. Patient will complete toileting at: MOD I level of assist. Patient will perform bathing at: MOD I level of assist. Patient will complete grooming at: MOD I level of assist. Patient will complete home management skills at: MOD I level of assist. Patient will achieve: 12 stairs, at MOD I assist Patient will have pain level of: of 3 or less Patient's skin will: remain intact, free from infection. Patient will receive: adequate nutrition. Discharge Planning Pt Prognosis for Sig. Practical Improv. w/in Reasonable Time: Good Estimated Length of stay (days): 14 Anticipated D/C Destination: Home Was Preadmission Assessment Accurate?: Yes
--- NOTE | 2019-12-21 16:31 | CASEMGMT ---
Social Work Reviewed and agreed with social work project intern documentation on this date. Tracey Montoya, CENTRIFUGAL SUPERVISOR MORTICIAN INVESTIGATOR
[2019-12-21 20:22] VITALS: BP 110/58; PULSE 62; RESP 16; TEMP 36.8; O2SAT 93
[2019-12-21] MEDS: Pravastatin 20 MG Tablet PO (21:14)
[2019-12-21] MEDS: Divalproex (ER) 250 MG Tablet 750 MG PO (21:14)
[2019-12-22] MEDS: Acetaminophen 325 MG Tablet 650 MG PO (06:25)
[2019-12-22] MEDS: Lisinopril 5 MG Tablet 15 MG PO (07:44)
[2019-12-22] MEDS: levETIRAcetam 750 MG Tablet PO ×2 (07:45→21:50)
[2019-12-22] MEDS: Clopidogrel Bisulfate 75 MG Tablet PO (07:45)
[2019-12-22] MEDS: Fenofibrate 145 MG Tablet PO (07:45)
[2019-12-22] MEDS: Sertraline 50 MG Tablet PO (07:45)
[2019-12-22] MEDS: Divalproex (ER) 250 MG Tablet 1000 MG PO (07:45)
[2019-12-22 07:50] VITALS: BP 112/60; PULSE 61; RESP 16; TEMP 36.4; O2SAT 94
[2019-12-22] MEDS: Menthol/Lanolin/Calamine/Znox 113 GM Tube 1 APPLIC TOPICAL ×2 (11:07→21:50)
--- NOTE | 2019-12-22 12:15 | CASEMGMT ---
Social Work POA and Living Will paperwork copied and on file in chart- is POA. Vanda Barillas, social work merchandising internship Tracey Montoya, APPLICATION SUPPORT DEVELOPER SENIOR WAREHOUSE CLERK
[2019-12-22] MEDS: Pravastatin 20 MG Tablet PO (21:50)
[2019-12-22] MEDS: Divalproex (ER) 250 MG Tablet 750 MG PO (21:51)
[2019-12-22 22:00] VITALS: BP 118/57; PULSE 62; RESP 16; TEMP 36.8; O2SAT 93
[2019-12-23] MEDS: Menthol/Lanolin/Calamine/Znox 113 GM Tube 1 APPLIC TOPICAL ×2 (07:36→21:26)
[2019-12-23] MEDS: Fenofibrate 145 MG Tablet PO (07:36)
[2019-12-23] MEDS: Divalproex (ER) 250 MG Tablet 1000 MG PO (07:36)
[2019-12-23] MEDS: Lisinopril 5 MG Tablet 15 MG PO (07:37)
[2019-12-23] MEDS: Sertraline 50 MG Tablet PO (07:37)
[2019-12-23] MEDS: Clopidogrel Bisulfate 75 MG Tablet PO (07:37)
[2019-12-23] MEDS: levETIRAcetam 750 MG Tablet PO ×2 (07:37→21:26)
[2019-12-23 07:41] VITALS: BP 106/54; PULSE 59; RESP 16; TEMP 36.9; O2SAT 97
[2019-12-23 08:16] VITALS: O2SAT 92
[2019-12-23 19:33] VITALS: BP 100/57; PULSE 66; RESP 18; TEMP 36.7; O2SAT 96
[2019-12-23] MEDS: Pravastatin 20 MG Tablet PO (21:26)
[2019-12-23] MEDS: Divalproex (ER) 250 MG Tablet 750 MG PO (21:26)
[2019-12-24] MEDS: Acetaminophen 325 MG Tablet 650 MG PO (02:01)
[2019-12-24] MEDS: Sertraline 50 MG Tablet PO (07:33)
[2019-12-24] MEDS: levETIRAcetam 750 MG Tablet PO ×2 (07:34→21:35)
[2019-12-24] MEDS: Lisinopril 5 MG Tablet 15 MG PO (07:34)
[2019-12-24] MEDS: Divalproex (ER) 250 MG Tablet 1000 MG PO (07:34)
[2019-12-24] MEDS: Clopidogrel Bisulfate 75 MG Tablet PO (07:34)
[2019-12-24] MEDS: Fenofibrate 145 MG Tablet PO (07:34)
[2019-12-24] MEDS: Menthol/Lanolin/Calamine/Znox 113 GM Tube 1 APPLIC TOPICAL ×2 (07:39→21:36)
[2019-12-24 07:55] VITALS: BP 107/61; PULSE 60; RESP 18; TEMP 36.6; O2SAT 95
--- NOTE | 2019-12-24 14:59 | PN_ITS ---
Progress Note Afebile VSS Maintaining appropriate oxygen saturation on RA Oral intake is fair Discussed with nursing - no problems that need addressed Reviewed the PT/OT/ST notes Medication list reviewed. Major was seen in his room today with his family. His tells me that he has lost 25LBs since being in the rehab unit and he is not eating because his father was fat and of a heart attack . Major was mostly sitting in his charir at home and getting very little exercise. He is frequently nodding off to sleep. He is also somewhat confused at times. He has been taking the Sertraline at home but, only 50 mg. The dose was never increased. Dr. Pearson recently discussed starting Remeron to stimulate the appetite but, I feel this w ould increase his somnolence. He responded well to the initiation of Sertraline at his last admission and I would prefer to increase the dose. He was also eating well when he left therapy the last time. We discussed with him that his BMI is OK, just a little overweight but, he has lost muscle. I recommend he try to stabilize at this weight and increase his protein intake while controlling his carb intake. alert, responding appropriately, NAD Lungs - CTA Heart RRR abdomen soft, NT, ND, BS's are present and normal no peripheral edema Impression 1. Physical debility secondary to prior right MCA infarct complicated by undertreated depression and failure to keep up with his exercises at home. 2. Undertreated depression - Sertraline increased. find activities he would enjoy. 3. Acute on chronic thrombocytopenia-possible ITP versus combined antiplatelet effects of aspirin, Plavix and DVT prophylaxis. 10 you to hold pharmacologic prophylaxis for DVT. Continue SCDs and KIRBY hose. Aspirin has been discontinued and we will continue Plavix. 4. Essential tremor-previously on primidone, now on nothing. Will need to find out if he has ever tried Propanolol. Recheck the Lab in the AM 45 minutes spent with the pt and his family. >50% of the time is counselling and education Code Visit Inpatient E&M: 14295 Subs Hosp L2
[2019-12-24 19:28] VITALS: BP 90/58; PULSE 69; RESP 16; TEMP 36.7; O2SAT 93
[2019-12-24 19:59] VITALS: BP 109/53; PULSE 70
[2019-12-24] MEDS: Pravastatin 20 MG Tablet PO (21:35)
[2019-12-24] MEDS: Divalproex (ER) 250 MG Tablet 750 MG PO (21:35)
[2019-12-25 05:44] LABS: Hematocrit 38.2 % (40-54); Hemoglobin 12.4 g/dL (13.0-16.5); Mean Corp Hgb Conc 32.5 g/dL (32-36); Mean Corpuscular Hgb 31.6 pg (27.0-32.0); Mean Corpuscular Volume 97.4 fL (80-94); Mean Platelet Vol. 10.2 fl (6.2-12.0); POSITIVE COUNT YES; Platelet Count 91 K/mm3 (150-450); RBC Distribution Width CV 14.4 % (11.6-14.6); RBC Distribution Width SD 51.8 fl (35.1-43.9); Red Blood Count 3.92 M/mm3 (4.6-6.2); White Blood Count 4.7 K/mm3 (4.4-11.0)
[2019-12-25 06:02] LABS: Anion Gap 5 (5-15); BUN 26 mg/dL (7-18); Calcium,Total 8.4 mg/dL (8.5-10.1); Chloride 109 mmol/L (98-107); Creatinine, Serum 1.18 mg/dL (0.70-1.30); EST Glomerular Filtration Rate 65 mL/min (>60); Est Glom Filt Rate - Afr Amer 79 mL/min (>60); Glucose 82 mg/dL (74-106); Magnesium 2.1 mg/dL (1.6-2.6); Phosphorus 3.2 mg/dL (2.5-4.9); Potassium 4.5 mmol/L (3.5-5.1); Sodium Level 144 mmol/L (136-145)
[2019-12-25 06:17] LABS: Differential Comment SCANNED; Scan Indicated on CBC? Y/N YES- FLAGS NOTED
[2019-12-25] MEDS: Lisinopril 5 MG Tablet 15 MG PO (07:42)
[2019-12-25] MEDS: Divalproex (ER) 250 MG Tablet 1000 MG PO (07:43)
[2019-12-25] MEDS: Clopidogrel Bisulfate 75 MG Tablet PO (07:43)
[2019-12-25] MEDS: Fenofibrate 145 MG Tablet PO (07:43)
[2019-12-25] MEDS: Sertraline 50 MG Tablet 100 MG PO (07:44)
[2019-12-25] MEDS: Menthol/Lanolin/Calamine/Znox 113 GM Tube 1 APPLIC TOPICAL ×2 (07:47→21:38)
[2019-12-25 09:05] VITALS: BP 106/61; PULSE 58; RESP 16; TEMP 36.4; O2SAT 93
[2019-12-25] MEDS: levETIRAcetam 750 MG Tablet PO ×2 (09:19→21:38)
--- NOTE | 2019-12-25 09:38 | CASEMGMT ---
Social Work IDT met with patient, , daughter and son for Team Meeting. Discussed patient's progress in therapy. Pt is walking 165 ft with FWW CGA to min assist, slides left leg, completed 5 small steps CGA with 2 HR, mod assist for bed mobility, min assist sit to stand, and encouraging pt to keep head up to strengthen muscles. Pt is min assist for transfers, mod for UE ADLS, max for LE ADLs, min for shaving. reports assisting with personal care at home. ST is working on pt's slow thought processing, cognition, and low voice. Pt appetite is improving. Pt fatigues after therapy and nursing assists x2 for toileting transfers and tasks. Pt gets bored at home and encouraged more stimulation. Will assist with pt during stay and pt agreeable for outpatient therapy and fitness and [facility] at DC. Physician increased antidepressant. Explained Medicare benefits - ELOS 24 days with anticipated DC 3/7, if pt does not choose to DC prior. Will ReTeam next week. Tracey Montoya, SECTION REPAIRER OFFICE ASSISTANT RECEPTIONIST
--- NOTE | 2019-12-25 10:41 | PCM.PN.BLA ---
Progress Note Major was seen on team rounds today. His , son and daughter were present for rounds. He is afebrile. Blood pressure is a little on the low side and has ranged from 90 over 58-109/53 since 12/23/2019 in the a.m. He has lost 20 lbs since his last admission to the rehab unit and he is off meds for diabetes. We will likely need to decrease the antihypertensives. He is maintaining appropriate oxygen saturation on room air. Good intake. Medication list was reviewed. No problems with nursing I reviewed the PT/OT/ST notes and discussed with the therapist on rounds. All lab was personally reviewed. White blood cell count is normal at 4.7. Hemoglobin is stable at 12.4 and the platelets have improved and are 91,000 today, up from 43,000 on 12/20/2019. The BUN is 26 and the creatinine is 1.18 with a BUN/creatinine ratio of 22. GFR is 65. Magnesium and phosphorus are within normal limits. I reviewed the xrays and he has degenerative changes of the clavicle with a small area of calcification adjacent to the clavicle that may be due to myositis ossificans on the XRAY of the clavicle but, on the shoulder Xray there is a healing fracture of the distal clavicle with mild superior migration of the distal clavicle at the AC joint and increasing ossification in the region of the coracoclavicular ligaments. He has no complaints. Alert and smiling. He is already improving just in a few days. He holds his head up now and he walked 165 feet today. He has better tone in the extremities. He has an essential tremor. Lungs - CTA Heart - RRR, no gallop Abd - soft, NT, ND, normal BS's in all quadrants no peripheral edema skin is warm and dry without any breakdown or rashes Impressions 1. debility due to remote stroke 2. acute on chronic Thrombocytopenia - improving. B12 deficiency, folate deficiency and hypothyroidism ruled out. Hepatitis panel and HIV are negative. Seen by Dr. Oconnell in the hospital and he feels the low platelet count is related to medications....most likely Plavix. He is still on Plavix and the PLT count is improving and nearly back to baseline.....The plt count has been low since at least 2014. He may have had a viral infection recently that contributed to the low PLT count 3. Macrocytic anemia. The anemia is new since 10/11/2019 and is possibly secondary to blood loss. B12, folate and TSH were all unremarkable. He does have fatty infiltration of the liver. 4. Vitamin D deficiency - not on a supplement. Started on 2,000 units daily. Recommend that he have a DEXA as an OP 5. Depression - not adequately treated. sertraline has been increased to 100 mg daily Check a Valproic acid and Keppra level Hemoccult stool check a total CPK Recheck the platelet count in a few days. If the hemoccult stool is positive will check H. Pylori antibodies since there is an association with thrombocytopenia STROKE Vital Signs/Narrative: Vital Signs Temp Pulse Resp BP Pulse Ox 12/25/19 09:05 97.6 F L 58 L 16 106/61 93 Code Visit Inpatient E&M: 52057 Subs Hosp L2
[2019-12-25 13:02] LABS: CPK Total, Creatine Kinase 34 U/L (39-308)
[2019-12-25 13:41] LABS: Valproic Acid (Depakene) Level 74 ug/mL (50-100)
[2019-12-25 15:09] VITALS: BP 106/67; BP 111/69; BP 111/81; PULSE 62; PULSE 72; PULSE 80
[2019-12-25 15:55] VITALS: O2SAT 96
--- NOTE | 2019-12-25 16:10 | CHAPLAIN ---
Type of Pastoral Visit ___ Initial Visit _x__ Follow-up Visit ___ On-call Visit ___ General Patient Visit ___ Spiritual Assessment ___ Family Conference ___ Bereavement ___ Rapid Response ___ Code Blue ___ Other (describe below) Pastoral Care Referral From ___ Patient _x__ Family ___ Nurse ___ Physician ___ Occupational Work Experience Teacher ___ Client Services Coordinator ___ Other (describe below) Sacrament/Intervention _x__ Active listening ___ Anointing ___ Faith ___ Bereavement ___ Communion ___ Ronda exploration ___ ___ Life review _x__ Prayer ___ Reconciliation ___ Sacrament of Sick _x__ Supportive presence ___ Wedding ___ Other (describe below) Pastoral Comments
[2019-12-25 19:40] VITALS: BP 111/64; PULSE 70; RESP 16; TEMP 36.7; O2SAT 94
[2019-12-25 21:15] VITALS: BMI 27.3
[2019-12-25] MEDS: Divalproex (ER) 250 MG Tablet 750 MG PO (21:33)
[2019-12-25] MEDS: Pravastatin 20 MG Tablet PO (21:38)
[2019-12-25 22:00] VITALS: O2SAT 94
[2019-12-26 06:21] VITALS: O2SAT 95
[2019-12-26 07:09] VITALS: BP 123/59; PULSE 60; RESP 16; TEMP 36.3; O2SAT 93
[2019-12-26] MEDS: Menthol/Lanolin/Calamine/Znox 113 GM Tube 1 APPLIC TOPICAL ×2 (08:07→21:25)
[2019-12-26] MEDS: Fenofibrate 145 MG Tablet PO (08:07)
[2019-12-26] MEDS: Divalproex (ER) 250 MG Tablet 1000 MG PO (08:08)
[2019-12-26] MEDS: Clopidogrel Bisulfate 75 MG Tablet PO (08:09)
[2019-12-26] MEDS: Sertraline 50 MG Tablet 100 MG PO (08:09)
[2019-12-26] MEDS: Lisinopril 10 MG Tablet PO (08:09)
[2019-12-26] MEDS: levETIRAcetam 750 MG Tablet PO ×2 (08:09→21:25)
[2019-12-26 14:26] VITALS: BMI 27.3
[2019-12-26 15:09] VITALS: BP 108/59; BP 113/77; BP 98/61; PULSE 66; PULSE 69; PULSE 88
[2019-12-26 18:53] VITALS: BP 108/59; PULSE 66; RESP 18; TEMP 36.3; O2SAT 94
[2019-12-26] MEDS: Divalproex (ER) 250 MG Tablet 750 MG PO (21:25)
[2019-12-26] MEDS: Pravastatin 20 MG Tablet PO (21:25)
[2019-12-26 22:00] VITALS: O2SAT 94; BMI 27.3
[2019-12-27 07:16] VITALS: BP 98/59; PULSE 57; RESP 16; TEMP 36.6; O2SAT 92
[2019-12-27] MEDS: Divalproex (ER) 250 MG Tablet 1000 MG PO (07:57)
[2019-12-27] MEDS: levETIRAcetam 750 MG Tablet PO ×2 (07:57→21:22)
[2019-12-27] MEDS: Clopidogrel Bisulfate 75 MG Tablet PO (07:57)
[2019-12-27] MEDS: Fenofibrate 145 MG Tablet PO (07:57)
[2019-12-27] MEDS: Sertraline 50 MG Tablet 100 MG PO (07:59)
[2019-12-27] MEDS: Menthol/Lanolin/Calamine/Znox 113 GM Tube 1 APPLIC TOPICAL ×2 (08:01→21:22)
[2019-12-27 11:09] VITALS: BP 103/67; PULSE 76
[2019-12-27] MEDS: Lisinopril 10 MG Tablet PO (11:12)
--- NOTE | 2019-12-27 11:51 | PN_ITS ---
Progress Note Afebile VSS -blood pressures are on the low side and he was tilt positive heart rate increasing from 66 lying down to 88 standing up. Blood pressure did not significantly change. Maintaining appropriate oxygen saturation on RA Oral intake is improving since admission. Discussed with nursing - no problems that need addressed Reviewed the PT/OT/ST notes Medication list reviewed. All lab was personally reviewed. Total CK was normal at 34. The valproic acid level was therapeutic at 74. Keppra level is pending. Major has no complaints. He went to soap making on TCU yesterday afternoon and he made 2 cakes of soap and had a good time. Today he played the piano! He does so much better when he has things to look forward to and activities. Will continue to stress this with his family and discuss with the therapists and SW how to keep him involved following DC. Will refer to [facility] for ongoing therapy at [place] and encourage his to continue with regular exercise at [facility] even after therapy releases him. An adult activities center may help him CBC in the AM Decrease the Lisinopril to 2.5 mg daily and add Propanolol. He has never tried Propanolol in the past. Will start at a low dose and increase slowly to hopefully control side effects. Alert, no apparent distress, appropriate, engaging in conversation Lungs-clear to auscultation with fair air exchange Heart-regular rate and rhythm, no gallop, no rub Abdomen-soft, nontender, nondistended, bowel sounds heard in all 4 quadrants, no pain with palpation No cyanosis, no peripheral edema, good capillary refill Impressions 1. Debility secondary to prior right MCA infarct 2. Left shoulder pain secondary to healing left clavicle fracture sustained in a fall in October 2019 - consider Capsaicin and EMLA if necessary 3. essential tremor - try propanolol 4. Depression-sertraline was increased to 100 mg daily. Staff working to increase his fun activities. Will work toward getting him stronger to maybe try golfing....at least putting and chipping. He played the piano today. STROKE Vital Signs/Narrative: Vital Signs Pulse BP 12/27/19 11:09 76 103/67 Code Visit Inpatient E&M: 91221 Subs Hosp L2
[2019-12-27 14:07] VITALS: BMI 27.3
[2019-12-27 19:17] VITALS: BP 113/56; PULSE 68; RESP 16; TEMP 36.7; O2SAT 94
[2019-12-27] MEDS: Pravastatin 20 MG Tablet PO (21:22)
[2019-12-27] MEDS: Propranolol 10 MG Tablet PO (21:22)
[2019-12-27] MEDS: Divalproex (ER) 250 MG Tablet 750 MG PO (21:22)
[2019-12-27 21:30] VITALS: BMI 27.3
[2019-12-28 06:23] LABS: Hematocrit 36.9 % (40-54); Hemoglobin 11.8 g/dL (13.0-16.5); Mean Corpuscular Hgb 31.2 pg (27.0-32.0); Mean Corpuscular Volume 97.6 fL (80-94); Mean Platelet Vol. 9.8 fl (6.2-12.0); Platelet Count 150 K/mm3 (150-450); RBC Distribution Width CV 14.6 % (11.6-14.6); RBC Distribution Width SD 52.9 fl (35.1-43.9); Red Blood Count 3.78 M/mm3 (4.6-6.2); White Blood Count 4.5 K/mm3 (4.4-11.0)
[2019-12-28] MEDS: Divalproex (ER) 250 MG Tablet 1000 MG PO (09:28)
[2019-12-28] MEDS: levETIRAcetam 750 MG Tablet PO ×2 (09:28→21:29)
[2019-12-28] MEDS: Lisinopril 2.5 MG Tablet PO (09:28)
[2019-12-28] MEDS: Fenofibrate 145 MG Tablet PO (09:28)
[2019-12-28] MEDS: Clopidogrel Bisulfate 75 MG Tablet PO (09:28)
[2019-12-28] MEDS: Propranolol 10 MG Tablet PO ×2 (09:28→21:29)
[2019-12-28] MEDS: Sertraline 50 MG Tablet 100 MG PO (09:29)
[2019-12-28] MEDS: Menthol/Lanolin/Calamine/Znox 113 GM Tube 1 APPLIC TOPICAL ×2 (09:32→21:29)
[2019-12-28 10:00] VITALS: BP 105/60; PULSE 64; RESP 16; TEMP 36.6; O2SAT 16
[2019-12-28 13:57] VITALS: BMI 27.3
[2019-12-28 19:12] VITALS: BP 100/54; PULSE 105; RESP 18; TEMP 36.7; O2SAT 94
[2019-12-28 19:56] VITALS: BP 99/62; PULSE 65
[2019-12-28] MEDS: Pravastatin 20 MG Tablet PO (21:28)
[2019-12-28] MEDS: Divalproex (ER) 250 MG Tablet 750 MG PO (21:29)
[2019-12-29 05:00] VITALS: BMI 27.3
[2019-12-29] MEDS: Menthol/Lanolin/Calamine/Znox 113 GM Tube 1 APPLIC TOPICAL ×2 (07:16→21:05)
[2019-12-29] MEDS: Sertraline 50 MG Tablet 100 MG PO (07:17)
[2019-12-29] MEDS: Lisinopril 2.5 MG Tablet PO (07:17)
[2019-12-29] MEDS: Fenofibrate 145 MG Tablet PO (07:18)
[2019-12-29] MEDS: Propranolol 10 MG Tablet PO ×2 (07:18→21:05)
[2019-12-29] MEDS: levETIRAcetam 750 MG Tablet PO ×2 (07:18→21:05)
[2019-12-29] MEDS: Divalproex (ER) 250 MG Tablet 1000 MG PO (07:42)
[2019-12-29] MEDS: Clopidogrel Bisulfate 75 MG Tablet PO (07:43)
[2019-12-29 07:49] VITALS: BP 116/67; PULSE 52; RESP 18; TEMP 36.6; O2SAT 94
--- NOTE | 2019-12-29 11:20 | PCM.PN.BLA ---
Progress Note Afebile VSS Maintaining appropriate oxygen saturation on RA Oral intake is variable but generally much improved. Weights are probably not accurate. I highly doubt he has lost 7 pounds in the rehab unit. The scale is being moved around and I am not sure it has been recalibrated each time it is moved. His appetite has been much better and he wants a hotdog and fries today. Discussed with nursing - no problems that need addressed Reviewed the PT/OT/ST notes - talked with Dorina from OT - the tremors are improving.....his entire R arm used to tremor and now the tremor is limited to the hand and it is less pronounced. He denies lightheadedness and is tolerating the Propanolol with no adverse side effects Medication list reviewed. He is walking taller with the FWW and is standing straighter. He is holding his head up better. He fatigues at the end of the day and I suspect this is going to improve because he became deconditioned at home due to inactivity. No cough and no SOB. No CP. sleeping less during the day and is wanting to sit in the chair between therapy sessions rather than lie in the bed. Alert, oriented x3, no apparent distress. Was able to participate in a tic-tac-toe tournament today and 1 2 of 3 games. Lungs-clear to auscultation, mildly diminished especially in the bases even suspect this is secondary to weakness of the chest muscles Heart-regular rate and rhythm, no gallop Abdomen-soft, nontender, no guarding with palpation, bowel sounds present in all 4 quadrants, no hepatosplenomegaly appreciated No peripheral edema Impressions 1. debility due to old R MCA CVA with deconditioning due to inactivity when he left SNF and went home. 2. Depression - no adverse effects with the increase in the sertraline. He is participating in activities and is motivated to get better. 3. Essential tremor which impacts his ability to feed himself, write, etc. Definitely improving with the addition of Propanolol to the drug regimen. No adverse effects. Continue to monitor the BP and HR closely. He has had a few systolics in the 90's. I am going to DC the Lisinopril. 4. Seizure disorder - no seizures ever while in rehab. Pt and his would like to try and decrease the doses of seizure meds because they feel it makes him too tired. Will decrease the Valproic acid to 750 mg BID and recheck a level in 1 week. 5. Acute on chronic thrombocytopenia-platelets at last check were 150,000 with discontinuation of aspirin and dermatologic DVT prophylaxis. Will recheck a BMP and a CBC without differential on Wednesday Continue KIRBY hose and SCDs for DVT prophylaxis. Patient is ambulatory and active. STROKE Vital Signs/Narrative: Vital Signs Temp Pulse Resp BP Pulse Ox 12/29/19 07:49 97.9 F 52 L 18 116/67 94 Code Visit Inpatient E&M: 98363 Subs Hosp L2
[2019-12-29 16:44] VITALS: BMI 27.3
[2019-12-29 19:49] VITALS: BP 113/66; PULSE 58; RESP 16; TEMP 36.6; O2SAT 92
[2019-12-29] MEDS: Divalproex (ER) 250 MG Tablet 750 MG PO (21:05)
[2019-12-29] MEDS: Acetaminophen 325 MG Tablet 650 MG PO (21:05)
[2019-12-29] MEDS: Pravastatin 20 MG Tablet PO (21:05)
[2019-12-30 01:36] VITALS: BMI 27.3
[2019-12-30 07:00] VITALS: BP 107/61; PULSE 56; RESP 14; TEMP 36.3; O2SAT 96
[2019-12-30] MEDS: Sertraline 50 MG Tablet 100 MG PO (07:42)
[2019-12-30] MEDS: Divalproex (ER) 250 MG Tablet 750 MG PO ×2 (07:42→22:26)
[2019-12-30] MEDS: Propranolol 10 MG Tablet PO ×2 (07:42→22:29)
[2019-12-30] MEDS: Fenofibrate 145 MG Tablet PO (07:43)
[2019-12-30] MEDS: Clopidogrel Bisulfate 75 MG Tablet PO (07:43)
[2019-12-30] MEDS: Menthol/Lanolin/Calamine/Znox 113 GM Tube 1 APPLIC TOPICAL ×2 (07:43→22:27)
[2019-12-30] MEDS: levETIRAcetam 750 MG Tablet PO ×2 (09:05→22:26)
[2019-12-30 15:36] VITALS: BMI 27.3
[2019-12-30 20:30] VITALS: BP 98/54; PULSE 62; RESP 16; TEMP 36.4; O2SAT 95
[2019-12-30] MEDS: Pravastatin 20 MG Tablet PO (22:26)
[2019-12-30 22:29] VITALS: BP 100/52; PULSE 60
[2019-12-31] MEDS: Fenofibrate 145 MG Tablet PO (07:28)
[2019-12-31] MEDS: levETIRAcetam 750 MG Tablet PO ×2 (07:28→20:48)
[2019-12-31] MEDS: Propranolol 10 MG Tablet PO ×2 (07:29→20:48)
[2019-12-31] MEDS: Sertraline 50 MG Tablet 100 MG PO (07:30)
[2019-12-31] MEDS: Clopidogrel Bisulfate 75 MG Tablet PO (07:30)
[2019-12-31] MEDS: Menthol/Lanolin/Calamine/Znox 113 GM Tube 1 APPLIC TOPICAL ×2 (07:32→20:48)
[2019-12-31] MEDS: Divalproex (ER) 250 MG Tablet 750 MG PO ×2 (08:25→20:48)
[2019-12-31 09:43] VITALS: BP 106/64; PULSE 63; RESP 16; TEMP 36.7; O2SAT 96
[2019-12-31 10:24] VITALS: BMI 27.3
[2019-12-31 19:32] VITALS: BP 106/64; PULSE 68; RESP 16; TEMP 36.3; O2SAT 95
[2019-12-31] MEDS: Pravastatin 20 MG Tablet PO (20:48)
[2020-01-01 06:09] LABS: Hematocrit 37.3 % (40-54); Hemoglobin 12.2 g/dL (13.0-16.5); Mean Corp Hgb Conc 32.7 g/dL (32-36); Mean Corpuscular Hgb 31.7 pg (27.0-32.0); Mean Corpuscular Volume 96.9 fL (80-94); Platelet Count 160 K/mm3 (150-450); RBC Distribution Width CV 14.6 % (11.6-14.6); Red Blood Count 3.85 M/mm3 (4.6-6.2); White Blood Count 4.9 K/mm3 (4.4-11.0)
[2020-01-01 06:23] LABS: Anion Gap 4 (5-15); BUN 20 mg/dL (7-18); BUN/Creat Ratio 19.2 RATIO (10-20); Calcium,Total 8.2 mg/dL (8.5-10.1); Chloride 106 mmol/L (98-107); Creatinine, Serum 1.04 mg/dL (0.70-1.30); EST Glomerular Filtration Rate 76 mL/min (>60); Est Glom Filt Rate - Afr Amer 91 mL/min (>60); Estimated Creatinine Clearance 73.41 ml/min; Glucose 78 mg/dL (74-106); Potassium 4.3 mmol/L (3.5-5.1); Sodium Level 139 mmol/L (136-145)
[2020-01-01] MEDS: Fenofibrate 145 MG Tablet PO (07:37)
[2020-01-01] MEDS: Sertraline 50 MG Tablet 100 MG PO (07:37)
[2020-01-01] MEDS: levETIRAcetam 750 MG Tablet PO ×2 (07:37→21:18)
[2020-01-01] MEDS: Propranolol 10 MG Tablet PO ×2 (07:37→21:19)
[2020-01-01] MEDS: Clopidogrel Bisulfate 75 MG Tablet PO (07:37)
[2020-01-01 07:38] VITALS: BP 127/61; PULSE 56; RESP 16; TEMP 36.6; O2SAT 95
[2020-01-01] MEDS: Divalproex (ER) 250 MG Tablet 750 MG PO ×2 (07:38→21:19)
[2020-01-01] MEDS: Menthol/Lanolin/Calamine/Znox 113 GM Tube 1 APPLIC TOPICAL ×2 (07:41→21:18)
--- NOTE | 2020-01-01 10:08 | CASEMGMT ---
Social Work IDT met with pt and . Pt is max assist transfers, CGA to stand, walk with walker 165ft-CGA with posture cues, doing stairs-4steps 2 HR-CGA. Pt wants pt to do 7 steps, to be able to get into cabin. Pt is mod assist for bathing, set up for UE grooming, min assist with UE dressing, RLE ADLS CGA, LLE ADLS mod assist. Pt RUE tremor, impacting coordination. Pt to bring in Depends for more independence. ST working on vocal intensity cues for volume, pt hearing impairment and lack of eye contact effecting participation-being interpreted as poor cognition-pt 80%accurate with cognition tasks. Pt educated on days, 24 days approved, DC 01/11. Pt given counseling resources, adult day center resources. requesting transfer w/c, will refer at DC. Vanda Barillas, social work graduate intern Tracey Montoya, AUTOMOTIVE SALES ASSOCIATE ASSOCIATE PROFESSOR OF BIOLOGY
--- NOTE | 2020-01-01 10:59 | PCM.PN.BLA ---
Progress Note The patient was seen on team rounds today. His and was present for rounds today. Afebile VSS-the blood pressures for the past 2 days have ranged from 98/54-127/61 which is today's blood pressure. The heart rate has ranged from 56-68. Maintaining appropriate oxygen saturation on RA Oral intake is much improved Discussed with nursing - no problems that need addressed Reviewed the PT/OT/ST notes and discussed their findings on rounds Medication list reviewed. All lab was personally reviewed. CBC today shows a white blood cell count of 4.9, hemoglobin of 12.1 and platelets of 160,000. The BMP shows a potassium of 4.3, BUN of 20 and a creatinine of 1.04, down from 1.18 on 12/25/2019. No seizure activity since the Depakote was decreased to 750 mg twice daily. He is tolerating sertraline 100 mg daily with no adverse side effects. He has no complaints today. He has been participating in many different activities and he is smiling. Today he was putting tennis balls and conrad bags into a clothes basket. This afternoon there will be Naresh Gras face mask making for the republican on TCU tomorrow. No CP, SOB, nausea, vomiting, abd pain and his bowels are regular. Voice quality is stronger. He is alert and appropriate. Lungs - CTA Heart RRR, no gallop abd - soft, NT, ND, bowel sounds in all quadrants and no guarding with palpation no edema essential tremor is better but still has some tremoring of the right hand......but not the entire arm now. Impressions 1. Debility due to old right MCA CVA with deconditioning due to inactivity following discharge home from [facility] 2. Depression-improved, tolerating sertraline 100 mg daily with no adverse side effects. Appetite is good/improved. 3. Essential tremor affecting primarily the right upper extremity-better with the addition of propanolol 10 mg twice daily to his drug regimen but blood pressure and heart rate are at times low and I am not sure we are going to be able to push the dose much higher. We once again discussed with the obtaining weighted utensils for him to eat with. This was also recommended on his last admission but not followed up on. 4. Seizure disorder-Depakote was decreased to 750 mg twice daily last week and he has had no seizures. Will check a valproic acid level toward the end of the week. 5. Thrombocytopenia-resolved with discontinuation of the second anti-plt agent......ASA discontinued and he is currently only on Plavix. continue the current medications Khushi Porter that Major would benefit from a routine at home so he knows what he is going to do for the day and they will need to make exercise a part of every day to maintain his strength and function following DC from [facility]. STROKE Vital Signs/Narrative: Vital Signs Temp Pulse Resp BP Pulse Ox 01/01/20 07:38 97.9 F 56 L 16 127/61 H 95
[2020-01-01 17:00] VITALS: BMI 27.3
[2020-01-01 19:24] VITALS: BP 107/72; PULSE 76; RESP 16; TEMP 36.6; O2SAT 95
[2020-01-01] MEDS: Pravastatin 20 MG Tablet PO (21:18)
[2020-01-01 22:00] VITALS: PULSE 76; RESP 16; BMI 27.3
[2020-01-02] MEDS: Sertraline 50 MG Tablet 100 MG PO (08:35)
[2020-01-02] MEDS: Clopidogrel Bisulfate 75 MG Tablet PO (08:35)
[2020-01-02] MEDS: levETIRAcetam 750 MG Tablet PO ×2 (08:35→22:28)
[2020-01-02] MEDS: Divalproex (ER) 250 MG Tablet 750 MG PO ×2 (08:36→22:29)
[2020-01-02] MEDS: Fenofibrate 145 MG Tablet PO (08:36)
[2020-01-02] MEDS: Propranolol 10 MG Tablet PO ×2 (08:36→22:29)
[2020-01-02] MEDS: Menthol/Lanolin/Calamine/Znox 113 GM Tube 1 APPLIC TOPICAL ×2 (08:40→22:30)
[2020-01-02 09:37] VITALS: BP 107/61; PULSE 63; RESP 18; TEMP 36.5; O2SAT 96
[2020-01-02 10:30] VITALS: BMI 27.3
[2020-01-02 19:44] VITALS: BP 109/56; PULSE 60; RESP 18; TEMP 36.8; O2SAT 94
[2020-01-02 22:00] VITALS: PULSE 60; RESP 18; BMI 27.3
[2020-01-02] MEDS: Pravastatin 20 MG Tablet PO (22:47)
[2020-01-03] MEDS: Clopidogrel Bisulfate 75 MG Tablet PO (07:51)
[2020-01-03] MEDS: levETIRAcetam 750 MG Tablet PO ×2 (07:51→21:38)
[2020-01-03] MEDS: Propranolol 10 MG Tablet PO ×2 (07:51→21:38)
[2020-01-03] MEDS: Divalproex (ER) 250 MG Tablet 750 MG PO ×2 (07:51→21:38)
[2020-01-03] MEDS: Sertraline 50 MG Tablet 100 MG PO (07:51)
[2020-01-03] MEDS: Fenofibrate 145 MG Tablet PO (07:51)
[2020-01-03] MEDS: Menthol/Lanolin/Calamine/Znox 113 GM Tube 1 APPLIC TOPICAL ×2 (07:54→21:41)
[2020-01-03 08:58] VITALS: BP 107/55; PULSE 60; RESP 18; TEMP 36.7; O2SAT 95
[2020-01-03 09:23] VITALS: RESP 18
--- NOTE | 2020-01-03 13:12 | PCM.PN.BLA ---
Progress Note Afebile VSS Maintaining appropriate oxygen saturation on RA Oral intake is good Discussed with nursing - no problems that need addressed Reviewed the PT/OT/ST notes Medication list reviewed. He went to the [employer] party yesterday and had a good time. He is smiling today and he has no complaints. He is walking taller with the FWW. Very alert during the day now. Good intake. Alert, oriented x3, pleasant Lungs-clear to auscultation Heart-regular rate and rhythm, no gallop, no rub Abdomen-soft, nontender, nondistended, normal bowel sounds No peripheral edema No calf tenderness Skin-intact with no rashes or breakdown Impressions 1. Post stroke physical debility 2. Seizure disorder 3. Depression-improving, tolerating the increase in sertraline to 100 mg with no adverse effects. Appetite has improved significantly. 4. Essential tremor-started on propanolol 10 mg p.o. twice daily Check a Valproic acid level on Wednesday -the dose was decreased to 750 mg p.o. twice daily. No seizures since the decrease. STROKE Vital Signs/Narrative: Vital Signs Resp 01/03/20 09:23 18 Code Visit Inpatient E&M: 55636 Subs Hosp L2
[2020-01-03 17:00] VITALS: BMI 27.3
[2020-01-03 21:00] VITALS: BP 106/58; PULSE 60; RESP 16; TEMP 36.7; O2SAT 97
[2020-01-03] MEDS: Pravastatin 20 MG Tablet PO (21:38)
[2020-01-04 02:00] VITALS: BMI 27.3
[2020-01-04] MEDS: Sertraline 50 MG Tablet 100 MG PO (07:44)
[2020-01-04] MEDS: Propranolol 10 MG Tablet PO ×2 (07:44→21:20)
[2020-01-04] MEDS: levETIRAcetam 750 MG Tablet PO ×2 (07:44→21:20)
[2020-01-04] MEDS: Fenofibrate 145 MG Tablet PO (07:44)
[2020-01-04] MEDS: Clopidogrel Bisulfate 75 MG Tablet PO (07:44)
[2020-01-04] MEDS: Divalproex (ER) 250 MG Tablet 750 MG PO ×2 (07:44→21:21)
[2020-01-04] MEDS: Menthol/Lanolin/Calamine/Znox 113 GM Tube 1 APPLIC TOPICAL ×2 (07:45→21:21)
[2020-01-04 07:55] VITALS: BP 109/64; PULSE 60; RESP 17; TEMP 36.3; O2SAT 95
[2020-01-04 14:34] VITALS: BMI 27.3
[2020-01-04 19:32] VITALS: BP 100/66; PULSE 60; RESP 14; TEMP 36.9; O2SAT 95; BMI 27.3
[2020-01-04] MEDS: Pravastatin 20 MG Tablet PO (21:20)
[2020-01-05 06:37] LABS: Valproic Acid (Depakene) Level 42 ug/mL (50-100)
[2020-01-05 07:00] VITALS: BP 94/60; PULSE 57; RESP 16; TEMP 36.4; O2SAT 95
[2020-01-05] MEDS: levETIRAcetam 750 MG Tablet PO ×2 (07:48→21:49)
[2020-01-05] MEDS: Sertraline 50 MG Tablet 100 MG PO (07:48)
[2020-01-05] MEDS: Fenofibrate 145 MG Tablet PO (07:48)
[2020-01-05] MEDS: Clopidogrel Bisulfate 75 MG Tablet PO (07:48)
[2020-01-05] MEDS: Propranolol 10 MG Tablet PO ×2 (07:48→21:50)
[2020-01-05] MEDS: Divalproex (ER) 250 MG Tablet 750 MG PO ×2 (07:49→21:52)
[2020-01-05 07:51] VITALS: BP 123/66; PULSE 60
[2020-01-05] MEDS: Menthol/Lanolin/Calamine/Znox 113 GM Tube 1 APPLIC TOPICAL ×2 (07:53→21:52)
[2020-01-05 15:06] VITALS: BMI 27.3
--- NOTE | 2020-01-05 15:26 | PN_ITS ---
Progress Note Afebrile Vital signs stable Maintaining appropriate oxygen saturation on room air His weight today is 187 pounds and 13.34 ounces which is down from 188 pounds and 14.97 ounces on 12/29/2019. He was seen by the dietitian today and his average intake is 75 to 100% of a regular diet. No evidence of malnutrition- plan is to fortify his foods if he continues to decline ONS. The valproic acid level today is a little low at 42, down from 74 recently. His dose was decreased from 1000 mg daily and 750 mg at bedtime to 750 mg twice daily. He has had no seizure activity. He has not noticed any difference in how he feels with the decrease. Still with essential tremor but it is better since the Propanolol was added and he is having a much easier time feeding himself.......can not really increase the dose due to bradycardia. He had very adverse reactions to Primodone and this is not a consideration. Lying almost flat in bed with no respiratory distress, easily arousable, oriented x3, pleasant, no apparent distress Lungs-clear to auscultation with excellent air exchange Heart-regular rate and rhythm, no gallop Abdomen-soft, nontender, nondistended, normal bowel sounds, no guarding with palpation No peripheral edema No calf tenderness No rashes or breakdown I observed him walking with the front wheeled walker in the jorge and he is standing almost straight up and down with good stride length without any assistance of the physical therapist He is c/o that he has a liquid BM every day after breakfast......this is not new and he tells me that he thinks he may be lactose intolerant. He would like to try a low lactose diet. Impressions 1. Post stroke debility 2. IBS? lactose intolerance? low lactose restriction added to his diet 3. seizure disorder - no seizures with the decrease in the Depakote. He would like to continue to taper but, I believe this should be up to neurology and will defer that decision to them 4. thrombocytopenia - chronic. Had acute on chronic when on 2 antiplatelet agents. The ASA has been discontinued and he is now only on Plavix - the last 2 CBC's had normal Platelets Continue current medications Continue therapy Plan for DC home when ready. Code Visit Inpatient E&M: 79578 Subs Hosp L2
[2020-01-05 19:32] VITALS: BP 104/63; PULSE 65; RESP 16; TEMP 36.8; O2SAT 94
[2020-01-05] MEDS: Pravastatin 20 MG Tablet PO (21:49)
[2020-01-06] MEDS: Propranolol 10 MG Tablet PO ×2 (07:39→20:49)
[2020-01-06] MEDS: Fenofibrate 145 MG Tablet PO (07:39)
[2020-01-06] MEDS: Divalproex (ER) 250 MG Tablet 750 MG PO ×2 (07:40→20:49)
[2020-01-06] MEDS: levETIRAcetam 750 MG Tablet PO ×2 (07:41→20:49)
[2020-01-06] MEDS: Sertraline 50 MG Tablet 100 MG PO (07:41)
[2020-01-06] MEDS: Clopidogrel Bisulfate 75 MG Tablet PO (07:41)
[2020-01-06] MEDS: Menthol/Lanolin/Calamine/Znox 113 GM Tube 1 APPLIC TOPICAL ×2 (07:42→20:50)
[2020-01-06 08:46] VITALS: BP 96/60; PULSE 68; RESP 18; TEMP 36.4; O2SAT 95
[2020-01-06 12:05] VITALS: BMI 27.3
--- NOTE | 2020-01-06 13:18 | PN_ITS ---
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 EEG obtained during patient's hospitalization demonstrated mild diffuse encephalopathy. Patient was admitted to the inpatient rehab unit for treatment of his significant debility Objective: GENERAL: cooperative HEENT: Atraumatic; EYES; Anicteric, Normal Conjunctiva NECK; supple, normal thyroid, RESPIRATORY: Diminished to auscultation CARDIOVASCULAR: Regular S1 S2, GI: soft, normoactive bowel sounds, : No Renal angle tenderness; EXTREMITIES: No edema, no clubbing, MUSCULOSKELETAL: no muscle waisting NEURO: Awake; has significant tremors at rest SKIN: No Rash PSYCH; Flat affect Vitals/I&O's: Vital Signs Temp Pulse Resp BP Pulse Ox 97.5 F L 68 18 96/60 95 01/06/20 08:46 01/06/20 08:46 01/06/20 08:46 01/06/20 08:46 01/06/20 08:46 Oxygen Delivery Method Room Air Weight: 85.2 kg Body Mass Index (BMI) 27.3 Finger Stick Blood Glucose 95 Orthostatic Vital Signs Start: 12/25/19 15:09 Freq: Status: Active Protocol: Activity Type Activity Date Activity User E-Sign Co-Sign Detail Recorded Client Recorded Date Recorded By Document 12/26/19 15:09 CDA [id number] 12/26/19 16:04 CDA 12/26/19 15:09 Orthostatic Vitals Standing -Blood Pressure (90/60-120/80) 113/77 -Extremity Use Right Arm -Pulse Rate (60-100) 88 Sitting -Blood Pressure (90/60-120/80) 98/61 -Extremity Use Right Arm -Pulse Rate (60-100) 69 Lying -Blood Pressure (90/60-120/80) 108/59 L -Extremity Use Right Arm -Pulse Rate (60-100) 66 Intake and Output for Last 24 Hours 01/04/20 01/05/20 01/06/20 23:59 23:59 23:59 Intake Total 750 / 750 1540 / 1540 600 / 600 Output Total 600 / 600 1100 / 1100 125 / 125 Balance 150 / 150 440 / 440 475 / 475 Current Medications Acetaminophen (Tylenol) 650 mg PO Q6H PRN PRN PRN Reason: Pain Score 1-10/Temp > 100.7 F Last Admin: 12/29/19 21:05 Dose: 650 mg Documented by: Bisacodyl (Dulcolax) 10 mg RECTAL .PRN X 1 PRN PRN Reason: Constipation Calamine/Phenol (Calmoseptine Ointment) 1 applic TOPICAL BID [facility]; Protocol Last Admin: 01/06/20 07:42 Dose: 1 applicatio Documented by: Cholecalciferol (Vitamin D) 2,000 unit PO DAILY [facility] Last Admin: 01/06/20 07:41 Dose: 2,000 unit Documented by: Clopidogrel Bisulfate (Plavix) 75 mg PO DAILY [facility] Last Admin: 01/06/20 07:41 Dose: 75 mg Documented by: Divalproex Sodium (Depakote Er) 750 mg PO QHS [facility] Last Admin: 01/05/20 21:52 Dose: 750 mg Documented by: Divalproex Sodium (Depakote Er) 750 mg PO QAM [facility] Last Admin: 01/06/20 07:40 Dose: 750 mg Documented by: Fenofibrate (Tricor) 145 mg PO DAILYCM [facility] Last Admin: 01/06/20 07:39 Dose: 145 mg Documented by: Levetiracetam (Keppra Tablet) 750 mg PO BID [facility] Last Admin: 01/06/20 07:41 Dose: 750 mg Documented by: Magnesium Hydroxide (Milk Of Magnesia) 30 ml PO .PRN X 1 PRN PRN Reason: Constipation Pravastatin Sodium (Pravachol) 20 mg PO QHS [facility] Last Admin: 01/05/20 21:49 Dose: 20 mg Documented by: Propranolol HCl (Inderal) 10 mg PO BID@0800,2200 [facility] Last Admin: 01/06/20 07:39 Dose: 10 mg Documented by: Senna/Docusate Sodium (Senokot-S, [place]-Colace) 2 tablet PO BID PRN PRN PRN Reason: stool softener Sertraline HCl (Zoloft) 100 mg PO DAILY [facility] Last Admin: 01/06/20 07:41 Dose: 100 mg Documented by: Medical Necessity - Tobacco Use Smoking Status: Never smoker Tobacco Use: Non-smoker Assessment/Plan All Active Problems Macrocytic anemia (Acute) Leukopenia (Resolved) Sequela, post-stroke (Acute) Adverse drug reaction (Resolved) Physical debility (Resolved) Waqas's paralysis (Resolved) Patient is a 69-year-old gentleman with 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 EEG obtained during patient's hospitalization demonstrated mild diffuse encephalopathy. Patient was admitted to the inpatient rehab unit for treatment of his significant debility 1. Physical debility ?Patient admitted to inpatient rehab and is currently undergoing therapy 2. Closed left clavicular fracture 3. Remote history of right MCA CVA ?With residual left hemiparesis 4. Hypertension ~ blood pressure controlled, home medications continued with dose adjustment as needed 5. Dyslipidemia ~patient is on fenofibrate continued at home dose 6. Seizure disorder ?Patient is on Depakote as well as Keppra did continue 7. Chronic thrombocytopenia ?Patient platelet count on 12/25/2019 was 91 actually did improve to 160 as of 01/01/2020 8. Depression ?Patient is on SSRI with sertraline did continue Code Visit Inpatient E&M: 46418 Subs Hosp L2
[2020-01-06 19:18] VITALS: BP 126/62; PULSE 60; RESP 18; TEMP 36.6; O2SAT 96
[2020-01-06 20:43] VITALS: BMI 27.3
[2020-01-06] MEDS: Pravastatin 20 MG Tablet PO (20:49)
[2020-01-07] MEDS: Propranolol 10 MG Tablet PO ×2 (07:30→20:52)
[2020-01-07] MEDS: levETIRAcetam 750 MG Tablet PO ×2 (07:30→20:51)
[2020-01-07] MEDS: Divalproex (ER) 250 MG Tablet 750 MG PO ×2 (07:30→20:52)
[2020-01-07] MEDS: Fenofibrate 145 MG Tablet PO (07:30)
[2020-01-07] MEDS: Clopidogrel Bisulfate 75 MG Tablet PO (07:31)
[2020-01-07] MEDS: Sertraline 50 MG Tablet 100 MG PO (07:31)
[2020-01-07] MEDS: Menthol/Lanolin/Calamine/Znox 113 GM Tube 1 APPLIC TOPICAL ×2 (07:32→20:52)
[2020-01-07] MEDS: Acetaminophen 325 MG Tablet 650 MG PO (07:34)
[2020-01-07 08:00] VITALS: BP 119/69; PULSE 55; RESP 18; TEMP 36.7; O2SAT 95
[2020-01-07 14:14] VITALS: BMI 27.3
[2020-01-07 19:15] VITALS: BP 101/54; PULSE 58; RESP 16; TEMP 36.4; O2SAT 97
[2020-01-07 20:40] VITALS: BMI 27.3
[2020-01-07] MEDS: Pravastatin 20 MG Tablet PO (20:52)
[2020-01-08 06:17] LABS: Hematocrit 40.9 % (40-54); Hemoglobin 12.8 g/dL (13.0-16.5); Mean Corp Hgb Conc 31.3 g/dL (32-36); Mean Corpuscular Hgb 30.8 pg (27.0-32.0); Mean Corpuscular Volume 98.6 fL (80-94); Platelet Count 156 K/mm3 (150-450); RBC Distribution Width CV 14.9 % (11.6-14.6); RBC Distribution Width SD 54.1 fl (35.1-43.9); Red Blood Count 4.15 M/mm3 (4.6-6.2); White Blood Count 5.2 K/mm3 (4.4-11.0)
[2020-01-08 06:36] LABS: Anion Gap 4 (5-15); BUN 23 mg/dL (7-18); BUN/Creat Ratio 20.5 RATIO (10-20); Calcium,Total 8.5 mg/dL (8.5-10.1); Chloride 112 mmol/L (98-107); Creatinine, Serum 1.12 mg/dL (0.70-1.30); EST Glomerular Filtration Rate 69 mL/min (>60); Est Glom Filt Rate - Afr Amer 84 mL/min (>60); Estimated Creatinine Clearance 68.17 ml/min; Glucose 89 mg/dL (74-106); Potassium 4.3 mmol/L (3.5-5.1); Sodium Level 146 mmol/L (136-145)
[2020-01-08] MEDS: Propranolol 10 MG Tablet PO ×2 (07:51→19:51)
[2020-01-08] MEDS: Clopidogrel Bisulfate 75 MG Tablet PO (07:51)
[2020-01-08] MEDS: Sertraline 50 MG Tablet 100 MG PO (07:51)
[2020-01-08] MEDS: Fenofibrate 145 MG Tablet PO (07:51)
[2020-01-08] MEDS: Menthol/Lanolin/Calamine/Znox 113 GM Tube 1 APPLIC TOPICAL ×2 (08:34→19:52)
[2020-01-08] MEDS: Divalproex (ER) 250 MG Tablet 750 MG PO ×2 (08:35→19:51)
[2020-01-08 08:48] VITALS: BP 104/69; PULSE 54; RESP 17; TEMP 36.4; O2SAT 96
--- NOTE | 2020-01-08 08:52 | PCM.PN.BLA ---
Progress Note Afebile VSS Maintaining appropriate oxygen saturation on RA Oral intake is good Discussed with nursing - no problems that need addressed Reviewed the PT/OT/ST notes Medication list reviewed. All lab was personally reviewed. Hemoglobin has been improving and is up to 12.8 from 11.8 on 12/28/2019. Platelets remain within normal limits at 156,000. Sodium is mildly increased at 146 today and the BUN is 23 with a creatinine of 1.12. He has had no seizure activity since the decrease in the dose of Depakote. He denies lightheadedness. He is sitting in the chair at the bedside and he is very alert. He is smiling and in a good mood. He is doing very well with therapy and is scheduled to go home On Wednesday. Lungs - CTA H- RRR no gallop abd - Soft, NT, good bowel function. No peripheral edema Impressions 1. Post stroke debility 2. hypernatremia - encouraged increased water intake 3. essential tremor - better with the Propanolol 4. anemia - HH is increasing and is up to 12.8......it was normal on 10/11/19 5. Seizure disorder-on Depakote and Keppra. Depakote was decreased to 750 mg twice daily during this admission and he has had no seizures. 6. Thrombocytopenia-resolved with discontinuation of aspirin. Continue PT/OT/ST His would like to take him to the cabin and she thinks he would like Kayaking? I do not think he will be able to do this ever and he would be at high risk of drowning. He has poor balance and essential tremor........if he flips the kayak he would not be able to right himself and I can not envision him being safely able to get in and out of a kayak. PT recommended when he is getting OP PT at [facility] that the therapist try him on the rower......I do not think he will be able to get up from the rower if he is able to safely get himself on the rower. I did say her that he needs to stay active and should get a membership to [facility] so that he can continue to exercise after PT is concluded. I also told her that he needs to have activities to do and ST recommended [facility]. They need to have a routine that includes activities that he can be successful at and that are not risky. I think if he is presented with activities that he can not possibly do he will get frustrated and depressed and back slide again. STROKE Vital Signs/Narrative: Vital Signs Temp Pulse Resp BP Pulse Ox 01/08/20 08:48 97.6 F L 54 L 17 104/69 96 Code Visit Inpatient E&M: 71979 Subs Hosp L2
[2020-01-08] MEDS: levETIRAcetam 750 MG Tablet PO ×2 (09:18→19:51)
--- NOTE | 2020-01-08 10:39 | CASEMGMT ---
Social Work IT met with pt and . Pt walking 165ft at [facility], able to do 7 steps at [facility]- PT recommending going down backwards, at request. pt transfers are at min assist. Pt ADLS are min assists with cues. Rt tremor improving. ST working with pt on short term memory-80% accuracy. Pt hearing impairment affecting perceived cognition. ST recommending pt look at person speaking to them to understand what is being asked/ said, and recommending pt wears hearing aides. Pt is still needing some prompting for left side neglect. Therapy recommending pt to do activities after DC to help with mood. to come in Wednesday for family training. Educated pt to [facility] days, 24 days with DC 01/12. Therapy recommending OP therapy, pt requesting [facility]-PT/OT/ST. requesting transfer w/c. Vanda Barillas, social work international marketing specialist Tracey Montoya, CLINICAL RESEARCH ANALYST SQUILGEER
[2020-01-08 14:13] VITALS: BMI 27.3
[2020-01-08 19:50] VITALS: PULSE 64; RESP 16; O2SAT 94; BMI 27.3
[2020-01-08] MEDS: Pravastatin 20 MG Tablet PO (19:51)
[2020-01-08 20:17] VITALS: BP 110/62; PULSE 64; RESP 16; TEMP 36.8; O2SAT 94
--- NOTE | 2020-01-09 04:11 | NURSING ---
Reviewed and agree with COST CONTROLLER documentation and charting.
[2020-01-09 07:00] VITALS: BP 118/63; PULSE 52; RESP 18; TEMP 36.6; O2SAT 99
[2020-01-09] MEDS: Sertraline 50 MG Tablet 100 MG PO (07:42)
[2020-01-09] MEDS: Fenofibrate 145 MG Tablet PO (07:43)
[2020-01-09] MEDS: Propranolol 10 MG Tablet PO ×2 (07:43→20:24)
[2020-01-09] MEDS: Clopidogrel Bisulfate 75 MG Tablet PO (07:43)
[2020-01-09] MEDS: levETIRAcetam 750 MG Tablet PO ×2 (07:43→20:24)
[2020-01-09] MEDS: Divalproex (ER) 250 MG Tablet 750 MG PO ×2 (07:43→20:24)
[2020-01-09] MEDS: Menthol/Lanolin/Calamine/Znox 113 GM Tube 1 APPLIC TOPICAL ×2 (07:44→20:31)
[2020-01-09] MEDS: Acetaminophen 325 MG Tablet 650 MG PO ×2 (08:21→20:24)
[2020-01-09 13:26] VITALS: BMI 27.3
[2020-01-09 18:57] VITALS: BP 106/58; PULSE 57; RESP 17; TEMP 36.6; O2SAT 95
[2020-01-09] MEDS: Pravastatin 20 MG Tablet PO (20:24)
[2020-01-09 20:45] VITALS: PULSE 57; RESP 17; O2SAT 95; BMI 27.3
--- NOTE | 2020-01-10 04:52 | NURSING ---
Reviewed and agree with documentation and charting.
[2020-01-10] MEDS: Divalproex (ER) 250 MG Tablet 750 MG PO ×2 (07:54→21:06)
[2020-01-10] MEDS: Fenofibrate 145 MG Tablet PO (07:55)
[2020-01-10] MEDS: Clopidogrel Bisulfate 75 MG Tablet PO (07:55)
[2020-01-10] MEDS: Sertraline 50 MG Tablet 100 MG PO (07:55)
[2020-01-10] MEDS: levETIRAcetam 750 MG Tablet PO ×2 (07:55→21:06)
[2020-01-10] MEDS: Propranolol 10 MG Tablet PO ×2 (07:55→21:06)
[2020-01-10] MEDS: Menthol/Lanolin/Calamine/Znox 113 GM Tube 1 APPLIC TOPICAL ×2 (07:59→21:06)
[2020-01-10 08:08] VITALS: BP 113/64; PULSE 53; RESP 18; TEMP 36.6; O2SAT 97
[2020-01-10 10:23] VITALS: BMI 27.3
--- NOTE | 2020-01-10 14:09 | PCM.PN.BLA ---
Progress Note Afebile VSS Maintaining appropriate oxygen saturation on RA Oral intake is good Discussed with nursing - no problems that need addressed Reviewed the PT/OT/ST notes Medication list reviewed. No complaints. Alert, oriented x3, no apparent distress, pleasant Lungs-clear to auscultation with excellent air exchange Heart-regular rate and rhythm, no gallop, no rub, no ectopy Abdomen-soft, nontender, nondistended, bowel sounds present No rashes and no breakdown No peripheral edema, no calf tenderness strength and endurance increased. Still with essential tremor but better with the Propanolol. Also doing better with weighted utensils Impressions 1. Post stroke debility 2. IBS? lactose intolerance? low lactose restriction added to his diet 3. seizure disorder - no seizures with the decrease in the Depakote. He would like to continue to taper but, I believe this should be up to neurology and will defer that decision to them 4. thrombocytopenia - chronic. Had acute on chronic when on 2 antiplatelet agents. The ASA has been discontinued and he is now only on Plavix - the last 2 CBC's had normal Platelets check a Valproic acid level in the AM....no seizures Plan on [place] Wednesday. Will need a transport chair at [place] for because he is unsafe with a cane or a wheeled walker for longer distances. Code Visit Inpatient E&M: 99894 Subs Hosp L1
[2020-01-10 18:21] VITALS: BP 110/67; PULSE 66; RESP 16; TEMP 36.7; O2SAT 95
[2020-01-10] MEDS: Pravastatin 20 MG Tablet PO (21:05)
[2020-01-10 21:14] VITALS: BMI 27.3
[2020-01-11 06:30] LABS: Valproic Acid (Depakene) Level 44 ug/mL (50-100)
[2020-01-11 07:00] VITALS: BP 101/65; PULSE 56; RESP 14; TEMP 36.6; O2SAT 98
[2020-01-11] MEDS: Divalproex (ER) 250 MG Tablet 750 MG PO ×2 (09:15→22:40)
[2020-01-11] MEDS: levETIRAcetam 750 MG Tablet PO ×2 (09:15→22:40)
[2020-01-11] MEDS: Propranolol 10 MG Tablet PO ×2 (09:15→22:40)
[2020-01-11] MEDS: Clopidogrel Bisulfate 75 MG Tablet PO (09:15)
[2020-01-11] MEDS: Fenofibrate 145 MG Tablet PO (09:15)
[2020-01-11] MEDS: Sertraline 50 MG Tablet 100 MG PO (09:15)
[2020-01-11] MEDS: Menthol/Lanolin/Calamine/Znox 113 GM Tube 1 APPLIC TOPICAL ×2 (09:17→22:41)
[2020-01-11 16:56] VITALS: BMI 27.3
[2020-01-11 19:28] VITALS: BP 122/70; PULSE 68; RESP 16; TEMP 36.6; O2SAT 94
[2020-01-11] MEDS: Pravastatin 20 MG Tablet PO (22:40)
[2020-01-12 06:58] VITALS: BP 113/64; PULSE 55; RESP 18; TEMP 36.7; O2SAT 95
[2020-01-12] MEDS: Propranolol 10 MG Tablet PO ×2 (08:51→19:48)
[2020-01-12] MEDS: levETIRAcetam 750 MG Tablet PO ×2 (08:51→19:48)
[2020-01-12] MEDS: Divalproex (ER) 250 MG Tablet 750 MG PO ×3 (08:52→20:34)
[2020-01-12] MEDS: Fenofibrate 145 MG Tablet PO (08:52)
[2020-01-12] MEDS: Sertraline 50 MG Tablet 100 MG PO (08:52)
[2020-01-12] MEDS: Menthol/Lanolin/Calamine/Znox 113 GM Tube 1 APPLIC TOPICAL ×2 (08:53→19:46)
[2020-01-12] MEDS: Clopidogrel Bisulfate 75 MG Tablet PO (10:33)
[2020-01-12 12:19] VITALS: BMI 27.3
--- NOTE | 2020-01-12 13:11 | PCM.DC ---
- Discharge Diagnoses Current Active Problems: Current Active and Chronic Problems Sequela, post-stroke (Acute) increasing weakness on the left side, confusion, weak voice You will use the following diet at home:: Calorie/Carbohydrate Controlled (specify 1200, 1400, etc), Cardiac - diabetes is now diet controlled since weight loss. Low fat, low salt and carb control. Low lactose diet.....loose stool with milk products Your food should be the consistency of: Regular Your liquids should be the consistency of: Regular/Thin Discharge Activity: May Not Drive, Use Walker, - - Use transport chair for longer distances rather than WW. Weight Bearing Status: Full weight bearing Call your doctor if you observe: Fever of 101 or Higher, Inability to urinate, Inability to have a bowel movement, Shortness of breath, Dizziness, Fainting spells, Swelling in the ankles, Chest pain, Calf discomfort Instructions: Depression Affects Your Mind and Body, What Can Cause Depression?, Depression: Tips to Help Yourself Additional Instructions: 1. You have really improved since you were admitted to the rehab unit! I think that maintaining good social contacts and continuing with increased activities is going to be [place] for you in maintaining a Healthy emotional/mental and physical well being after discharge. Be careful to avoid undertaking physical activities that you have little chance to be successful at.....these activities will at best frustrate you when you are unable to complete them and at worst cause physical harm. 2. You still have some essential tremor. It did improve somewhat with the Propanolol so we are continuing this at [facility]. The BP is good with just the Propanolol and you will no longer have to take Lisinopril unless dr. Pearson feels it is improtant to restart a low dose to help with the chronic kidney disease. 3. I decreased the Depakote to 750 mg BID and I think this has helped with the sleepiness during the day. The level is a tad low but, you have not had any seziures and I am discharging you on 750 mg twice a day. 4. The low platelet count has resolved. I think it may have been due to Aspirin. continue the Plavix only for prevention of stroke. NO more aspirin. Dr. Hari Oconnell is the hemtologist (blood doctor) you saw in the hospital and I think you should continue to follow up h him after discharge. 5. It was a pleasure to see you again Major. All the staff and myself are very pleased to see the progress you have made and the smiles you give us. If you ever need our services we are happy to assist in any way we can and happy to take you back to rehab if neessary. I think you are going to like [facility]....it is a very nice gym and there are some friendly people who routinely work out there.....usually M, W, F. Good luck to you Major. Pending Tests on Discharge: none Allergies/Adverse Reactions: Allergies primidone Adverse Reaction (Verified 12/18/19 21:37) Other Medications to take at Discharge Clopidogrel Bisulfate [Plavix] 75 mg PO DAILY 07/26/17 Pravastatin [Pravachol] 20 mg PO QHS 07/26/17 Fenofibrate Nanocrystallized [Fenofibrate] 145 mg PO DAILY 10/11/19 levETIRAcetam tablet [Keppra tablet] 750 mg PO BID 10/11/19 Acetaminophen [Tylenol Tablet] 650 mg PO Q6H PRN PRN tab 12/20/19 Glucerna Shake 120 ml PO TIDCM 12/20/19 Sennosides/Docusate Sodium [Senna-S Tablet] 2 tab PO BID PRN 12/20/19 Cholecalciferol (VIT D3) [Vitamin D3] 2,000 unit PO DAILY tablet 01/12/20 Divalproex (ER) [Depakote ER] 750 mg PO BID #60 tab 01/12/20 Propranolol HCl [Inderal (Beta Brandon)] 10 mg PO BID@0800,2200 #60 tab 01/12/20 Sertraline HCl 100 mg PO DAILY #30 tab 01/12/20 The following prescriptions were given: Divalproex (ER) [Depakote ER] 750 mg PO BID #60 tab Transmission Status: Pending to [id number] Propranolol HCl [Inderal (Beta Brandon)] 10 mg PO BID@0800,2200 #60 tab Transmission Status: Pending to [id number] Sertraline HCl 100 mg PO DAILY #30 tab Transmission Status: Pending to [id number] Primary Care Physician: Antonio Pearson MD [Primary Care Provider] - Please follow up with your Primary Care Physician in: 7-10 days Test Results: Test results from this visit will be discussed in further detail at your follow-up appointment, if applicable. Please Follow Up With: Chikis Billings DO Please Follow Up With: Hari Oconnell MD Please Follow Up With: Antonio Pearson MD Proposed Discharge Date: 01/13/20
--- NOTE | 2020-01-12 13:58 | PCM.DC.SUM ---
Discharge Date and Diagnosis Date of Admission: 12/20/19 Date of Discharge: 01/13/20 - Primary Discharge Diagnosis Active and Suspected Problems Sequela, post-stroke (Acute) increasing weakness on the left side, confusion, weak voice, increase dysphagia Macrocytic anemia - stool is heme negative Uncontrolled Depression Acute on chronic Thrombocytopenia-resolved Lactose intolerance - suspected Moderate to severe Malnutrition - Secondary Discharge Diagnosis Chronic Problems Essential tremor (Chronic) Dysphagia (Chronic) Depression (Chronic) Closed left clavicular fracture (Chronic) Left clavicle Chronic renal failure, stage 3 (moderate) (Chronic) Vitamin D deficiency (Chronic) Macrocytosis without anemia (Chronic) suspect due to steatohepatosis Seizure disorder (Chronic) DM2 (diabetes mellitus, type 2) (Chronic) diet controlled Dyslipidemia (Chronic) HTN (hypertension) (Chronic) CVA (cerebral vascular accident) (Chronic) remote 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 Hospital Course and Treatment Imaging Results: Clinical Impression(s) from Imaging Studies Shoulder X-Ray 12/21/19 12:03 IMPRESSION: Healing fracture of the distal clavicle with mild superior migration of the distal clavicle at the acromioclavicular joint and increasing ossification in the region of the coracoclavicular ligaments. 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 Noncontrasted CT brain in the emergency department did not show any acute findings. The [facility] tele-stroke neurologist felt he should be admitted overnight for observation and that an MRI and MRA should be done the following morning. The brain MRI showed involutional changes of the brain with chronic right middle cerebral artery infarct. There were no acute changes. MRA of the head was normal. Echocardiogram showed a 65% ejection fraction with stage I diastolic dysfunction and a moderately dilated right ventricle. Patient has known obstructive sleep apnea. A right ventricular pressure could not be estimated due to insufficient tricuspid regurgitant envelope. EEG suggested mild diffuse encephalopathy based on intermittent slow generalized waveforms and mild posterior background slowing. There were no epileptiform discharges or lateralizing signs. He was seen by PT/OT/ST in the hospital and the recommendation was for inpt rehab at [place]. He was admitted to the [facility] on 12/20/2019 for greater than or equal to 3 hours of therapy daily to restore him to, at or near his prior level of function/independence prior to admission. While in the acute hospital the plt's dropped to as low as 43,000. Anish Richey was consulted and he recommended a B12 and folate and these were both normal. He was kept on Plavix. Lab was checked periodically while Major was in rehab and his plt count recovered. He continues to take Plavix. The plt count on 01/08/20 was 156,000 and he was not given steroids. He may have ITP. Follow up with Dr. Oconnell as an OP was recommended. Major has benign essential tremor and the worst sx are in the LUE. He had intolerable SE's with primidone in the past so he was started on Propanolol 10 mg BID and this has had some good results. The tremor is now limited to his hand and not the whole arm and he is better able to feed himself. He has been using weighted utensils and these have been ordered for so that he can have these at home. Unfortunately we could not push the Propanolol dose any higher due to bradycardia. Depakote was decreased to 750 mg BID and I belief this also helped with lbeing more alert during the day. He had no seizures while in rehab but, the Valproic acid level was in the mid 40's. He was discharged on 750 mg BID. He will follow up with neurology. Major was a pt in the rehab unit in October of 2019 for post stroke sequelae. He was doing well at [facility] on 10/29/2019. He was discharged to [facility] and from there he went home. He had not been eating and he lost approximately 25 lbs since we last saw him in rehab. He was not on any hypoglycemic agents and the BS's were controlled. He was seen by the gear shaver set up operator and diagnosed with moderate to severe malnutrition and started on nutritional supplements. His mood was depressed and he was frequently falling to sleep when we were talking with him. Sertraline was increased to 100 mg daily and he has tolerated this well with no adverse side effects. His appetite and intake improved significantly in just a few days on Rehab. He is more alert and he has been very active in going to the scheduled activities on TCU and in the rehab unit. He has been playing his piano and also doing crossword puzzles with his . He has been playing cards. He has done very well in therapy and he was able to be discharged home on 01/13/20. He will be going to OP PT/OT/ST [facility]. Prior to DC Major and his were given a list of suggested activities he could potentially be successful at and be safe. We stressed the need for increased socialization to help with depression. He will be getting a transport chair to help with attendance at activities requiring a long distance to get into. Major will follow up with Dr. Billings post discharge for the left clavicle fracture. He will also follow-up with Dr. Pearson, his primary care physician, in 7 to 10 days post discharge. He is also going to follow-up with Dr. Oconnell regarding chronic thrombocytopenia. Lying almost flat in bed with no respiratory distress, easily arousable, oriented x3, pleasant, no apparent distress Lungs-clear to auscultation with excellent air exchange Heart-regular rate and rhythm, no gallop Abdomen-soft, nontender, nondistended, normal bowel sounds, no guarding with palpation No peripheral edema No calf tenderness No rashes or breakdown This note was generated with [employer] dictation software. It may contain incorrect words, spelling, and punctuation that were not noted in checking the note before signing. - Physical Exam Vitals/I&O's: Vital Signs Temp Pulse Resp BP Pulse Ox 98.0 F 55 L 18 113/64 95 01/12/20 06:58 01/12/20 06:58 01/12/20 06:58 01/12/20 06:58 01/12/20 06:58 Oxygen Delivery Method Room Air Weight: 189 lb 13.088 oz Body Mass Index (BMI) 27.3 Finger Stick Blood Glucose 95 Orthostatic Vital Signs Start: 12/25/19 15:09 Freq: Status: Active Protocol: Activity Type Activity Date Activity User E-Sign Co-Sign Detail Recorded Client Recorded Date Recorded By Document 12/26/19 15:09 CDA [id number] 12/26/19 16:04 CDA 12/26/19 15:09 Orthostatic Vitals Standing -Blood Pressure (90/60-120/80 mm Hg) 113/77 -Extremity Use Right Arm -Pulse Rate (60-100 beats/min) 88 Sitting -Blood Pressure (90/60-120/80 mm Hg) 98/61 -Extremity Use Right Arm -Pulse Rate (60-100 beats/min) 69 Lying -Blood Pressure (90/60-120/80 mm Hg) 108/59 L -Extremity Use Right Arm -Pulse Rate (60-100 beats/min) 66 Intake and Output for Last 24 Hours 01/10/20 01/11/20 01/12/20 23:59 23:59 23:59 Intake Total 1180 / 1180 1100 / 1100 770 / 770 Output Total 950 / 950 700 / 700 600 / 600 Balance 230 / 230 400 / 400 170 / 170 Current Medications Acetaminophen (Tylenol) 650 mg PO Q6H PRN PRN PRN Reason: Pain Score 1-10/Temp > 100.7 F Last Admin: 01/09/20 20:24 Dose: 650 mg Documented by: Bisacodyl (Dulcolax) 10 mg RECTAL .PRN X 1 PRN PRN Reason: Constipation Calamine/Phenol (Calmoseptine Ointment) 1 applic TOPICAL BID [facility]; Protocol Last Admin: 01/12/20 08:53 Dose: 1 applicatio Documented by: Cholecalciferol (Vitamin D) 2,000 unit PO DAILY [facility] Last Admin: 01/12/20 08:51 Dose: 2,000 unit Documented by: Clopidogrel Bisulfate (Plavix) 75 mg PO DAILY [facility] Last Admin: 01/12/20 10:33 Dose: 75 mg Documented by: Divalproex Sodium (Depakote Er) 750 mg PO QHS [facility] Last Admin: 01/12/20 08:52 Dose: 750 mg Documented by: Divalproex Sodium (Depakote Er) 750 mg PO QAM [facility] Last Admin: 01/12/20 10:33 Dose: 750 mg Documented by: [facility] Last Admin: 01/12/20 08:52 Dose: 145 mg Documented by: Levetiracetam (Keppra Tablet) 750 mg PO BID [facility] Last Admin: 01/12/20 08:51 Dose: 750 mg Documented by: Magnesium Hydroxide (Milk Of Magnesia) 30 ml PO .PRN X 1 PRN PRN Reason: Constipation Pravastatin Sodium (Pravachol) 20 mg PO QHS [facility] Last Admin: 01/11/20 22:40 Dose: 20 mg Documented by: Propranolol HCl (Inderal) 10 mg PO BID@0800,2200 [facility] Last Admin: 01/12/20 08:51 Dose: 10 mg Documented by: Senna/Docusate Sodium (Senokot-S, [place]-Colace) 2 tablet PO BID PRN PRN PRN Reason: stool softener Sertraline HCl (Zoloft) 100 mg PO DAILY [facility] Last Admin: 01/12/20 08:52 Dose: 100 mg Documented by: Discharge Activity: May Not Drive, Use Walker, - - Use transport chair for longer distances rather than WW. Weight Bearing Status: Full weight bearing Call your doctor if you observe: Fever of 101 or Higher, Inability to urinate, Inability to have a bowel movement, Shortness of breath, Dizziness, Fainting spells, Swelling in the ankles, Chest pain, Calf discomfort Home Medications: Medications to take at Discharge Clopidogrel Bisulfate [Plavix] 75 mg PO DAILY 07/26/17 Pravastatin [Pravachol] 20 mg PO QHS 07/26/17 Fenofibrate Nanocrystallized [Fenofibrate] 145 mg PO DAILY 10/11/19 levETIRAcetam tablet [Keppra tablet] 750 mg PO BID 10/11/19 Acetaminophen [Tylenol Tablet] 650 mg PO Q6H PRN PRN tab 12/20/19 Glucerna Shake 120 ml PO TIDCM 12/20/19 Sennosides/Docusate Sodium [Senna-S Tablet] 2 tab PO BID PRN 12/20/19 Cholecalciferol (VIT D3) [Vitamin D3] 2,000 unit PO DAILY tab 01/12/20 Divalproex (ER) [Depakote ER] 750 mg PO BID #60 tab 01/12/20 Propranolol HCl [Inderal (Beta Brandon)] 10 mg PO BID@0800,2200 #60 tab 03/06/20 Sertraline HCl 100 mg PO DAILY #30 tab 01/12/20 Following Prescrptions Were Given to Patient: Divalproex (ER) [Depakote ER] 750 mg PO BID #60 tab [facility] Status[facility] Propranolol HCl [Inderal (Beta Brandon)] 10 mg PO BID@0800,2200 #60 tab Transmission Status: [facility] Sertraline HCl 100 mg PO DAILY #30 tab Transmission Status: Received by [id number] Primary Care Physician: Antonio Pearson MD [Primary Care Provider] - Please follow up with your Primary Care Physician in: 7-10 days Please Follow Up With: Chikis Billings DO Please Follow Up With: Hari Oconnell MD Please Follow Up With: Antonio Pearson MD Patient Instructions: Depression Affects Your Mind and Body, What Can Cause Depression?, Depression: Tips to Help Yourself Disposition: Home - with OP therapy at [facility] Minutes spent on discharge:: 40 Patient Condition:: Good Medical Necessity - Tobacco Use Smoking Status: Never smoker Tobacco Use: Non-smoker Meaningful Use Info Meaningful Use Diagnoses (Choose all that apply): None applicable Inpatient E&M: 70142 Disch Hosp
[2020-01-12 19:22] VITALS: BP 106/63; PULSE 61; RESP 16; TEMP 36.6; O2SAT 94
[2020-01-12] MEDS: Pravastatin 20 MG Tablet PO (19:48)
[2020-01-13 07:15] VITALS: BP 122/76; PULSE 57; RESP 18; TEMP 36.3; O2SAT 97
[2020-01-13] MEDS: Clopidogrel Bisulfate 75 MG Tablet PO (07:37)
[2020-01-13] MEDS: Propranolol 10 MG Tablet PO (07:37)
[2020-01-13] MEDS: levETIRAcetam 750 MG Tablet PO (07:37)
[2020-01-13] MEDS: Divalproex (ER) 250 MG Tablet 750 MG PO (07:37)
[2020-01-13] MEDS: Sertraline 50 MG Tablet 100 MG PO (07:37)
[2020-01-13] MEDS: Fenofibrate 145 MG Tablet PO (07:37)
[2020-01-13] MEDS: Menthol/Lanolin/Calamine/Znox 113 GM Tube 1 APPLIC TOPICAL (07:40)
[2020-01-13 10:16] VITALS: BP 122/76; PULSE 67; RESP 18; TEMP 36.3; O2SAT 97
--- NOTE | 2020-01-13 10:17 | NURSING ---
discharged home with . Discharge instruction, medications and appointments with pt ans . Denies question or concerns
[2020-01-13 10:19] VITALS: BMI 27.3
== END 2020-01-13 09:45 | disposition home or self-care (01) | DRG 56 ==
PROVIDERS: Admitting Provider Internal Medicine; PCP Family Medicine; Visit Provider Internal Medicine
DX: I69.354 Hemiplegia and hemiparesis following cerebral infarction affecting left non-dominant side (principal); E43 Unspecified severe protein-calorie malnutrition; I69.328 Other speech and language deficits following cerebral infarction; N18.3 Chronic kidney disease, stage 3 (moderate); E11.22 Type 2 diabetes mellitus with diabetic chronic kidney disease; E78.5 Hyperlipidemia, unspecified; F32.9 Major depressive disorder, single episode, unspecified; G40.909 Epilepsy, unspecified, not intractable, without status epilepticus; D69.6 Thrombocytopenia, unspecified; I12.9 Hypertensive chronic kidney disease with stage 1 through stage 4 chronic kidney disease, or unspecified chronic kidney disease; G47.33 Obstructive sleep apnea (adult) (pediatric); G25.0 Essential tremor; E55.9 Vitamin D deficiency, unspecified; D53.9 Nutritional anemia, unspecified; I69.398 Other sequelae of cerebral infarction; I69.391 Dysphagia following cerebral infarction; R13.10 Dysphagia, unspecified; R41.0 Disorientation, unspecified; Z68.26 Body mass index [BMI] 26.0-26.9, adult
CPT/HCPCS: 36415; 73030; 80048; 80164; 80177; 82274; 82550; 83735; 84100; 85027; 92507; 92523; 92610; 97110; 97112; 97116; 97162; 97166; 97530; 97535; 97802; 97803

== ENCOUNTER 2020-02-01 12:00 | Outpatient (RCR) | payer MEDICARE, OTHER, SELFPAY ==
--- NOTE | 2020-01-25 12:20 | HP.OTEVAL_ITS ---
Patient's Visit Information ISAAC PAEZ is a 69 year old M, referred to Occupational Therapy by Antonio Pearson MD, with a diagnosis of debility, mod risk for fall, gen weakness. Date of Evaluation: 01/25/20 Occupational Therapist: Kate Odell - Subjective Subjective: Pt seen for occupational therapy evaluation for generalized muscle weakness, at moderate risk of falls, and physical debility. Pt reports Oct 2019 broke collar bone hospitalized and d/c'd to [facility] for a few weeks, then returned home for a few days and admitted to hospital again November from there admitted to rehab inpatient facility for 24 days. He has been home for about 2 weeks living w/ spouse. Spouse available to assist with BADL/IADLs as needed. Pt reports S/U for grooming tasks, MIN A UB dressing, S/U LB dressing tasks. Walk in shower w/ shower bench and grab bars SUP level, uses weighted utensils to assist with tremors while self feeding. Hobbies: reading. Pt would like to be more independent with L UE strength, coordination and indep w/ self care tasks. - Objective Objective/Observation: decreased strength, activitiy tolerance and coordination of L UE. - ROM Shoulder: R WFL, L 100' flexion, abduction 95' ROM Comments: R UE WFL, L UE WFL other than limited shoulder flexion/abduction. - Strength Padder Cushion: R 93#, L 41# Lateral Pinch: R 13#, L 11# Tripod Pinch: R 12#, L 1#, difficult time keeping digits on device to test strength Strength Comments: Generalized MMT R 4/5, L 3+/5 - Edema Other: No edema - Sensation Sensation Comments: No numbness or tingling - In-Hand Manipulation Finger to Palm Translation: Normal - Right, Unable - Left Palm to Finger Translation: Normal - Right, Unable - Left - Quick DASH-Disab of Arm,Shoulder& Hand Quick DASH Score: 65.9075 - Goals Goal:: Pt will progress w/ L senior qa automation engineer strength by atleast 20# to assist w/ opening containers independently by d/c from OT services. Pt will progress w/ L UE strength from 3+/5 to 4/5 to assist w/ BADL tasks. Goal:: Pt will be able to open a variety of containers independently with 75% accuracy in 3/4 trials. Goal:: Pt will be able to complete all UB dressing tasks with S/U level using AE as needed. Goal:: Pt will be educated on appropriate BUE HEP with good understanding and demo 100%x. Goal:: Pt will be able to manipulate large to medium sized buttons with min verbal cues needed to initiate task. - Rehabilitation General Assessment: Pt demo decreased activity tolerance, decreased LUE strength and coordination and decreased indep w/ BADL tasks all indicating a need for skilled OT interventions to increase his indep w/ L UE strength, coordination and indep with BADL tasks to increase pt's quality of life. Rehabilitation Potential: Good - Anticipated Interventions Anticipated Interventions: A/AAROM/PROM, Strengthening, Modalities, Joint Protection/Energy Conservation, Fine Motor Coord/Lico, Neuro Reeducation, Education re assistive Equipment, Education re Diagnosis, Caregiver Training, Home Program - Visit Plan Frequency: 1-2x /Week Duration: 4-6 Weeks General Plan: increase L UE strength and coordination, educate on appropriate HEP, increase indep w/ BADL tasks. TEXT: Thank you for the opportunity to evaluate your patient. For Medicare and Medicare HMO plans, please review the plan of care and approve it. It will need to be FAXED BACK to us at [phone] for Medicare purposes. Please let me know if there are questions or concerns regarding this plan of care. Physician Signature: Date:
--- NOTE | 2020-01-25 13:10 | HP.PTEVAL_ITS ---
Patient's Visit Information ISAAC PAEZ is a 69 year old M referred to Physical Therapy by Antonio Pearson MD with a diagnosis of Debility. Date of Evaluation: 01/25/20 Physical Therapist: Tj Kelly PT, ATC - Visit Plan Frequency: 2x /Week Duration: 6 Weeks Plan: LE strengthening, balance and proprio, gait training, bike, and HEP - Subjective Subjective: CVA= October 2016. Pt reports he has recently become debilitated secondary to lack of activity over the past couple years. Pt reports he went to his doctor 2 months ago secondary to his weakness and Hx of falls (2 in the last 3 mos). pt reports he was admitteted to the rehab unit at the hospital for the past 2 months where he has become stronger and more mobile. Pt reports he has a Hx of seizures, but none recently. Pt reports he has normal sensation in his LE's. Pt has been using a walker for the past three months. Pt reports he is not in pain this date. Pt notes he has 2 stairs to get into his house and notes he can negotiate them one step at a time. - Objective Neuro: B LE sensation is WNL to lgiht touch. MMT: R LE is grossly 5/5 throughout. L LE is grossly 4/5 throughout. Balance: Pt is able to DLS without AD for 30 sec with minimal swaying. Pt is able to DLS for approximately 20 sec with EC until significant swaying occurs indicating balance deficit at this time. ROM: B LE's WFL. Gait: Pt able to ambulate 800 feet until having to sit and rest secondary to fatigue. Pt was very unsteady after 300 feet. - Goals Goal 1:: Increase L LE strength x 1 grade to aid with stair negotiation Goal Time Frame: 4-6 Weeks Goal 2:: Pt will be able to ambulate greater than 1000' with WW to aid with community ambulation Goal Time Frame: 4-6 Weeks Goal 3:: I with HEP Goal Time Frame: 4-6 Weeks - Rehabilitation Potential Physical Therapy Diagnosis: Pt has LE weakness, decreased balance, and is limited with ambulatory distance secondary to debilitation. Rehabilitation Potential: Good - Anticipated Interventions Patient/Client Instruction: Educate patient on: Condition, Plan of Care For the Purpose of:: To improve self management Therapeutic Exercise to Include: Strength training, Endurance training, Balance training, Gait and locomotor training, Dynamic Lumbar Stabilization For the Purpose of:: To improve muscle performance and motor function, To improve performance and independence with ADL's, To improve gait and locomotor functions Thank you for the opportunity to evaluate your patient. For Medicare and Medicare HMO plans, please review the plan of care and approve it. It will need to be FAXED BACK to us at [phone] for Medicare purposes. For Medicare only, by signing this I certify the plan of care. Please let me know if there are questions or concerns regarding this plan of care. Physician Signature: Date:
--- NOTE | 2020-07-02 12:38 | HP.OT.NRP ---
ISAAC Stacy PAEZ was seen in my office for initial evaluation on 01/25/20. The following Plan of Care was established for this patient: Initial Frequency: 1-2x /Week Initial Duration: 4-6 Weeks Plan: cont POC PRE Anticipated Interventions: A/AAROM/PROM, Strengthening, Modalities, Joint Protection/Energy Conservation, Fine Motor Coord/Lico, Neuro Reeducation, Education re assistive Equipment, Education re Diagnosis, Caregiver Training, Home Program This patient was last seen in our office 02/01/20. Pertinent comments regarding their Occupational therapy will appear below: pt was seen for 3 OT sessions for CVA rehab. pt has not scheduled further apts and is D/C at this time due to time lapse in services. At this point I will be discontinuing this patient from occupational therapy. I would be happy to see this patient again in the future if found appropriate by the physician. Thank you! Leyla Nice, OTR/L, CHT
== END 2020-02-01 19:00 | disposition home or self-care (01) ==
LOC: OT 12:00
PROVIDERS: PCP Family Medicine; Visit Provider Family Medicine
DX: R53.81 Other malaise (principal); Z74.09 Other reduced mobility; R13.10 Dysphagia, unspecified; R49.0 Dysphonia; R53.1 Weakness; Z91.81 History of falling
CPT/HCPCS: 97110; 97161; 97165; 97166; 97530

== ENCOUNTER → 2020-03-14 09:17 | Outpatient (CLI) | payer MEDICARE, OTHER, SELFPAY ==
[2020-03-12 08:27] VITALS: BMI 27.3
--- NOTE | 2020-03-14 09:27 | RAD_ITS ---
STUDY: X-RAY - LEFT CLAVICLE REASON FOR EXAM: Pain left clavicle area, clavicle fracture past October, recent fall 1.5 weeks ago. TECHNIQUE: 2 view(s) of the clavicle. COMPARISON: Radiographs 12/20/2019 and 10/11/2019. FINDINGS: There is a healing fracture of the distal clavicle without demonstrated new fracture. There is mild elevation of the superior clavicle at the acromioclavicular articulation and ossification in the coracoclavicular ligaments. Normal visualized sternoclavicular articulation. Normal visualized pulmonary apex. RAD/Clavicle IMPRESSION: Healing fracture of the distal clavicle with mild superior migration of the distal clavicle at the acromioclavicular joint and ossification in the coracoclavicular ligaments as on the prior study. Electronically Signed: Mukund Arango MD at 10:01 EDT Tel , Service support ,
== END ==
PROVIDERS: PCP Family Medicine; Referring Provider Orthopaedic Surgery; Visit Provider Orthopaedic Surgery
DX: S42.002A Fracture of unspecified part of left clavicle, initial encounter for closed fracture (principal)
CPT/HCPCS: 73000

== ENCOUNTER 2025-06-27 11:52 | Observation (INO) | payer MEDICARE, OTHER, SELFPAY ==
--- NOTE | 2025-06-22 14:52 | PAT.ANESEVAL ---
Pre-Assessment Diagnosis/Proposed Procedure Planned Operative Procedure(s): TURP Anesthesia History Anesthesia History - health care legal assistant: Anesthesia History - health care legal assistant Hx Hospitalization No 06/22/25 11:29 Any Problems With Anesthesia No 06/22/25 11:29 Cholinesterase deficiency No 06/22/25 11:29 You/Your Family Experience No 06/22/25 11:29 fever (hyperthermia) with Relationship Recent Exposure to Contagious No 12/14/14 22:36 Disease Does patient have nerve No 06/22/25 11:29 stimulator Patient instructed to have device shut off --Does patient have Pacemaker or ICD? When Was Last Pacemaker Check QUESTION #4 FULL TEXT: You/Your Family Experience fever (hyperthermia) with Anesthesia Last Oral Intake Last Oral intake: Last Oral Intake NPO since Meds taken in AM with sips of water? Meds patient instructed to take am of surgery PONV PONV - health care legal assistant: PONV - health care legal assistant Female No 06/22/25 11:29 HX of Motion Sickness No 06/22/25 11:29 HX of N/V After Surgery No 06/22/25 11:29 Non-Smoker Yes 06/22/25 11:29 Duration of Surgery greater Yes 06/22/25 11:29 than 60 minutes Number of Risk Factors 2 06/22/25 11:29 PONV Score Moderate Risk 06/22/25 11:29 Respiratory Assessment Respiratory Assessment - health care legal assistant: Respiratory Tract Infection Hx - health care legal assistant Hx Respiratory Tract Infection No 06/22/25 11:29 STOP Sleep Apnea STOP Sleep Apnea - health care legal assistant: STOP Sleep Apnea - health care legal assistant Hx Hypertension Yes: NO MEDS FOR 10 YRS AGO 06/22/25 11:29 Hx Sleep Apnea Yes 06/22/25 11:29 CPAP Yes 06/22/25 11:29 BIPAP No 06/22/25 11:29 Do you snore loudly (louder than talking or can be heard Do you often feel tired/ fatigued/ sleepy during daytime? Has anyone observed you stop breathing during sleep? STOP Results Positive 06/22/25 11:29 QUESTION #5 FULL TEXT : Do you snore loudly (louder than talking or can be heard through closed doors)? 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 Specify any problems Hx of Preganancy in last 3 N/A 06/22/25 11:29 Months Nurse Filling Out Transfusion DSCHRIBER 06/22/25 11:29 & Questions: Date: 06/22/25 06/22/25 11:29 Time: 11:30 06/22/25 11:29 Patient unable to answer at this time (ie. confused, unrespo /Reproduction History /Reproductive History - health care legal assistant: /Reproductive Hx- health care legal assistant Hx Now No 06/22/25 11:29 Gestational Age (in weeks): EDC: Hx Hx Para Hx Section SAB No 06/22/25 11:29 [facility] Medical History (Updated 06/22/25 @ 13:07 by Maria Victoria Doyle) Wears hearing aid Wears glasses Depression Ambulates with cane Insulin dependent diabetes mellitus Arthritis Prostate disease High cholesterol Restless legs Back pain Seizures Difficulty swallowing Dietary restriction Non-smoker Shortness of breath on exertion CPAP (continuous positive airway pressure) dependence Leg cramps History of edema History of stress test Hypertension Stroke/cerebrovascular accident Home Medications ?Medication ?Instructions ?Recorded ?Last Taken ?Type clopidogrel 75 mg tablet 75 mg PO DAILY ANTIPLATLET 07/26/17 06/18/25 History pravastatin 20 mg tablet 20 mg PO QHS CHOLSETEROL LOWERING 07/26/17 12/18/19 18:30 History fenofibrate nanocrystallized 145 145 mg PO DAILY cholesterol 10/11/19 12/20/19 10:05 History mg tablet levetiracetam 750 mg tablet 750 mg PO BID seizures 10/11/19 12/20/19 10:05 History acetaminophen 325 mg tablet 650 mg (2 x 325 mg) PO Q6H PRN PRN 12/20/19 12/19/19 15:44 Rx Pain Score 1-10/Temp > 100.7 F cholecalciferol (vitamin D3) 25 2,000 unit PO DAILY 01/12/20 Unknown Rx mcg (1,000 unit) tablet propranolol 10 mg tablet 10 mg PO BID@0800,2200 #60 tabs 01/12/20 Unknown Rx sertraline 100 mg tablet 100 mg PO DAILY #30 tabs 01/12/20 Unknown Rx empagliflozin 10 mg tablet 10 mg PO DAILY 06/22/25 Unknown History (Jardiance) insulin glargine 100 unit/mL (3 28 unit subcut QHS 06/22/25 Unknown History mL) subcutaneous pen (Lantus Solostar U-100 Insulin) insulin lispro 100 unit/mL 4 unit subcut QHS 06/22/25 Unknown History subcutaneous pen (Humalog KwikPen (U-100) Insulin) insulin lispro 100 unit/mL 8 unit subcut DAILY 06/22/25 Unknown History subcutaneous pen (Humalog KwikPen (U-100) Insulin) insulin lispro 100 unit/mL 12 unit subcut LUNCH 06/22/25 Unknown History subcutaneous pen (Humalog KwikPen (U-100) Insulin) metformin 500 mg tablet,extended 500 mg PO BID 06/22/25 Unknown History release 24 hr montelukast 10 mg tablet 10 mg PO QHS 06/22/25 Unknown History pioglitazone 30 mg tablet 30 mg PO DAILY 06/22/25 Unknown History Allergy/AdvReac Type Severity Reaction Status Date / Time atorvastatin (From Lipitor) AdvReac Mild Other Verified 06/22/25 11:54 primidone AdvReac Other Verified 06/22/25 11:17 Surgical History (Updated 06/22/25 @ 11:43 by Maria Victoria Doyle) Hx of colonoscopy Hx laparoscopic cholecystectomy Social History (Updated 03/12/20 @ 11:[address] Chikis Billings, DO) Smoking Status: Never smoker Audit: Pertinent Findings Pertinent Findings EKG Perinent findings: 06/20/2025 Sinus Rhythm, Ventricular Premature Complexes, Non-Specific ST abnormalities Recommendation Anesthesia Recommendation Anesthesia recommendation: OPTIMIZED for anesthesia
[2025-06-27] VITALS (13 sets, daily range): BP systolic 109–140; BP diastolic 56–80; PULSE 62–81; RESP 14–18; TEMP 36.2–36.7; O2SAT 90–99; BMI 32.5; BMI 32.6
[2025-06-27] MEDS: Lactated Ringers 1,000 ML 15 ML IV (09:21)
--- NOTE | 2025-06-27 09:29 | PCM.PRE.AN2 ---
ASA Classification* ASA Classification ASA Classification: 3 Assessment & Plan Anesthesia* Anesthesia Assessment Anesthesia Assessment: Discussed sedation and/or anesthesia options, risks, benefits, and alternatives with patient/parents/legal guardian/POA. Questions invited. The patient/parents/legal guardian/POA seems to understand and agrees to proceed with anesthesia plan. Reviewed the physical assessment, medical history, allergy history and patient home medications list prior to surgery/procedure/anesthetic and documented any changes. Performed airway and anesthesia risk assessments. Anesthesia Type Anesthesia Type: General History Source History Obtained from:: Patient and Chart Anesthesia Focused Assessment* Temperature: 97.2 F Pulse Rate: 70 Blood Pressure: 136/72 Respiratory Rate: 18 Pulse Ox: 96 Oxygen Delivery Method: Room Air Airway Assessment Mouth opens: >3 cm Mallampati Score: III Teeth Condition: Missing (Patient has a couple of missing teeth. The rest are tight.) Neck Range of motion (ROM): Limited ROM (Severe Restriction) Labs Anesthesia Preop lab: CBC WBC 5.2 K/mm3 (4.4-11.0) 01/08/20 05:25 01/08/20 RBC 4.15 M/mm3 (4.6-6.2) L 01/08/20 05:25 01/08/20 Hgb 12.8 g/dL (13.0-16.5) L 01/08/20 05:25 01/08/20 Hct 40.9 % (40-54) 01/08/20 05:25 01/08/20 Plt Count 156 K/mm3 (150-450) 01/08/20 05:25 01/08/20 CHEMISTRY Potassium 4.3 mmol/L (3.5-5.1) 01/08/20 05:25 01/08/20 Sodium 146 mmol/L (136-145) H 01/08/20 05:25 01/08/20 Magnesium 2.1 mg/dL (1.6-2.6) 12/25/19 05:25 12/25/19 Phosphorus 3.2 mg/dL (2.5-4.9) 12/25/19 05:25 12/25/19 BUN 23 mg/dL (7-18) H 01/08/20 05:25 01/08/20 Creatinine 1.12 mg/dL (0.70-1.30) 01/08/20 05:25 01/08/20 Glucose 89 mg/dL (74-106) 01/08/20 05:25 01/08/20 POC Glucose 88 mg/dL (70-110) 12/20/19 16:48 12/20/19 TSH 3.94 uIU/mL (0.358-3.74) H 10/11/19 14:57 10/11/19 COAG PT 14.3 SECONDS (11.7-14.9) 12/18/19 22:10 12/18/19 Pre-Assessment Diagnosis/Proposed Procedure Planned Operative Procedure(s): TURP Anesthesia History Anesthesia History - 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 When Was Last Pacemaker Check QUESTION #4 FULL TEXT: You/Your Family Experience fever (hyperthermia) with Anesthesia Last Oral Intake Last Oral intake: Last Oral Intake NPO since 00:00 06/27/25 09:15 Meds taken in AM with sips of No 06/27/25 09:15 water? Meds patient instructed to take am of surgery PONV PONV - hand woodworking sander: PONV - hand woodworking sander Female No 06/22/25 11:29 HX of Motion Sickness No 06/22/25 11:29 HX of N/V After Surgery No 06/22/25 11:29 Non-Smoker Yes 06/22/25 11:29 Duration of Surgery greater Yes 06/22/25 11:29 than 60 minutes Number of Risk Factors 2 06/22/25 11:29 PONV Score Moderate Risk 06/22/25 11:29 Height & Weight Height & Weight: Anesthesia: Height & Weight Height 5 ft 11 in 06/27/25 09:15 Weight: 106 kg 06/27/25 09:15 Body Mass Index (BMI) 32.5 06/27/25 09:15 Respiratory Assessment Respiratory Assessment - hand woodworking sander: Respiratory Tract Infection Hx - hand woodworking sander Hx Respiratory Tract Infection No 06/22/25 11:29 STOP Sleep Apnea STOP Sleep Apnea - hand woodworking sander: STOP Sleep Apnea - hand woodworking sander Hx Hypertension Yes: NO MEDS FOR 10 YRS AGO 06/22/25 11:29 Hx Sleep Apnea Yes 06/22/25 11:29 CPAP Yes 06/22/25 11:29 BIPAP No 06/22/25 11:29 Do you snore loudly (louder than talking or can be heard Do you often feel tired/ fatigued/ sleepy during daytime? Has anyone observed you stop breathing during sleep? STOP Results Positive 06/22/25 11:29 QUESTION #5 FULL TEXT : Do you snore loudly (louder than talking or can be heard through closed doors)? 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 Specify any problems Hx of Preganancy in last 3 N/A 06/22/25 11:29 Months Nurse Filling Out Transfusion DSCHRIBER 06/22/25 11:29 & Questions: Date: 06/22/25 06/22/25 11:29 Time: 11:30 06/22/25 11:29 Patient unable to answer at this time (ie. confused, unrespo /Reproduction History /Reproductive History - hand woodworking sander: /Reproductive Hx- hand woodworking sander Hx Now No 06/22/25 11:29 Gestational Age (in weeks): EDC: Hx Hx Para Hx Section SAB No 06/22/25 11:29 Active Medications Active Medications: Current Medications Generic Name Dose Route Start Last Admin Trade Name Poornima PRN Reason Stop Dose Admin Cefazolin Sodium 2 gm/ Sodium 110 mls @ 200 mls/hr 06/27/25 10:45 Chloride IV 06/27/25 11:17 INTRAOP ONE Lactated Ringer's 1,000 mls @ 15 mls/hr 06/27/25 09:00 06/27/25 09:21 IV 15 mls/hr .Q48H MARILIA Administration PFSH Medical History Wears hearing aid Wears glasses Depression Ambulates with cane Insulin dependent diabetes mellitus Arthritis Prostate disease High cholesterol Restless legs Back pain Seizures Difficulty swallowing Dietary restriction Non-smoker Shortness of breath on exertion CPAP (continuous positive airway pressure) dependence Leg cramps History of edema History of stress test Hypertension Stroke/cerebrovascular accident Home Medications ?Medication ?Instructions ?Recorded ?Last Taken ?Type clopidogrel 75 mg tablet 75 mg PO DAILY ANTIPLATLET 07/26/17 06/18/25 History pravastatin 20 mg tablet 20 mg PO QHS CHOLSETEROL LOWERING 07/26/17 06/26/25 History fenofibrate nanocrystallized 145 145 mg PO DAILY cholesterol 10/11/19 06/26/25 History mg tablet levetiracetam 750 mg tablet 750 mg PO BID seizures 10/11/19 06/26/25 History acetaminophen 325 mg tablet 650 mg (2 x 325 mg) PO Q6H PRN PRN 12/20/19 12/19/19 15:44 Rx Pain Score 1-10/Temp > 100.7 F cholecalciferol (vitamin D3) 25 2,000 unit PO DAILY 01/12/20 Unknown Rx mcg (1,000 unit) tablet propranolol 10 mg tablet 10 mg PO BID@0800,2200 #60 tabs 01/12/20 06/26/25 Rx sertraline 100 mg tablet 100 mg PO DAILY #30 tabs 01/12/20 06/26/25 Rx empagliflozin 10 mg tablet 10 mg PO DAILY 06/22/25 06/22/25 History (Jardiance) insulin glargine 100 unit/mL (3 28 unit subcut QHS 06/22/25 06/25/25 History mL) subcutaneous pen (Lantus Solostar U-100 Insulin) insulin lispro 100 unit/mL 4 unit subcut QHS 06/22/25 06/25/25 History subcutaneous pen (Humalog KwikPen (U-100) Insulin) insulin lispro 100 unit/mL 8 unit subcut DAILY 06/22/25 06/25/25 History subcutaneous pen (Humalog KwikPen (U-100) Insulin) insulin lispro 100 unit/mL 12 unit subcut LUNCH 06/22/25 06/25/25 History subcutaneous pen (Humalog KwikPen (U-100) Insulin) metformin 500 mg tablet,extended 500 mg PO BID 06/22/25 06/26/25 History release 24 hr montelukast 10 mg tablet 10 mg PO QHS 06/22/25 06/26/25 History pioglitazone 30 mg tablet 30 mg PO DAILY 06/22/25 06/26/25 History Allergy/AdvReac Type Severity Reaction Status Date / Time atorvastatin (From Lipitor) AdvReac Mild Other Verified 06/27/25 09:11 primidone AdvReac Other Verified 06/27/25 09:11 Surgical History Hx of colonoscopy Hx laparoscopic cholecystectomy Social History Smoking Status: Never smoker Review of Systems (Anesthesia) ROS Narrative System reviewed and no additional complaints, except as documented.
[2025-06-27 09:37] LABS: Partial Thromboplast Time 27.4 Seconds (24.1-36.2)
[2025-06-27] MEDS: Cefazolin 1 GM/5 ML Vial 2 GM IV (10:50)
[2025-06-27] MEDS: Lidocaine 1% (5 ml sdv) 5 ML Vial IV (10:58)
[2025-06-27] MEDS: fentaNYL 100 MCG/2 ML Ampul IV (11:07)
--- NOTE | 2025-06-27 11:55 | DCINST_ITS ---
Discharge Instructions DC O2, CPAP, BIPAP needs Home O2 Discharge instructions: No Dressing / Incision Discharge Activity: Return to Normal Activity and May Not Drive (while taking narcotic pain medications.) Dressing / Incision Call your doctor if you observe: Fever of 101 or Higher Follow Up Care Please Follow Up With: Mauricio Yao MD When: Call [phone] for an appointment Test Results: Test results from this visit will be discussed in further detail at your follow- up appointment, if applicable. Discharge Plan Admission Primary Reason for Your Visit: turp Attending Provider: Mauricio Yao Primary Care Provider: Antonio Pearson Instructions Print Language: Chinese Discharge Orders/Prescriptions Prescriptions: New ciprofloxacin HCl [Cipro] 500 mg tablet 500 mg PO BID Qty: 10 0RF Continued pravastatin 20 MG tablet 20 mg PO QHS fenofibrate nanocrystallized 145 MG tablet 145 mg PO DAILY Patient Comments: TAKE 1 TABLET BY MOUTH ONCE DAILY levetiracetam 750 MG tablet 750 mg PO BID acetaminophen 325 MG tablet 650 mg PO Q6H PRN PRN (Reason: Pain Score 1-10/Temp > 100.7 F) 0RF propranolol 10 MG tablet 10 mg PO BID@0800,2200 Qty: 60 0RF cholecalciferol (vitamin D3) 1,000 UNIT tablet 2,000 unit PO DAILY 0RF sertraline 100 MG tablet 100 mg PO DAILY Qty: 30 0RF insulin glargine [Lantus Solostar U-100 Insulin] 100 unit/mL (3 mL) insulin pen 28 unit subcut QHS insulin lispro [Humalog KwikPen Insulin] 100 unit/mL insulin pen 8 unit subcut DAILY montelukast 10 mg tablet 10 mg PO QHS pioglitazone 30 mg tablet 30 mg PO DAILY metformin 500 mg tablet extended release 24 hr 500 mg PO BID Jardiance 10 mg tablet 10 mg PO DAILY insulin lispro [Humalog KwikPen Insulin] 100 unit/mL insulin pen 12 unit subcut LUNCH insulin lispro [Humalog KwikPen Insulin] 100 unit/mL insulin pen 4 unit subcut QHS Held clopidogrel 75 MG tablet 75 mg PO DAILY Hold Instructions: Resume on 07/11/25. Referrals / Follow Up: Antonio Pearson MD [Primary Care Provider] - Mauricio Yao MD [Med Staff - Active Staff] - Disposition Disposition (needs filled in before D/C Order can be placed): Home, Self Care
--- NOTE | 2025-06-27 11:56 | OP.PCM_ITS ---
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 Post-Operative Diagnosis: The same Surgery/Procedure Performed: Transurethral section of prostate staffing operations manager: No Type of Anesthesia: General RN Documented Start/Stop Times: Operation Date: 06/27/25 10:45 Case Time Into Pre-Op 06/27/25 08:44 Out of Pre-Op 06/27/25 10:40 Anesthesia Start 06/27/25 10:49 Into Room 06/27/25 10:49 Procedure Start 06/27/25 11:08 Procedure End 06/27/25 11:49 Procedure Start Time: 11:08 Procedure Stop Time: 11:56 Select all DRAINS/GRAFTS/IMPLANTS that apply: Drains Drain details: 22 [place] three-way [place] Estimated Blood Loss: Minimal Specimen collected: Yes Description of specimen(s) removed: Prostate chips Description of surgery: This is a 75-year-old male who came and saw me for consultation regarding bladder problems he was found to have a large obstructive prostate and bladder was not emptying all the way he was having to go frequently having accidents and urgency and frequency recommended we proceed with a transurethral resection of t he prostate to open up the channel so he can empty his bladder better hopefully with better emptying of his bladder he will have better bladder control but this is not a guarantee the patient understands this rate and resect open the prostate channel he will need a catheter overnight and then will take out the catheter for a voiding trial tomorrow. Patient was taken back to the operating room after smooth duction of anesthesia penis and testicles were placed in dorsolithotomy position and he was placed in dorsolithotomy position both testicles and penis were prepped and draped in usual sterile fashion went into the bladder with a 26 [place] continuous-flow Olympus bipolar resectoscope identify the anatomy he had a verumontanum large median lobe and the high riding bladder neck with a large obstructive tissue bladder was quite distended identified the left and right ureteral orifice I then resected the median lobe first and then resected the floor the prostate resected the right lobe of the prostate the left low the prostate very carefully resected up to the apical tissue and around the roof of the prostate had a nice wide open channel did a flow test had a good open flow sphincter was intact the verumontanum was not injured left the right ureter orifice were clear not injured after this I cauterized extensively got hemostasis all the chips were Ellik out of the bladder and then put a 22 [place] catheter in the bladder for continuous irrigation the urine is fairly clear patient was extubated taken back to the PACU in good condition. Surgical Findings: Obstructive prostate incomplete bladder emptying Complications Complications: No Admit VTE Documentation VTE Present on Admission: No VTE Mechan Device Prophylaxis: SCD's VTE Pharm Prophylaxis ordered?: No
--- NOTE | 2025-06-27 12:04 | PCM.POST.ANE ---
Anesthesia: Postop Eval I Current Vital Signs Temperature: 97.5 F Pulse Rate: 69 Blood Pressure: 132/68 Respiratory Rate: 16 Pulse Ox: 92 Oxygen Delivery Method: Room Air Assessment Airway patent: Yes Spontaneous unlabored respirations: Yes Mental status: Asleep nausea: No Vomiting: No Anesthesia Complication: No Fluid Hydration Crystalloid volume administer (ml): 800 Total IV fluid infused: 800 Progress Note Anesthesia document: Postop Eval 1 completed: Yes
--- NOTE | 2025-06-27 12:18 | PROS_PTH ---
PATIENT: ISAAC PAEZ LOC: [facility]3 U#:[id number] AGE/SX: 75/M ROOM: [facility] [place] RE06/27/[address]: Dr. Mauricio aYo MD : 1950 BED: 1 DIS: 06/28/2025 SPEC #: [id number] RECD: 06/27/25 12:18 STATUS: EMILY SCALES #: [id number] MARCELA: 06/27/25 12:[address]: Mauricio Yao DEPT: SURGICAL PATHOLOGY RECD BY: Bear Aleman ENTERED: 06/27/25 14:14 SP TYPE: TURP OTHR DR: Dr. Antonio Pearson MD Tissues: A - Prostate, NOS Procedures: Surgery Specimen Level IV HEADER OPERATION: Cysto, transurethral resection of prostate PRE-OP DIAGNOSIS: Benign prostatic hypertrophy with lower urinary tract symptoms TISSUE SUBMITTED: A- Prostate chips MICROSCOPIC DIAGNOSIS A. Prostate, transurethral resection: - Benign prostate tissue. MICROSCOPIC DESCRIPTION Slides are reviewed. GROSS DESCRIPTION A. Received in formalin labeled with the patient's name and date of . Designated as prostate tissue is a 10.2 g, 6.5 x 5.9 x 1.1 cm aggregate of irregular, bettencourt, rubbery and cauterized tissue fragments. Entirely submitted in 7 cassettes. GA 06/28/2025 CPT:30970
[2025-06-27] MEDS: 0.9% Normal Saline (1000mL) 1,000 ML 50 ML IV (14:05)
--- NOTE | 2025-06-27 15:54 | POSTOPAN2_ITS ---
Anesthesia Postop Eval I Sum Postop Eval Completion status Anesthesia document: Postop Eval 1 completed: Yes Anesthesia Postop Eval I Summary Anesthesia Postop Eval I Summary: Anesthesia Postop Eval I: Assessment Summary Airway patent Yes 06/27/25 12:05 PARKING METER [email or web address].[email or web address] Spontaneous unlabored Yes 06/27/25 12:05 PARKING METER SERVICER.JBOR respirations Mental status Asleep 06/27/25 12:05 PARKING METER SERVICER.JBOR nausea No 06/27/25 12:05 PARKING METER SERVICER.JBOR Vomiting No 06/27/25 12:05 PARKING METER SERVICER.JBOR Anesthesia Postop Eval I: Fluid Summary Crystalloid volume administer 800 06/27/25 12:05 PARKING METER SERVICER.JBOR (ml) Colloids volume administered ( ml) Blood Product volume administered (ml) Total IV fluid infused 800 06/27/25 12:05 PARKING METER SERVICER.JBOR Anesthesia Postop Eval I: Summary Notes Anesthesia Complication No 06/27/25 12:05 PARKING METER SERVICER.[email or web address] Anesthesia Complication Comment: Post-operative progress note Anesthesia: Postop Eval II Evaluation Mental status: Awake and Calm Pain Level: 0 nausea: No Vomiting: No Complications Anesthesia Complication: No
--- NOTE | 2025-06-27 15:54 | PCM.POSTANE2 ---
Anesthesia Postop Eval I Sum Postop Eval Completion status Anesthesia document: Postop Eval 1 completed: Yes Anesthesia Postop Eval I Summary Anesthesia Postop Eval I Summary: Anesthesia Postop Eval I: Assessment Summary Airway patent Yes 06/27/25 12:05 DRAWING INSTRUCTOR.[email or web address] Spontaneous unlabored Yes 06/27/25 12:05 DRAWING INSTRUCTOR.JBOR respirations Mental status Asleep 06/27/25 12:05 DRAWING INSTRUCTOR.JBOR nausea No 06/27/25 12:05 DRAWING INSTRUCTOR.JBOR Vomiting No 06/27/25 12:05 DRAWING INSTRUCTOR.JBOR Anesthesia Postop Eval I: Fluid Summary Crystalloid volume administer 800 06/27/25 12:05 DRAWING INSTRUCTOR.JBOR (ml) Colloids volume administered ( ml) Blood Product volume administered (ml) Total IV fluid infused 800 06/27/25 12:05 DRAWING INSTRUCTOR.JBOR Anesthesia Postop Eval I: Summary Notes Anesthesia Complication No 06/27/25 12:05 DRAWING INSTRUCTOR.JBOR Anesthesia Complication Comment: Post-operative progress note Anesthesia: Postop Eval II Evaluation Mental status: Awake and Calm Pain Level: 0 nausea: No Vomiting: No Complications Anesthesia Complication: No
[2025-06-27] MEDS: metFORMIN (XR) 500 MG Tablet PO (17:46)
[2025-06-27] MEDS: Insulin Glargine-YFGN 100 UNIT/ML Pen 28 UNIT SC (21:00)
[2025-06-28 02:07] VITALS: BP 137/69; PULSE 67; RESP 16; TEMP 36.7; O2SAT 95
[2025-06-28 02:10] VITALS: BMI 32.6
[2025-06-28 05:25] VITALS: BP 124/69; PULSE 60; RESP 16; TEMP 36.8; O2SAT 96
[2025-06-28 05:26] VITALS: BMI 32.6
--- NOTE | 2025-06-28 07:22 | DS.PCM_ITS ---
Providers Date of Admission: 06/27/25 Primary Care Physician: Dr. Antonio Pearson MD Reason For Visit: Cysto,Transurethral Resection Prostate Medications at Discharge Home Medications clopidogrel 75 mg tablet 75 mg PO DAILY ANTIPLATLET 07/26/17 Held on 06/27/25. Instructions: Resume on 07/11/25. pravastatin 20 mg tablet 20 mg PO QHS CHOLSETEROL LOWERING 07/26/17 fenofibrate nanocrystallized 145 mg tablet 145 mg PO DAILY cholesterol 10/11/19 levetiracetam 750 mg tablet 750 mg PO BID seizures 10/11/19 acetaminophen 325 mg tablet 650 mg (2 x 325 mg) PO Q6H PRN PRN Pain Score 1- 10/Temp > 100.7 F 12/20/19 cholecalciferol (vitamin D3) 25 mcg (1,000 unit) tablet 2,000 unit PO DAILY 01/12/20 propranolol 10 mg tablet 10 mg PO BID@0800,2200 #60 tabs 01/12/20 sertraline 100 mg tablet 100 mg PO DAILY #30 tabs 01/12/20 empagliflozin 10 mg tablet (Jardiance) 10 mg PO DAILY 06/22/25 insulin glargine 100 unit/mL (3 mL) subcutaneous pen (Lantus Solostar U-100 Insulin) 28 unit subcut QHS 06/22/25 insulin lispro 100 unit/mL subcutaneous pen (Humalog KwikPen (U-100) Insulin) 4 unit subcut QHS 06/22/25 insulin lispro 100 unit/mL subcutaneous pen (Humalog KwikPen (U-100) Insulin) 8 unit subcut DAILY 06/22/25 insulin lispro 100 unit/mL subcutaneous pen (Humalog KwikPen (U-100) Insulin) 12 unit subcut LUNCH 06/22/25 metformin 500 mg tablet,extended release 24 hr 500 mg PO BID 06/22/25 montelukast 10 mg tablet 10 mg PO QHS 06/22/25 pioglitazone 30 mg tablet 30 mg PO DAILY 06/22/25 ciprofloxacin HCl 500 mg tablet (Cipro) 500 mg PO BID #10 tabs 06/27/25 Hospital Course Operations TURP Weight / BMI Weight Weight: 106 kg Body Mass Index (BMI) 32.5 ABG / Lab / Microbiology Data Laboratory: Laboratory Results - last 24 hr 06/27/25 08:58: APTT 27.4 06/27/25 09:07: POC Glucose 167 H 06/27/25 13:52: POC Glucose 177 H 06/27/25 17:45: POC Glucose 244 H 06/27/25 20:59: POC Glucose 202 H D/C Instructions Call your doctor if you observe: Fever of 101 or Higher DC O2, CPAP, BIPAP Needs Home O2 Discharge instructions: No Please Follow Up With: Mauricio Yao MD When: Call [phone] for an appointment Meaningful Use Info Meaningful Use Meaningful Use Diagnoses (Choose all that apply): None applicable Discharge Plan Admission Admit Date/Time: 06/27/25 11:52 Primary Reason for Your Visit: [email or web address] Attending Provider: Mauricio Yao Primary Care Provider: Antonio Pearson Discharge Orders/Prescriptions Prescriptions: New ciprofloxacin HCl [Cipro] 500 mg tablet 500 mg PO BID Qty: 10 0RF Continued pravastatin 20 MG tablet 20 mg PO QHS fenofibrate nanocrystallized 145 MG tablet 145 mg PO DAILY Patient Comments: TAKE 1 TABLET BY MOUTH ONCE DAILY levetiracetam 750 MG tablet 750 mg PO BID acetaminophen 325 MG tablet 650 mg PO Q6H PRN PRN (Reason: Pain Score 1-10/Temp > 100.7 F) 0RF propranolol 10 MG tablet 10 mg PO BID@0800,2200 Qty: 60 0RF cholecalciferol (vitamin D3) 1,000 UNIT tablet 2,000 unit PO DAILY 0RF sertraline 100 MG tablet 100 mg PO DAILY Qty: 30 0RF insulin glargine [Lantus Solostar U-100 Insulin] 100 unit/mL (3 mL) insulin pen 28 unit subcut QHS insulin lispro [Humalog KwikPen Insulin] 100 unit/mL insulin pen 8 unit subcut DAILY montelukast 10 mg tablet 10 mg PO QHS pioglitazone 30 mg tablet 30 mg PO DAILY metformin 500 mg tablet extended release 24 hr 500 mg PO BID Jardiance 10 mg tablet 10 mg PO DAILY insulin lispro [Humalog KwikPen Insulin] 100 unit/mL insulin pen 12 unit subcut LUNCH insulin lispro [Humalog KwikPen Insulin] 100 unit/mL insulin pen 4 unit subcut QHS Held clopidogrel 75 MG tablet 75 mg PO DAILY Hold Instructions: Resume on 07/11/25. Referrals / Follow Up: Antonio Pearson MD [Primary Care Provider] - Mauricio Yao MD [Med Staff - Active Staff] - Disposition Disposition (needs filled in before D/C Order can be placed): Home, Self Care
[2025-06-28 08:00] VITALS: BP 127/64; PULSE 64; RESP 16; TEMP 36.6; O2SAT 95
[2025-06-28 08:30] VITALS: BMI 32.6
[2025-06-28] MEDS: Pioglitazone Hydrochloride 30 MG Tablet PO (08:37)
[2025-06-28] MEDS: metFORMIN (XR) 500 MG Tablet PO (08:37)
--- NOTE | 2025-06-28 11:51 | PHA.DC.MC.R ---
Pharmacy [facility] Counseling Pharmacy Service has performed discharge medication reconciliation and counseling for this patient. The patient's discharge medication list was reviewed for discrepancies and discrepancies were resolved. The patient was counseled on the following discharge medications and changes in medications for homegoing were reviewed. 1. CIPRO The Reason for Use, instructions for use, and potential side effects were reviewed for all new medications. The patient's questions regarding all of their medications were answered. The patient was able to verbally demonstrate an understanding of their discharge medications. Medications at Discharge Home Medications clopidogrel 75 mg tablet 75 mg PO DAILY ANTIPLATLET 07/26/17 Held on 06/27/25. Instructions: Resume on 07/11/25. pravastatin 20 mg tablet 20 mg PO QHS CHOLSETEROL LOWERING 07/26/17 fenofibrate nanocrystallized 145 mg tablet 145 mg PO DAILY cholesterol 10/11/19 levetiracetam 750 mg tablet 750 mg PO BID seizures 10/11/19 acetaminophen 325 mg tablet 650 mg (2 x 325 mg) PO Q6H PRN PRN Pain Score 1-10/Temp > 100.7 F 12/20/19 cholecalciferol (vitamin D3) 25 mcg (1,000 unit) tablet 2,000 unit PO DAILY 01/12/20 propranolol 10 mg tablet 10 mg PO BID@0800,2200 #60 tabs 01/12/20 sertraline 100 mg tablet 100 mg PO DAILY #30 tabs 01/12/20 empagliflozin 10 mg tablet (Jardiance) 10 mg PO DAILY 06/22/25 insulin glargine 100 unit/mL (3 mL) subcutaneous pen (Lantus Solostar U-100 Insulin) 28 unit subcut QHS 06/22/25 insulin lispro 100 unit/mL subcutaneous pen (Humalog KwikPen (U-100) Insulin) 4 unit subcut QHS 06/22/25 insulin lispro 100 unit/mL subcutaneous pen (Humalog KwikPen (U-100) Insulin) 8 unit subcut DAILY 06/22/25 insulin lispro 100 unit/mL subcutaneous pen (Humalog KwikPen (U-100) Insulin) 12 unit subcut LUNCH 06/22/25 metformin 500 mg tablet,extended release 24 hr 500 mg PO BID 06/22/25 montelukast 10 mg tablet 10 mg PO QHS 06/22/25 pioglitazone 30 mg tablet 30 mg PO DAILY 06/22/25 ciprofloxacin HCl 500 mg tablet (Cipro) 500 mg PO BID #10 tabs 06/27/25
[2025-06-28 11:54] VITALS: BP 116/63; PULSE 61; RESP 16; O2SAT 95
== END 2025-06-28 12:02 | disposition home or self-care (01) ==
LOC: SDC 12:33 → MS3 12:33
PROVIDERS: Anesthesiology; Admitting Provider Urology; PCP Family Medicine; Referring Provider Urology; Visit Provider Urology
PROC: 0VT08ZZ Resection of Prostate, Via Natural or Artificial Opening Endoscopic (ICD-10-PCS; CPT 52601; principal; 2025-06-27 10:35)
DX: N40.1 Benign prostatic hyperplasia with lower urinary tract symptoms (principal); E11.9 Type 2 diabetes mellitus without complications; Z79.4 Long term (current) use of insulin; R33.8 Other retention of urine; Z79.02 Long term (current) use of antithrombotics/antiplatelets; Z79.899 Other long term (current) drug therapy; Z79.84 Long term (current) use of oral hypoglycemic drugs; Z86.73 Personal history of transient ischemic attack (TIA), and cerebral infarction without residual deficits; R35.0 Frequency of micturition; R39.11 Hesitancy of micturition; R35.1 Nocturia; I10 Essential (primary) hypertension; R06.02 Shortness of breath; E78.00 Pure hypercholesterolemia, unspecified
CPT/HCPCS: 52601; 82962; 85730; 88305; 96365; 96366; 99221; G0378; J0744; J2405